=== PATIENT | male | born 1970 | race Caucasian/White ===

== ENCOUNTER 2017-04-17 20:38 | Emergency (ER) | payer MEDICAID, SELFPAY ==
[2017-04-17 20:39] VITALS: BP 144/72; PULSE 110; RESP 24; TEMP 36.9; O2SAT 93; BMI 33.0
--- NOTE | 2017-04-17 21:32 | EKG12_ITS ---
Test Reason : SOB Blood Pressure : / mmHG Vent. Rate : 084 BPM Atrial Rate : 084 BPM P-R Int : 130 ms QRS Dur : 094 ms QT Int : 344 ms P-R-T Axes : 059 040 037 degrees QTc Int : 406 ms Normal sinus rhythm Normal ECG Confirmed by ZEINA PAK, BOO ([id number]), fashion editor SHARI CARRANZA ([id number] on 04/20/2017 10:40:06 AM Referred By: KB Confirmed By:BOO PASTRANA MD
--- NOTE | 2017-04-17 21:32 | RAD_ITS ---
STUDY: X-RAY CHEST REASON FOR EXAM: Male, 46 years old. Cough TECHNIQUE: Frontal and lateral views of the chest COMPARISON: None. FINDINGS: There is patchy airspace opacity in the right lower lobe which is likely infectious in etiology. The lungs are otherwise clear. There are no pleural effusions. There is no pneumothorax. The heart is normal in size. The visualized osseous structures are within normal limits. RAD/Chest PA and Lateral IMPRESSION: Patchy airspace opacity in the right lower lobe which is likely infectious in etiology. Electronically Signed: Santino Rhodes, at 23:33 EST Tel , Service support ,
--- NOTE | 2017-04-17 21:35 | ED.RN ---
NO OLD EKG'S IN MUSE
--- NOTE | 2017-04-17 21:37 | ED.DCSUM_ITS ---
- ER Visit Summary Date of Service: 04/17/17 Chief Complaint: Shortness of breath History of Present Illness: The patient is a 46 M who denies medical history other than narcolepsy and presents with shortness of breath for 1 week. Patient states he is gradually felt more short of breath, especially if he is laying flat or has his legs up. He has associated cough, tickle in his throat, and congestion. He denies chest pain, fever, myalgias, or other symptoms. Denies any history of COPD or heart disease. Patient does use tobacco. He takes no medications. Physical Examination: Vital signs: afebrile, hemodynamically stable, no hypoxia on room air General: well nourished, well developed, in no distress Skin: warm, dry, no rash, no pallor HEENT: normocephalic and atraumatic; PERRL, EOMI, moist mucous membranes Cardiovascular: Tachycardic rate rate and regular rhythm without murmurs, no peripheral edema, 2+ pulses all distal extremities Respiratory: No increased work of breathing, lungs show diffuse wheezing and rhonchi Abdominal: Abdomen is soft, nontender with normoactive bowel sounds, no guarding or rebound, no masses MSK: Moves all extremities, no deformities, normal strength Neuro: Awake and alert, oriented ?4. No facial droop, sensation and motor function intact and symmetric Test Results: Abnormal Lab Results 04/17/17 04/17/17 21:45 21:45 WBC 7.3 RBC 4.90 Hgb 16.0 Hct 45.4 MCV 92.7 MCH 32.7 H MCHC 35.2 RDW 12.7 RDW Differential 42.5 Plt Count 235 MPV 10.2 Immature Gran % (Auto) 0.300 Neut % (Auto) 54.8 Lymph % (Auto) 27.9 [place] % (Auto) 12.1 H Eos % (Auto) 4.1 Baso % (Auto) 0.8 Absolute Neuts (auto) 4.0 Absolute Lymphs (auto) 2.02 Total Counted Not Reportable Sodium 142 Potassium 3.9 Chloride 105 Carbon Dioxide 29.0 Anion Gap 8 BUN 14 Creatinine 0.95 Estim Creat Clear Calc 98.19 Est GFR (MDRD) Af Amer 109 Est GFR (MDRD) Non-Af 90 BUN/Creatinine Ratio 14.8 Glucose 110 Calcium 8.6 Troponin I < 0.02 Emergency Department Course and Treatment: Patient was given DuoNeb and albuterol treatments for his diffuse wheezing. He has no known history of reactive airway disease. He is a smoker however and does not currently see a doctor. EKG showed a sinus rhythm without ischemia or ectopy. Patient had no leukocytosis. No electrolyte derangements. Troponin negative. Chest x-ray was concerning for a right lower lobe infiltrate. On reexamination after the breathing treatments, patient had resolution of the wheezing and mild rhonchi in the lower lobes. Because of the diagnosis of pneumonia, he was started on azithromycin. He remained hemodynamically stable and remained in the mid to high 90s on room air. Patient was given a prescription for albuterol due to the diffuse wheezing and possible undiagnosed reactive airway disease. Patient also placed on a prednisone burst for RAD. Patient was given follow-up with a primary care physician to establish care. He is to return if he has any worsening of his condition. Patient discharged home. Treatment Plan: [] Disposition: [] Impression: Community-acquired pneumonia, reactive airway disease This note was generated with [employer] dictation software. It may contain incorrect words, spelling, and punctuation that were not noted in review of the chart prior to signing ED Disposition - Plan for ED Patient: Disposition: Home or Assisted Living Chief Complaint: Shortness of Breath Instructions: ED Pneumonia Adult Prescriptions: Albuterol Inhaler [Ventolin Hfa] 2 - 4 puff INHALATION Q4H PRN PRN #1 inhaler PRN Reason: Wheezing Azithromycin [Zithromax] 250 mg PO DAILY #4 tab Prednisone 60 mg PO DAILY 4 Days #12 tab Referrals: Johana Adhikari MD [STAFF PHYSICIAN] - 3-5 Days if not improving Care Physician,No Primary [Primary Care Provider] - Additional Instructions: You have pneumonia. You were given breathing treatments, the first dose of antibiotic azithromycin, and prednisone in the ER. Please use the albuterol inhaler as needed for wheezing. Please take the antibiotic prescription for the next 4 days starting on Wednesday. These follow-up with the doctor on this paperwork to establish primary care and also for repeat evaluation if you are not having improvement in 3 days. If you have any worsening of your condition or any new concerning symptoms, please come back to the emergency department for another evaluation.
[2017-04-17] MEDS: Ipratropium/Albuterol Sulfate 3 ML AMPUL.NEB INHALATION (21:50)
[2017-04-17 21:51] VITALS: BP 145/70; PULSE 75; RESP 14; O2SAT 96
[2017-04-17] MEDS: Albuterol 2.5 MG/3 ML VIAL.NEB. INHALATION ×3 (21:51→21:57)
[2017-04-17 21:52] VITALS: PULSE 107; RESP 17
[2017-04-17 22:04] LABS: Absolute Lymphocyte Count 2.02 X10^3/ul (0.83-4.51); Basophil# 0.06 X10^3/uL; Basophil% 0.8 % (0-1); Eosinophils% 4.1 % (0-5); Hematocrit 45.4 % (40-54); Lymphocyte # 2.02 X10^3/ul (4.0); Lymphocyte % 27.9 % (19-41); Mean Corp Hgb Conc 35.2 g/gl (32-36); Mean Corpuscular Hgb 32.7 pg (27.0-32.0); Mean Corpuscular Volume 92.7 fL (80-94); Mean Platelet Vol. 10.2 fl (6.2-12.0); Monocyte# 0.88 X10^3/uL; Monocyte% 12.1 % (0-10); Neutrophil # 3.97 X10^3/uL (2.7-7.7); Neutrophil % 54.8 % (47-70); POSITIVE COUNT NO; POSITIVE DIFFERENTIAL NO; POSITIVE MORPHOLOGY NO; Platelet Count 235 K/mm3 (150-450); RBC Distribution Width CV 12.7 % (11.6-14.6); RBC Distribution Width SD 42.5 fl (35.1-43.9); White Blood Count 7.3 K/mm3 (4.4-11.0)
[2017-04-17 22:11] LABS: Anion Gap 8 (5-15); BUN 14 mg/dL (7-18); BUN/Creat Ratio 14.8 RATIO (10-20); Calcium,Total 8.6 mg/dL (8.5-10.1); Chloride 105 mmol/L (98-107); Creatinine, Serum 0.95 mg/dL (0.70-1.30); EST Glomerular Filtration Rate 90 mL/min (>60); Est Glom Filt Rate - Afr Amer 109 mL/min (>60); Estimated Creatinine Clearance 98.19 ml/min; Glucose 110 mg/dL (70-110); Potassium 3.9 mmol/L (3.5-5.1); Sodium Level 142 mmol/L (136-145)
[2017-04-17 23:25] VITALS: BP 122/78; PULSE 111; RESP 14; O2SAT 94
--- NOTE | 2017-04-18 | ED.DEP ---
ED Disposition - Plan for ED Patient: Disposition: Home or Assisted Living Chief Complaint: Shortness of Breath Instructions: ED Pneumonia Adult Prescriptions: Albuterol Inhaler [Ventolin Hfa] 2 - 4 puff INHALATION Q4H PRN PRN #1 inhaler PRN Reason: Wheezing Azithromycin [Zithromax] 250 mg PO DAILY #4 tab Prednisone 60 mg PO DAILY 4 Days #12 tab Referrals: Care Physician,No Primary [Primary Care Provider] - Johana Adhikari MD [STAFF PHYSICIAN] - 3-5 Days if not improving Additional Instructions: You have pneumonia. You were given breathing treatments, the first dose of antibiotic azithromycin, and prednisone in the ER. Please use the albuterol inhaler as needed for wheezing. Please take the antibiotic prescription for the next 4 days starting on Wednesday. These follow-up with the doctor on this paperwork to establish primary care and also for repeat evaluation if you are not having improvement in 3 days. If you have any worsening of your condition or any new concerning symptoms, please come back to the emergency department for another evaluation.
[2017-04-18] MEDS: Azithromycin 250 MG Tablet 500 MG PO (00:22)
[2017-04-18 00:23] VITALS: BP 122/70; PULSE 105; RESP 14; O2SAT 95
== END 2017-04-18 00:23 | disposition home or self-care (01) ==
PROVIDERS: Emergency Provider Emergency Medicine
DX: J18.9 Pneumonia, unspecified organism (principal); J45.909 Unspecified asthma, uncomplicated; G47.419 Narcolepsy without cataplexy; Z72.0 Tobacco use
CPT/HCPCS: 71046; 80048; 84484; 85025; 93005; 94640; 99285; A4216

== ENCOUNTER → 2017-11-17 10:46 | Outpatient (CLI) | payer MEDICAID, SELFPAY | PROVIDERS: Visit Provider Chiropractor | DX: S33.5XXA Sprain of ligaments of lumbar spine, initial encounter (principal) | CPT/HCPCS: 72110 ==

== ENCOUNTER 2018-07-04 07:24 | Emergency (ER) | payer MEDICAID, SELFPAY ==
[2018-07-04 07:24] VITALS: BP 130/79; PULSE 118; RESP 20; TEMP 37.1; O2SAT 96; BMI 33.0
--- NOTE | 2018-07-04 07:41 | ED.DCSUM_ITS ---
- ER Visit Summary Date of Service: 07/04/18 Chief Complaint: Vomiting History of Present Illness: The patient is a 47 M who arrives via EMS for vomiting. Patient states that started around 0200 hours. He also notes some diarrhea. He denies any recent antibiotics, bad food exposure, travel. He denies any fevers. He notes a crampy abdominal pain with vomiting. Despite calling an ambulance for vomiting he is asking for something to drink. Physical Examination: Afebrile 130/79 heart rate of 118 respirations are 20 pulse ox 96% on room air Gen: Well-nourished well-developed Head: Normocephalic atraumatic Eyes: Perrl EOMI ENT: TMs clear no rhinorrhea moist mucous membranes Neck: Supple no lymphadenopathy no JVD nontender CVS: Regular rate rhythm no murmurs normal S1-S2 Respiratory: No distress clear to auscultation bilaterally chest nontender Abdomen: Soft nontender nondistended normal bowel sounds no masses Back: Nontender Extremity: Nontender no edema Skin: Normal color no rash Neuro: alert orientated ?3 CN II-XII intact normal strength sensation reflexes gait cerebellar Psych: Normal affect normal mood Emergency Department Course and Treatment: IV was established the patient received IV fluids and Zofran. On repeat examination he is sleeping. He is tolerating p.o. He will be discharged home with Zofran. Imodium as needed. Impression: 1. Gastroenteritis This note was generated with [employer] dictation software. It may contain incorrect words, spelling, and punctuation that were not noted in review of the chart prior to signing ED Disposition - Plan for ED Patient: Disposition: Home or Assisted Living Instructions: ED Gastroenteritis Viral Prescriptions: Ondansetron [Zofran Odt] 4 mg PO Q6H PRN PRN #14 tab PRN Reason: Nausea Referrals: Valentín Rodriguez III, MD [STAFF PHYSICIAN] - 3-5 Days if not improving Additional Instructions: Imodium as needed for diarrhea
[2018-07-04] MEDS: 0.9% Normal Saline 1,000 ML 1000 ML IV (07:44)
[2018-07-04] MEDS: Ondansetron 4 MG/2 ML Vial IV (07:44)
[2018-07-04 08:52] VITALS: BP 134/72; PULSE 87; RESP 18; O2SAT 99
== END 2018-07-04 08:56 | disposition home or self-care (01) ==
LOC: ED 08:42
PROVIDERS: Emergency Provider Emergency Medicine
DX: K52.9 Noninfective gastroenteritis and colitis, unspecified (principal); Z87.891 Personal history of nicotine dependence
CPT/HCPCS: 96361; 96374; 99285; J7030; J2405

== ENCOUNTER 2018-07-26 13:13 | Emergency (ER) | payer MEDICAID, SELFPAY ==
[2018-07-26 13:14] VITALS: BP 144/67; PULSE 87; RESP 15; TEMP 36.9; O2SAT 97; BMI 33.0
--- NOTE | 2018-07-26 13:33 | ED.DCSUM_ITS ---
History of Present Illness Chief Complaint: Lower Extremity Injury Detail of Chief Complaint: Left knee pain Informant: Patient Onset: Yesterday Context: Sudden Onset Timing: Continuous Quality: Pain Location: Superior portion of the left patella Current Severity: Mild Maximum Severity: Moderate Worsened by: Walking and palpation Relieved by: Nothing Associated Symptoms: Leg gave out with severe pain . Narrative: Patient is a 47-year-old male with history of gout who presents with left knee pain that occurred while walking down steps. He states he developed severe pain that he localizes to the superior portion of the left patella. He denies falling or direct trauma. He denies paresthesia, anesthesia motor weakness. He is on no anticoagulant. He has no doctor. He is homeless. Prior similar symptoms: No Recent Illness/Hospitalization: No - Past Medical History (1) History of gout Status: Acute Past Medical History - Allergies and Home Meds Allergies/Adverse Reactions: Allergies No Known Allergies Allergy (Verified 07/26/18 13:17) Primary Care Physician: Care Physician,No Primary [Primary Care Provider] - Surgical History: noncontributory Lives: Alone Smoking Status: Former smoker Drugs: None Review of Systems General: Denies: Chills, Fever, Malaise, Subjective, Sweats, Weight loss Musculoskeletal: Reports: Extremity Pain. Denies: Myalgias, Arthralgias, Neck pain, Back pain, Swelling Skin: Denies: Rash, Abscess, Abrasions, Wounds Neurological: Denies: Weakness, Parasthesia, Numbness Hematologic: Denies: Easy bruising, Easy bleeding Physical Exam Vital Signs/Narrative: Vital Signs Temp Pulse Resp BP Pulse Ox 07/26/18 13:14 98.4 F 87 15 144/67 H 97 Inital Vital Signs reviewed: Yes General: Well nourished, Well developed, Obese, Unkempt, No Acute Distress Head: Normocephalic, Atraumatic Eyes: Perrl, EOMI. Negative for: Pale conjunctiva, Scleral icterus ENT: Moist mucous membranes, No rhinorrhea Neck: Supple, Nontender, No lymphadenopathy, No JVD Cardiovascular: Regular rate, Regular rhythm Respiratory: No distress Extremities: No edema, Tenderness - Tenderness over insertion site of the quadricep tendon. Patient is able to extend 180 degrees and flex to 90 degrees. Flexion causes him discomfort. The patella is not ballotable. There is no effusion. There is no laxity with varus or valgus stress testing. Jennifer's test is negative. Modified Jn's test is negative. There is no joint line tenderness. DP and PT pulse are palpable. Skin: Normal color, No rash, No Trauma. Negative for: Cyanosis, Jaundice Neurological: Alert, Oriented x3, Cranial nerves II-XII grossly intact, Normal Strength, Normal Sensation, Normal DTR, - - Slight limp with walking Psychological: Normal affect, Normal Mood Diagnostic/Tx/Re-eval - Medical Decision Making With no history of trauma and tenderness the insertion sites of the quadricep tendon will treat for tendinitis. There is no contraindication to nonst eroidals. Since there is no history of trauma and there is no tenderness over the patella, joint line radiologic images were not obtained ED Disposition - Plan for ED Patient: Disposition: Home or Assisted Living Diagnosis: Tendinitis of left quadriceps tendon Instructions: Common Kneecap (Patella) Problems Prescriptions: Naproxen [Naprosyn] 500 mg PO BID #14 tab Referrals: Care Physician,No Primary [Primary Care Provider] - Claribel Larios [NON-STAFF] -
[2018-07-26] MEDS: Naproxen 250 MG Tablet 500 MG PO (13:40)
[2018-07-26 13:54] VITALS: BP 105/55; PULSE 70; RESP 17
== END 2018-07-26 13:55 | disposition home or self-care (01) ==
LOC: ED 13:46
PROVIDERS: Emergency Provider Emergency Medicine
DX: M76.892 Other specified enthesopathies of left lower limb, excluding foot (principal); M10.9 Gout, unspecified; E66.9 Obesity, unspecified; Z59.0 Homelessness; Z87.891 Personal history of nicotine dependence
CPT/HCPCS: 99283

== ENCOUNTER 2018-09-28 10:13 | Emergency (ER) | payer MEDICAID, SELFPAY ==
[2018-09-28 10:14] VITALS: BP 121/76; PULSE 94; RESP 17; TEMP 36.8; O2SAT 97; BMI 34.7
--- NOTE | 2018-09-28 10:20 | EKG12_ITS ---
Test Reason : CP Blood Pressure : / mmHG Vent. Rate : 093 BPM Atrial Rate : 093 BPM P-R Int : 132 ms QRS Dur : 094 ms QT Int : 348 ms P-R-T Axes : 062 034 034 degrees QTc Int : 432 ms Normal sinus rhythm Normal ECG Confirmed by MARYJO PAK, ELTON ([id number]), pictures editor BONNIE NG ([id number]) on 09/30/2018 12:32:19 PM Referred By: LANDY Confirmed By:GEORGETTE SIBLEY MD
--- NOTE | 2018-09-28 10:21 | ED.VIS.GEN ---
History of Present Illness Chief Complaint: Chest Pain Detail of Chief Complaint: Right sided Informant: Patient Onset: Today Context: Sudden Onset Timing: Continuous Quality: Initially sharp transient and dull continuous Location: Right pectoral region Current Severity: Moderate Maximum Severity: Moderate Worsened by: Breathing Relieved by: Nothing Associated Symptoms: No associated symptoms Narrative: Patient is a middle-age male who has not seen a doctor in some time and on no medication who presents with right-sided chest pain. He states the pain started approximately 0600 was short in duration and sharp followed by dull pain which has been constant. There is no radiation of discomfort. There is no associated nausea, vomiting, diaphoresis or dyspnea. He denies food intolerance to greasy or fried foods. He denies history of PE or DVT. He denies leg pain, swelling discoloration. He denies hematemesis, melena hematochezia. He denies prior episode. He is a smoker. Prior similar symptoms: No Recent Illness/Hospitalization: No - Past Medical History (1) No significant past medical history Status: Acute Past Medical History - Allergies and Home Meds Allergies/Adverse Reactions: Allergies No Known Allergies Allergy (Verified 09/28/18 10:21) Primary Care Physician: Care Physician,No Primary [Primary Care Provider] - Prior records reviewed: Yes Surgical History: noncontributory Lives: Alone Smoking Status: Current every day smoker Drugs: None Review of Systems General: Denies: Chills, Fever, Malaise, Sweats Eyes: Denies: Visual changes - bilaterally, Diplopia ENT: Denies: Rhinorrhea, Sore throat Cardiovascular: Reports: Chest pain Respiratory: Reports: - - Pleuritic chest pain. Denies: Dyspnea, Cough, Sputum, Dyspnea on exertion, Orthopnea, Paroxysmal nocturnal dyspnea, - Gastrointestinal: Denies: Abdominal pain, Nausea, Vomiting, Diarrhea, Melena, Hematochezia Genitourinary: Denies: Dysuria, Hematuria, Frequency Musculoskeletal: Denies: Back pain, Extremity Pain Skin: Denies: Rash, Abscess, Abrasions, Wounds Neurological: Denies: Headache, Weakness, Numbness Hematologic: Denies: Easy bruising, Easy bleeding Allergy: Denies: Uticaria, Swelling of the mouth, Swelling of the tongue Physical Exam Vital Signs/Narrative: Vital Signs Temp Pulse Resp BP Pulse Ox 09/28/18 10:14 98.2 F 94 17 121/76 H 97 Inital Vital Signs reviewed: Yes General: Well nourished, Well developed, No Acute Distress Head: Normocephalic, Atraumatic Eyes: Perrl, EOMI. Negative for: Pale conjunctiva, Scleral icterus ENT: Moist mucous membranes, No rhinorrhea, TM's clear Neck: Supple, Nontender, No lymphadenopathy, No JVD Cardiovascular: Regular rate, Regular rhythm, No murmurs Respiratory: No distress, CTA bilaterally, Chest nontender Abdomen: Soft, Nontender, Nondistended, Normal bowel sounds Back: Nontender, Normal Inspection Extremities: Nontender, No edema Skin: Normal color, No rash Neurological: Alert, Oriented x3, Cranial nerves II-XII grossly intact, Normal Strength, Normal Sensation, Normal Gait Psychological: Normal affect, Normal Mood Diagnostic/Tx/Re-eval Impressions Chest X-Ray 09/28/18 10:35 IMPRESSION: Normal x-ray examination of the chest. Electronically Signed: Boy Latoya, at 10:51 EDT , Service support , 09/28/18 10:35 Chest PA and Lateral [RAD] Stat Laboratory Results 09/28/18 09/28/18 09/28/18 10:25 10:25 10:25 WBC 7.8 RBC 5.32 Hgb 17.5 H Hct 49.6 MCV 93.2 MCH 32.9 H MCHC 35.3 RDW 13.6 RDW Differential 45.8 H Plt Count 243 MPV 10.1 Immature Gran % (Auto) 0.300 Neut % (Auto) 60.1 Lymph % (Auto) 25.7 [place] % (Auto) 10.1 H Eos % (Auto) 3.2 Baso % (Auto) 0.6 Absolute Neuts (auto) 4.7 Absolute Lymphs (auto) 1.99 Total Counted Not Reportable D-Dimer Quant (PE/DVT) 0.28 Sodium 140 Potassium 4.0 Chloride 106 Carbon Dioxide 30.0 Anion Gap 4 L BUN 10 Creatinine 0.86 Estim Creat Clear Calc 107.28 Est GFR (MDRD) Af Amer 122 Est GFR (MDRD) Non-Af 101 BUN/Creatinine Ratio 11.7 Glucose 104 Calcium 8.6 Troponin I < 0.015 - Rhythm Strip Rhythm Strip: Sinus Rhythm Rate: 92 - EKG Initial EKG Interpretation: Sinus Rhythm - Ventricular rate is 93. NV interval is 132 ms. QRS durations 94 ms. QT duration is 348 ms. [place] is normal. The EKG is normal. - Medical Decision Making Presents with right-sided chest pain with pleuritic component. Since he is not PERC negative will obtain d-dimer. Chest x-rays obtained to determine if there is an explanation for his pain. EKG was obtained to assess for acute ischemia and right heart strain. BMP was obtained to assess renal function prior to CTA. Since work-up is negative and heart score is 1. EKG is normal troponin is normal with hours of pain will discharge to home follow-up at the [facility] since he does not have a doctor. ED Disposition - Plan for ED Patient: Disposition: Home or Assisted Living Diagnosis: Right-sided chest pain, Pleurisy, Tobacco use Instructions: Pleurisy Prescriptions: Naproxen [Naprosyn] 500 mg PO BID #14 tab Transmission Status: Pending to [id number] Referrals: Care Physician,No Primary [Primary Care Provider] - Claribel Larios [NON-STAFF] - Additional Instructions: Your prescription was electronically transmitted to [facility].
--- NOTE | 2018-09-28 10:35 | RAD_ITS ---
STUDY: X-RAY CHEST REASON FOR EXAM: Male, 47 years old. Pleuritic right-sided chest pain. TECHNIQUE: PA and lateral views of the chest. COMPARISON: Comparison is made with prior study dated April 17, 2017. FINDINGS: EKG electrodes are seen. The lungs are clear and expanded. There is no demonstrated pleural abnormality. Normal size heart. Normal mediastinum and yasmine. Normal visualized pulmonary arteries. Normal visualized aortic arch and descending thoracic aorta. Normal visualized thoracic spine. Normal visualized ribs, clavicles, and shoulders. There is no demonstrated abnormality of the visualized soft tissue structures of the upper abdomen. RAD/Chest PA and Lateral IMPRESSION: Normal x-ray examination of the chest. Electronically Signed: Boy Klein, at 10:51 EDT , Service support ,
[2018-09-28 10:45] LABS: Absolute Lymphocyte Count 1.99 X10^3/ul (0.83-4.51); Absolute Neutrophil Count 4.7 X10^3/uL (2.0-7.7); Basophil# 0.05 X10^3/uL; Basophil% 0.6 % (0-1); Eosinophil# 0.25 X10^3/uL; Eosinophils% 3.2 % (0-5); Hematocrit 49.6 % (40-54); Hemoglobin 17.5 g/dl (13.0-16.5); Lymphocyte # 1.99 X10^3/ul (4.0); Lymphocyte % 25.7 % (19-41); Mean Corp Hgb Conc 35.3 g/gl (32-36); Mean Corpuscular Hgb 32.9 pg (27.0-32.0); Mean Corpuscular Volume 93.2 fL (80-94); Mean Platelet Vol. 10.1 fl (6.2-12.0); Monocyte# 0.78 X10^3/uL; Monocyte% 10.1 % (0-10); Neutrophil # 4.66 X10^3/uL (2.7-7.7); Neutrophil % 60.1 % (47-70); Platelet Count 243 K/mm3 (150-450); RBC Distribution Width CV 13.6 % (11.6-14.6); RBC Distribution Width SD 45.8 fl (35.1-43.9); Red Blood Count 5.32 M/mm3 (4.6-6.2); White Blood Count 7.8 K/mm3 (4.4-11.0)
[2018-09-28 10:46] LABS: POSITIVE COUNT NO; POSITIVE DIFFERENTIAL NO; POSITIVE MORPHOLOGY NO
[2018-09-28 10:55] LABS: Anion Gap 4 (5-15); BUN 10 mg/dL (7-18); BUN/Creat Ratio 11.7 RATIO (10-20); Calcium,Total 8.6 mg/dL (8.5-10.1); Chloride 106 mmol/L (98-107); Creatinine, Serum 0.86 mg/dL (0.70-1.30); EST Glomerular Filtration Rate 101 mL/min (>60); Est Glom Filt Rate - Afr Amer 122 mL/min (>60); Estimated Creatinine Clearance 107.28 ml/min; Glucose 104 mg/dL (74-106); Sodium Level 140 mmol/L (136-145)
[2018-09-28 11:02] LABS: D-Dimer Quantitative (DVT/PE) 0.28 FEU/ug/m (0.27-0.49)
--- NOTE | 2018-09-28 11:38 | CASEMGMT ---
Case Management Progress Note: This story writer met with patient at bedside, confirmed does not have a PCP. States plans on going on the 12th to establish one. PCP list Provided to patient to establish if plans on the don't work out. Denies questions/concerns. Ammy Barahona RNCM
[2018-09-28 12:12] VITALS: BP 116/88; PULSE 72; RESP 18; O2SAT 98
== END 2018-09-28 12:17 | disposition home or self-care (01) ==
PROVIDERS: Emergency Provider Emergency Medicine
DX: R07.89 Other chest pain (principal); R09.1 Pleurisy; F17.200 Nicotine dependence, unspecified, uncomplicated
CPT/HCPCS: 71046; 80048; 84484; 85025; 85379; 93005; 99284; A4216

== ENCOUNTER 2018-10-21 01:06 | Emergency (ER) | payer MEDICAID, SELFPAY ==
[2018-10-21 01:06] VITALS: BP 138/94; PULSE 97; RESP 16; TEMP 36.7; O2SAT 97; BMI 33.7
--- NOTE | 2018-10-21 01:15 | RAD_ITS ---
HISTORY: FELL OUT OF THE TOP BUNK C/O LBP WITH PAIN RADIATING INTO LT LEG TECHNIQUE: Lumbar spine 5 views Number of images including paperwork: 5 COMPARISON: None FINDINGS: VERTEBRAE: No acute fracture. VERTEBRAL ALIGNMENT: No traumatic subluxation. DISKS AND JOINTS: Mild disc space narrowing and tiny osteophytes at L3-4. SOFT TISSUES: Unremarkable paraspinous soft tissues. RAD/L/S Spine Min 4 Views IMPRESSION: No acute osseous abnormality. at 0222 Reported and signed by: Valentina Jimenez MD Electronically Signed: Valentina Jimenez MD at 2:22 EDT Tel , Service support ,
--- NOTE | 2018-10-21 01:15 | ED.VIS.GEN ---
History of Present Illness Chief Complaint: Fall Informant: Patient Narrative: Stated he rolled out of the top bunk bed just prior to arrival. He stated he thinks he was 8 feet. He is having some pain in his low back. He has had low back pain in the past. It is an aching sharp pain in across his low back. Worse with movement. Relieved with rest. No home treatment. Denies any head or neck injury or other symptoms. He is not intoxicated. Current severity is moderate radicular symptoms. No loss of bowel or bladder function. - Past Medical History (1) History of gout Status: Acute (2) No significant past medical history Status: Acute Past Medical History - Allergies and Home Meds Allergies/Adverse Reactions: Allergies No Known Allergies Allergy (Verified 10/21/18 01:10) Primary Care Physician: Care Physician,No Primary [Primary Care Provider] - Prior records reviewed: Yes Past Medical History: - - Reviewed Surgical History: noncontributory Smoking Status: Current every day smoker Alcohol: None Drugs: None Review of Systems General: Denies: Chills, Fever, Sweats Eyes: Denies: Visual changes - bilaterally, Diplopia ENT: Denies: Rhinorrhea, Sore throat Cardiovascular: Denies: Chest pain, Palpitations Respiratory: Denies: Dyspnea, Cough, Dyspnea on exertion Gastrointestinal: Denies: Abdominal pain, Nausea, Vomiting, Diarrhea, Melena, Hematochezia Genitourinary: Denies: Dysuria, Hematuria, Frequency Musculoskeletal: Reports: Back pain. Denies: Extremity Pain Skin: Denies: Rash, Wounds Neurological: Denies: Headache, Weakness, Numbness Physical Exam Vital Signs/Narrative: Vital Signs Temp Pulse Resp BP Pulse Ox 10/21/18 01:06 98.0 F 97 16 138/94 H 97 General: Well nourished, Well developed, No Acute Distress Head: Normocephalic, Atraumatic Eyes: Perrl, EOMI ENT: Moist mucous membranes, No rhinorrhea Neck: Supple, Nontender Cardiovascular: Regular rate, Regular rhythm, No murmurs Respiratory: No distress, CTA bilaterally, Chest nontender Abdomen: Soft, Nontender, Nondistended, Normal bowel sounds Back: Normal Inspection, - - Diffuse lower lumbar tenderness across the low back without swelling or deformity. Decreased range of motion secondary to pain. Negative straight leg raise.. Negative for: Nontender Extremities: Nontender, No edema Skin: Normal color, No rash Neurological: Alert, Oriented x3, Cranial nerves II-XII grossly intact, Normal Strength, Normal Sensation Psychological: Normal affect, Normal Mood Diagnostic/Tx/Re-eval - Medical Decision Making Patient denies any pain medicine. Lumbar x-ray series obtained. It is negative for fracture. Patient later requested ibuprofen and given this. Will be given meloxicam for home. At this time I think he just bruits his back. I do not feel he needs a CAT scan. He will follow-up as an outpatient return if he worsens ED Disposition - Plan for ED Patient: Disposition: [facility] Unit Diagnosis: Lower back injury Instructions: Relieving Back Pain Prescriptions: Meloxicam 15 mg PO DAILY #14 tab Prescription Printed Referrals: Ronny Soto MD [STAFF PHYSICIAN] -
[2018-10-21] MEDS: Ibuprofen 600 MG Tablet PO (02:39)
[2018-10-21 02:42] VITALS: BP 132/60; PULSE 87; RESP 16; O2SAT 98
== END 2018-10-21 02:43 | disposition home or self-care (01) ==
PROVIDERS: Emergency Provider Emergency Medicine
DX: S39.92XA Unspecified injury of lower back, initial encounter (principal); W06.XXXA Fall from bed, initial encounter; Y93.9 Activity, unspecified; Y92.9 Unspecified place or not applicable; M10.9 Gout, unspecified; F17.200 Nicotine dependence, unspecified, uncomplicated
CPT/HCPCS: 72110; 99284

== ENCOUNTER 2018-10-26 13:22 | Emergency (ER) | payer MEDICAID, SELFPAY ==
[2018-10-26 13:24] VITALS: BP 130/71; PULSE 93; RESP 16; TEMP 36.3; O2SAT 94; BMI 33.0
--- NOTE | 2018-10-26 13:26 | RAD_ITS ---
STUDY: X-RAY - RIGHT ANKLE REASON FOR EXAM: Male, 47 years old. Lateral ankle pain following a fall. TECHNIQUE: 3 view(s) of the ankle. COMPARISON: Comparison is made with prior study dated October 01, 2012. FINDINGS: Normal visualized distal tibia and fibula. Normal medial and lateral malleoli. Normal tibiotalar articulation and ankle mortise. Normal visualized talus and calcaneus. The visualized subtalar, talonavicular, calcaneocuboid and tarsal articulations are normal. Lateral soft tissue swelling. RAD/Ankle min 3 Views IMPRESSION: Lateral soft tissue swelling. Electronically Signed: Boy Klein, at 13:44 EDT , Service support ,
--- NOTE | 2018-10-26 15:00 | ED.VISSUMM ---
- ER Visit Summary Date of Service: 10/26/18 Chief Complaint: Ankle pain History of Present Illness: The patient is a 47 M with right ankle pain for 6 days. The patient fell out of the bed. He was evaluated for back pain, but then the next day his ankle started to hurt. Pain is on the lateral aspect. No other new injuries or complaints. No associated symptoms. Physical Examination: Mild swelling and tenderness to his lateral right ankle. Otherwise exam unremarkable. Test Results: X-rays negative for any fracture. He has soft tissue swelling laterally. Emergency Department Course and Treatment: Patient treated with naproxen. Rest, ice, elevate. Crutches and Aircast. Follow-up as an outpatient. Treatment Plan: As above Disposition: Discharge Impression: 1. Right ankle pain This note was generated with [employer] dictation software. It may contain incorrect words, spelling, and punctuation that were not noted in review of the chart prior to signing ED Disposition - Plan for ED Patient: Referrals: Destiney Gilmore MD [Primary Care Provider] -
--- NOTE | 2018-10-26 15:01 | ED.DEP ---
ED Disposition - Plan for ED Patient: Instructions: Sprain, Ankle, with X-Ray Prescriptions: Naproxen [Naprosyn] 500 mg PO BID #14 tab Prescription Printed Referrals: Destiney Gilmore MD [Primary Care Provider] -
[2018-10-26 15:29] VITALS: BP 111/72; PULSE 92; RESP 18; O2SAT 98
[2018-10-26] MEDS: Naproxen 500 MG Tablet PO (15:31)
--- NOTE | 2018-10-26 15:32 | ED.RN ---
THIS RN CALLED [facility] TO OBTAIN CORRECT SIZE AIR CAST.
== END 2018-10-26 15:44 | disposition home or self-care (01) ==
LOC: ED 15:05
PROVIDERS: Emergency Provider Emergency Medicine; Family Provider Family Medicine; PCP Family Medicine
DX: M25.571 Pain in right ankle and joints of right foot (principal); W06.XXXA Fall from bed, initial encounter; Y93.9 Activity, unspecified; Y92.9 Unspecified place or not applicable; Z72.0 Tobacco use
CPT/HCPCS: 73610; 99284

== ENCOUNTER → 2018-11-03 | Outpatient (CLI) | payer MEDICAID, SELFPAY ==
[2018-11-03 13:51] VITALS: BMI 33.0
--- NOTE | 2018-11-03 13:58 | RAD_ITS ---
STUDY: X-RAY - LEFT SHOULDER REASON FOR EXAM: Male, 47 years old. Pain TECHNIQUE: 3 view(s) of the shoulder. COMPARISON: None. FINDINGS: There is no evidence of fracture or dislocation. There are no significant degenerative changes. There are no radiodense foreign bodies. RAD/Shoulder min 2 Views IMPRESSION: No fracture or dislocation. Electronically Signed: Donato Rodarte, at 16:53 EDT Tel , Service support ,
--- NOTE | 2018-11-03 13:58 | RAD_ITS ---
STUDY: X-RAY - RIGHT SHOULDER REASON FOR EXAM: Male, 47 years old. Pain TECHNIQUE: 3 view(s) of the shoulder. COMPARISON: None. FINDINGS: There is no evidence of fracture or dislocation. Mild hypertrophic changes are present at the acromioclavicular joint. There are no radiodense foreign bodies. RAD/Shoulder min 2 Views IMPRESSION: No fracture or dislocation. Mild hypertrophic changes at the acromioclavicular joint. Electronically Signed: Donato Rodarte, at 16:54 EDT Tel , Service support ,
== END | disposition home or self-care (01) ==
LOC: HPRAD 13:57
PROVIDERS: Family Provider Family Medicine; PCP Family Medicine; Referring Provider Physician Assistant; Visit Provider Physician Assistant
DX: M25.512 Pain in left shoulder (principal); M25.511 Pain in right shoulder
CPT/HCPCS: 73030

== ENCOUNTER 2018-11-11 12:36 | Outpatient (RCR) | payer MEDICAID, SELFPAY ==
[2018-11-03 13:51] VITALS: BMI 33.0
--- NOTE | 2018-11-11 13:26 | HP.PTEVAL_ITS ---
Patient's Visit Information ARTURO STEVENSON is a 47 year old M referred to Physical Therapy by DEE Ruiz with a diagnosis of BILATERAL ROTATOR CUFF IMPINGEMNET AND ACROMIOCLAVICULAR ARTHRITIS. Date of Evaluation: 11/11/18 Physical Therapist: Yoandy Robbins, PT, Cert MDT, OCS - Visit Plan Frequency: 2x /Week Duration: 4 Weeks Plan: PT INTERVETIONS WITH POSTURAL EX'S,RTC/SCPULAR STRENGTHENING,MODLATIES PRN - Subjective Findings: This 47 y/o male presents to physical therapy with shoulder pain. Patient has had shoulder pain about 1 year. Patient pain is global described ache occassioanlly sharp pain. Patient denies parathesia/tingling. Pateint pain affects ability to perform ADL's and activities above 90 degrees. Pateint pain affects sleeping on side . Patient c/o occassional parathesia/tingling. hands. Patient pain affects QOL and function with ADLS'.When patient seen Dr to x-rays showed OA. SOCIAL: single. VOCATION: unemployed - Pain Bilateral Shoulder Pain Intensity (Out of 10): 4 Pain Intensity Range: 10 - Objective POSTURE: mild foward posture,rounded shoulders head foward. NEURO: intact. PALAPTION: mild tender AC. AROM: shoulder flexion 150 degrees ,abduction 155 in scapular plane,ER 90 OP increase pain,IR L1. MMT: RTC 4/5 ,supraspinatous 4- /5,deltoid 4-/5 mild pain. - Special Tests R Shoulder External Rotation Lag Test - RC Tear: Negative R Shoulder Supine Impingement Test - RC Tear: Negative R Shoulder Drop Sign - IS Test: Negative R Shoulder Empty Can - SS: Positive R Shoulder Belly Press - SupScap: Negative R Shoulder Neer - Impingement: Positive R Shoulder Grant Arian - Impingement: Positive R Shoulder Speeds Test - Labrum/Biceps: Negative R Shoulder Shrug Sign - OA/Adhesive Capsulitis: Negative L Shoulder Lift Off Test - Subscapular Tear: Negative L Shoulder Drop Sign - IS Test: Negative L Shoulder Empty Can - SS: Positive L Shoulder Neer - Impingement: Positive L Shoulder Grant Airan - Impingement: Positive - Goals Goal 1:: Independant with HEP. Goal Time Frame: 4-6 Weeks Goal 2:: Patient to improve posture for ADL'S Goal Time Frame: 4-6 Weeks Goal 3:: Patient increase strength of RTC/deltoid to 4+/5 to improve function Goal Time Frame: 4-6 Weeks Goal 4:: Patient to decrease shoulder pain by 50% or > to improve function. Goal Time Frame: 4-6 Weeks Goal 5:: Patient to improve quick dash disablity score by 5 ponts to improve QOL. Goal Time Frame: 4-6 Weeks - Rehabilitation Potential Physical Therapy Diagnosis: This patient has bilateral shoulder pain associated with impingement with pain OH and weakness. Rehabilitation Potential: Good - Anticipated Interventions Patient/Client Instruction: Educate patient on: Condition, Plan of Care For the Purpose of:: To decrease pain, To increase ROM, To improve muscle performance and motor function, To improve ability to perform ADL's, To increase tolerance to activity/condition/position, To improve ability of physical actions for home/community/work/leisure, To improve health of tissue, To decrease soft tissue restriction Therapeutic Exercise to Include: Strength training, Postural training, Flexibil ty training, Scapular Strength/Stabilization Comment: RTC For the Purpose of:: To decrease pain, To improve muscle performance and motor function, To increase tolerance to activity/condition/position, To improve ability of physical actions for home/community/work/leisure, To improve health of tissue, To decrease soft tissue restriction, To increase flexibility/ROM, To improve ability to perform tasks related to life management TENS: Yes IF ES: Yes Cryotherapy (ice pack, ice massage): Yes Thermo therapy (hot pack): Yes Ultrasound (thermal/non thermal): Yes For the Purpose of:: To decrease pain, To increase ROM, To improve health of tissue, To decrease soft tissue restriction Thank you for the opportunity to evaluate your patient. For Medicare and Medicare HMO plans, please review the plan of care and approve it. It will need to be FAXED BACK to us at [phone] for Medicare purposes. For Medicare only, by signing this I certify the plan of care. Please let me know if there are questions or concerns regarding this plan of care. Physician Signature: Date:
--- NOTE | 2019-01-10 10:26 | HP.PTDCNRP_ITS ---
HP - Discharge Summary (1) - Patient Information ARTURO STEVENSON was seen in my office for initial evaluation on 11/11/18. The following Plan of Care was established for this patient: Initial Frequency: 2x /Week Initial Duration: 4 Weeks - Anticipated Interventions Patient/Client Instruction: Educate patient on: Condition, Plan of Care For the Purpose of:: To decrease pain, To increase ROM, To improve muscle perf ormance and motor function, To improve ability to perform ADL's, To increase tolerance to activity/condition/position, To improve ability of physical actions for home/community/work/leisure, To improve health of tissue, To decrease soft tissue restriction Therapeutic Exercise to Include: Strength training, Postural training, Flexibilty training, Scapular Strength/Stabilization For the Purpose of:: To decrease pain, To improve muscle performance and motor function, To increase tolerance to activity/condition/position, To improve ability of physical actions for home/community/work/leisure, To improve health of tissue, To decrease soft tissue restriction, To increase flexibility/ROM, To improve ability to perform tasks related to life management TENS: Yes IF ES: Yes Cryotherapy (ice pack, ice massage): Yes Thermo therapy (hot pack): Yes Ultrasound (thermal/non thermal): Yes For the Purpose of:: To decrease pain, To increase ROM, To improve health of tissue, To decrease soft tissue restriction This patient was last seen in our office . Pertinent comments regarding their Physical therapy will appear below: Patient seen for PT for Intal EvaluatioN for bilateral shoulder tendonitis for HEP. At this point I will be discontinuing this patient from physical therapy. I would be happy to see this patient again in the future if found appropriate by the physician. Thank you! Yoandy Robbins, PT, Cert MDT, OCS
== END 2018-11-11 19:00 | disposition home or self-care (01) ==
LOC: PT 12:36
PROVIDERS: Family Provider Family Medicine; PCP Family Medicine; Referring Provider Physician Assistant; Visit Provider Physician Assistant
DX: M25.812 Other specified joint disorders, left shoulder (principal); M25.811 Other specified joint disorders, right shoulder; M19.012 Primary osteoarthritis, left shoulder; M19.011 Primary osteoarthritis, right shoulder
CPT/HCPCS: 97110; 97161

== ENCOUNTER → 2019-10-27 11:39 | Outpatient (CLI) | payer MEDICAID, SELFPAY ==
[2019-10-27 11:02] VITALS: BMI 33.0
[2019-10-27 11:55] LABS: Absolute Lymphocyte Count 2.15 X10^3/uL (0.83-4.51); Absolute Neutrophil Count 6.9 X10^3/uL (2.0-7.7); Eosinophil# 0.27 X10^3/uL; Eosinophils% 2.6 % (0-5); Hemoglobin 17.6 g/dL (13.0-16.5); Lymphocyte # 2.15 X10^3/ul (4.0); Lymphocyte % 20.7 % (19-41); Mean Corp Hgb Conc 34.5 g/dL (32-36); Mean Corpuscular Hgb 32.5 pg (27.0-32.0); Mean Corpuscular Volume 94.1 fL (80-94); Mean Platelet Vol. 9.7 fl (6.2-12.0); Monocyte# 0.97 X10^3/uL; Monocyte% 9.3 % (0-10); NRBC Flagged by Analyzer 0 % (0-5); Neutrophil # 6.85 X10^3/uL (2.7-7.7); Neutrophil % 65.9 % (47-70); Platelet Count 271 K/mm3 (150-450); RBC Distribution Width CV 13.2 % (11.6-14.6); RBC Distribution Width SD 45.1 fl (35.1-43.9); Red Blood Count 5.42 M/mm3 (4.6-6.2); White Blood Count 10.4 K/mm3 (4.4-11.0)
[2019-10-27 12:31] LABS: ALB/GLOB Ratio 1.1 RATIO (0.9-2.4); AST(SGOT) 19 U/L (15-37); Alanine Aminotransfer ALT/SGPT 31 U/L (16-61); Albumin, Serum 3.7 g/dL (3.2-5.0); Alkaline Phosphatase 90 U/L (45-117); Anion Gap 3 (5-15); BUN 6 mg/dL (7-18); BUN/Creat Ratio 5.8 RATIO (10-20); Calcium,Total 9.1 mg/dL (8.5-10.1); Chloride 109 mmol/L (98-107); Creatinine, Serum 1.03 mg/dL (0.70-1.30); EST Glomerular Filtration Rate 81 mL/min (>60); Est Glom Filt Rate - Afr Amer 98 mL/min (>60); Globulin 3.5 g/dL (2.2-4.2); Glucose 89 mg/dL (74-106); Potassium 3.5 mmol/L (3.5-5.1); Protein, Total 7.2 g/dL (6.4-8.2); Sodium Level 140 mmol/L (136-145)
== END ==
PROVIDERS: PCP Family Medicine; Referring Provider Family Medicine; Visit Provider Family Medicine
DX: Z00.01 Encounter for general adult medical examination with abnormal findings (principal)
CPT/HCPCS: 36415; 80053; 85025

== ENCOUNTER 2019-11-17 22:09 | Inpatient (IN) | payer MEDICAID, SELFPAY ==
[2019-10-27 11:02] VITALS: BMI 33.0
[2019-11-17 22:09] VITALS: BP 100/82; PULSE 116; RESP 20; TEMP 36.7; O2SAT 95; BMI 36.1
--- NOTE | 2019-11-17 22:17 | EKG12_ITS ---
Test Reason : AM EKG Blood Pressure : / mmHG Vent. Rate : 066 BPM Atrial Rate : 066 BPM P-R Int : 140 ms QRS Dur : 094 ms QT Int : 410 ms P-R-T Axes : 058 043 029 degrees QTc Int : 429 ms Normal sinus rhythm Normal ECG When compared with ECG of 19-NOV-2019 05:23, MANUAL COMPARISON REQUIRED, DATA IS UNCONFIRMED Confirmed by PRISCA PAK, RUPERT ([id number]), writer editor MORA SINGER ([id number]) on 11/23/2019 11:05:27 AM Referred By: TOMASA Confirmed By:RUPERT COPE MD
--- NOTE | 2019-11-17 22:18 | ED.VIS.GEN ---
History of Present Illness Chief Complaint: Chest Pain Informant: Patient Narrative: States 1 hour ago he developed substernal chest tightness with radiation to the left arm. He was engaging in foreplay sexual activity at the time. Current severity is mild. Is been continuous. It was moderate. He received 4 baby aspirin and 1 nitroglycerin by EMS with relief. Denies any associated symptoms including nausea shortness of breath or sweating. Denies any cardiac risk factors other than smoking. Denies any pulmonary embolism or dissection risk factors. Denies any chronic medical problems except for remote narcolepsy. Denies any illicit drug use. - Past Medical History (1) History of gout Status: Acute (2) No significant past medical history Status: Acute Past Medical History - Allergies and Home Meds Allergies/Adverse Reactions: Allergies No Known Allergies Allergy (Verified 11/17/19 22:13) Prior records reviewed: Yes Past Medical History: - - Narcolepsy Surgical History: noncontributory Smoking Status: Current every day smoker Alcohol: None Drugs: None Review of Systems General: Denies: Chills, Fever, Sweats Eyes: Denies: Visual changes - bilaterally, Diplopia ENT: Denies: Rhinorrhea, Sore throat Cardiovascular: Reports: Chest pain. Denies: Palpitations Respiratory: Denies: Dyspnea, Cough, Dyspnea on exertion Gastrointestinal: Denies: Abdominal pain, Nausea, Vomiting, Diarrhea, Melena, Hematochezia Genitourinary: Denies: Dysuria, Hematuria, Frequency Musculoskeletal: Denies: Back pain, Extremity Pain Skin: Denies: Rash, Wounds Neurological: Denies: Headache, Weakness, Numbness Physical Exam Vital Signs/Narrative: Vital Signs Temp Pulse Resp BP Pulse Ox 11/17/19 22:09 98.1 F 116 H 20 H 100/82 H 95 General: Well nourished, Well developed, No Acute Distress Head: Normocephalic, Atraumatic Eyes: Perrl, EOMI ENT: Moist mucous membranes, No rhinorrhea Neck: Supple, Nontender Cardiovascular: Regular rate, Regular rhythm, No murmurs Respiratory: No distress, CTA bilaterally, Chest nontender Abdomen: Soft, Nontender, Nondistended, Normal bowel sounds Back: Nontender, Normal Inspection Extremities: Nontender, No edema Skin: Normal color, No rash Neurological: Alert, Oriented x3, Cranial nerves II-XII grossly intact, Normal Strength, Normal Sensation Psychological: Normal affect, Normal Mood Diagnostic/Tx/Re-eval - Medical Decision Making EKG shows sinus tachycardia rate of 116. No acute ischemic findings. The patient admits to feeling anxious is he is here with chest discomfort. Lab work and chest x-ray obtained. Patient stated his discomfort went away before receiving sublingual nitroglycerin therefore he did not get it. Lab work shows nothing acute. CBC is normal. BMP shows no acute abnormalities. Troponin is 0.02. This is a 1 hour level. Chest x-ray normal chronic changes noted. I have a low suspicion for PE or dissection. Heart rate at rest is now in the 90s. He is resting comfortably sleeping on reevaluation with no symptoms. He is never had a stress test. I discussed inpatient evaluation with the patient. His heart score is a 4. He is willing to stay and have further evaluation and treatment. ED Disposition - Plan for ED Patient: Disposition: [facility] Diagnosis: Chest pain
[2019-11-17 22:20] VITALS: O2SAT 92
--- NOTE | 2019-11-17 22:20 | RAD_ITS ---
STUDY: X-RAY CHEST REASON FOR EXAM: Male, 48 years old. left arm pain and chest pressure TECHNIQUE: PA and lateral COMPARISON: 09/28/2018 FINDINGS: There is mild chronic interstitial thickening in the lower lobes. There is no focal infiltration.. There is no demonstrated pleural abnormality. Normal size heart. Normal mediastinum and yasmine. Normal visualized pulmonary arteries. Normal visualized aortic arch and descending thoracic aorta. Normal visualized thoracic spine. Normal visualized ribs, clavicles, and shoulders. There is no demonstrated abnormality of the visualized soft tissue structures of the upper abdomen. No significant change since prior study RAD/Chest PA and Lateral IMPRESSION: Mild chronic interstitial changes. No acute disease Electronically Signed: Donato Whipple MD at 22:36 EDT , Service support ,
[2019-11-17 22:28] LABS: Absolute Neutrophil Count 6.7 X10^3/uL (2.0-7.7); Basophil# 0.08 X10^3/uL; Basophil% 0.9 % (0-1); Eosinophil# 0.17 X10^3/uL; Eosinophils% 1.8 % (0-5); Hematocrit 45.1 % (40-54); Hemoglobin 15.7 g/dL (13.0-16.5); Lymphocyte % 15.2 % (19-41); Mean Corp Hgb Conc 34.8 g/dL (32-36); Mean Corpuscular Hgb 32.8 pg (27.0-32.0); Mean Corpuscular Volume 94.2 fL (80-94); Mean Platelet Vol. 9.7 fl (6.2-12.0); Monocyte# 0.74 X10^3/uL; Monocyte% 8.1 % (0-10); NRBC Flagged by Analyzer 0 % (0-5); Neutrophil # 6.74 X10^3/uL (2.7-7.7); Neutrophil % 73.3 % (47-70); Platelet Count 242 K/mm3 (150-450); RBC Distribution Width CV 12.8 % (11.6-14.6); RBC Distribution Width SD 44.4 fl (35.1-43.9); Red Blood Count 4.79 M/mm3 (4.6-6.2); White Blood Count 9.2 K/mm3 (4.4-11.0)
[2019-11-17 22:47] LABS: Anion Gap 8 (5-15); BUN 11 mg/dL (7-18); BUN/Creat Ratio 10.4 RATIO (10-20); Calcium,Total 8.6 mg/dL (8.5-10.1); Chloride 110 mmol/L (98-107); Creatinine, Serum 1.06 mg/dL (0.70-1.30); EST Glomerular Filtration Rate 78 mL/min (>60); Est Glom Filt Rate - Afr Amer 95 mL/min (>60); Estimated Creatinine Clearance 80.66 ml/min; Glucose 136 mg/dL (74-106); Potassium 3.2 mmol/L (3.5-5.1); Sodium Level 144 mmol/L (136-145)
--- NOTE | 2019-11-17 23:04 | PCM.HP.STD ---
Problem List (1) Chest pain Status: Acute (2) History of gout Status: Chronic History of Present Illness Date of Admission: 11/17/19 Chief Complaint: Chest pain The patient is a 48 year old M with no significant past medical history except gout, not on medication came to ER after developed chest pain, pressure-like, left-sided with radiation to left arm, intensity 5/10 intensity while he was having sex with his girlfriend. Chest pain is much improved after aspirin 3 and 24 mg and 1 nitro pill given by EMS. Chest pain was associated with diaphoresis, mild dizziness but he does not remember about shortness of breath. In ED, EKG shows sinus tachycardia at [address]-T changes. QTc 458 ms. No previous EKG to compare with. Basic blood work shows K3.2, glucose 136. First troponin negative. Chest x-ray no acute disease. Past Medical History Past Medical History (Chronic Problems): Chronic Problems (Last Reviewed 10/27/19 @ 10:57 by Akanksha Bryant) History of gout (Chronic) Allergies No Known Allergies Allergy (Verified 11/17/19 22:13) Home Medications: Ambulatory Orders Medication Instructions Recorded NK 11/17/19 Surgical History: noncontributory Smoking Status: Current every day smoker Alcohol: None Drugs: None - *Family History Paternal History Items: No pertinent history - Patient denies history of coronary artery disease or other cardiac disease in first-degree family relative Review of Systems Constitutional: Denies: Chills, Fever, Weight Change HEENT: Denies: Head Aches, Sinus Congestion, Sinus Drainage Cardiovascular: Reports: Chest Pain, Chest Pressure. Denies: Edema, Palpitations Respiratory: Denies: Cough, Shortness of breath at rest, Shortness of breath upon exertion, Sputum production, Wheezing Gastrointestinal: Denies: Abdominal Pain, Constipation, Diarrhea, Nausea, Vomiting Genitourinary: Denies: Dysuria, Frequency, Hesitancy Musculoskeletal: Denies: Joint Pain, Joint Tenderness Skin: Denies: Rash, Wounds Neurological: Denies: Numbness, Tingling, Focal weakness Psychiatric: Denies: Anxiety, Depression, Homicidal Ideations, Suicidal Ideations Hematologic/ Lymphatic: Denies: Easy Bruising, Easy Bleeding VTE Information - Inpt Only VTE Present on Admission: No VTE Mechan Device Prophylaxis: None VTE Pharm Prophylaxis ordered?: Yes Patient Problems: Active and Suspected Problems (Last Reviewed 10/27/19 @ 10:57 by Akanksha Bryant) Chest pain (Acute) - Physical Exam Vitals/I&O's: Vital Signs Temp Pulse Resp BP Pulse Ox 98.1 F 116 H 20 H 100/82 H 92 11/17/19 22:09 11/17/19 22:09 11/17/19 22:09 11/17/19 22:09 11/17/19 22:20 Oxygen Delivery Method Room Air Weight: 237 lb 10.533 oz Body Mass Index (BMI) 36.1 General: Alert, Oriented x3, Cooperative HEENT: Atraumatic, PERRLA, EOMI, Normocephalic Neck: Supple, No JVD, Negative Carotid Bruits Lungs: Clear to auscultation, Normal air movement, No rhonchi, No wheeze, No rales Cardiovascular: Regular Rhythm, Normal S1, Normal S2, No murmurs, Tachycardic Abdomen: Bowel Sounds Present, Soft, Non Tender, Non-Distended Extremities: No edema, Capillary Refill Less than 3 Seconds Skin: No rashes, No breakdown Musculoskeletal: No Tenderness to Palpation of Joints or Extremities Neurological: Cranial nerves II-XII grossly intact, Deep Tendon Reflexes 2+/4 and Symmetrical, Neuro grossly intact, Motor Exam 5/5 strength throughout Psych/Mental Status: Normal Affect, Appropriate Laboratory Results 11/17/19 22:15: WBC 9.2, RBC 4.79, Hgb 15.7, Hct 45.1, MCV 94.2 H, MCH 32.8 H, MCHC 34.8, RDW Std Deviation 44.4 H, RDW Coeff of Jaya 12.8, Plt Count 242, MPV 9.7, Immature Gran % (Auto) 0.700, Neut % (Auto) 73.3 H, Lymph % (Auto) 15.2 L, Overton % (Auto) 8.1, Eos % (Auto) 1.8, Baso % (Auto) 0.9, Absolute Neuts (auto) 6.7, Absolute Lymphs (auto) 1.40, Nucleated RBC % 0 11/17/19 22:15: Sodium 144, Potassium 3.2 L, Chloride 110 H, Carbon Dioxide 26.0, Anion Gap 8, BUN 11, Creatinine 1.06, Estim Creat Clear Calc 80.66, Est GFR (MDRD) Af Amer 95, Est GFR (MDRD) Non-Af 78, BUN/Creatinine Ratio 10.4, Glucose 136 H, Calcium 8.6, Troponin I 0.020 Current Medications Nitroglycerin (Nitrostat) 0.4 mg SUBLINGUAL Q5M PRN PRN Reason: Chest pain Assessment/Plan All Active Problems (Last Reviewed 10/27/19 @ 10:57 by Akanksha Bryant) Chest pain (Acute) The patient is a 48 year old M with no significant past medical history except gout, not on medication came to ER after developed chest pain, pressure-like, left-sided with radiation to left arm, highly suggestive of unstable angina 1. Atypical chest pain with high probability of unstable angina: Patient is being admitted in PCU for observation. Cycle cardiac enzymes. Repeat EKG after 4 hours. If troponins and EKG negative, treadmill nuclear stress test tomorrow morning. If troponins positive or dynamic ST-T EKG changes, will consult cardiology. Patient did not had previous cardiac testing or history of coronary artery disease/DC 2. Sinus tachycardia: Patient blood pressure is 100/82 and heart rate 116/min. No previous baselines to compare. IV fluid Ringer lactate 100 mL/h. 3. Mild hypokalemia, K3.2: Potassium replacement. Check magnesium. Sodium is 144, chloride 110. 4. History of gout: Stable no exacerbation. 5. DVT prophylaxis: Moderate risk: Started on Lovenox 40 mg subcu daily. Clinical Impression(s) from Imaging Studies Chest X-Ray 11/17/19 22:20 IMPRESSION: Mild chronic interstitial changes. No acute disease OBSV E&M: [id number] Initial observation care L3
[2019-11-17 23:31] VITALS: BP 94/79; PULSE 90; RESP 18; TEMP 37.4; O2SAT 96
--- NOTE | 2019-11-17 23:47 | EKG12_ITS ---
Test Reason : CP Blood Pressure : / mmHG Vent. Rate : 116 BPM Atrial Rate : 116 BPM P-R Int : 132 ms QRS Dur : 094 ms QT Int : 330 ms P-R-T Axes : 059 047 043 degrees QTc Int : 458 ms Sinus tachycardia Otherwise normal ECG Confirmed by ZEINA PAK, BOO ([id number]), shoemaker custom MORA SINGER ([id number]) on 11/21/2019 7:53:23 AM Referred By: JESUS Confirmed By:BOO PASTRANA MD
[2019-11-17 23:48] VITALS: BMI 35.4
[2019-11-17 23:50] VITALS: BP 113/65; PULSE 92; RESP 18; TEMP 36.8; O2SAT 100
[2019-11-18] VITALS (26 sets, daily range): BP systolic 98–139; BP diastolic 58–88; PULSE 65–91; RESP 16–20; TEMP 36.5–36.8; O2SAT 92–98
[2019-11-18] LABS: Magnesium 2.1 mg/dL (1.6-2.6)
[2019-11-18] MEDS: 0.9% Saline Lock 10 ML Syringe IV (00:18)
[2019-11-18] MEDS: Lactated Ringers 1,000 ML 100 ML IV ×2 (00:19→10:19)
[2019-11-18] MEDS: Atorvastatin Calcium 40 MG Tablet PO ×2 (00:19→22:10)
[2019-11-18 02:52] LABS: Partial Thromboplast Time 27.2 Seconds (24.1-36.2); Prothrombin Time (Protime)PT. 12.5 SECONDS (11.7-14.9)
[2019-11-18] MEDS: TICAGRELOR 90 MG TABLET 180 MG PO (03:16)
[2019-11-18] MEDS: Metoprolol Tartrate 25 MG Tablet PO ×3 (03:16→22:10)
[2019-11-18] MEDS: Heparin Injection (Vial) 5,000 UNIT/ML VIAL 8000 UNIT IV (03:17)
[2019-11-18 05:16] LABS: Anion Gap 6 (5-15); BUN 10 mg/dL (7-18); BUN/Creat Ratio 12.7 RATIO (10-20); Calcium,Total 8.3 mg/dL (8.5-10.1); Chloride 109 mmol/L (98-107); Cholesterol 188 mg/dL (200); Creatinine, Serum 0.79 mg/dL (0.70-1.30); EST Glomerular Filtration Rate 111 mL/min (>60); Est Glom Filt Rate - Afr Amer 134 mL/min (>60); Estimated Creatinine Clearance 108.23 ml/min; Glucose 103 mg/dL (74-106); High Density Lipoprotein 35 mg/dL; Sodium Level 142 mmol/L (136-145); Thyroid Stim Hormone (TSH) 2.23 uIU/mL (0.358-3.74); Triglycerides 46 mg/dL; Very Low Density Lipoprotein 9 mg/dL (5-40)
[2019-11-18] MEDS: ALPRAZolam 0.25 MG Tablet PO (05:38)
[2019-11-18] MEDS: Nitroglycerin Oint 1 INCH PACKET TRANSDERM. (05:46)
--- NOTE | 2019-11-18 06:00 | EKG12_ITS ---
Test Reason : AM EKG Blood Pressure : / mmHG Vent. Rate : 076 BPM Atrial Rate : 076 BPM P-R Int : 144 ms QRS Dur : 092 ms QT Int : 368 ms P-R-T Axes : 070 055 030 degrees QTc Int : 414 ms Normal sinus rhythm Normal ECG When compared with ECG of 18-NOV-2019 00:21, MANUAL COMPARISON REQUIRED, DATA IS UNCONFIRMED Confirmed by MARYJO PAK, ELTON ([id number]), dictionary editor MORA SINGER ([id number]) on 12/01/2019 1:32:39 PM Referred By: DR RANDOLPH Confirmed By:GEORGETTE SIBLEY MD
[2019-11-18] MEDS: Aspirin E.C. 81 MG Tablet PO (06:25)
[2019-11-18] MEDS: TICAGRELOR 90 MG TABLET PO ×2 (06:26→22:10)
[2019-11-18] MEDS: Losartan Potassium 25 MG Tablet PO (06:26)
--- NOTE | 2019-11-18 06:47 | ECHOCS_ITS ---
Reason For Study: NSTEMI Procedure This was a 2D Doppler, Color Flow transthoracic echocardiogram. The study was technically difficult. Contrast injection was performed. Exam performed portable in patient room. Left Ventricle Normal LV size. Segmental dysfunction with preserved ejection fraction (see wall motion). The estimated ejection fraction is 55 %. No evidence for diastolic dysfunction. Mid-Anterior : Hypokinetic. Mid-anteroseptal : Hypokinetic. Anterior [place] : Hypokinetic. Inferior [place] : Hypokinetic. Right Ventricle Normal RV size. Normal systolic function. Atria Normal left atrium. Normal right atrium. No doppler evidence for ASD. Mitral Valve There is no mitral annular calcification. Normal mitral valve. Trivial mitral valve insufficiency. Tricuspid Valve Normal tricuspid valve. Trivial tricuspid valve insufficiency. Right ventricular systolic pressure estimated to be 18 mmHg. Aortic Valve Trisinus/trileaflet aortic valve. Normal aortic valve. Pulmonic Valve The pulmonic valve is not well visualized. Great Vessels Normal sized aortic root. Pericardium/Pleural No pericardial effusion. Medication Diluted definity 4.0ml given slow IV push to enhance endocardial definition. MMode/2D Measurements & Calculations LVIDd: 5.0 cm IVSd: 0.92 cm Ao root diam: 3.3 cm LVIDs: 3.6 cm LVPWd: 0.96 cm RVDd: 3.8 cm FS: 26.3 % LAV(MOD-bp): 44.4 ml LA A4 area: 15.4 cm2 LA dimension(2D): 3.7 cm LAV(MOD-bp) Indexed: 20.4 ml/m2 LAV(MOD-sp2): 42.7 ml LAV(MOD-sp4): 41.2 ml RA A4 area: 14.4 cm2 Time Measurements MV dec time: 0.22 sec Doppler Measurements & Calculations MV E max santo: 93.3 cm/sec Lat Peak E' Santo: 11.4 cm/sec Med Peak E' Santo: 11.0 cm/sec MV A max santo: 79.2 cm/sec E/E' lat: 8.2 E/E' med: 8.5 MV E/A: 1.2 Ao V2 max: 98.2 cm/sec LV V1 max: 101.2 cm/sec TR max santo: 193.3 cm/sec Ao max P.9 mmHg LV V1 max P.1 mmHg TR max P.1 mmHg Interpretation Summary The study was technically difficult. Contrast injection was performed. Segmental dysfunction with preserved ejection fraction (see wall motion). The estimated ejection fraction is 55 %. Trivial mitral valve insufficiency. Trivial tricuspid valve insufficiency. Right ventricular systolic pressure estimated to be 18 mmHg. No evidence for diastolic dysfunction. Ordering Physician: Jer Schulte Referring Physician: ANAY TOLBERT Performed By: Kristen Solorio RDCS, RVT
--- NOTE | 2019-11-18 09:08 | CASEMGMT ---
If transfer to tertiary facility recommended, the following hospitals are In-network w/pt's insurance, [facility]: [facility], [place], [facility], [facility], [facility], [facility], [facility] ([facility]), and . Renetta BSN RN CM
[2019-11-18 10:14] LABS: Partial Thromboplast Time 115.2 Seconds (24.1-36.2)
--- NOTE | 2019-11-18 10:15 | CON.PCM_ITS ---
Problem List (1) NSTEMI (non-ST elevated myocardial infarction) Status: Acute Reason for Consult Date of Consultation: 11/18/19 History of Present Illness: The patient is a 48 year old white male who is referred for evaluation of an acute non-ST segment elevation LA. He states the best of his knowledge she has no cardiovascular history. He does not recall undergoing cardiovascular testing in the past. He states he has been on no medications at home. He does admit to a longstanding 2 pack/day cigarette smoking history since approximately the age of 11. He states he was having sexual intercourse with his female partner. He noted chest discomfort which he described as someone sitting on his chest with radiation to the left upper extremity. He felt somewhat short of breath and may have been somewhat diaphoretic. He denied nausea and emesis. He was evaluated by the EMS and treated with aspirin therapy and nitroglycerin sublingual therapy. He was brought to the hospital for further evaluation. His initial troponin I level was negative. His initial ECG demonstrated sinus rhythm with no acute ECG changes. He was placed in the PCU for further evaluation and care. Since his hospitalization he has had recurrent similar type symptoms as well as a sensation of a panic attack . His troponin I levels have turned positive. His ECG is demonstrated continued sinus rhythm with no acute changes. He has had no orthopnea or PND or peripheral pitting edema. There is no near syncope or syncope. He has no history of thromboembolic disease, CVA, renal insufficiency, or ongoing acute infectious disease related issues. [] Past Medical History Allergies/Adverse Reactions: Allergies No Known Allergies Allergy (Verified 11/17/19 22:13) Home Medications: Ambulatory Orders Medication Instructions Recorded NK 11/17/19 Past Medical History (Chronic Problems): Chronic Problems (Last Reviewed 10/27/19 @ 10:57 by Akanksha Bryant) History of gout (Chronic) Surgical History: noncontributory - *Family History Paternal History Items: No pertinent history - Patient denies history of coronary artery disease or other cardiac disease in first-degree family relative Smoking Status: Current every day smoker Alcohol: None Drugs: None Review of Systems - Review of Systems General: Denies: Fever, Night Sweats, Fatigue Cardiovascular: Reports: Chest Discomfort, Chest Discomfort with Exertion, Shortness of Breath. Denies: Orthopnea, PND, Peripheral Edema, Palpitations, Lightheadedness, Dizziness, Near Syncope, Syncope Respiratory: Reports: Shortness of Breath. Denies: Cough, Sputum Production, Hemoptysis Gastrointestinal: Denies: Hematemesis, Hematochezia, Melena Genitourinary: Denies: Dysuria, Hematuria Skin: Denies: Rash Subjectve: This is a 48-year-old white male appears to be resting comfortably at the moment in no acute distress. Objective: Vital Signs Temp Pulse Resp BP Pulse Ox 98.0 F 68 18 130/86 H 97 11/18/19 06:25 11/18/19 06:55 11/18/19 06:25 11/18/19 06:25 11/18/19 06:50 Oxygen Flow Rate (L/min) 2 Oxygen Delivery Method Nasal Cannula Weight: 233 lb Body Mass Index (BMI) 35.4 Intake and Output for Last 24 Hours 11/16/19 11/17/19 11/18/19 23:59 23:59 23:59 Intake Total 0 / 0 Balance 0 / 0 General: Awake, Alert, Oriented x 3, Cooperative, No Acute Distress HEENT: Atraumatic, Normocephalic, PERRL, EOMI, Sclera Non Icteric Oral: Moist Mucosa Neck: Supple, Good ROM, No JVD Lungs: Clear to auscultation Cardiovascular: Regular Rhythm, Normal S1, Normal S2 Vascular: No Carotid Bruits Abdomen: Bowel Sounds Present, Soft, Non Tender Extremities: No Cyanosis, No Clubbing, No edema Neurological: No Focal Motor or Sensory Deficit Psych/Mental Status: Appropriate 11/17/19 22:15: WBC 9.2, RBC 4.79, Hgb 15.7, Hct 45.1, MCV 94.2 H, MCH 32.8 H, MCHC 34.8, Plt Count 242, MPV 9.7, Immature Gran % (Auto) 0.700, Neut % (Auto) 73.3 H, Lymph % (Auto) 15.2 L, [place] % (Auto) 8.1, Eos % (Auto) 1.8, Baso % (Auto) 0.9, Absolute Neuts (auto) 6.7, Nucleated RBC % 0 11/17/19 22:15: Sodium 144, Potassium 3.2 L, Chloride 110 H, Carbon Dioxide 26.0, Anion Gap 8, BUN 11, Creatinine 1.06, Est GFR (MDRD) Af Amer 95, Est GFR (MDRD) Non-Af 78, BUN/Creatinine Ratio 10.4, Glucose 136 H, Calcium 8.6, Troponin I 0.020 11/17/19 22:15: Magnesium 2.1 11/18/19 01:22: Troponin I 1.480 H* 11/18/19 02:37: PT 12.5, INR 1.0, APTT 27.2 11/18/19 04:25: Sodium 142, Potassium 4.0, Chloride 109 H, Carbon Dioxide 27.0, Anion Gap 6, BUN 10, Creatinine 0.79, Est GFR (MDRD) Af Amer 134, Est GFR (MDRD) Non-Af 111, BUN/Creatinine Ratio 12.7, Glucose 103, Calcium 8.3 L, Troponin I 3.030 H*, Triglycerides 46, Cholesterol 188, LDL Cholesterol 144 H, VLDL Cholesterol 9, HDL Cholesterol 35 L 11/18/19 09:21: APTT 115.2 H* Rhythm: Sinus rhythm EKG: Sinus rhythm ECHO: Pending CXR: Preliminary evaluation: No acute cardiopulmonary disease process Assessment/Plan . Acute non-ST segment elevation LA The patient presents with findings compatible with an acute non-ST segment elevation LA. Since hospitalization he has been monitored. His cardiac enzymes have trended upward into the positive range. His ECG is demonstrated no new acute changes. Since hospitalization he is also been noted to have recurrent symptoms requiring continued adjustment of medical therapy. He is pending additional evaluation with a transthoracic echocardiogram to evaluate his left ventricular wall motion and systolic function. He is being considered for further evaluation with diagnostic cardiac catheterization. The procedure and risks were discussed with him. He was agreeable to this approach. Comment: The patient's case has been discussed and reviewed previously with Dr. Schulte. This note was generated using a voice recognition system and there may be incorrect words, spelling or punctuation that were not noted when reviewing the office note prior to saving. Procedure Criteria Procedure Type: Elective COVID Risk Discussion: The surgeon/proceduralist and patient have discussed in detail the risk of exposure to and/or potential harm posed by the COVID-19 virus with having a surgery/procedure at this time versus the risk of delaying the surgery/procedure. It is not possible to know either the risk of delaying the surgery or procedure or chance of getting an infection with perfect accuracy, but a joint decision was made between the patient and the surgeon/proceduralist to proceed at this time with the scheduled surgery/procedure as indicated on the consent form.
[2019-11-18] MEDS: 0.9% Normal Saline 1,000 ML 15 ML IV (11:00)
[2019-11-18] MEDS: Famotidine 20 MG Tablet PO ×2 (11:14→22:10)
--- NOTE | 2019-11-18 12:06 | PCM.PN.HOSP ---
Patient Problems: Active and Suspected Problems (Last Reviewed 10/27/19 @ 10:57 by Akanksha Bryant) Chest pain (Acute) NSTEMI (non-ST elevated myocardial infarction) (Acute) Subjective: Patient seen and examined. He was admitted with a complaint of chest pain. On admission, troponins trended up to a peak of 3.13; it was 0.02 on admission. He is being managed for Nonstemi.he is on heparin drip, and cardiology on board. Vitals/I&O's: Vital Signs Temp Pulse Resp BP Pulse Ox 97.7 F L 78 18 105/58 L 98 11/18/19 12:04 11/18/19 12:04 11/18/19 12:04 11/18/19 12:04 11/18/19 12:04 Oxygen Flow Rate (L/min) 2 Oxygen Delivery Method Room Air Weight: 233 lb Body Mass Index (BMI) 35.4 Intake and Output for Last 24 Hours 11/16/19 11/17/19 11/18/19 23:59 23:59 23:59 Intake Total 0 / 0 1103.25 / 1103.25 Balance 0 / 0 1103.25 / 1103.25 General: Alert, Oriented x3, Cooperative, No apparent distress HEENT: Atraumatic, PERRLA, EOMI, Normocephalic Oral: Moist Mucosa Neck: Supple, No JVD, Negative Carotid Bruits Lungs: Clear to auscultation, Normal air movement, No rhonchi, No wheeze Cardiovascular: Regular rate, Regular Rhythm, Normal S1, Normal S2, No murmurs Abdomen: Bowel Sounds Present, Soft, Non Tender, Non-Distended, No Hepato-splenomegaly Extremities: No clubbing, No cyanosis, No edema, Capillary Refill Less than 3 Seconds Skin: No rashes, No breakdown Musculoskeletal: No Tenderness to Palpation of Joints or Extremities Lymphatic: No Cervical, Supraclavicular, or Inguinal Adenopathy Neurological: Cranial nerves II-XII grossly intact, Neuro grossly intact, Motor Exam 5/5 strength throughout Psych/Mental Status: Normal Affect, Appropriate, Alert and oriented to time, place, person, mood and affect Laboratory Results 11/17/19 22:15: WBC 9.2, RBC 4.79, Hgb 15.7, Hct 45.1, MCV 94.2 H, MCH 32.8 H, MCHC 34.8, RDW Std Deviation 44.4 H, RDW Coeff of Jaya 12.8, Plt Count 242, MPV 9.7, Immature Gran % (Auto) 0.700, Neut % (Auto) 73.3 H, Lymph % (Auto) 15.2 L, [place] % (Auto) 8.1, Eos % (Auto) 1.8, Baso % (Auto) 0.9, Absolute Neuts (auto) 6.7, Absolute Lymphs (auto) 1.40, Nucleated RBC % 0 11/17/19 22:15: Sodium 144, Potassium 3.2 L, Chloride 110 H, Carbon Dioxide 26.0, Anion Gap 8, BUN 11, Creatinine 1.06, Estim Creat Clear Calc 80.66, Est GFR (MDRD) Af Amer 95, Est GFR (MDRD) Non-Af 78, BUN/Creatinine Ratio 10.4, Glucose 136 H, Calcium 8.6, Troponin I 0.020 11/17/19 22:15: Magnesium 2.1 11/18/19 01:22: Troponin I 1.480 H* 11/18/19 02:37: PT 12.5, INR 1.0, APTT 27.2 11/18/19 04:25: Sodium 142, Potassium 4.0, Chloride 109 H, Carbon Dioxide 27.0, Anion Gap 6, BUN 10, Creatinine 0.79, Estim Creat Clear Calc 108.23, Est GFR (MDRD) Af Amer 134, Est GFR (MDRD) Non-Af 111, BUN/Creatinine Ratio 12.7, Glucose 103, Calcium 8.3 L, Troponin I 3.030 H*, Triglycerides 46, Cholesterol 188, LDL Cholesterol 144 H, VLDL Cholesterol 9, HDL Cholesterol 35 L, TSH 2.23 11/18/19 09:21: APTT 115.2 H* 11/18/19 09:21: Troponin I 3.130 H* Diagnostic Data Chest X-Ray 11/17/19 22:20 IMPRESSION: Mild chronic interstitial changes. No acute disease Electronically Signed: Donato Whipple MD at 22:36 EDT , Service support , Current Medications Acetaminophen (Tylenol) 650 mg PO Q6H PRN PRN PRN Reason: Pain Score 1-10/Temp > 100.7 F Al Hydroxide/Mg Hydroxide (Mylanta Ii) 30 ml PO Q6H PRN PRN PRN Reason: Gastric Burning Albuterol Sulfate (Ventolin Aerosols) 2.5 mg INHALATION Q2H PRN PRN PRN Reason: SOB/Wheezing Alprazolam (Xanax) 0.25 mg PO TID PRN PRN PRN Reason: ANXIETY Last Admin: 11/18/19 05:38 Dose: 0.25 mg Documented by: Aspirin (Ecotrin) 81 mg PO DAILY@0800 REPLACED BY [facility] Last Admin: 11/18/19 06:25 Dose: 81 mg Documented by: Atorvastatin Calcium (Lipitor) 40 mg PO QHS REPLACED BY [facility] Last Admin: 11/18/19 00:19 Dose: 40 mg Documented by: Famotidine (Pepcid) 20 mg PO BID REPLACED BY [facility] Last Admin: 11/18/19 11:14 Dose: 20 mg Documented by: Heparin Sodium (Porcine) (Heparin Na) 0 unit IV UD PRN; Protocol PRN Reason: NOMOGRAM Lactated Ringer's () 1,000 mls @ 100 mls/hr IV .Q10H REPLACED BY [facility] Last Admin: 11/18/19 10:19 Dose: 100 mls/hr Documented by: Sodium Chloride () 250 mls @ 15 mls/hr IV .[id number] PRN PRN Reason: Saline Flush Sodium Chloride () 250 mls @ 15 mls/hr IV .[id number] PRN PRN Reason: Additional IVPB Infusion Heparin Sodium/Sodium Chloride () 25,000 unit in 250 mls @ 15 mls/hr IV .[id number] REPLACED BY [facility]; Protocol Last Titration: 11/18/19 10:18 Dose: 0 units/hr, 0 mls/hr Documented by: Sodium Chloride () 1,000 mls @ 15 mls/hr IV .Q48H REPLACED BY [facility] Losartan Potassium (Cozaar) 25 mg PO DAILY REPLACED BY [facility] Last Admin: 11/18/19 06:26 Dose: 25 mg Documented by: Metoprolol Tartrate (Lopressor (Beta Carmelo)) 25 mg PO BID REPLACED BY [facility] Last Admin: 11/18/19 11:13 Dose: 25 mg Documented by: Morphine Sulfate () 2 mg IV Q3H PRN PRN PRN Reason: Pain Score 6-10/10/chest pain Nitroglycerin (Nitrobid) 1 inch TRANSDERM. Q6 REPLACED BY [facility] Last Admin: 11/18/19 05:46 Dose: 1 inch Documented by: Oxycodone HCl (Oxyir) 5 mg PO Q4H PRN PRN PRN Reason: Pain Score 4-5/10 Prochlorperazine Edisylate (Compazine Iv) 5 mg IV Q4H PRN PRN PRN Reason: Breakthrough Nausea/Vomiting Senna/Docusate Sodium (Senokot-S, Tameka-Colace) 2 tablet PO BID PRN PRN PRN Reason: Constipation Sodium Chloride () 10 - 40 ml IV UD PRN PRN Reason: SALINE FLUSH Last Admin: 11/18/19 00:18 Dose: 10 ml Documented by: Ticagrelor (Brilinta) 90 mg PO BID REPLACED BY [facility] Last Admin: 11/18/19 06:26 Dose: 90 mg Documented by: STROKE Vital Signs/Narrative: Vital Signs Temp Pulse Resp BP Pulse Ox 11/18/19 12:04 97.7 F L 78 18 105/58 L 98 11/18/19 11:13 85 Medical Necessity - Tobacco Use Smoking Status: Current every day smoker Assessment/Plan All Active Problems (Last Reviewed 10/27/19 @ 10:57 by Akanksha Bryant) Chest pain (Acute) NSTEMI (non-ST elevated myocardial infarction) (Acute) #. Nonstemi admitted with chest pain, and initial troponin was 0.020; tropoinins trended up to 3.130 on heparin drip cardiology on board on aspirin, brilinta, statin and heparin drip and metoprolol and losartan #. Hypokalemia: resolved. #history of gout: stable. DVT prophylaxis: on heparin drip Inpatient E&M: [id number] [facility] H[facility] L3
--- NOTE | 2019-11-18 14:01 | CASEMGMT ---
RN CM NOTE: To room to complete RN CM initial assessment. Pt out of room @ laboratory sampler at this time. CM to complete at a later time. Renetta BSN BLAINE CM
--- NOTE | 2019-11-18 14:31 | CL.I_ITS ---
Patient Name: ARTURO STEVENSON Study Date: 11/18/2019 Performing: Hay Hill MD Ht: 68.11 inches 173 cm : 1970 Wt: 233.69 lbs 106 kg Age: 48 Gender: male BSA: 2.19 PROCEDURE(S) PERFORMED [id number] W OR WO PTCA, SINGLE CORONARY ARTERY CLINICAL PROFILE AND CO-MORBIDITIES Indications: ACS <= 24 hrs, Suspected CAD Heart Failure: None Stress/Imaging Stress/Image Study Performed: No Angina Classification Anginal Classification w/in 2 Weeks: CCS III CAD Presentations: Non-STEMI. CONCLUSIONS Successful ANUP to pLAD RECOMMENDATIONS DESCRIPTION OF PROCEDURE The patient arrived to the procedure lab. The risks and benefits of the procedure as well as a full d escription of our services here and current unavailability of surgical backup were fully explained to the patient and/or their significant other prior to the catheterization. The Timeout was completed, verifying the correct patient and procedure. The patient's procedural site was prepped and draped in the usual fashion. Local anesthetic was given subcutaneously to right radial region with Lidocaine 2% Using a modified Seldinger technique,arterial access was obtained via the right radial artery, a 6Fr sheath was inserted. Left Coronary Artery selective angiography was performed in multiple views usin g a 5 Fr. 4.0 [place] catheter. Right Coronary Artery selective angiography was then performed in multi ple views using a 5 Fr. 4.0 [place] catheter. Left Ventriculography was performed in KWAN projection usi ng a 5 Fr. Pigtail catheter. LV to AO pullback pressures were then recorded.The images were reviewed and options discussed. A decision was then made to proceed with an Intervention, IVUS o r other adjunct procedure. cordis xb3 Guide catheter was inserted and engaged into the LCA. bmw Guide wire was advanced to t he LAD. synergy 4.00 x 20 Drug Eluting stent was advanced across the lesion in the LAD, proximal. Ang iogram performed post stent deployment. The arterial sheath was pulled and a TR Band was applied fo r hemostasis INTERVENTION INFORMATION LESION SITE: LAD (Proximal) Lesion Complexity: High/C, chronic total occlusion: No, lesion at bifurcation: Yes, thrombus present: No, lesion length: 18 mm, culprit lesion: Yes, Previously treated lesion: No Pre Stenosis: 80 % Pre intervention MANDO flow: 3 PROCEDURE: Drug Eluting Stent Post Stenosis: 0 % Post intervention MANDO flow: 3 Lesion Devices: [place] .014 [employer] Bertha Straight 190cm Cardinal 6 Fr XB3.0 100cm Guide Catheter W[employer] Synergy MR ANUP 4.00x20 COMPLICATIONS No Complications PROCEDURE MEDICATIONS Versed 1 mg IV Fentanyl 50 mcg IV Oxygen: 2 L/min via nasal cannula Heparin given IA 11/18/2019 13:49:45 Heparin 6000 unit(s) IV 11/18/2019 14:07:52 Verapamil 2.5mg, Ntg 100mcgs, 2000 units of Heparin given IA 11/18/2019 13:49:45 SUMMARY OF HEMODYNAMIC DATA Time AIR REST ECG 13:50:30 AO 90/73 (81) SA 13:51:13 LV 115/5, 27 14:00:19 LV 114/6, 33 14:00:25 LV 126/10, 36 14:01:34 LV 121/5, 27 14:01:40 LVp 114/5, 22 14:01:47 AOp 98/60 (75) 14:01:52 Signed By Hay Hill MD On 11/18/2019 14:30:25 Hay Hill MD
--- NOTE | 2019-11-18 14:33 | CL.D_ITS ---
Patient Name: ARTURO STEVENSON Study Date: 11/18/2019 Performing: Ronny Hodgson MD Ht: 68.11 inches 173 cm : 1970 Wt: 233.69 lbs 106 kg Age: 48 Gender: male BSA: 2.19 PROCEDURE(S) PERFORMED [id number]/LV [id number] W OR WO PTCA, SINGLE CORONARY ARTERY CLINICAL PROFILE AND INDICATIONS Indications: ACS <= 24 hrs, Suspected CAD Heart Failure: None Stress/Imaging Stress/Image Study Performed: No Angina Classification Anginal Classification w/in 2 Weeks: CCS III CAD Presentations: Non-STEMI. CONCLUSIONS Elevated Left Ventricular End Diastolic Pressure Segmented LV systolic dysfunction- Mild LVEF: by LV gram 55 % Single vessel CAD of the LAD RECOMMENDATIONS Risk factor modification Medical therapy Referred for immediate PCI DESCRIPTION OF PROCEDURE The patient arrived to the procedure lab. The risks and benefits of the procedure as well as a full d escription of our services here and current unavailability of surgical backup were fully explained to the patient and/or their significant other prior to the catheterization. The Timeout was completed, verifying the correct patient and procedure. The patient's procedural site was prepped and draped in the usual fashion. Local anesthetic was given subcutaneously to right radial region with Lidocaine 2% . Using a modified Seldinger technique, arterial access was obtained via the right radial artery, a 6 Fr sheath was inserted. Left Coronary Artery selective angiography was performed in multiple views u sing a 5 Fr. 4.0 [place] catheter. Right Coronary Artery selective angiography was then performed in mu ltiple views using a 5 Fr. 4.0 [place] catheter. Left Ventriculography was performed in KWAN projection using a 5 Fr. Pigtail catheter. LV to AO pullback pressures were then recorded.The arterial sheath was pulled and a TR Band was applied for hemostasis CORONARY ANGIOGRAPHY DOMINANCE: Right Dominant LEFT HEART ASSESSMENT Left Ventricular Ejection Fraction: by LV Gram 55 % Anterior Hypokinesis Elevated Left Ventricular End Diastolic Pressure LVEDP: 33 mmHg LEFT ANTERIOR DESCENDING ARTERY: MID LAD: s/p DX: eccentric: hazy: 75 % Stenosis CIRCUMFLEX ARTERY: Angiographically normal RIGHT CORONARY ARTERY: PROX RCA: Mild luminal irregularities AORTIC ROOT: Angiographically normal COMPLICATIONS No Complications PROCEDURE MEDICATIONS Versed 1 mg IV Fentanyl 50 mcg IV Oxygen: 2 L/min via nasal cannula Heparin given IA 11/18/2019 13:49:45 Heparin 6000 unit(s) IV 11/18/2019 14:07:52 Verapamil 2.5mg, Ntg 100mcgs, 2000 units of Heparin given IA 11/18/2019 13:49:45 SUMMARY OF HEMODYNAMIC DATA Time AIR REST ECG 13:50:30 AO 90/73 (81) SA 13:51:13 LV 115/5, 27 14:00:19 LV 114/6, 33 14:00:25 LV 126/10, 36 14:01:34 LV 121/5, 27 14:01:40 LVp 114/5, 22 14:01:47 AOp 98/60 (75) 14:01:52 RM AIR REST 14:30:38 Signed By Ronny Hodgson MD On 11/18/2019 2:32:26 PM Ronny Hodgson MD
[2019-11-18] MEDS: Acetaminophen 325 MG Tablet 650 MG PO (15:02)
--- NOTE | 2019-11-18 15:45 | EKG12_ITS ---
Test Reason : POST PCI Blood Pressure : / mmHG Vent. Rate : 071 BPM Atrial Rate : 071 BPM P-R Int : 142 ms QRS Dur : 098 ms QT Int : 410 ms P-R-T Axes : 068 052 035 degrees QTc Int : 445 ms Sinus rhythm with marked sinus arrhythmia Otherwise normal ECG When compared with ECG of 18-NOV-2019 05:21, MANUAL COMPARISON REQUIRED, DATA IS UNCONFIRMED Confirmed by PRISCA PAK, RUPERT ([id number]), sound editor MORA SINGER ([id number]) on 11/23/2019 11:08:04 AM Referred By: TOMASA Confirmed By:RUPERT COPE MD
--- NOTE | 2019-11-18 16:14 | NURSING ---
okay to share information with patient's daughter - Gloria - [phone]. Daughter aware of patient's password choice.
[2019-11-19] VITALS (12 sets, daily range): BP systolic 113–138; BP diastolic 65–75; PULSE 64–95; RESP 18–20; TEMP 36.4–36.8; O2SAT 94–96
[2019-11-19 05:43] LABS: Hematocrit 48.6 % (40-54); Hemoglobin 16.7 g/dL (13.0-16.5); Mean Corp Hgb Conc 34.4 g/dL (32-36); Mean Corpuscular Hgb 32.7 pg (27.0-32.0); Mean Corpuscular Volume 95.3 fL (80-94); Mean Platelet Vol. 9.8 fl (6.2-12.0); Platelet Count 231 K/mm3 (150-450); RBC Distribution Width CV 12.8 % (11.6-14.6); RBC Distribution Width SD 44.6 fl (35.1-43.9); White Blood Count 9.5 K/mm3 (4.4-11.0)
[2019-11-19 06:28] LABS: ALB/GLOB Ratio 0.9 RATIO (0.9-2.4); AST(SGOT) 24 U/L (15-37); Alanine Aminotransfer ALT/SGPT 28 U/L (16-61); Albumin, Serum 3.3 g/dL (3.2-5.0); Alkaline Phosphatase 79 U/L (45-117); Anion Gap 5 (5-15); BUN 8 mg/dL (7-18); BUN/Creat Ratio 10.6 RATIO (10-20); Calcium,Total 8.4 mg/dL (8.5-10.1); Chloride 109 mmol/L (98-107); Creatinine, Serum 0.76 mg/dL (0.70-1.30); EST Glomerular Filtration Rate 116 mL/min (>60); Est Glom Filt Rate - Afr Amer 140 mL/min (>60); Globulin 3.5 g/dL (2.2-4.2); Glucose 94 mg/dL (74-106); Potassium 3.7 mmol/L (3.5-5.1); Protein, Total 6.8 g/dL (6.4-8.2); Sodium Level 140 mmol/L (136-145)
--- NOTE | 2019-11-19 07:15 | PCM.PN.HOSP ---
Patient Problems: Active and Suspected Problems (Last Reviewed 10/27/19 @ 10:57 by Akanksha Bryant) Chest pain (Acute) NSTEMI (non-ST elevated myocardial infarction) (Acute) Subjective: Patient seen and examined. He had cardiac cath yesterday for non-STEMI which showed 75% stenosis of the left anterior descending artery for which she PCI with placement of drug-eluting stent. Patient has no complaints this morning. Labs and vitals reviewed. He has remained hemodynamically stable. Vitals/I&O's: Vital Signs Temp Pulse Resp BP Pulse Ox 97.6 F L 87 18 138/70 H 96 11/19/19 04:00 11/19/19 04:00 11/19/19 04:00 11/19/19 04:00 11/19/19 04:00 Oxygen Flow Rate (L/min) 2 Oxygen Delivery Method Room Air Weight: 233 lb Body Mass Index (BMI) 35.4 Intake and Output for Last 24 Hours 11/17/19 11/18/19 11/19/19 23:59 23:59 23:59 Intake Total 0 / 0 2866.58 / 2866.58 240 / 240 Balance 0 / 0 2866.58 / 2866.58 240 / 240 General: Alert, Oriented x3, Cooperative, No apparent distress HEENT: Atraumatic, PERRLA, EOMI, Normocephalic Oral: Moist Mucosa Neck: Supple, No JVD, Negative Carotid Bruits Lungs: Clear to auscultation, Normal air movement, No rhonchi, No wheeze Cardiovascular: Regular rate, Regular Rhythm, Normal S1, Normal S2, No murmurs Abdomen: Bowel Sounds Present, Soft, Non Tender, Non-Distended, No Hepato-splenomegaly Extremities: No clubbing, No cyanosis, No edema, Capillary Refill Less than 3 Seconds Skin: No rashes, No breakdown Musculoskeletal: No Tenderness to Palpation of Joints or Extremities Lymphatic: No Cervical, Supraclavicular, or Inguinal Adenopathy Neurological: Cranial nerves II-XII grossly intact, Neuro grossly intact, Motor Exam 5/5 strength throughout Psych/Mental Status: Normal Affect, Appropriate, Alert and oriented to time, place, person, mood and affect Laboratory Results 11/18/19 09:21: APTT 115.2 H* 11/18/19 09:21: Troponin I 3.130 H* 11/19/19 05:25: WBC 9.5, RBC 5.10, Hgb 16.7 H, Hct 48.6, MCV 95.3 H, MCH 32.7 H, MCHC 34.4, RDW Std Deviation 44.6 H, RDW Coeff of Jaya 12.8, Plt Count 231, MPV 9.8 11/19/19 05:25: Sodium 140, Potassium 3.7, Chloride 109 H, Carbon Dioxide 26.0, Anion Gap 5, BUN 8, Creatinine 0.76, Estim Creat Clear Calc 112.50, Est GFR (MDRD) Af Amer 140, Est GFR (MDRD) Non-Af 116, BUN/Creatinine Ratio 10.6, Glucose 94, Calcium 8.4 L, Total Bilirubin 0.50, AST 24, ALT 28, Alkaline Phosphatase 79, Total Protein 6.8, Albumin 3.3, Globulin 3.5, Albumin/Globulin Ratio 0.9 Current Medications Acetaminophen (Tylenol) 650 mg PO Q6H PRN PRN PRN Reason: Pain Score 1-10/Temp > 100.7 F Last Admin: 11/18/19 15:02 Dose: 650 mg Documented by: Al Hydroxide/Mg Hydroxide (Mylanta Ii) 30 ml PO Q6H PRN PRN PRN Reason: Gastric Burning Albuterol Sulfate (Ventolin Aerosols) 2.5 mg INHALATION Q2H PRN PRN PRN Reason: SOB/Wheezing Alprazolam (Xanax) 0.25 mg PO TID PRN PRN PRN Reason: ANXIETY Last Admin: 11/18/19 05:38 Dose: 0.25 mg Documented by: Aspirin (Ecotrin) 81 mg PO DAILY@0800 [facility] Last Admin: 11/18/19 06:25 Dose: 81 mg Documented by: Atorvastatin Calcium (Lipitor) 40 mg PO QHS [facility] Last Admin: 11/18/19 22:10 Dose: 40 mg Documented by: Atropine Sulfate () 0.5 mg IV UD PRN PRN Reason: HR <50 bpm Famotidine (Pepcid) 20 mg PO BID [facility] Last Admin: 11/18/19 22:10 Dose: 20 mg Documented by: Heparin Sodium (Beef Lung) (Heparin 500 Unit/5 Ml (100/Ml)) 500 unit IV UD PRN PRN Reason: HEPARIN FLUSH Heparin Sodium (Porcine) (Heparin Na) 0 unit IV UD PRN; Protocol PRN Reason: NOMOGRAM Sodium Chloride () 250 mls @ 15 mls/hr IV .[id number] PRN PRN Reason: Saline Flush Sodium Chloride () 250 mls @ 15 mls/hr IV .[id number] PRN PRN Reason: Additional IVPB Infusion Sodium Chloride () 1,000 mls @ 15 mls/hr IV .Q48H [facility] Last Infusion: 11/18/19 17:46 Dose: Infused Documented by: Labetalol HCl (Trandate) 5 mg IV X1 PRN PRN Reason: SBP > 160 when pulling sheath Stop: 11/20/19 15:40 Losartan Potassium (Cozaar) 25 mg PO DAILY [facility] Last Admin: 11/18/19 06:26 Dose: 25 mg Documented by: Metoprolol Tartrate (Lopressor (Beta Carmelo)) 25 mg PO BID [facility] Last Admin: 11/18/19 22:10 Dose: 25 mg Documented by: Morphine Sulfate () 2 mg IV Q3H PRN PRN PRN Reason: Pain Score 6-10/10/chest pain Oxycodone HCl (Oxyir) 5 mg PO Q4H PRN PRN PRN Reason: Pain Score 4-5/10 Prochlorperazine Edisylate (Compazine Iv) 5 mg IV Q4H PRN PRN PRN Reason: Breakthrough Nausea/Vomiting Senna/Docusate Sodium (Senokot-S, Tameka-Colace) 2 tablet PO BID PRN PRN PRN Reason: Constipation Sodium Chloride () 10 - 40 ml IV UD PRN PRN Reason: SALINE FLUSH Last Admin: 11/18/19 00:18 Dose: 10 ml Documented by: Sodium Chloride () 500 ml IV BOLUS PRN PRN Reason: VASO-VAGAL PROTOCOL Ticagrelor (Brilinta) 90 mg PO BID [facility] Last Admin: 11/18/19 22:10 Dose: 90 mg Documented by: STROKE Vital Signs/Narrative: Vital Signs Temp Pulse Resp BP Pulse Ox 11/19/19 04:00 97.6 F L 87 18 138/70 H 96 Medical Necessity - Tobacco Use Smoking Status: Current every day smoker Assessment/Plan All Active Problems (Last Reviewed 10/27/19 @ 10:57 by Akanksha Bryant) Chest pain (Acute) NSTEMI (non-ST elevated myocardial infarction) (Acute) #. Nonstemi Status post cardiac cath and PCI with drug-eluting stent placed in the mid LAD. On aspirin, Brilinta, statin and metoprolol Cardiology on board. Also on losartan. #. Hypokalemia: resolved. #history of gout: stable. DVT prophylaxis: SCDs Disposition: For likely discharge tomorrow. Cardiology wishes for him to stay 1 more day. Inpatient E&M: [id number] Subs Hosp L2
[2019-11-19] MEDS: Famotidine 20 MG Tablet PO ×2 (08:38→21:57)
[2019-11-19] MEDS: Aspirin E.C. 81 MG Tablet PO (08:38)
[2019-11-19] MEDS: Metoprolol Tartrate 25 MG Tablet PO ×2 (08:38→21:57)
[2019-11-19] MEDS: TICAGRELOR 90 MG TABLET PO ×2 (08:38→21:57)
[2019-11-19] MEDS: Losartan Potassium 25 MG Tablet PO (08:39)
--- NOTE | 2019-11-19 10:00 | EKG12_ITS ---
Test Reason : AM EKG Blood Pressure : / mmHG Vent. Rate : 077 BPM Atrial Rate : 077 BPM P-R Int : 134 ms QRS Dur : 092 ms QT Int : 392 ms P-R-T Axes : 069 059 046 degrees QTc Int : 443 ms Normal sinus rhythm Normal ECG When compared with ECG of 18-NOV-2019 16:04, MANUAL COMPARISON REQUIRED, DATA IS UNCONFIRMED Confirmed by MARYJO PAK, ELTON ([id number]), editor index MORA SINGER ([id number]) on 12/01/2019 1:32:31 PM Referred By: DR RANDOLPH Confirmed By:GEORGETTE SIBLEY MD
--- NOTE | 2019-11-19 12:17 | PCM.PN.CARD ---
Subjectve: The patient denies any new acute cardiovascular symptoms. He has been resting comfortably. Objective: Vital Signs Temp Pulse Resp BP Pulse Ox 98.3 F 77 20 H 123/72 H 95 11/19/19 10:00 11/19/19 10:00 11/19/19 10:00 11/19/19 10:00 11/19/19 10:00 Oxygen Flow Rate (L/min) 2 Oxygen Delivery Method Room Air Weight: 233 lb Body Mass Index (BMI) 35.4 Intake and Output for Last 24 Hours 11/17/19 11/18/19 11/19/19 23:59 23:59 23:59 Intake Total 0 / 0 2866.58 / 2866.58 580 / 580 Balance 0 / 0 2866.58 / 2866.58 580 / 580 General: Awake, Alert, Oriented x 3, Cooperative, No Acute Distress HEENT: Atraumatic, Normocephalic, PERRL, EOMI, Sclera Non Icteric Neck: Supple, Good ROM, No JVD Lungs: Clear to auscultation Cardiovascular: Regular Rhythm, Normal S1, Normal S2 Vascular: Normal Radial Pulses Abdomen: Bowel Sounds Present, Soft, Non Tender Extremities: No edema Neurological: No Focal Motor or Sensory Deficit Psych/Mental Status: Appropriate 11/19/19 05:25: WBC 9.5, RBC 5.10, Hgb 16.7 H, Hct 48.6, MCV 95.3 H, MCH 32.7 H, MCHC 34.4, Plt Count 231, MPV 9.8 11/19/19 05:25: Sodium 140, Potassium 3.7, Chloride 109 H, Carbon Dioxide 26.0, Anion Gap 5, BUN 8, Creatinine 0.76, Est GFR (MDRD) Af Amer 140, Est GFR (MDRD) Non-Af 116, BUN/Creatinine Ratio 10.6, Glucose 94, Calcium 8.4 L, Total Bilirubin 0.50 Rhythm: Sinus rhythm EKG: Sinus rhythm; low voltage QRS ECHO: Interpretation Summary The study was technically difficult. Contrast injection was performed. Segmental dysfunction with preserved ejection fraction (see wall motion). The estimated ejection fraction is 55 %. Trivial mitral valve insufficiency. Trivial tricuspid valve insufficiency. Right ventricular systolic pressure estimated to be 18 mmHg. No evidence for diastolic dysfunction. Cardiac Cath: CONCLUSIONS Elevated Left Ventricular End Diastolic Pressure Segmented LV systolic dysfunction- Mild LVEF: by LV gram 55 % Single vessel CAD of the LAD RECOMMENDATIONS Risk factor modification Medical therapy Referred for immediate PCI CORONARY ANGIOGRAPHY DOMINANCE: Right Dominant LEFT HEART ASSESSMENT Left Ventricular Ejection Fraction: by LV Gram 55 % Anterior Hypokinesis Elevated Left Ventricular End Diastolic Pressure LVEDP: 33 mmHg LEFT ANTERIOR DESCENDING ARTERY: MID LAD: s/p DX: eccentric: hazy: 75 % Stenosis CIRCUMFLEX ARTERY: Angiographically normal RIGHT CORONARY ARTERY: PROX RCA: Mild luminal irregularities AORTIC ROOT: Angiographically normal PCI: CONCLUSIONS Successful ANUP to pLAD Medical Necessity - Tobacco Use Smoking Status: Current every day smoker Assessment/Plan 1. Acute non-ST segment elevation NV The patient presents with findings compatible with an acute non-ST segment elevation NV. The patient has undergone subsequent noninvasive and invasive evaluation. His left ventricle demonstrated left ventricular regional wall motion abnormalities with overall preserved LVEF. His cardiac catheterization demonstrated the appearance of LAD disease. He subsequently received LAD PCI. He will continue medical management and follow-up. This will include plans for future outpatient cardiovascular follow-up and cardiac rehabilitation. 2. Hyperlipidemia The patient does have elevated LDLs. He will continue lipid-lowering therapy with outpatient follow-up as deemed appropriate. Comment: The patient's case was discussed and reviewed with Dr. Pineda. This note was generated using a voice recognition system and there may be incorrect words, spelling or punctuation that were not noted when reviewing the office note prior to saving.
[2019-11-19] MEDS: Lisinopril 5 MG Tablet PO (21:57)
[2019-11-19] MEDS: Atorvastatin Calcium 40 MG Tablet PO (21:57)
[2019-11-20 01:27] VITALS: PULSE 66
[2019-11-20 03:55] VITALS: BP 104/69; PULSE 70; RESP 18; TEMP 36.5; O2SAT 98
[2019-11-20 06:37] LABS: Absolute Lymphocyte Count 1.69 X10^3/uL (0.83-4.51); Absolute Neutrophil Count 5.4 X10^3/uL (2.0-7.7); Basophil# 0.09 X10^3/uL; Basophil% 1.1 % (0-1); Eosinophil# 0.28 X10^3/uL; Eosinophils% 3.3 % (0-5); Hematocrit 48.4 % (40-54); Hemoglobin 17.1 g/dL (13.0-16.5); Lymphocyte # 1.69 X10^3/ul (4.0); Mean Corp Hgb Conc 35.3 g/dL (32-36); Mean Corpuscular Hgb 33.5 pg (27.0-32.0); Mean Corpuscular Volume 94.7 fL (80-94); Mean Platelet Vol. 9.8 fl (6.2-12.0); Monocyte% 10.6 % (0-10); NRBC Flagged by Analyzer 0 % (0-5); Neutrophil # 5.43 X10^3/uL (2.7-7.7); Neutrophil % 64.2 % (47-70); Platelet Count 234 K/mm3 (150-450); RBC Distribution Width SD 44.3 fl (35.1-43.9); Red Blood Count 5.11 M/mm3 (4.6-6.2); White Blood Count 8.5 K/mm3 (4.4-11.0)
[2019-11-20 07:03] VITALS: PULSE 73
[2019-11-20 07:04] LABS: Anion Gap 4 (5-15); BUN 11 mg/dL (7-18); BUN/Creat Ratio 13.2 RATIO (10-20); Calcium,Total 8.8 mg/dL (8.5-10.1); Chloride 109 mmol/L (98-107); Creatinine, Serum 0.83 mg/dL (0.70-1.30); EST Glomerular Filtration Rate 103 mL/min (>60); Est Glom Filt Rate - Afr Amer 125 mL/min (>60); Estimated Creatinine Clearance 103.01 ml/min; Glucose 92 mg/dL (74-106); Potassium 3.9 mmol/L (3.5-5.1); Sodium Level 139 mmol/L (136-145)
[2019-11-20 07:18] VITALS: O2SAT 97
[2019-11-20 09:55] VITALS: BP 106/64; PULSE 73; RESP 18; TEMP 36.6; O2SAT 96
--- NOTE | 2019-11-20 10:00 | EKG12_ITS ---
Test Reason : CP ADMIT Blood Pressure : / mmHG Vent. Rate : 084 BPM Atrial Rate : 084 BPM P-R Int : 134 ms QRS Dur : 096 ms QT Int : 358 ms P-R-T Axes : 060 047 034 degrees QTc Int : 423 ms Normal sinus rhythm Normal ECG When compared with ECG of 28-SEP-2018 10:17, No significant change was found Confirmed by PRISCA PAK, RUPERT ([id number]), news copy editor MORA SINGER ([id number]) on 11/23/2019 11:08:46 AM Referred By: DR RANDOLPH Confirmed By:RUPERT COPE MD
[2019-11-20 10:20] VITALS: PULSE 73
[2019-11-20] MEDS: Aspirin E.C. 81 MG Tablet PO (10:20)
[2019-11-20] MEDS: Losartan Potassium 25 MG Tablet PO (10:20)
[2019-11-20] MEDS: TICAGRELOR 90 MG TABLET PO (10:20)
[2019-11-20] MEDS: Metoprolol Tartrate 25 MG Tablet PO (10:20)
[2019-11-20] MEDS: Famotidine 20 MG Tablet PO (10:20)
--- NOTE | 2019-11-20 11:00 | CRPHASE1_ITS ---
Patient Communication PHII Cardiac Rehab Discussed with Patient:: Yes Guide to Cardiac Rehab Given to Patient:: Yes Cardiac Rehab Facility Choice List Given to Patient:: Yes Choice Program [facility] CR PHII:: Communication Given to CR, Refer to [facility] Trolley Collector:: Ronny Hdogson Phase II Cardiac Rehab:: Yes Sessions:: 36 sessions - 3 days/wk, 12 weeks Risk Factors/Lifestyle Laboratory Values: Cardiac Rehab Phase I Labs Triglycerides 46 mg/dL (-199) 11/18/19 04:25 Cholesterol 188 mg/dL (200) 11/18/19 04:25 LDL Cholesterol 144 mg/dL (0-130) H 11/18/19 04:25 HDL Cholesterol 35 mg/dL (40-) L 11/18/19 04:25 Cardiac Rehabilitation Info Cardiac Rehabilitation Program Information: Cardiac Rehabilitation is important for patients like you who are recovering from a heart problem. Cardiac rehabilitation programs are recognized as integral to the continued care of the patient with coronary heart disease. The cardiac rehabilitation program is designed to optimize a patient's physical, psychological, and social functioning. Health client care representative work in cardiac rehabilitation programs and assist you with getting the treatments you need to get stronger and healthier - like exercise, healthy eating habits, and medications. Cardiac rehabilitation has been show to help people with heart problems live longer and have better life enjoyment than people who do not go to cardiac rehabilitation. Please contact the Cardiac Rehabilitation Program at [facility] at in two weeks if you have not heard from them.
--- NOTE | 2019-11-20 11:01 | CRPH1.INSTRU ---
General Education CAD and cardiac anatomy and function:: Patient communicates acknowledgment Explanation of diagnoses and procedures:: Patient communicates acknowledgment Sign/Symptoms of OK:: Patient communicates acknowledgment Antiplatelet therapy: Patient communicates acknowledgment Proper use of NTG-SL: Patient communicates acknowledgment Emergency procedures and activation of EMS: Patient communicates acknowledgment Compliance of all prescribed medications: Patient communicates acknowledgment Smoking Patient Nicotine/Smoking Risk Factors Are:: Cigarettes Recommendations Include:: Smoking cessation strategies/Smoking packet, Participation in a smoking cessation program Nicotine/Smoking Response Code:: Needs reinforcement Dyslipidemia Patient Dyslipidemia Risk Factors Are:: Total Cholesterol, Triglycerides, HDL, LDL Recommendations Include:: Lipid profile provided Dyslipidemia Response Code:: Patient communicates acknowledgment Overweight/Obesity Patient Overweight/Obesity Risk Factors Are:: Obesity - > or = 30 Recommendations Include:: Weight loss of 5-10%, Reduced calorie diet, Exercise 5-7 times/week Overweight/Obesity:: Patient communicates acknowledgment, Needs reinforcement Hypertension Recommendations Include:: Maintain BP <130/85, BP <130/80 if diabetic, DASH dietary guidelines, Decrease/maintain normal body weight Hypertension:: Patient communicates acknowledgment Sedentary Patient Sedentary Risk Factors Are:: Lack of regular exercise Recommendations Include:: Aerobic exercise 5-7 times/week for 20-30 minutes continuously, Benefits of regular exercise, Discussed home walking program Sedentary Response Code:: Patient communicates acknowledgment, Needs reinforcement
--- NOTE | 2019-11-20 11:07 | CASEMGMT ---
BLAINE OLIVER assessment: Face to Face with patient for initial transition planning/care coordination assessment. BLAINE OLIVER introduced self and role at [facility], pt voices understanding and consents to assessment at this time. Pt is sitting up in bed in no distress at this time. Pt is A/Ox4 at this time and answers all questions appropriately at this time. Care providers, pharmacy, and demographics verified at this time. Presentation: Pt developed left arm pain and chest pressure Admitting dx: Chest pain, elev troponins PCP: Deirdre Specialists: cristiano Ortiz Preferred [facility]acy: [facility] Insurance: [facility] Prescription Benefit: Yes Living Will/HPOA: Pt states does not have LW/HPOA but would like to complete at this time. Rich SW aware, voices understanding. LNOK: Jyoti Navarrete, sister Living Arrangements: Pt states lives with a friend in a 1 story apartment and states no concerns at home at this time. Pt states is independent with ADL's. Transportation: Pt states takes the bus and states no transportation concerns at this time. DME/HHC: Pt states has a cpap but he does not use it and states no need for any further DME at this time. Pt states no hx of HHC or SNF in the past. Pt states no concerns with going home at time of discharge. Pt states is currently unemployed and trying to get on disability. Pt states was smoking a couple packs/day but plans to not smoke upon discharge and declines smoking cessation info at this time. Pt states does not drink ETOH. Pt states no further concerns/needs at this time. CM to follow for any further discharge planning/needs. Advised pt to ask for CM if any further questions/concerns/needs arise, voices understanding. Pt Goal: Home Plan: [place] BLAINE OLIVER
--- NOTE | 2019-11-20 11:15 | DCINST_ITS ---
- Discharge Diagnoses Current Active Problems: Current Active and Chronic Problems (Last Reviewed 10/27/19 @ 10:57 by Akanksha Bryant) Chest pain (Acute) NSTEMI (non-ST elevated myocardial infarction) (Acute) You will use the following diet at home:: Cardiac Your food should be the consistency of: Regular Your liquids should be the consistency of: Regular/Thin Discharge Activity: Return to Normal Activity Call your doctor if you observe: Fever of 101 or Higher, Shortness of breath, Dizziness, Fainting spells, Swelling in the ankles, Chest pain, Increased palpitations (irregular heartbeat) Allergies/Adverse Reactions: Allergies No Known Allergies Allergy (Verified 11/17/19 22:13) Medications to take at Discharge Aspirin E.C. [Ecotrin] 81 mg PO DAILY@0800 #30 tab 11/20/19 Atorvastatin Calcium [Lipitor] 40 mg PO QHS #30 tab 11/20/19 Losartan Potassium [Cozaar] 25 mg PO DAILY #30 tab 11/20/19 Metoprolol Tartrate [Lopressor (beta kasandra)] 25 mg PO BID #60 tab 11/20/19 Ticagrelor [Brilinta] 90 mg PO BID #60 tab 11/20/19 The following prescriptions were given: Ticagrelor [Brilinta] 90 mg PO BID #60 tab Transmission Status: Pending to [facility] Losartan Potassium [Cozaar] 25 mg PO DAILY #30 tab Transmission Status: Pending to [facility] Aspirin E.C. [Ecotrin] 81 mg PO DAILY@0800 #30 tab Transmission Status: Pending to [facility] Atorvastatin Calcium [Lipitor] 40 mg PO QHS #30 tab Transmission Status: Pending to [facility] Metoprolol Tartrate [Lopressor (beta kasandra)] 25 mg PO BID #60 tab Transmission Status: Pending to [facility] Primary Care Physician: Destiney Gilmore MD [Primary Care Provider] - Please follow up with your Primary Care Physician in: 3-5 days Test Results: Test results from this visit will be discussed in further detail at your follow- up appointment, if applicable. Please Follow Up With: Cardiology
--- NOTE | 2019-11-20 12:26 | PHA.DC.MC ---
Pharmacy Service has performed discharge medication reconciliation and counseling for this patient. The patient was counseled on the following discharge medications and changes in medications for homegoing were reviewed. 1. ASPIRIN 2. LOSARTAN 3. LOPRESSOR 4. LIPITOR 5. BRILINTA The Reason for Use, instructions for use, and potential side effects were reviewed for all new medications. The patient's questions regarding all of their medications were answered. The patient demonstrated some understanding but would benefit from further education and reinforcement. Home Medications Aspirin E.C. [Ecotrin] 81 mg PO DAILY@0800 #30 tab 11/20/19 Atorvastatin Calcium [Lipitor] 40 mg PO QHS #30 tab 11/20/19 Losartan Potassium [Cozaar] 25 mg PO DAILY #30 tab 11/20/19 Metoprolol Tartrate [Lopressor (beta kasandra)] 25 mg PO BID #60 tab 11/20/19 Ticagrelor [Brilinta] 90 mg PO BID #60 tab 11/20/19 The patient's discharge medication list was reviewed for discrepancies and discrepancies were resolved.
--- NOTE | 2019-11-20 12:46 | PCM.PN.CARD ---
Subjectve: The patient has been up in the chair and up and ambulating. He denies any recurrent chest discomfort. Objective: Vital Signs Temp Pulse Resp BP Pulse Ox 98 F 73 18 106/64 96 11/20/19 09:55 11/20/19 10:20 11/20/19 09:55 11/20/19 09:55 11/20/19 09:55 Oxygen Flow Rate (L/min) 2 Oxygen Delivery Method Room Air Weight: 233 lb Body Mass Index (BMI) 35.4 Intake and Output for Last 24 Hours 11/18/19 11/19/19 11/20/19 23:59 23:59 23:59 Intake Total 2866.58 / 2866.58 1300 / 1300 440 / 440 Balance 2866.58 / 2866.58 1300 / 1300 440 / 440 General: Awake, Alert, Oriented x 3, Cooperative, No Acute Distress HEENT: Atraumatic, Normocephalic, PERRL, EOMI, Sclera Non Icteric Neck: Supple, Good ROM, No JVD Lungs: Clear to auscultation Cardiovascular: Regular Rhythm, Normal S1, Normal S2 Vascular: Normal Radial Pulses Abdomen: Bowel Sounds Present, Soft, Non Tender Extremities: No edema Neurological: No Focal Motor or Sensory Deficit Psych/Mental Status: Appropriate 11/20/19 06:16: WBC 8.5, RBC 5.11, Hgb 17.1 H, Hct 48.4, MCV 94.7 H, MCH 33.5 H, MCHC 35.3, Plt Count 234, MPV 9.8, Immature Gran % (Auto) 0.800, Neut % (Auto) 64.2, Lymph % (Auto) 20.0, [place] % (Auto) 10.6 H, Eos % (Auto) 3.3, Baso % (Auto) 1.1 H, Absolute Neuts (auto) 5.4, Nucleated RBC % 0 11/20/19 06:16: Sodium 139, Potassium 3.9, Chloride 109 H, Carbon Dioxide 26.0, Anion Gap 4 L, BUN 11, Creatinine 0.83, Est GFR (MDRD) Af Amer 125, Est GFR (MDRD) Non-Af 103, BUN/Creatinine Ratio 13.2, Glucose 92, Calcium 8.8 Rhythm: Sinus rhythm; one episode occurring at 5:30 AM potentially compatible with a sinus node exit block this pause event x1 Medical Necessity - Tobacco Use Smoking Status: Current every day smoker Assessment/Plan 1. Acute non-ST segment elevation [place] The patient presents with findings compatible with an acute non-ST segment elevation [place]. The patient has undergone subsequent noninvasive and invasive evaluation. His left ventricle demonstrated left ventricular regional wall motion abnormalities with overall preserved LVEF. His cardiac catheterization demonstrated the appearance of LAD disease. He subsequently received LAD PCI. He will continue medical management and follow-up. This will include plans for future outpatient cardiovascular follow-up and cardiac rehabilitation. 2. Hyperlipidemia The patient does have elevated LDLs. He will continue lipid-lowering therapy with outpatient follow-up as deemed appropriate. 3. Conduction system disorder The patient did have an episode at 5:30 AM while sleeping, where he had the appearance of a sinus node exit block/sinus pause event x1 with no additional conduction system findings/dysrhythmias and no obvious associated symptoms. The present time he will continue his current therapy and outpatient follow-up. As an outpatient he may need follow-up with an ambulatory event monitor to evaluate for any obvious other conduction system related issues. It is noted based upon the timing is clear that this could be related to concerns of his history of obstructive sleep apnea. Thus he should also continue to follow with his chief development officer, Dr. Ortiz, for further evaluation care as to whether or not he there is any other attempts at treating his obstructive sleep apnea and/or any concerns of nocturnal hypoxemia requiring O2 supplement that may benefit his overall condition including any adverse effects on his cardiac rhythm/conduction system. This note was generated using a voice recognition system and there may be incorrect words, spelling or punctuation that were not noted when reviewing the office note prior to saving.
--- NOTE | 2019-11-20 14:20 | PCM.DC.SUM ---
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 No acute disease Electronically Signed: Donato Whipple MD at 22:36 EDT , Service support , Cardiac Cath: PROCEDURE(S) PERFORMED [id number] W OR WO PTCA, SINGLE CORONARY ARTERY CLINICAL PROFILE AND CO-MORBIDITIES Indications: ACS <= 24 hrs, Suspected CAD Heart Failure: None Stress/Imaging Stress/Image Study Performed: No Angina Classification Anginal Classification w/in 2 Weeks: CCS III CAD Presentations: Non-STEMI. CONCLUSIONS Successful ANUP to pLAD RECOMMENDATIONS DESCRIPTION OF PROCEDURE The patient arrived to the procedure lab. The risks and benefits of the procedure as well as a full description of our services here and current unavailability of surgical backup were fully explained to the patient and/or their significant other prior to the catheterization. The Timeout was completed, verifying the correct patient and procedure. The patient's procedural site was prepped and draped in the usual fashion. Local anesthetic was given subcutaneously to right radial region with Lidocaine 2% Using a modified Seldinger technique,arterial access was obtained via the right radial artery, a 6Fr sheath was inserted. Left Coronary Artery selective angiography was performed in multiple views using a 5 Fr. 4.0 Concord catheter. Right Coronary Artery selective angiography was then performed in multiple views using a 5 Fr. 4.0 Concord catheter. Left Ventriculography was performed in KWAN projection using a 5 Fr. Pigtail catheter. LV to AO pullback pressures were then recorded.The images were reviewed and options discussed. A decision was then made to proceed with an Intervention, IVUS or other adjunct procedure. cordis xb3 Guide catheter was inserted and engaged into the LCA. bmw Guide wire was advanced to the LAD. synergy 4.00 x 20 Drug Eluting stent was advanced across the lesion in the LAD, proximal. Angiogram performed post stent deployment. The arterial sheath was pulled and a TR Band was applied for hemostasis INTERVENTION INFORMATION LESION SITE: LAD (Proximal) Lesion Complexity: High/C, chronic total occlusion: No, lesion at bifurcation: Yes, thrombus present: No, lesion length: 18 mm, culprit lesion: Yes, Previously treated lesion: No Pre Stenosis: 80 % Pre intervention MANDO flow: 3 PROCEDURE: Drug Eluting Stent Post Stenosis: 0 % Post intervention MANDO flow: 3 Lesion Devices: [place] .014 BMW [place] Straight 190cm Cardinal 6 Fr XB3.0 100cm Guide Catheter Wai Sci Synergy MR ANUP 4.00x20 COMPLICATIONS No Complications Echo:Interpretation Summary The study was technically difficult. Contrast injection was performed. Segmental dysfunction with preserved ejection fraction (see wall motion). The estimated ejection fraction is 55 %. Trivial mitral valve insufficiency. Trivial tricuspid valve insufficiency. Right ventricular systolic pressure estimated to be 18 mmHg. No evidence for diastolic dysfunction. Consults: Cardiology Operations: None Procedures: 2-D Echocardiogram, Cardiac catheterization Summary of Care Provided: Per HPI: The patient is a 48 year old M with no significant past medical history except gout, not on medication came to ER after developed chest pain, pressure-like, left-sided with radiation to left arm, intensity 5/10 intensity while he was having sex with his girlfriend. Chest pain is much improved after aspirin 3 and 24 mg and 1 nitro pill given by EMS. Chest pain was associated with diaphoresis, mild dizziness but he does not remember about shortness of breath. In ED, EKG shows sinus tachycardia at [address]-T changes. QTc 458 ms. No previous EKG to compare with. Basic blood work shows K3.2, glucose 136. First troponin negative. Chest x-ray no acute disease. Hospital Course: 1. Non-STEMI/HTN/HLD/morbid obesity/tobacco [id number] male presenting to the hospital with chest pain. He had no significant EKG changes however his troponin elena to 3.13. He underwent a cardiac cath which necessitated a stent placed. He was started on aspirin and Brilinta. He also had a lipid panel obtained which showed an LDL of 144 and he was started on a statin. Also he had blood pressure medications, including losartan, and metoprolol added, which he will continue on discharge. He will need to follow-up with cardiology as well cardiac rehab on discharge. Also he should follow-up with his PCP in 3 to 5 days to obtain a BMP to monitor his kidney function secondary to the initiation of losartan. Also long discussion with him about weight loss including diet and exercising. He does have a BMI of 35.4 and expressed to him that he will continue to have difficulty with his heart if he continues to smoke and does not lose any weight. He did express understanding. I discussed with him the plan for discharge today and he expressed understanding the risk and benefits of going home today. - Physical Exam Vitals/I&O's: Vital Signs Temp Pulse Resp BP Pulse Ox 98 F 73 18 106/64 96 11/20/19 09:55 11/20/19 10:20 11/20/19 09:55 11/20/19 09:55 11/20/19 09:55 Oxygen Flow Rate (L/min) 2 Oxygen Delivery Method Room Air Weight: 233 lb Body Mass Index (BMI) 35.4 Intake and Output for Last 24 Hours 11/18/19 11/19/19 11/20/19 23:59 23:59 23:59 Intake Total 2866.58 / 2866.58 1300 / 1300 440 / 440 Balance 2866.58 / 2866.58 1300 / 1300 440 / 440 General: Alert, Oriented x3, Cooperative, No apparent distress HEENT: Atraumatic, PERRLA, EOMI, Normocephalic Oral: Moist Mucosa Neck: Supple, No JVD Lungs: Clear to auscultation, Normal air movement, No rhonchi, No wheeze, No rales, Diminished Cardiovascular: Regular rate, Regular Rhythm, Normal S1, Normal S2, No murmurs Abdomen: Soft, Non Tender, Non-Distended, No Hepato-splenomegaly, Obese Extremities: No edema, Capillary Refill Less than 3 Seconds Skin: No rashes, No breakdown Neurological: Neuro grossly intact, Sensory exam intact to light touch and pain Psych/Mental Status: Normal Affect, Appropriate Laboratory Results 11/20/19 06:16: WBC 8.5, RBC 5.11, Hgb 17.1 H, Hct 48.4, MCV 94.7 H, MCH 33.5 H, MCHC 35.3, RDW Std Deviation 44.3 H, RDW Coeff of Jaya 13.0, Plt Count 234, MPV 9.8, Immature Gran % (Auto) 0.800, Neut % (Auto) 64.2, Lymph % (Auto) 20.0, [place] % (Auto) 10.6 H, Eos % (Auto) 3.3, Baso % (Auto) 1.1 H, Absolute Neuts (auto) 5.4, Absolute Lymphs (auto) 1.69, Nucleated RBC % 0 11/20/19 06:16: Sodium 139, Potassium 3.9, Chloride 109 H, Carbon Dioxide 26.0, Anion Gap 4 L, BUN 11, Creatinine 0.83, Estim Creat Clear Calc 103.01, Est GFR (MDRD) Af Amer 125, Est GFR (MDRD) Non-Af 103, BUN/Creatinine Ratio 13.2, Glucose 92, Calcium 8.8 Discharge Activity: Return to Normal Activity Call your doctor if you observe: Fever of 101 or Higher, Shortness of breath, Dizziness, Fainting spells, Swelling in the ankles, Chest pain, Increased palpitations (irregular heartbeat) Home Medications: Medications to take at Discharge Aspirin E.C. [Ecotrin] 81 mg PO DAILY@0800 #30 tab 11/20/19 Atorvastatin Calcium [Lipitor] 40 mg PO QHS #30 tab 11/20/19 Losartan Potassium [Cozaar] 25 mg PO DAILY #30 tab 11/20/19 Metoprolol Tartrate [Lopressor (beta carmelo)] 25 mg PO BID #60 tab 11/20/19 Ticagrelor [Brilinta] 90 mg PO BID #60 tab 11/20/19 Following Prescriptions Were Given to Patient: Ticagrelor [Brilinta] 90 mg PO BID #60 tab Transmission Status: Received by [facility] Losartan Potassium [Cozaar] 25 mg PO DAILY #30 tab Transmission Status: Received by [facility] Aspirin E.C. [Ecotrin] 81 mg PO DAILY@0800 #30 tab Transmission Status: Received by [facility] Atorvastatin Calcium [Lipitor] 40 mg PO QHS #30 tab Transmission Status: Received by [facility] Metoprolol Tartrate [Lopressor (beta carmelo)] 25 mg PO BID #60 tab Transmission Status: Received by [facility] Other Amb Orders: Phase II, Outpatient Cardiac Rehab Location: None Selected Primary Care Physician: Destiney Gilmore MD [Primary Care Provider] - Please follow up with your Primary Care Physician in: 3-5 days Please Follow Up With: Cardiology Disposition: Home Minutes spent on discharge:: 35 Patient Condition:: Stable Medical Necessity - Tobacco Use Smoking Status: Current every day smoker Meaningful Use Info Meaningful Use Diagnoses (Choose all that apply): AMI - AMI/Post PCI/Angioplasty Aspirin given w/in 24hrs of arrival?: Yes ASA at discharge?: Yes Antiplatelet Therapy at Discharge:: Yes Statins at discharge?: Yes Paulino/ARB at discharge?: Yes Beta Carmelo at discharge?: Yes Done w/ Acute CA measure.: Yes Documented LVEF (%): 55 Inpatient E&M: [id number] Disch Hosp
== END 2019-11-20 13:40 | disposition home or self-care (01) | DRG 174 ==
LOC: ED 23:01 → PCU 11-18 00:03
PROVIDERS: Internal Medicine Cardiovascular Disease; Student in an Organized Health Care Education/Training Program; Admitting Provider Internal Medicine; Emergency Provider Emergency Medicine; PCP Family Medicine; Visit Provider Family Medicine
DX: I21.4 Non-ST elevation (NSTEMI) myocardial infarction (principal); I25.10 Atherosclerotic heart disease of native coronary artery without angina pectoris; I45.9 Conduction disorder, unspecified; E87.6 Hypokalemia; E78.5 Hyperlipidemia, unspecified; I10 Essential (primary) hypertension; G47.419 Narcolepsy without cataplexy; M1A.9XX0 Chronic gout, unspecified, without tophus (tophi); F17.210 Nicotine dependence, cigarettes, uncomplicated; E66.01 Morbid (severe) obesity due to excess calories; Z68.36 Body mass index [BMI] 36.0-36.9, adult
CPT/HCPCS: 36415; 71046; 80048; 80053; 80061; 83735; 84443; 84484; 85025; 85027; 85610; 85730; 92928; 93005; 93306; 93458; 99152; 99153; 99251; 99285; 99406; J7030; J7120; Q9957; Q9967; A4216; C1769; C1874; C1887; C1894; C8929; C9600; G0463

== ENCOUNTER → 2019-12-06 12:41 | Outpatient (CLI) | payer MEDICAID, SELFPAY ==
[2019-11-17 23:48] VITALS: BMI 35.4
[2019-12-01 08:26] VITALS: BMI 33.8
--- NOTE | 2019-12-06 12:53 | CR.ITP_ITS ---
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 Personal Learning Style:: Audio/Visual Barriers to Learning: Vision Impairment Stage of change r/t lifestyle modifications:: Action Gave educational material for:: Treating Heart Disease, Emotions & Heart Disease, Stress Management & Relaxation, Sleep Disorders & Heart Disease, How The Heart Works, What it means to have Heart Disease, How Coronary Artery Disease is Diagnosed, Heart Procedures, What Heart Medications Do, Risk Factors & Modifications, Living an Active Life, Nutrition - Education/Goals Individual Counseling: Initial Assessment: Nicotine/Smoking, Abnormal Cholesterol Levels, High Blood Pressure, Overweight/Obesity Cardiac Rehabilitation Goals: 1. Maintain the individual as the primary focus of care. 2. To improve the patient's quality of life. 3. Identification of card iac risk factors and provide cardiac risk factor management. 4. Enhance the psychosocial status of the patient. 5. Reconditioning enough to allow the patient to resume customary activities. 6. Control symptoms of cardiac disease Personal Goals: Initial Assessment: Quit smoking (participate in smoking cessation, Improve energy level, Get back to work, or to resume activities faster, Improve knowledge of cardiac disease, Improve muscle strength and endurance, Improve diet and eating habits (eat healthier), Control risk factors (learn risk factor modification) Scale for measuring improvement of personal goals: Enter appropriate number in Comments. 2 = Unchanged. 3 = Slightly Better. 4 = Moderate Improvement. 5 = Met my Goal - Diagnosis & Disease Process Outcomes/Goals: Pt IDs own risk factors & lifestyle modifications by Session 10, Verbalizes symptoms of angina & response by session 3., Pt independently manages Plan/Interventions: Assist Pt to ID & engage in lifestyle modification to reduce CVD risk, Instruct on individual risk factors, Review symptoms of angina & emergency actions, Review secondary diagnosis & identify educational needs. - Safety Referral to Physical Therapy: No Referral to [facility] Case Management: No Fall Risk Assessed:: Yes Assistive Devices:: None Exercise - Initial Assessment - Visit Date of Eval: 12/06/19 Session #:: 0 - PRE CARDIAC REHAB EVALUATION Mets: Pre-: >7 METS for 30 minutes by discharge - Physician Prescribed Exercise Modalities: Treadmill, Rower, Airdyne, NuStep Frequency: 3x/week for 12 weeks [36 sessions] Intensity: 60-80% of age predicted maximum heart rate reserve Current METSs:: 3.5 Target Heart Rate:: 110-144 Resting Blood Pressure: 106/74 EKG Type: NSR - Outcomes & Goals Goals:: Verbalizes understanding of THR, RPE & goal METS by session 6, Documents in home exercise log/reports 30 min aerobic 5 day/wk by DC, Demonstrates accurate pulse taking by DC - Intervention & Plan Exercise Program Goals: Instruct on personal THR & RPE, Instruct on MET level & personal MET goal, Show patient to take own pulse /validate performance until accurate, Instruct on home exercise - Physical Activity Home Exercise Physical Activity - Home Exercise: Safe Exercise, Warm-up, Self-monitoring, Cool-Down, Home Exercise > 30 min Daily, Sitting Time <3 hours/daily - Outcomes & Goals Outcomes/Goals: Demonstrates correct Warm-up/exercise Cool-Down (S3) if = 2.5 METs, Verbalizes symptoms of exercise intolerance by Session 3 (S3), Demonstrate safe equipment use (S3) & follows exercise prescrition (6) - Intervention & Plan Plan/Intervention: Instruct warm-up & cool-down if exercising at > 2 METs, Instruct on symptoms of exercise intolerance & actions to take, Instruct & monitor on saf, Assess intial functional capacity & safety risk Nutrition - Initial Assessment - Program Goals Nutrition Program Goals: LDL <100 optimal. 100 - 129 Near optimal. 130 - 159 Borderline High. 160 - 189 High. Total Cholesterol <200 desirable. 200 - 239 Borderline High. >/= 240 High. HDL < 40 Low >/=60 High. Triglycerides <150 desirable. <199 optimal. VlDL 5 - 40. HgbA1C <7%. BMI <25 Patient has diagnosis of Hyperlipidemia (ICD E78)?: Yes - Visit Date of Assessment:: 12/06/19 Session #:: 0 - PRE CARDIAC REHAB EVALUATION - Cholesterol/Lipids Triglycerides (mg/dL): 46 - 11/18/2019 Total Cholesterol (mg/dL): 150 LDL Cholesterol (mg/dL): 144 HDL Cholesterol (mg/dL): 35 Determine presence & major risk factors that modify LDL goal: Cigarette smoking, Hypertension or hypertensive medication, Low HDL cholesterol <40 mg/dL*, Age men > 45 years; women >/= 55 years Outcomes/Goals: Pt IDs own risk factors & lifestyle modifications by Session 10, Verbalizes symptoms of angina & response by session 3., Pt independently manages Intervention/Plan: Instruct on personal lipid levels & lipid goals/NCEP guidelines, Instruct on cholesterol Referral to dietitian:: Yes - MEDICAL NUTRITION THERAPY and STRUCTURED WEIGHT LOSS PROGRAMS - Diabetes (Other Core Measures) Diabetes Type: Not Applicable - Weight Mgt (Other Care) Not Applicable: No Height: 5 ft 8.1 in Weight:: 233 lb BMI: 35.3 Diagnosis Overweight/Obesity BMI> 30% ICD-10 E66: Yes Diagnosis High BMI/Morbid Obesity BMI> 35% ICD-10 Z68: Yes Outcomes/Goals: Pt sets, maintains & shows weight loss goal & trend during rehab Intervention/Plan: Instruct on ideal BMI & set weight loss goal w/patient, Assist pt to ID & incorporate diet changes for weight loss by S9, Refer to Structured Weight Loss program as appropriate, Encourage goal of using 250- 300dcal per session for weight loss - Healthy Eating Habits Outcomes/Goals:: Consume diet rich in vegs,fruits,whole grain/high fiber,fish,lean meat, Limit sat/trans fats,cholesterol & added salts & sugars Intervention/Plan:: Assess current eating habits - Education Gave educational materials for:: Healthy eating Medical - Initial Assessment - Visit Date of Eval: 12/06/19 Session #:: 0 - PRE CARDIAC REHAB EVALUATION - Medication Compliance Preventative Medication(s):: Aspirin, Ticagrelor/P2Y12 inhibitor, Statin/lipid, Beta kasandra Outcomes/Goals: Verbalizes medications,desired effect & common side effects @ DC, Pt self-reports following medication regimen, Keeps card in wallet w/medications listed by DC Interventions/plans: Instruct on medication effects & side effects, Review medication list w/patient every two weeks, Instruct importance of taking meds as ordered & assist problem solving - Tobacco Use Tobacco Use: Cigarettes Do you use smokeless tobacco?: No Outcomes/Goals: Smoking cessation achieved or maintained by discharge, Identify aids/strategies for achieving smoking cessation by session 6 Interventions/plan: Instruct on effects of smoking & provide smoking cessation resource, Assist pt to set quit date & provide encouragement, Assist pt to develop strategies to achieve/maintain quit date, Assist pt w/nicotine replacement & medication for cessation success - Hypertension Resting Blood Pressure:: 106/74 - CONTROLLED ON MEDICATIONS [place] [employer] Hypertension Guidelines: [place] [employer] Hypertension Guidelines. Normal BP Less than 120/80. Elevated BP 120/80. Hypertension Stage 1: BP 130-139/80-89. Hypertesnion Stage 2: BP 140 or higher/90 or higher. Hypertension Crisis: BP higher than 180/120 Outcomes/Goals: Able to verbalize/achieve optimal blood pressure <130/80, Incorporates diet changes & exercise for blood pressure control by DC Interventions/plan: Instruct on optimal blood pressure, hypertension & medications, Instruct on effects of sodium, alcohol, stress, exercise &hypertension - Tobacco Cessation Referral Smoking Cessation Referral:: Yes Individual Education/Counseling:: Yes Education Schedule Given:: Yes Psychosocial - Initial Assess - VIsit Date of Eval: 12/06/19 Session #:: 0 - PRE CARDIAC REHAB EVALUATION Not Applicable: Yes History of previous Mental disease:: No - Target Goals Target Goals: Assess presence or absence of depression. Using a valid screening tool, maximizes coping skills. Positive support system - Psychosocial Test Tool Used:: Marley Jacobs QOL Cardiac, PHQ-9 Questionnaire phq-9 Severity: Severity. 1-4 Minimal Depression. 5-9 Mild Depression. 10-14 Moderate Depression. 15-19 Moderately Sever Depression. 20-27 Severe Depression. Rule: - Referral to Behavioral Health PS - Interventions: Yes Attend Stress Management Classes, No Referral to Behavioral Health if PHQ-9 score >9:, No Referral to [facility], No Referral to Physician if PHQ-9 if score is 5-9: - Outcomes/Goals: See list Psychosocial Outcomes/Goals:: ID's personal stressors & 2 strategies to manage stress by discharge - Intervention/Plan: See List Interventions/Plan:: Assess stressors,coping strategies & signs of derpression on admission, Instruct/assist pt to develop coping & personal stress Mgt strategies, Instruct patient to recognize signs & symptoms of depression, Instruct patient to recog Patient Health Questionnaire Initial Assessment 1. Little interest or pleasure in doing things: Several days 2. Feeling down, depressed, or hopeless: Several days 3. Trouble falling or staying asleep, or sleeping too much: Several days 4. Feeling tired or having little energy: Several days 5. Poor appetite or overeating: Several days 6. Feeling bad about yourself -- or that you are a failure or have let yourself or your family down: Not at all 7. Trouble concentrating on things, such as reading the newspaper or watching television: Not at all 8. Moving or speaking so slowly that other people could have noticed. Or the opposite - being so fidgety or restless that you have been moving around a lot more than usual: Not at all 9. Thoughts that you would be better off , or of hurting yourself in some way: Not at all How difficult have these problems made it for you to do your work, take care of things at home, or get along with other people?: Somewhat difficult Total Score: 5 FAHAD-Q SV Test - Statements CAD is a disease of the arteries in the heart: I Don't Know Examples of risk factors for heart disease: True Angina is chest pain or discomfort: I Don't Know The benefits of resistance training include: True Eating more meat and dairy products: I Don't Know Anti-platelet medications such as aspirin are important: True The only effective way to manage stress: False An exercise warm-up slowly increases heart rate: I Don't Know Prepared, processed foods usually have high sodium: I Don't Know Depression is common after a heart attack: I Don't Know The statin medications lower cholesterol: I Don't Know To control blood pressure, lower the amount of sodium: I Don't Know If someone gets chest discomfort during walking: False Transfats are partially hydrogenated vegetable oils: I Don't Know Sleep apnea that is not treated increases the risk: False To control cholesterol, one should become a vegetarian: False Someone knows if he/she is exercising at the right level: I Don't Know Diabetes cannot be prevented with exercise & health eating: False Stress is a large risk for heart attack: True A diet that can help lower blood pressure is rich in: True - Total Score Total Correct Responses: 10 Self-Efficacy Initial Assessment We would like to know how confident you are in doing certain activities. Please select your confidence level for:: Select your confidence level for the following using the scale 1-10 where 1 is not at all confident and 10 is totally confident. Your score is the average of all 6 responses. Fatigue: How confident are you that you can keep the fatigue caused by your disease from interfering with the things you want to do? Select Number: 5 Physical Discomfort or Pain: How confident are you that you can keep the physical discomfort or pain of your disease from interfering with the things you want to do? Select Number: 5 Emotional Distress: How confident are you that you can keep the emotional distress caused by your disease from interfering with the things you want to do? Select Number: 5 Other Symptoms or Health Problems: How confident are you that you can keep other symptoms or health problems from interfering with the things you want to do? Select Number: 5 Different Tasks and Activities: How confident are you that you can do the different tasks and activities needed to manage your health condition so as to reduce your need to see a doctor? Select Number: 5 Medication: How confident are you that you can do things other than just taking medication to reduce how much your illness affects your everyday life? Select Number: 5 Total Score:: 5 Nutrition Survey - Nutrition Survey Instructions Scoring Instructions: Scoring is as follows: Yes = 1 points. No = 0 point. Patient score that is >/=12 is considered to be at potential nutritional risk and could benefit from a referral to a registered dietitian. - Nutrition Survey Initial Have you lost >10 lbs over the past 2 months without trying?: No Are you following a special diet at home for diabetes, low fat, or low salt?: No Are you interested in meeting with a dietitian for help understanding your diet?: Yes Do you eat less than 3 meals a day?: Yes Do you eat fatty meats (cope, sausage, ribs, etc), fried foods, desserts, large amounts of salad dressings, margarine, butter, or cheese most days?: Yes Do you have food allergies? [Enter types in comment field]: No Do you eat in restaurants more than 3 times a week?: No Do you season food with salt, seasoning salt, or garlic salt?: Yes Do you used canned, boxed, frozen meals, or soups, seasoning packets?: Yes Total Score:: 5
--- NOTE | 2019-12-06 12:53 | PCM.CR.HP2 ---
CR - History & Physical - General Arrival date:: 12/06/19 Arrival time:: 12:53 Date of Referral:: 11/20/19 Date of CR Evaluation:: 12/06/19 Referring Physician: DR. BOO PASTRANA Primary Diagnosis: PCI W/CORONARY STENT - History of Present Cardiac Event Onset Date: Enter Onset Date of cardiac illnesses in Comment field below Current stable Angina Pectoris:: No Acute Myocardial Infarction within 12 months:: Yes - ACUTE NON-ST SEGEMNT ELEVATION [place] PTCA or coronary stenting:: Yes Type of Symptoms:: DEVELOPED SUBSTERNAL CHEST TIGHTNESS RADIATING IN TO HIS LEFT ARM, ENGAGED IN SEXUAL FOREPLAY ACTIVITY AT THE TIME. SEVERITY WAS MILD PRIOR TO ARRIVAL AT THE EMERGENCY ROOM, ALTHOUGH IT WAS A CONTINUOUS TIGHTNESS. Interventions with present event:: ADMITTED AND HAD A HEART CATH DONE Were there any complications?: EPISODE IN ICU WHILE SLEEPING, WHERE HAD A BLOCK/SINUS PAUSE; ASYMPTOMATIC - Medications Home Medications: Ambulatory Orders Medication Instructions Recorded aspirin 81 mg tablet,delayed 81 mg PO DAILY #30 tab 12/01/19 release atorvastatin 40 mg tablet 40 mg PO QHS #30 tab 12/01/19 losartan 25 mg tablet 25 mg PO DAILY #30 tab 12/01/19 metoprolol tartrate 25 mg tablet 25 mg PO BID #60 tab 12/01/19 ticagrelor 90 mg tablet 90 mg PO BID #60 tab 12/01/19 - Allergies Allergies/Adverse Reactions: Allergies No Known Allergies Allergy (Verified 12/01/19 09:31) - Sleep Disorder Evaluation Hx of Sleep Apnea: Yes Do you snore loudly (louder than talking or can be heard through closed doors)?: Yes - has a CPAP device at home which he is ot using due to being closterphobic. Norcolepsy Do you often feel tired/ fatigued/ sleepy during daytime?: No Has anyone observed you stop breathing during sleep?: No History of Hypertension (for STOP score): Yes STOP Results: Positive Advanced Directives - Advanced Directives Power of Rubber Thread Spooler: No Living Will: No Advance Directives Information Provided: Yes Advance Directives on File: No DNR Order?:: No - MOLST See MOLST form: No Past Medical History - Covid-19 Screening Fever: No Unexplained muscle aches: No Current respiratory symptoms: No Upper respiratory infections symptoms: No Gastro-intestinal symptoms: No Wwb-Xjhw-Vhmchu symptoms: No Has tested positive for COVID-19 in last 30 days: No Had contact w/person w/symptoms or Covid-19 (+) last 14 days: No Has High Risk Exposures ID'd by Health dept/Inf Control team: No 65 years or older:: No Lives in Assisted Living facility:: No Has a chronic lung disease or moderate to severe asthma:: No Has a serious heart condition:: No Immunocompromised:: No Severely obese (Body Mass Index of 40 or higher):: No Diabetic:: No Has chronic kidney disease undergoing dialysis:: No Has liver disease:: No - Past Medical Illness Medical History: Past Medical History (Last Updated 11/20/19 @ 12:17 by Candis Mccullough) Hyperlipidemia, unspecified (Chronic) E78.5 Presence of stent in coronary artery (Chronic) Onset Date: ~11/18/19 Z95.5 Successful ANUP to [facility] 11/18/19 Atherosclerotic heart disease of [place] coronary artery without angina pectoris (Chronic) I25.10 - Past Surgical History Surgical History: noncontributory Social History - Smoking History Smoking Status: Current every day smoker Packs Smoked per Day: 2 - down to 1/2 pack per day. Hx Tobacco Use: Yes Hx Smoking Exposure: Yes - Alcohol Use Alcohol Usage: No - Substance Abuse Hx Substance Use: Yes - Marijuana - Occupation Occupation (List type of work in comments):: Retired - disability - Hobbies, Recreation, Social Activities Recreational Activities: I am able to engage in most, but not all activities Social Environment - Status Marital Status: - Current Living Arrangements Living Environment:: Alone - lives with a friend - Children How many children do you have?: 1 Do any of your children live nearby?: No - [place] - Safety Do you feel safe in your surroundings?: Yes Review of Systems - Review of Systems Hints: Right click = Denies ([place]). Left click = Reports ([place]) Review of Present Symptoms: Reports: Shortness of Breath with Exertion, Dizziness/Lightheadedness - only the first couple of days of being home, still getting adjusted but is doing better now., Fatigue, Heart Arrhythmia/Irregularities - CONDUCTION SYSTEM DISORDER; appearance of a sinus node exit block/sinus pause event x 1, no obvious associated symptoms., Appetite - Normal, Sleep - Normal. Denies: Shortness of Breath at Rest, Angina, Appetite - Special Diet, Sexual Changes - Pain Is Patient Pain Free?: Yes Pain Location: back - lower back problems Pain Level: 5/10 - most of the time it is at a 5 or so; chronic back pain. Risk Factor Assessment - Chief Complaint Chief Complaint: THE PATIENT IS A 48YR MALE OF DR. PASTRANA WHO RECENTLY HAD A PCI INTERVENTION AND STENT PLACEMENT DONE ON 11/20/2019. - Vital Signs Temperature: 97.4 F Respiratory Rate: 16 Pulse Ox: 96 Blood Pressure: 106/74 - Pulse Pulse Rate: 72 Pulse Rhythm: Regular - Stress Stress: Recent - Blood Cholesterol/Lipids Total Cholesterol (mg/dL) Goal = less than 200 mg/dL: 150 HDL Cholesterol (mg/dL) Goal = less than 40 mg/dL: 35 LDL Cholesterol (mg/dL) Goal = less than 70 mg/dL: 144 Triglycerides (mg/dL) Goal = less than 150 mg/dL: 46 - Diabetes Nutrition Referral for Diabetes: No - Obesity Height: 5 ft 8.1 in Weight:: 233 lb Weight in Pounds: 233.0 lbs Weight Source: Standing Scale Body Mass Index (BMI): 35.3 Nutritional Referral for Obesity: Yes - WHY WEIGHT STRUCTURED WEIGHT LOSS PROGRAM - Risk Stratification Risk Guidelines: Lowest Risk: Risk Factor for Diabetes, Risk Factor for Hypertension - CONTROLLED ON MEDICATIONS, Risk Factor for Sedentary Lifestyle, Risk Factor for Depression, Moderate Risk: Risk Factor for Dyslipidemia, Highest Risk: Risk Factor for Smoking, Risk Factor for Obesity - For Smoking Smoking Risk Guidelines: Smoking Low Risk: None or quit greater than 6 months ago. Smoking Moderate Risk: Smoker or quit 6 months or less ago. Smoking High Risk: Smoker - For Dyslipidemia Dyslipidemia Risk Guidelines: Low Risk: Moderate Risk: High Risk: 15-25% fat 25.1-29% fat >/= 30% fat. <7% sat fat 7-9% sat fat >9% sat fat. <150 mg chol 150-299 mg chol >/= 300 mg chol. LDL <100 LDL 100-129 LDL >/= 130. Chol/HDL ratio <5.0 Chol/HDL ratio 5.0-6.0 Chol/HDL ratio >6.0. Triglycerides <100 Triglycerides 100-149 Triglycerides >/= 150 - For Diabetes Mellitus Diabetes Risk Guidelines: Diabetes Low Risk: HgA1c <6.5% and/or FBG <120. Diabetes Moderate Risk: HgA1c 6.6-7.9% and/or FBG 120-180. Diabetes High Risk: HgA1c >/= 8% and/or FBG >180 - For Obesity/Overweight Obesity/Overweight Risk Guidelines: Obesity Low Risk: BMI <25.0. Obesity Moderate Risk: BMI 25-29.9. Obesity High Risk: BMI >/= 30.0 - For Hypertension Hypertension Risk Guidelines: Hypertension Low Risk: Systolic <120 and Diastolic <80. Hypertension Moderate Risk: Systolic 120-139 and Diastolic 80-89. Hypertension High Risk: Systolic >/= 140 and Diastolic >/= 90 - For Sedentary Lifestyle Sedentary Lifestyle Risk Guidelines: Sedentary Lifestyle Low Risk: >/= 1,500 kcal/week. Sedentary Lifestyle Moderate Risk: 700-1,499 kcal/week. Sedentary Lifestyle High Risk: < 700 kcal/week - For Depression Depression Risk Guidelines: Depression Low Risk: Not clinically depressed. Depression Moderate Risk: Mildly depressed. Depression High Risk: Clinically depressed Motivation - Motivation to Participate On a scale of 1 to 10, how prepared are you to commit to attending program?: 9 What do you see as barriers to successfully being able to complete the program?: getting here. What do you see as the benefits of succesfully completing the program? In other words, what do you hope to get out of participating in the program?: getting my health back, and doing better lifestyle. Are there issues you are dealing with that will interfere with completing the program?: chronic back pain Do you have a spouse or signficant other, family or friends who will help support you to complete the program?: slightly supportive sister
[2019-12-06 13:30] VITALS: BP 106/74; PULSE 72; RESP 16; TEMP 36.3; O2SAT 96; BMI 35.3
[2019-12-06 14:00] VITALS: BP 106/74; BMI 35.3
== END ==
PROVIDERS: PCP Family Medicine; Referring Provider Internal Medicine Cardiovascular Disease; Visit Provider Internal Medicine Cardiovascular Disease
DX: I25.2 Old myocardial infarction (principal); E78.5 Hyperlipidemia, unspecified; E66.9 Obesity, unspecified; Z95.5 Presence of coronary angioplasty implant and graft

== ENCOUNTER → 2019-12-13 09:57 | Outpatient (CLI) | payer MEDICAID, SELFPAY ==
[2019-12-01 08:26] VITALS: BMI 33.8
[2019-12-06 13:30] VITALS: BMI 35.3
[2019-12-06 14:00] VITALS: BMI 35.3
--- NOTE | 2019-12-13 09:57 | ART_ITS ---
Reason For Study: CLAUDICATION Procedure A bilateral lower extremity continuous wave Doppler with analog waveform analysis,segmental pressures,and ankle brachial indexes without exercise. Left Segmental Pressures Left brachial= 94mmHg. Left posterior tibial artery = 123mmHg. Left dorsalis pedis artery = 119mmHg. Left digit = 93 mmHg. The left dorsalis pedis waveforms are triphasic. The left posterior tibial artery waveforms are triphasic. Right Segmental Pressures Right brachial= 101mmHg. Right posterior tibial artery = 141mmHg. Right dorsalis pedis artery = 116mmHg. Right digit = 106 mmHg. The right dorsalis pedis waveforms are triphasic. The right posterior tibial artery waveforms are triphasic. Indices The right ankle brachial index by the dorsalis pedis is 1.15. The right ankle brachial index by the posterior tibial artery is 1.40. The right digital-brachial index is 1.05. The left ankle brachial index by the dorsalis pedis is 1.18. The left ankle brachial index by the posterior tibial artery is 1.22. The left digital-brachial index is .92. Interpretation Summary Resting ankle-brachial indices appear bilaterally normal. Normal bilateral digital brachia indices Normal triphasic doppler waveforms bilateral lower extremities Ordering Physician: Parker Jackson Referring Physician: ANAY TOLBERT Performed By: EBENEZER DUFFY RDCS
--- NOTE | 2019-12-13 18:39 | STRESSREP_ITS ---
Stress Test Report Date: 12-13-2019 Procedure: Exercise tolerance test Indications: CAD; PCI; precardiac rehabilitation Consent: Per the patient Procedure: The patient exercised on a Edgar protocol for 4 minutes and 43 seconds completing Stage I and 1 minute and 43 seconds of Stage II achieving a peak heart rate of 133 bpm (78% predicted maximal heart rate) with a peak blood pressure 132/74 mmHg and a peak MET capacity of approximately 6 MET's. The baseline ECG demonstrated normal sinus rhythm. The peak exercise ECG demonstrated no obvious ECG changes. There were no cardiac dysrhythmias pretest, during exercise, or recovery. The functional capacity was considered decreased. The patient had no complaint of chest discomfort during exercise or recovery. The examination was discontinued secondary to dyspnea and fatigue. Impression: 1. Technically inadequate (percent predicted maximal heart rate less than 85%) exercise tolerance test 2. Peak exercise ECG with no obvious ECG changes of the heart rate achieved 3. There were no cardiac dysrhythmias during exercise or recovery This note was generated with Luxoft[employer] software. It may contain incorrect words, spelling, and punctuation that were not noted in checking the note before signing.
== END ==
PROVIDERS: PCP Family Medicine; Referring Provider Nurse Practitioner Family; Visit Provider Nurse Practitioner Family
DX: I25.10 Atherosclerotic heart disease of native coronary artery without angina pectoris (principal); I73.9 Peripheral vascular disease, unspecified; Z95.5 Presence of coronary angioplasty implant and graft
CPT/HCPCS: 93017; 93923

== ENCOUNTER 2019-12-20 13:00 | Outpatient (RCR) | payer MEDICAID, SELFPAY ==
[2019-12-06 13:30] VITALS: BMI 35.3
[2019-12-06 14:00] VITALS: BMI 35.3
== END 2019-12-20 23:59 ==
LOC: CR 13:00
PROVIDERS: PCP Family Medicine; Referring Provider Internal Medicine Cardiovascular Disease; Visit Provider Internal Medicine Cardiovascular Disease
DX: I25.10 Atherosclerotic heart disease of native coronary artery without angina pectoris (principal); Z95.5 Presence of coronary angioplasty implant and graft
CPT/HCPCS: 93798

== ENCOUNTER 2019-12-29 13:00 | Outpatient (RCR) | payer MEDICAID, SELFPAY ==
[2019-12-06 13:30] VITALS: BMI 35.3
[2019-12-06 14:00] VITALS: BMI 35.3
--- NOTE | 2020-01-03 11:25 | PCM.CR.ITP ---
Exercise - 30-day Assessment - Visit Date of Eval: 01/03/20 Session #:: 7 - Patient has missed 5 scheduled visits to date. - Physician Prescribed Exercise Modalities: Treadmill, Airdyne, NuStep Frequency: 3x/week for 12 weeks [36 sessions] Intensity: 60-80% of age predicted maximum heart rate reserve Current METSs:: 3.5 unchanged due to irregular attendance Target Heart Rate:: 110-144 Current RPE:: 13 Maximum Excercise HR:: 116 Resting Blood Pressure: 102/64 Maximum Exercise Blood Pressure: 112/74 EKG Type: NSR WITHOUT ECTOPY. - Outcomes & Goals Goals:: Verbalizes understanding of THR, RPE & goal METS by session 6, Documents in home exercise log/reports 30 min aerobic 5 day/wk by DC, Demonstrates accurate pulse taking by DC - Intervention & Plan Exercise Program Goals: Instruct on personal THR & RPE, Instruct on MET level & personal MET goal, Show patient to take own pulse /validate performance until accurate, Instruct on home exercise - 30-day Reassessments 30 day Reassessments:: Not Met - Physical Activity Home Exercise Physical Activity - Home Exercise: Safe Exercise, Warm-up, Self-monitoring, Cool-Down, Home Exercise > 30 min Daily, Sitting Time <3 hours/daily - Outcomes & Goals Outcomes/Goals: Demonstrates correct Warm-up/exercise Cool-Down (S3) if = 2.5 METs, Verbalizes symptoms of exercise intolerance by Session 3 (S3), Demonstrate safe equipment use (S3) & follows exercise prescrition (6) - Intervention & Plan Plan/Intervention: Instruct warm-up & cool-down if exercising at > 2 METs, Instruct on symptoms of exercise intolerance & actions to take, Instruct & monitor on saf, Assess intial functional capacity & safety risk - 30-day Reassessments 30 day Reassessments:: Not Met Nutrition - 30-Day Assessment - Program Goals Nutrition Program Goals: LDL <100 optimal. 100 - 129 Near optimal. 130 - 159 Borderline High. 160 - 189 High. Total Cholesterol <200 desirable. 200 - 239 Borderline High. >/= 240 High. HDL < 40 Low >/=60 High. Triglycerides <150 desirable. <199 optimal. VlDL 5 - 40. HgbA1C <7%. BMI <25 Patient has diagnosis of Hyperlipidemia (ICD E78)?: Yes - Visit Date of Assessment:: 01/03/20 Session #:: 7 - Cholesterol/Lipids Determine presence & major risk factors that modify LDL goal: Cigarette smoking, Hypertension or hypertensive medication, Family history of premature CHD in Male < 55 years: female <65 yearsFa, Age men > 45 years; women >/= 55 years Outcomes/Goals: Pt IDs own risk factors & lifestyle modifications by Session 10, Verbalizes symptoms of angina & response by session 3., Pt independently manages Intervention/Plan: Instruct on personal lipid levels & lipid goals/NCEP guidelines, Instruct on cholesterol Referral to dietitian:: No - wAS SCHEDULED TO SEE NUTRITION SERVICES ON 01/01/20 @ 11:30 - Diabetes (Other Core Measures) Diabetes Type: Not Applicable - Weight Mgt (Other Care) Not Applicable: No Height: 5 ft 8.1 in Weight:: 234 lb BMI: 35.4 Diagnosis Overweight/Obesity BMI> 30% ICD-10 E66: Yes Diagnosis High BMI/Morbid Obesity BMI> 35% ICD-10 Z68: Yes Outcomes/Goals: Pt sets, maintains & shows weight loss goal & trend during rehab Intervention/Plan: Instruct on ideal BMI & set weight loss goal w/patient, Assist pt to ID & incorporate diet changes for weight loss by S9, Encourage goal of using 250-300dcal per session for weight loss 30 day Reassessments:: Not Met - NO WEIGHT LOSS RECORDED - Healthy Eating Habits Will attend diet classes:: Yes Outcomes/Goals:: Consume diet rich in vegs,fruits,whole grain/high fiber,fish,lean meat, Limit sat/trans fats,cholesterol & added salts & sugars Intervention/Plan:: Assess current eating habits 30-day Reassessments:: Progressing - Education Gave educational materials for:: Healthy eating Medical- 30-Day Assessment - Visit Date of Eval: 01/03/20 Session #:: 7 - Medication Compliance Preventative Medication(s):: Aspirin, Ticagrelor/P2Y12 inhibitor, Statin/lipid, Beta kasandra H/O mental health issues: depression, anxiety, or addiction?: Yes Doesn?t believe in the benefits of treatment?: No Believes medications are unnecessary or harmful?: No Has a concern about medication side effects?: No Expresses concern over the cost of medications?: No Outcomes/Goals: Verbalizes medications,desired effect & common side effects @ DC, Pt self-reports following medication regimen, Keeps card in wallet w/medications listed by DC Interventions/plans: Instruct on medication effects & side effects, Review medication list w/patient every two weeks, Instruct importance of taking meds as ordered & assist problem solving 30-day Reassessments:: Progressing - Tobacco Use Tobacco Use: Cigarettes How many cigarettes do you smoke per day?: 10 Do you use smokeless tobacco?: No Outcomes/Goals: Smoking cessation achieved or maintained by discharge, Identify aids/strategies for achieving smoking cessation by session 6 Interventions/plan: Instruct on effects of smoking & provide smoking cessation resource, Assist pt to set quit date & provide encouragement, Assist pt to develop strategies to achieve/maintain quit date, Assist pt w/nicotine replacement & medication for cessation success 30-day Reassessments:: Not Met - Hypertension Hypertension Diagnosis:: Hypertension ICD-10 I10 Resting Blood Pressure:: 102/64 [place] [employer] Hypertension Guidelines: [place] [employer] Hypertension Guidelines. Normal BP Less than 120/80. Elevated BP 120/80. Hypertension Stage 1: BP 130-139/80-89. Hypertesnion Stage 2: BP 140 or higher/90 or higher. Hypertension Crisis: BP higher than 180/120 Peak Exercise Blood Pressure:: 112/74 Outcomes/Goals: Able to verbalize/achieve optimal blood pressure <130/80, Incorporates diet changes & exercise for blood pressure control by DC 30 day Reassessments:: Progressing - Tobacco Cessation Referral Smoking Cessation Referral:: Yes - PATIENT NEEDS ENCOURAGEMENT TO QUIT SMOKING Individual Education/Counseling:: Yes Education Schedule Given:: Yes Psychosocial - 30-Day Assess - VIsit Date of Eval: 01/03/20 Session #:: 7 Not Applicable: No History of previous Mental disease:: No History of Emotional Disorders: Depression - Target Goals Target Goals: Assess presence or absence of depression. Using a valid screening tool, maximizes coping skills. Positive support system - Psychosocial Test Tool Used:: Kolton[place]rio QOL Cardiac, PHQ-9 Questionnaire phq-9 Severity: Severity. 1-4 Minimal Depression. 5-9 Mild Depression. 10-14 Moderate Depression. 15-19 Moderately Sever Depression. 20-27 Severe Depression. Rule: - Referral to Behavioral Health PS - Interventions: Yes Attend Stress Management Classes, No Referral to Behavioral Health if PHQ-9 score >9:, No Referral to [facility], No Referral to Physician if PHQ-9 if score is 5-9: - Outcomes/Goals: See list Psychosocial Outcomes/Goals:: ID's personal stressors & 2 strategies to manage stress by discharge - Intervention/Plan: See List Interventions/Plan:: Assess stressors,coping strategies & signs of derpression on admission, Instruct/assist pt to develop coping & personal stress Mgt strategies, Instruct patient to recognize signs & symptoms of depression, Instruct patient to recog - 30-day Reassessments: 30 day Reassessments:: Progressing Patient Health Questionnaire 30-Day Re-eval Assessment 1. Little interest or pleasure in doing things: Several days 2. Feeling down, depressed, or hopeless: Several days 3. Trouble falling or staying asleep, or sleeping too much: Several days 4. Feeling tired or having little energy: Several days 5. Poor appetite or overeating: Several days 6. Feeling bad about yourself -- or that you are a failure or have let yourself or your family down: Not at all 7. Trouble concentrating on things, such as reading the newspaper or watching television: Not at all 8. Moving or speaking so slowly that other people could have noticed. Or the opposite - being so fidgety or restless that you have been moving around a lot more than usual: Not at all 9. Thoughts that you would be better off , or of hurting yourself in some way: Not at all How difficult have these problems made it for you to do your work, take care of things at home, or get along with other people?: Somewhat difficult Total Score: 5 Self-Efficacy 30-Day Re-eval Assessment We would like to know how confident you are in doing certain activities. Please select your confidence level for:: Select your confidence level for the following using the scale 1-10 where 1 is not at all confident and 10 is totally confident. Your score is the average of all 6 responses. Fatigue: How confident are you that you can keep the fatigue caused by your disease from interfering with the things you want to do? Select Number: 5 Physical Discomfort or Pain: How confident are you that you can keep the physical discomfort or pain of your disease from interfering with the things you want to do? Select Number: 5 Emotional Distress: How confident are you that you can keep the emotional distress caused by your disease from interfering with the things you want to do? Select Number: 5 Other Symptoms or Health Problems: How confident are you that you can keep other symptoms or health problems from interfering with the things you want to do? Select Number: 5 Different Tasks and Activities: How confident are you that you can do the different tasks and activities needed to manage your health condition so as to reduce your need to see a doctor? Select Number: 5 Medication: How confident are you that you can do things other than just taking medication to reduce how much your illness affects your everyday life? Select Number: 5 Total Score:: 5
[2020-01-03 11:35] VITALS: BP 102/64; BP 112/74; BMI 35.4
== END 2020-01-20 23:59 ==
LOC: CR 13:00
PROVIDERS: PCP Family Medicine; Referring Provider Internal Medicine Cardiovascular Disease; Visit Provider Internal Medicine Cardiovascular Disease
DX: Z95.5 Presence of coronary angioplasty implant and graft (principal); I25.10 Atherosclerotic heart disease of native coronary artery without angina pectoris
CPT/HCPCS: 93798

== ENCOUNTER → 2020-01-05 13:08 | Observation (INO) | payer MEDICAID, SELFPAY ==
[2019-12-06 13:30] VITALS: BMI 35.3
[2020-01-03 11:35] VITALS: BMI 35.4
--- NOTE | 2020-01-05 12:53 | EKG12_ITS ---
Test Reason : CHEST PAIN Blood Pressure : / mmHG Vent. Rate : 097 BPM Atrial Rate : 097 BPM P-R Int : 128 ms QRS Dur : 098 ms QT Int : 354 ms P-R-T Axes : 068 047 031 degrees QTc Int : 449 ms Normal sinus rhythm Normal ECG When compared with ECG of 05-JAN-2020 12:50, MANUAL COMPARISON REQUIRED, DATA IS UNCONFIRMED Confirmed by MARYJO PAK, ELTON ([id number]), editorial writer SHARI CARRANZA ([id number]) on 01/19/2020 12:46:49 PM Referred By: Ronny Hodgson Confirmed By:GEORGETTE SIBLEY MD
[2020-01-05 13:09] VITALS: BP 126/75; PULSE 98; RESP 23; TEMP 36.4; O2SAT 96; BMI 36.2
--- NOTE | 2020-01-05 13:18 | EKG12_ITS ---
Test Reason : CP Blood Pressure : / mmHG Vent. Rate : 092 BPM Atrial Rate : 092 BPM P-R Int : 134 ms QRS Dur : 102 ms QT Int : 368 ms P-R-T Axes : 060 035 035 degrees QTc Int : 455 ms Normal sinus rhythm Incomplete right bundle branch block Borderline ECG Confirmed by MARYJO PAK, ELTON ([id number]), field map editor MORA SINGER ([id number]) on 01/18/2020 9:43:28 A M Referred By: Confirmed By:GEORGETTE SIBLEY MD
--- NOTE | 2020-01-05 13:23 | ED.DCSUM_ITS ---
- ER Visit Summary Date of Service: 01/05/20 Chief Complaint: Chest pain History of Present Illness: The patient is a 49 M presenting with chest pain. He states this has been intermittent and started 2 days ago. He states it feels like something is sitting on his chest. States it lasts approximately 20 m inutes at a time. He has associated shortness of breath. Denies nausea, vomiting, diaphoresis. Patient had an NSTEMI at the end of October and [facility] He presented to cardiac rehab today complaining of chest pain and was sent to the ED for evaluation. Physical Examination: Vitals are stable. Patient is afebrile. Alert no acute distress. HEENT exam is unremarkable. Neck is supple. Lungs are clear and equal bilaterally. Heart is regular rate and rhythm. Abdomen is soft nontender nondistended. Extremities are unremarkable. Skin is warm and dry. No focal neurologic deficit. Remainder of exam is unremarkable. Emergency Department Course and Treatment: Patient was given aspirin, morphine, Zofran. EKG shows sinus rhythm rate of 92 with no acute ischemic changes. Chest x-ray shows no acute process. CBC, chemistries unremarkable. Troponin is negative. He is chest pain-free on reevaluation. Discussed with Dr. Hodgson and hospitalist. Patient will be observed overnight. Disposition: Observation Impression: Chest pain This note was generated with CloudMine dictation software. It may contain incorrect words, spelling, and punctuation that were not noted in review of the chart prior to signing ED Disposition - Plan for ED Patient: Disposition: Acute Care [facility]
--- NOTE | 2020-01-05 13:29 | RAD_ITS ---
STUDY: X-RAY CHEST REASON FOR EXAM: Male, 49 years old. CHEST PAIN -- SOB -- A COUPLE OF DAYS TECHNIQUE: Single AP portable view of the chest. COMPARISON: Comparison is made with prior study dated 11/17/2019. FINDINGS: EKG electrodes are seen. The lungs are clear and expanded. Scattered calcified granulomas. There is no demonstrated pleural abnormality. Normal size heart. Normal mediastinum and yasmine. Normal visualized pulmonary arteries. Normal visualized aortic arch and descending thoracic aorta. Normal visualized thoracic spine. Normal visualized ribs, clavicles, and shoulders. There is no demonstrated abnormality of the visualized soft tissue structures of the upper abdomen. RAD/Chest 1 View (Portable) IMPRESSION: No acute abnormality is seen. Electronically Signed: Boy Klein, at 13:47 EDT , Service support ,
[2020-01-05 13:35] LABS: Absolute Lymphocyte Count 1.79 X10^3/uL (0.83-4.51); Absolute Neutrophil Count 4.5 X10^3/uL (2.0-7.7); Basophil# 0.07 X10^3/uL; Eosinophils% 2.8 % (0-5); Hemoglobin 15.4 g/dL (13.0-16.5); Lymphocyte # 1.79 X10^3/ul (4.0); Lymphocyte % 25.4 % (19-41); Mean Corp Hgb Conc 34.2 g/dL (32-36); Mean Corpuscular Hgb 32.4 pg (27.0-32.0); Mean Corpuscular Volume 94.5 fL (80-94); Mean Platelet Vol. 10.1 fl (6.2-12.0); Monocyte# 0.49 X10^3/uL; NRBC Flagged by Analyzer 0 % (0-5); Neutrophil # 4.46 X10^3/uL (2.7-7.7); Neutrophil % 63.4 % (47-70); Platelet Count 239 K/mm3 (150-450); RBC Distribution Width CV 12.9 % (11.6-14.6); RBC Distribution Width SD 44.8 fl (35.1-43.9); Red Blood Count 4.76 M/mm3 (4.6-6.2)
[2020-01-05] MEDS: Aspirin 81 MG TAB.CHEW 324 MG PO (13:54)
[2020-01-05 13:58] LABS: Anion Gap 4 (5-15); BUN 8 mg/dL (7-18); BUN/Creat Ratio 9.1 RATIO (10-20); Calcium,Total 8.5 mg/dL (8.5-10.1); Chloride 109 mmol/L (98-107); Creatinine, Serum 0.88 mg/dL (0.70-1.30); EST Glomerular Filtration Rate 97 mL/min (>60); Est Glom Filt Rate - Afr Amer 117 mL/min (>60); Estimated Creatinine Clearance 96.08 ml/min; Glucose 120 mg/dL (74-106); Potassium 3.6 mmol/L (3.5-5.1); Sodium Level 141 mmol/L (136-145)
[2020-01-05 15:16] VITALS: BP 118/72; PULSE 86; RESP 17; O2SAT 98
--- NOTE | 2020-01-05 15:20 | PCM.HP.STD ---
Problem List (1) Hyperlipidemia, unspecified Status: Chronic Qualifiers: (2) Presence of stent in coronary artery Status: Chronic Comment: Successful ANUP to pLAD 11/18/19 (3) Atherosclerotic heart disease of [place] coronary artery without angina pectoris Status: Chronic Qualifiers: (4) History of gout Status: Chronic (5) Chest pain Status: Acute (6) NSTEMI (non-ST elevated myocardial infarction) Status: Chronic History of Present Illness Date of Admission: 01/05/20 Chief Complaint: Chest pain. The patient is a 49 year old M with past medical history as mentioned above presented to the emergency room because of chest pain. Her symptoms started in the last couple of days with retrosternal chest pain, constant, described as pressure-like pain, 5 out of 10 in severity, sometimes goes up to 7 out of 10 in severity, extends to be left shoulder, associated with shortness of breath and occasional dizziness and without aggravating or relieving factors. He mentioned that the chest pressure is constant but sometimes gets worse. No association to activity, chest pressure is continuous all the time. Currently, he mentioned that the chest pressure is getting better. Patient had a recent non-STEMI with stent placement. He had exercise tolerance test after the PCI and there was no obvious EKG changes or cardiac arrhythmias during the tolerance test. In the emergency department, his vital signs were stable. His routine blood work was unremarkable. EKG revealed normal sinus rhythm, incomplete RBBB, no acute segment changes. Troponin is negative. Chest x-ray showed no acute findings. He is being admitted for chest pain for evaluation. Past Medical History Past Medical History (Chronic Problems): Chronic Problems (Last Updated 11/20/19 @ 12:17 by Candis Mccullough) Hyperlipidemia, unspecified (Chronic) Presence of stent in coronary artery (Chronic ~11/18/19) Successful ANUP to pLAD 11/18/19 Atherosclerotic heart disease of [place] coronary artery without angina pectoris (Chronic) History of gout (Chronic) NSTEMI (non-ST elevated myocardial infarction) (Chronic) Medical History: Medical History (Last Updated 11/20/19 @ 12:17 by Candis Mccullough) Hyperlipidemia, unspecified (Chronic) E78.5 Presence of stent in coronary artery (Chronic) Onset Date: ~11/18/19 Z95.5 Successful ANUP to pLAD 11/18/19 Atherosclerotic heart disease of [place] coronary artery without angina pectoris (Chronic) I25.10 Allergies No Known Allergies Allergy (Verified 01/05/20 13:13) Home Medications: Ambulatory Orders Medication Instructions Recorded aspirin 81 mg tablet,delayed 81 mg PO DAILY #30 tab 12/01/19 release atorvastatin 40 mg tablet 40 mg PO QHS #30 tab 12/01/19 losartan 25 mg tablet 25 mg PO DAILY #30 tab 12/01/19 metoprolol tartrate 25 mg tablet 25 mg PO BID #60 tab 12/01/19 ticagrelor 90 mg tablet 90 mg PO BID #60 tab 12/01/19 Surgical History: noncontributory Psychiatric History: No pertinent psych hx Lives: Spouse/ Significant Other Smoking Status: Current every day smoker Tobacco Use: Cigarettes Alcohol: None Drugs: None - *Family History Paternal History Items: No pertinent history - Patient denies history of coronary artery disease or other cardiac disease in first-degree family relative Maternal History Items: No pertinent history Review of Systems Constitutional: Denies: Anorexia, Chills, Fever, Weakness Eyes: Denies: Blurred vision, Double vision, Drainage, Redness HEENT: Denies: Difficulty Hearing, Ear Pain, Eye Pain, Nasal Congestion, Sore Throat Cardiovascular: Reports: Chest Pain, Chest Pressure, Light Headedness. Denies: Chest Tightness, Edema, Heaviness, Paroxysmal Noc. Dyspnea, Syncope Respiratory: Reports: Shortness of Breath. Denies: Cough, Hemoptysis, Pleuritic Pain, Sputum production, Wheezing Gastrointestinal: Denies: Abdominal Pain, Constipation, Diarrhea, Nausea, Vomiting Genitourinary: Denies: Dysuria, Frequency, Hematuria Musculoskeletal: Denies: Arm Pain, Back Pain, Foot Pain Skin: Denies: Dryness, Rash Neurological: Denies: Balance problems, Double vision, Change in Speech, Slurred speech, Confusion, Headaches, Incoordination Psychiatric: Denies: Anxiety, Depression Endocrine: Denies: Change in Body Habitus, Polydipsia, Polyuria VTE Information - Inpt Only VTE Present on Admission: No VTE Mechan Device Prophylaxis: None VTE Pharm Prophylaxis ordered?: No Patient Problems: Active and Suspected Problems (Last Updated 11/20/19 @ 12:17 by Candis Mccullough) Chest pain (Acute) - Physical Exam Vitals/I&O's: Vital Signs Temp Pulse Resp BP Pulse Ox 97.6 F L 86 17 118/72 98 01/05/20 13:09 01/05/20 15:16 01/05/20 15:16 01/05/20 15:16 01/05/20 15:16 Oxygen Delivery Method Room Air Weight: 238 lb 5.115 oz Body Mass Index (BMI) 36.2 General: Alert, Oriented x3, Cooperative, No apparent distress HEENT: Atraumatic, PERRLA, EOMI, Normocephalic Oral: Moist Mucosa, No Gingival or Mucosal Lesions/ Ulcerations Neck: Supple, No JVD, Negative Carotid Bruits, Trachea Midline, Thyroid Normal Size and Texture Lungs: Clear to auscultation, Normal air movement, No rhonchi, No wheeze, No rales Cardiovascular: Regular rate, Regular Rhythm, Normal S1, Normal S2, PMI Normal Abdomen: Bowel Sounds Present, Soft, Non Tender, Non-Distended, No Hepato-splenomegaly Extremities: No clubbing, No cyanosis, No edema Skin: No rashes, No breakdown Lymphatic: No Cervical, Supraclavicular, or Inguinal Adenopathy Neurological: Cranial nerves II-XII grossly intact, Motor Exam 5/5 strength throughout Psych/Mental Status: Normal Affect, Appropriate, Alert and oriented to time, place, person, mood and affect Laboratory Results 01/05/20 13:25: WBC 7.0, RBC 4.76, Hgb 15.4, Hct 45.0, MCV 94.5 H, MCH 32.4 H, MCHC 34.2, RDW Std Deviation 44.8 H, RDW Coeff of Jaya 12.9, Plt Count 239, MPV 10.1, Immature Gran % (Auto) 0.400, Neut % (Auto) 63.4, Lymph % (Auto) 25.4, [place] % (Auto) 7.0, Eos % (Auto) 2.8, Baso % (Auto) 1.0, Absolute Neuts (auto) 4.5, Absolute Lymphs (auto) 1.79, Nucleated RBC % 0 01/05/20 13:25: Sodium 141, Potassium 3.6, Chloride 109 H, Carbon Dioxide 28.0, Anion Gap 4 L, BUN 8, Creatinine 0.88, Estim Creat Clear Calc 96.08, Est GFR (MDRD) Af Amer 117, Est GFR (MDRD) Non-Af 97, BUN/Creatinine Ratio 9.1 L, Glucose 120 H, Calcium 8.5, Troponin I < 0.015 Clinical Impression(s) from Imaging Studies Chest X-Ray 01/05/20 13:29 IMPRESSION: No acute abnormality is seen. Electronically Signed: Boy Klein, at 13:47 EDT , Service support , Assessment/Plan All Active Problems (Last Updated 11/20/19 @ 12:17 by Candis Mccullough) Chest pain (Acute) This is a 49 years old male patient presented to the emergency room because of chest pain and he is being admitted for evaluation. #1 chest pain/pressure: In the setting of recent history of non-STEMI status post PCI/stents. EKG revealed normal sinus rhythm, incomplete RBBB, no acute acute changes. Troponin is negative. Chest x-ray without acute findings. Patient had exercise tolerance test on December 13, 2019 which showed no EKG changes and no cardiac arrhythmias. No imaging was done at the time. Plan: Admit to PCU observation, cardiac monitoring, serial cardiac enzymes, repeat EKG tomorrow morning, gentle IV fluids for hydration, Tylenol as needed, Zofran as needed, nuclear stress test tomorrow morning if cardiac enzymes are negative. #2 CAD status post PCI/stents: Plan as above, continue aspirin, Brilinta, metoprolol, losartan and Lipitor. #3 hyperlipidemia: Continue statins. #4 tobacco abuse: Nicotine patch if desired. #5 history of gout: Stable, no complaints. He is not on any medication for it. #6 DVT prophylaxis: Low risk patient, no prophylaxis indicated. This note was generated with [employer] software. It may contain incorrect words, spelling, and punctuation that were not noted in checking the note before signing. OBSV E&M: [id number] Initial observation care L3
[2020-01-05 15:31] VITALS: BP 120/77; PULSE 77; RESP 16; TEMP 36.4; O2SAT 96
[2020-01-05 17:06] VITALS: BP 120/72; PULSE 74; RESP 16; TEMP 36.4; O2SAT 95
[2020-01-05 17:08] VITALS: BMI 33.5
[2020-01-05 17:13] VITALS: BMI 33.6
[2020-01-05] MEDS: 0.9% Normal Saline 1,000 ML 75 ML IV (17:16)
[2020-01-05 17:56] VITALS: PULSE 80
[2020-01-05 19:03] VITALS: PULSE 71
--- NOTE | 2020-01-05 20:20 | ECHOCS_ITS ---
Reason For Study: CAD/ASHD Procedure This was a 2D Doppler, Color Flow transthoracic echocardiogram. The study was technically difficult. Contrast injection was performed. Exam performed portable in patient room. Left Ventricle Normal left ventricle. Concentric left ventricular hypertrophy. Left ventricular systolic function is normal. The estimated ejection fraction is 55 %. Normal diastology for age. No regional wall motion abnormalities noted. Right Ventricle Normal right ventricle. Normal systolic function. Atria Normal left atrium. Normal right atrium. Mitral Valve Trivial mitral valve insufficiency. Tricuspid Valve Unable to estimate RV systolic pressure due to insufficient tricuspid regurgitant envelope. Trivial tricuspid valve insufficiency. Aortic Valve Mild (1+) aortic valve insufficiency. Pulmonic Valve No eccentric pulmonic valve insufficiency. Great Vessels Normal inferior vena cava. Inferior vena cava collapse with respiration. Pericardium/Pleural No pericardial effusion. Medication Diluted definity 4ml given slow IV push to enhance endocardial definition. MMode/2D Measurements & Calculations LVIDd: 4.5 cm IVSd: 1.3 cm Ao root diam: 3.1 cm LVIDs: 3.1 cm LVPWd: 1.4 cm RVDd: 3.4 cm FS: 30.6 % LAV(MOD-bp): 33.6 ml LVAd ap4: 34.1 cm2 SV(MOD-sp4): 69.7 ml LAV(MOD-bp) Indexed: 15.1 ml/m2 EDV(MOD-sp4): 125.9 ml LAV(MOD-sp2): 28.9 ml EDV(sp4-el): 130.1 ml LAV(MOD-sp4): 35.6 ml LVAs ap4: 19.6 cm2 ESV(MOD-sp4): 56.2 ml ESV(sp4-el): 55.1 ml EF(MOD-sp4): 55.3 % EF(sp4-el): 57.7 % SV(sp4-el): 75.0 ml LA A4 area: 14.4 cm2 RA A4 area: 14.5 cm2 Time Measurements MV dec time: 0.25 sec Doppler Measurements & Calculations MV E max santo: 88.3 cm/sec Lat Peak E' [place]: 13.2 cm/sec Med Peak E' [place]: 11.6 cm/sec MV A max santo: 88.7 cm/sec E/E' lat: 6.7 E/E' med: 7.6 MV E/A: 1.00 MV V2 max: 102.5 cm/sec MV P1/2t max [place]: 102.5 cm/sec Ao V2 max: 114.5 cm/sec MV max P.2 mmHg MV P1/2t: 103.7 msec Ao max P.2 mmHg MV V2 mean: 56.8 cm/sec Ao V2 mean: 80.8 cm/sec MV mean P.6 mmHg MV dec slope: 289.3 cm/sec2 Ao mean P.9 mmHg MV V2 VTI: 36.1 cm MVA(P1/2t): 2.1 cm2 Ao V2 VTI: 23.6 cm AI max santo: 268.5 cm/sec LV V1 max: 98.1 cm/sec PA V2 max: 81.3 cm/sec AI max P.8 mmHg LV V1 max P.9 mmHg LV V1 mean P.9 mmHg AI dec slope: 144.4 cm/sec2 LV V1 mean: 63.5 cm/sec AI P1/2t: 544.7 msec LV V1 VTI: 20.5 cm Interpretation Summary Normal left ventricle. Concentric left ventricular hypertrophy. Left ventricular systolic function is normal. The estimated ejection fraction is 55 %. Normal diastology for age. No regional wall motion abnormalities noted. Mild (1+) aortic valve insufficiency. Ordering Physician: Ronny Hodgson Referring Physician: ANAY TOLBERT Performed By: Rigoberto Cotton RCS
--- NOTE | 2020-01-05 20:22 | PCM.CONS.C ---
Problem List (1) Chest pain Status: Acute (2) Atherosclerotic heart disease of [place] coronary artery without angina pectoris Status: Chronic Qualifiers: (3) Presence of stent in coronary artery Status: Chronic Comment: Successful ANUP to pLAD 11/18/19 (4) Hyperlipidemia, unspecified Status: Chronic Qualifiers: (5) RUMA (obstructive sleep apnea) Status: Chronic Reason for Consult Date of Consultation: 01/05/20 History of Present Illness: The patient is a 49 year old white male who is referred for evaluation of an chest pain superimposed upon a diagnosis of recent non-ST segment elevation [place], CAD, LAD PCI, hyperlipidemia, with a past medical history including obstructive sleep apnea. He has been participating in outpatient cardiac rehabilitation. Today at outpatient cardiac rehabilitation he informed the cardiac rehabilitation team that he had been having chest discomfort which he described as chest tightness for approximately 2 days. He states it was fairly constant with some waxing and waning. He has an element of chronic shortness of breath and dyspnea. He does not recall any nausea or emesis. He states he may have had intermittent episodes of diaphoresis. Thus he did not participate in outpatient cardiac rehabilitation this day. He was taken to the [facility] emergency department for evaluation. There his cardiac enzymes were negative and his ECG demonstrated sinus rhythm with no acute changes. According to the [facility] emergency department physician he was treated with morphine sulfate 4 mg IV push x1. Following that he reportedly had no further discomfort. He was then taken to the PCU for additional evaluation and care. There he has been resting comfortably, sleeping, and not having any recurrent issues that he is aware of. He states he feels better and back to his baseline. He states he is hoping to be able to be released home so that he can continue on with outpatient follow-up as opposed to remaining in the hospital. He has had no orthopnea or PND or peripheral pitting edema. There is no near syncope or syncope. He has no history of thromboembolic disease, CVA, renal insufficiency, or ongoing acute infectious disease related issues. [] Past Medical History Allergies/Adverse Reactions: Allergies No Known Allergies Allergy (Verified 01/05/20 13:13) Home Medications: Ambulatory Orders Medication Instructions Recorded aspirin 81 mg tablet,delayed 81 mg PO DAILY #30 tab 12/01/19 release atorvastatin 40 mg tablet 40 mg PO QHS #30 tab 12/01/19 losartan 25 mg tablet 25 mg PO DAILY #30 tab 12/01/19 metoprolol tartrate 25 mg tablet 25 mg PO BID #60 tab 12/01/19 ticagrelor 90 mg tablet 90 mg PO BID #60 tab 12/01/19 Past Medical History (Chronic Problems): Chronic Problems (Last Updated 11/20/19 @ 12:17 by Candis Mccullough) RUMA (obstructive sleep apnea) (Chronic) Hyperlipidemia, unspecified (Chronic) Presence of stent in coronary artery (Chronic ~11/18/19) Successful ANUP to pLAD 11/18/19 Atherosclerotic heart disease of [place] coronary artery without angina pectoris (Chronic) History of gout (Chronic) NSTEMI (non-ST elevated myocardial infarction) (Chronic) Surgical History: noncontributory Psychiatric History: No pertinent psych hx - *Family History Paternal History Items: No pertinent history - Patient denies history of coronary artery disease or other cardiac disease in first-degree family relative Maternal History Items: No pertinent history Lives: Spouse/ Significant Other Smoking Status: Current every day smoker Tobacco Use: Cigarettes Alcohol: None Drugs: None Review of Systems - Review of Systems General: Denies: Fever, Night Sweats, Fatigue Cardiovascular: Reports: Chest Discomfort, Chest Discomfort at Rest, Chest Discomfort with Exertion, Shortness of Breath. Denies: Orthopnea, PND, Peripheral Edema, Palpitations, Lightheadedness, Dizziness, Near Syncope, Syncope Respiratory: Denies: Cough, Sputum Production, Hemoptysis Gastrointestinal: Denies: Hematemesis, Hematochezia, Melena Genitourinary: Denies: Dysuria, Hematuria Skin: Denies: Rash Subjectve: This is a 49-year-old white male who appears to be resting comfortably with no acute distress. Objective: Vital Signs Temp Pulse Resp BP Pulse Ox 97.5 F L 71 16 120/72 95 01/05/20 17:06 01/05/20 19:03 01/05/20 17:06 01/05/20 17:06 01/05/20 17:06 Oxygen Flow Rate (L/min) 2 Oxygen Delivery Method Room Air Weight: 233 lb 14.567 oz Body Mass Index (BMI) 33.5 General: Awake, Alert, Oriented x 3, Cooperative, No Acute Distress HEENT: Atraumatic, Normocephalic, PERRL, EOMI, Sclera Non Icteric Neck: Supple, Good ROM, No JVD Lungs: Clear to auscultation Cardiovascular: Regular Rhythm, Normal S1, Normal S2 Abdomen: Bowel Sounds Present, Soft, Non Tender Extremities: No edema Neurological: No Focal Motor or Sensory Deficit Psych/Mental Status: Appropriate 01/05/20 13:25: WBC 7.0, RBC 4.76, Hgb 15.4, Hct 45.0, MCV 94.5 H, MCH 32.4 H, MCHC 34.2, Plt Count 239, MPV 10.1, Immature Gran % (Auto) 0.400, Neut % (Auto) 63.4, Lymph % (Auto) 25.4, [place] % (Auto) 7.0, Eos % (Auto) 2.8, Baso % (Auto) 1.0, Absolute Neuts (auto) 4.5, Nucleated RBC % 0 01/05/20 13:25: Sodium 141, Potassium 3.6, Chloride 109 H, Carbon Dioxide 28.0, Anion Gap 4 L, BUN 8, Creatinine 0.88, Est GFR (MDRD) Af Amer 117, Est GFR (MDRD) Non-Af 97, BUN/Creatinine Ratio 9.1 L, Glucose 120 H, Calcium 8.5, Troponin I < 0.015 01/05/20 17:51: Troponin I < 0.015 Rhythm: Sinus rhythm EKG: Sinus rhythm; no acute ECG changes ECHO: 11-18-2019 Interpretation Summary The study was technically difficult. Contrast injection was performed. Segmental dysfunction with preserved ejection fraction (see wall motion). The estimated ejection fraction is 55 %. Trivial mitral valve insufficiency. Trivial tricuspid valve insufficiency. Right ventricular systolic pressure estimated to be 18 mmHg. No evidence for diastolic dysfunction. Stress Test: 12-13-2019 Stress Test Report Date: 12-13-2019 Procedure: Exercise tolerance test Indications: CAD; PCI; precardiac rehabilitation Consent: Per the patient Procedure: The patient exercised on a Edgar protocol for 4 minutes and 43 seconds completing Stage I and 1 minute and 43 seconds of Stage II achieving a peak heart rate of 133 bpm (78% predicted maximal heart rate) with a peak blood pressure 132/74 mmHg and a peak MET capacity of approximately 6 MET's. The baseline ECG demonstrated normal sinus rhythm. The peak exercise ECG demonstrated no obvious ECG changes. There were no cardiac dysrhythmias pretest, during exercise, or recovery. The functional capacity was considered decreased. The patient had no complaint of chest discomfort during exercise or recovery. The examination was discontinued secondary to dyspnea and fatigue. Impression: 1. Technically inadequate (percent predicted maximal heart rate less than 85%) exercise tolerance test 2. Peak exercise ECG with no obvious ECG changes of the heart rate achieved 3. There were no cardiac dysrhythmias during exercise or recovery Cardiac Cath: 11-18-2019 CONCLUSIONS Elevated Left Ventricular End Diastolic Pressure Segmented LV systolic dysfunction- Mild LVEF: by LV gram 55 % Single vessel CAD of the LAD RECOMMENDATIONS Risk factor modification Medical therapy Referred for immediate PCI DESCRIPTION OF PROCEDURE The patient arrived to the procedure lab. The risks and benefits of the procedure as well as a full description of our services here and current unavailability of surgical backup were fully explained to the patient and/or their significant other prior to the catheterization. The Timeout was completed, verifying the correct patient and procedure. The patient's procedural site was prepped and draped in the usual fashion. Local anesthetic was given subcutaneously to right radial region with Lidocaine 2%. Using a modified Seldinger technique, arterial access was obtained via the right radial artery, a 6Fr sheath was inserted. Left Coronary Artery selective angiography was performed in multiple views using a 5 Fr. 4.0 [place] catheter. Right Coronary Artery selective angiography was then performed in multiple views using a 5 Fr. 4.0 [place] catheter. Left Ventriculography was performed in KWAN projection using a 5 Fr. [place] catheter. LV to AO pullback pressures were then recorded.The arterial sheath was pulled and a TR Band was applied for hemostasis CORONARY ANGIOGRAPHY DOMINANCE: Right Dominant LEFT HEART ASSESSMENT Left Ventricular Ejection Fraction: by LV Gram 55 % Anterior Hypokinesis Elevated Left Ventricular End Diastolic Pressure LVEDP: 33 mmHg LEFT ANTERIOR DESCENDING ARTERY: MID LAD: s/p DX: eccentric: hazy: 75 % Stenosis CIRCUMFLEX ARTERY: Angiographically normal RIGHT CORONARY ARTERY: PROX RCA: Mild luminal irregularities AORTIC ROOT: Angiographically normal PCI: 11-18-2019 CONCLUSIONS Successful ANUP to pLAD CXR: 01-05-2020 IMPRESSION: No acute abnormality is seen. Assessment/Plan 1. Chest pain The patient had chest pain for approximately 2 days that he states was rather constant. It did have a heavy characteristic to it which is concerning. He also had concerns of shortness of breath as well as potentially intermittent episodes of diaphoresis. He states this was different from the discomfort he had prior to his non-ST segment elevation [place] and subsequent PCI. At the present time his initial cardiac enzyme is negative. Additional enzymes are pending. His initial ECG demonstrated sinus rhythm with no acute ECG changes. He is going to remain in the hospital at this time and have cardiac rhythm monitoring, enzyme follow-up, and ECG follow-up. He will have an echocardiogram requested to reassess his left ventricular wall motion and systolic function. Depending upon his clinical course he may need further noninvasive evaluation such as an exercise tolerance test/imaging study such as a stress nuclear imaging study versus a repeat diagnostic cardiac catheterization. 2. CAD status post LAD PCI He did undergo, in October of this year, evaluation for a non-ST segment elevation [place] leading to the diagnosis of CAD and subsequent LAD PCI. He has been on medical management and he states he has not missed any of his medications. He has been participating in outpatient cardiac rehabilitation. At the present time based upon his concerns he will be evaluated as noted above. 3. Hyperlipidemia He will continue medical therapy. 4. Obstructive sleep apnea He does follow with Dr. Ortiz of pulmonology. He states he has been unable to find a device that he can wear comfortably for his RUMA. Comment: The patient's case was discussed and reviewed with the patient, the [facility] emergency department staff, the [facility] hospital staff. This note was generated using a voice recognition system and there may be incorrect words, spelling or punctuation that were not noted when reviewing the office note prior to saving.
[2020-01-05] MEDS: TICAGRELOR 90 MG TABLET PO (22:17)
[2020-01-05] MEDS: Atorvastatin Calcium 40 MG Tablet PO (22:17)
[2020-01-05] MEDS: Metoprolol Tartrate 25 MG Tablet PO (22:17)
[2020-01-06 03:01] VITALS: PULSE 87
[2020-01-06 04:02] VITALS: BP 91/62; PULSE 82; RESP 19; TEMP 36.7; O2SAT 95
--- NOTE | 2020-01-06 05:55 | EKG12_ITS ---
Test Reason : AM EKG Blood Pressure : / mmHG Vent. Rate : 075 BPM Atrial Rate : 075 BPM P-R Int : 130 ms QRS Dur : 096 ms QT Int : 384 ms P-R-T Axes : 060 038 032 degrees QTc Int : 428 ms Normal sinus rhythm with sinus arrhythmia Normal ECG When compared with ECG of 05-JAN-2020 13:16, MANUAL COMPARISON REQUIRED, DATA IS UNCONFIRMED Confirmed by MARYJO PAK, ELTON ([id number]), online editor MORA SINGER ([id number]) on 01/18/2020 9:44:23 A M Referred By: JULIANO Confirmed By:GEORGETTE SIBLEY MD
[2020-01-06 06:37] VITALS: PULSE 66
[2020-01-06 07:30] VITALS: O2SAT 96
[2020-01-06] MEDS: TICAGRELOR 90 MG TABLET PO (09:06)
[2020-01-06] MEDS: Aspirin E.C. 81 MG Tablet PO (09:06)
[2020-01-06] MEDS: Metoprolol Tartrate 25 MG Tablet PO (09:06)
[2020-01-06] MEDS: Losartan Potassium 25 MG Tablet PO (09:06)
--- NOTE | 2020-01-06 11:29 | DCINST_ITS ---
- Discharge Diagnoses Current Active Problems: Current Active and Chronic Problems (Last Updated 11/20/19 @ 12:17 by Candis Mccullough) RUMA (obstructive sleep apnea) (Chronic) Hyperlipidemia, unspecified (Chronic) Presence of stent in coronary artery (Chronic ~11/18/19) Successful ANUP to pLAD 11/18/19 Atherosclerotic heart disease of [place] coronary artery without angina pectoris (Chronic) History of gout (Chronic) Chest pain (Acute) NSTEMI (non-ST elevated myocardial infarction) (Chronic) You will use the following diet at home:: No restrictions Your food should be the consistency of: Regular Your liquids should be the consistency of: Regular/Thin Discharge Activity: Return to Normal Activity Weight Bearing Status: Full weight bearing Allergies/Adverse Reactions: Allergies No Known Allergies Allergy (Verified 01/05/20 13:13) Medications to take at Discharge aspirin 81 mg tablet,delayed release 81 mg PO DAILY #30 tab 12/01/19 atorvastatin 40 mg tablet 40 mg PO QHS #30 tab 12/01/19 losartan 25 mg tablet 25 mg PO DAILY #30 tab 12/01/19 metoprolol tartrate 25 mg tablet 25 mg PO BID #60 tab 12/01/19 ticagrelor 90 mg tablet 90 mg PO BID #60 tab 12/01/19 Primary Care Physician: Destiney Gilmore MD [Primary Care Provider] - Test Results: Test results from this visit will be discussed in further detail at your follow- up appointment, if applicable. Please Follow Up With: Ronny Hodgson MD When: call next week to make appointmenmmt
--- NOTE | 2020-01-06 11:43 | PN.CARD_ITS ---
Subjectve: Atypical chest pain for several days mostly at rest not with exertion. After admission, enzymes were negative. EKG was nonimpressive. Echocardiogram was normal showing no evidence of wall motion abnormality. Ejection fraction was normal. Objective: Vital Signs Temp Pulse Resp BP Pulse Ox 97.7 F L 75 18 105/63 95 01/06/20 09:03 01/06/20 09:06 01/06/20 09:03 01/06/20 09:03 01/06/20 09:03 Oxygen Flow Rate (L/min) 2 Oxygen Delivery Method Room Air Weight: 233 lb 14.567 oz Body Mass Index (BMI) 33.5 Intake and Output for Last 24 Hours 01/04/20 01/05/20 01/06/20 23:59 23:59 23:59 Intake Total 355 / 355 985 / 985 Balance 355 / 355 985 / 985 General: Healthy Appearing, Awake, Alert, Oriented x 3 HEENT: Atraumatic Neck: Supple Lungs: Clear to auscultation Cardiovascular: Regular Rhythm, Normal S1, Normal S2, No Murmurs, No Rubs, No Gallops Vascular: No Carotid Bruits, Normal Femoral Pulses, Normal Radial Pulses, Normal Dorsalis Pedal Pulse, Normal Posterior Tibial Pulses Abdomen: Bowel Sounds Present, Soft, Non Tender, No HSM, No Organomegaly Neurological: No Focal Motor or Sensory Deficit 01/05/20 13:25: WBC 7.0, RBC 4.76, Hgb 15.4, Hct 45.0, MCV 94.5 H, MCH 32.4 H, MCHC 34.2, Plt Count 239, MPV 10.1, Immature Gran % (Auto) 0.400, Neut % (Auto) 63.4, Lymph % (Auto) 25.4, [place] % (Auto) 7.0, Eos % (Auto) 2.8, Baso % (Auto) 1.0, Absolute Neuts (auto) 4.5, Nucleated RBC % 0 01/05/20 13:25: Sodium 141, Potassium 3.6, Chloride 109 H, Carbon Dioxide 28.0, Anion Gap 4 L, BUN 8, Creatinine 0.88, Est GFR (MDRD) Af Amer 117, Est GFR (MDRD) Non-Af 97, BUN/Creatinine Ratio 9.1 L, Glucose 120 H, Calcium 8.5, Troponin I < 0.015 10/16/20 17:51: Troponin I < 0.015 01/05/20 20:56: Troponin I < 0.015 Rhythm: EKG: ECHO: Stress Test: Cardiac Cath: PCI: CT Surgery: Holter monitor: EPS: PPM: CXR: Chest CT Scan: Medical Necessity - Tobacco Use Smoking Status: Current every day smoker Tobacco Use: Cigarettes Assessment/Plan #1 atypical chest pain, normal EKG, normal enzymes, normal echocardiogram. He ambulates in the hallway with no difficulty. From cardiac standpoint patient can be discharged. He will be followed by Dr. Maldonado next week for outpatient nuclear stress test #2 history of stenting of the left anterior descending 2 months ago #3 COPD from cigarette smoking. Patient still smoking. I have encouraged him to quit.
--- NOTE | 2020-01-06 15:50 | PCM.DC.SUM ---
Discharge Date and Diagnosis - Problem List Patient Problems: Active and Suspected Problems (Last Updated 11/20/19 @ 12:17 by Candis Mccullough) Chest pain (Acute) Date of Admission: 01/05/20 Date of Discharge: 01/06/20 - Primary Discharge Diagnosis Acute Problems: Active Problems (Last Updated 11/20/19 @ 12:17 by Candis Mccullough) #1 noncardiac chest pain #2 coronary artery disease #3 hyperlipidemia #4 obstructive sleep apnea - Secondary Discharge Diagnosis Chronic Problems: Chronic Problems (Last Updated 11/20/19 @ 12:17 by Candis Mccullough) RUMA (obstructive sleep apnea) (Chronic) Hyperlipidemia, unspecified (Chronic) Presence of stent in coronary artery (Chronic ~11/18/19) Successful ANUP to pLAD 11/18/19 Atherosclerotic heart disease of [place] coronary artery without angina pectoris (Chronic) History of gout (Chronic) NSTEMI (non-ST elevated myocardial infarction) (Chronic) Hospital Course and Treatment Operations: None Procedures: 2-D Echocardiogram Summary of Care Provided: The patient is a 49 year old M seen in the emergency room at [facility] with chief complaint of chest pain that he described as pressure-like in nature over his precordial area x2 days. Work-up in the emergency room included an EKG which showed no evidence of ischemic changes, patient's cardiac enzymes were unremarkable, patient's chest x-ray was normal. Patient was placed in observation status on PCU, he was seen in consultation by cardiology, echocardiogram was ordered and the patient's cardiac enzymes were cycled and these remained normal. On 01/06/2020, patient was seen and examined: On examination he appeared in good health and spirits. Vital signs as documented. Skin warm and dry and without overt rashes. Neck without JVD, neck was supple, trachea midline, thyroid was normal. Lungs clear bilaterally, normal air movement was noted. Heart exam notable for regular rhythm, normal sounds and absence of murmurs, rubs or gallops. Abdomen unremarkable and without evidence of organomegaly, masses, or abdominal aortic enlargement. Bowel sounds are present, abdomen is not distended. Extremities nonedematous, no cyanosis was noted, no clubbing was noted. Neuro: Cranial nerves II through XII are grossly intact, no focal motor deficits were noted, sensation to light touch and pinprick intact, motor exam 5/5 throughout. Psych: Patient is alert and oriented x3, he does not appear anxious or depressed, he does not appear agitated. Patient was not a good historian Patient appears stable for discharge on 01/06/2020, he was to follow-up with cardiology next week regarding the need for outpatient cardiac stress test. Patient Problems: Active and Suspected Problems (Last Updated 11/20/19 @ 12:17 by Candis Mccullough) Chest pain (Acute) - Physical Exam Vitals/I&O's: Vital Signs Temp Pulse Resp BP Pulse Ox 97.7 F L 75 18 105/63 95 01/06/20 09:03 01/06/20 09:06 01/06/20 09:03 01/06/20 09:03 01/06/20 09:03 Oxygen Flow Rate (L/min) 2 Oxygen Delivery Method Room Air Weight: 106.1 kg Body Mass Index (BMI) 33.5 Intake and Output for Last 24 Hours 01/04/20 01/05/20 01/06/20 23:59 23:59 23:59 Intake Total 355 / 355 985 / 985 Balance 355 / 355 985 / 985 Laboratory Results 01/05/20 17:51: Troponin I < 0.015 01/05/20 20:56: Troponin I < 0.015 Discharge Activity: Return to Normal Activity Weight Bearing Status: Full weight bearing Home Medications: Medications to take at Discharge aspirin 81 mg tablet,delayed release 81 mg PO DAILY #30 tab 12/01/19 atorvastatin 40 mg tablet 40 mg PO QHS #30 tab 12/01/19 losartan 25 mg tablet 25 mg PO DAILY #30 tab 12/01/19 metoprolol tartrate 25 mg tablet 25 mg PO BID #60 tab 12/01/19 ticagrelor 90 mg tablet 90 mg PO BID #60 tab 12/01/19 Primary Care Physician: Destiney Gilmore MD [Primary Care Provider] - Please Follow Up With: Ronny Hodgson MD When: call next week to make appointmenmmt Disposition: Home Minutes spent on discharge:: 30 Patient Condition:: Stable Medical Necessity - Tobacco Use Smoking Status: Current every day smoker Tobacco Use: Cigarettes Meaningful Use Info Meaningful Use Diagnoses (Choose all that apply): None applicable OBSV E&M: 90168 Observation care discharge
== END | disposition home or self-care (01) ==
LOC: ED 14:10 → PCU 16:28
PROVIDERS: Admitting Provider Hospitalist; Emergency Provider Emergency Medicine; PCP Family Medicine; Visit Provider Hospitalist
DX: R07.89 Other chest pain (principal); I45.10 Unspecified right bundle-branch block; I25.10 Atherosclerotic heart disease of native coronary artery without angina pectoris; J44.9 Chronic obstructive pulmonary disease, unspecified; I10 Essential (primary) hypertension; E78.5 Hyperlipidemia, unspecified; G47.33 Obstructive sleep apnea (adult) (pediatric); F17.210 Nicotine dependence, cigarettes, uncomplicated; Z79.82 Long term (current) use of aspirin; Z79.899 Other long term (current) drug therapy; I25.2 Old myocardial infarction; Z95.5 Presence of coronary angioplasty implant and graft
CPT/HCPCS: 36415; 71045; 80048; 84484; 85025; 93005; 93306; 94760; 96360; 96361; 99218; 99282; 99285; J7030; Q9957; A4216; C8929; G0378; J2405

== ENCOUNTER → 2020-01-23 06:00 | Outpatient (CLI) | payer MEDICAID, SELFPAY ==
[2020-01-03 11:35] VITALS: BMI 35.4
[2020-01-05 17:08] VITALS: BMI 33.5
--- NOTE | 2020-01-23 07:57 | STRESSREP ---
Stress Test Report Date: 01-23-2020 Procedure: Exercise tolerance test/imaging study Indications: Chest pain; CAD; PCI Consent: Per the patient Procedure: The patient exercised on a Edgar protocol for 8 minutes completing Stage II and 2 minutes of Stage III achieving a peak heart rate of 142 bpm (84% predicted maximal heart rate) with a peak blood pressure 158/62 mmHg and a peak MET capacity of 9 METs. The baseline ECG demonstrated normal sinus rhythm. The peak exercise ECG demonstrated no obvious ECG changes. There was an isolated PVC during exercise. The functional capacity was considered good. There was [no complaint of chest discomfort during exercise or recovery]. The examination was discontinued secondary to dyspnea. Impression: 1. Technically adequate (percent predicted maximal heart rate greater than 85%) exercise tolerance test 2. Peak exercise ECG with no obvious ECG changes 3. There was an isolated PVC during exercise 4. Nuclear images pending Myocardial perfusion imaging study: Technique: The patient was injected with 14.2 mCi of technetium 99m Cardiolite and subsequently rest SPECT Cardiolite nuclear imaging was obtained in the horizontal long, vertical long, and short axis views. The patient exercised on a Edgar protocol for 8 minutes completing Stage II and 2 minutes of Stage III achieving a peak heart rate of 142 bpm (84% predicted maximal heart rate) with a peak blood pressure 158/62 mmHg and a peak MET capacity of 9 METs. The patient was injected with 44.3 mCi of technetium 99m Cardiolite and subsequently stress SPECT Cardiolite nuclear imaging was obtained in the horizontal long, vertical long, and short axis views. A gated Cardiolite study at peak stress was obtained. Interpretation: Rest and stress SPECT Cardiolite nuclear imaging status post realignment, normalization, and attenuation correction, demonstrates the appearance-preattenuation correction-of relatively uniform tracer uptake/myocardial perfusion at rest and an area of diminished myocardial perfusion/tracer uptake in the mid inferior segments post stress, however, post attenuation correction there appears to be relative uniform tracer uptake/myocardial perfusion at both rest and stress. [There is end systolic thickening and brightening]. The gated Cardiolite study demonstrates [myocardial thickening and inward wall motion]. The reported LVEF is 65%. Impression: 1. Rest and stress SPECT Cardiolite nuclear imaging demonstrate preattenuation correction myocardial perfusion changes concerning for an area of stress-induced myocardial ischemia in the mid inferior segments and post attenuation correction the appearance of relative uniform myocardial perfusion/tracer uptake at both rest and stress. Thus, there appears to be a discrepancy between the preattenuation and post attenuation images. 2. The gated Cardiolite study reports an LVEF of 65%. Comment: Clinical correlation suggested. This note was generated with [employer] software. It may contain incorrect words, spelling, and punctuation that were not noted in checking the note before signing.
== END ==
PROVIDERS: PCP Family Medicine; Referring Provider Internal Medicine Cardiovascular Disease; Visit Provider Internal Medicine Cardiovascular Disease
DX: R07.9 Chest pain, unspecified (principal); I25.10 Atherosclerotic heart disease of native coronary artery without angina pectoris; Z95.5 Presence of coronary angioplasty implant and graft; E78.5 Hyperlipidemia, unspecified
CPT/HCPCS: 78452; 93017; A9500

== ENCOUNTER 2020-01-30 08:00 | Day surgery (SDC) | payer MEDICAID, SELFPAY ==
[2020-01-05 17:08] VITALS: BMI 33.5
[2020-01-29 11:15] VITALS: BMI 33.4
[2020-01-29 15:36] LABS: Hematocrit 46.7 % (40-54); Hemoglobin 16.2 g/dL (13.0-16.5); Mean Corp Hgb Conc 34.7 g/dL (32-36); Mean Corpuscular Hgb 32.8 pg (27.0-32.0); Mean Corpuscular Volume 94.5 fL (80-94); Mean Platelet Vol. 10.1 fl (6.2-12.0); Platelet Count 268 K/mm3 (150-450); RBC Distribution Width SD 44.6 fl (35.1-43.9); Red Blood Count 4.94 M/mm3 (4.6-6.2); White Blood Count 11.3 K/mm3 (4.4-11.0)
[2020-01-29 15:49] LABS: International Normalized Ratio 1.1; Prothrombin Time (Protime)PT. 13.4 SECONDS (11.7-14.9)
[2020-01-29 15:50] LABS: Partial Thromboplast Time 33.7 Seconds (24.1-36.2)
[2020-01-29 16:00] LABS: Anion Gap 7 (5-15); BUN 9 mg/dL (7-18); BUN/Creat Ratio 10.1 RATIO (10-20); Calcium,Total 8.9 mg/dL (8.5-10.1); Chloride 105 mmol/L (98-107); Creatinine, Serum 0.89 mg/dL (0.70-1.30); EST Glomerular Filtration Rate 96 mL/min (>60); Est Glom Filt Rate - Afr Amer 116 mL/min (>60); Estimated Creatinine Clearance 101.39 ml/min; Glucose 73 mg/dL (74-106); Potassium 3.4 mmol/L (3.5-5.1); Sodium Level 140 mmol/L (136-145)
--- NOTE | 2020-01-30 07:47 | HP.PCM_ITS ---
Problem List (1) Chest pain Status: Acute (2) Atherosclerotic heart disease of [place] coronary artery without angina pectoris Status: Chronic Qualifiers: (3) Presence of stent in coronary artery Status: Chronic Comment: Successful ANUP to pLAD 11/18/19 (4) Hyperlipidemia, unspecified Status: Chronic Qualifiers: History and Physical Date of Admission: 01/30/20 [facility] Medical Records Department [address] [place] [address] Consultation 01/05/202021 MR#: [id number] Acct: [id number] Name: ARTURO STEVENSON Rep #:[id number] : 1970 49 From: Ronny Hodgson MD PCP: Dr. Destiney Gilmore MD Status:ADM ANASTACIA Y Location: [place] [address] Problem List (1) Chest pain Status: Acute (2) Atherosclerotic heart disease of [place] coronary artery without angina pectoris Status: Chronic Qualifiers: (3) Presence of stent in coronary artery Status: Chronic Comment: Successful ANUP to pLAD 11/18/19 (4) Hyperlipidemia, unspecified Status: Chronic Qualifiers: (5) RUMA (obstructive sleep apnea) Status: Chronic Reason for Consult Date of Consultation: 01/05/20 History of Present Illness: The patient is a 49 year old white male who is referred for evaluation of an chest pain superimposed upon a diagnosis of recent non-ST segment elevation OH, CAD, LAD PCI, hyperlipidemia, with a past medical history including obstructive sleep apnea. He has been participating in outpatient cardiac rehabilitation. Today at outpatient cardiac rehabilitation he informed the cardiac rehabilitation team that he had been having chest discomfort which he described as chest tightness for approximately 2 days. He states it was fairly constant with some waxing and waning. He has an element of chronic shortness of breath and dyspnea. He does not recall any nausea or emesis. He states he may have had intermittent episodes of diaphoresis. Thus he did not participate in outpatient cardiac rehabilitation this day. He was taken to the [facility] emergency department for evaluation. There his cardiac enzymes were negative and his ECG demonstrated sinus rhythm with no acute changes. According to the [facility] emergency department physician he was treated with morphine sulfate 4 mg IV push x1. Following that he reportedly had no further discomfort. He was then taken to the PCU for additional evaluation and care. There he has been resting comfortably, sleeping, and not having any recurrent issues that he is aware of. He states he feels better and back to his baseline. He states he is hoping to be able to be released home so that he can continue on with outpatient follow-up as opposed to remaining in the hospital. He has had no orthopnea or PND or peripheral pitting edema. There is no near syncope or syncope. He has no history of thromboembolic disease, CVA, renal insufficiency, or ongoing acute infectious disease related issues. [] Past Medical History Allergies/Adverse Reactions: Allergies No Known Allergies Allergy (Verified 01/05/20 13:13) Home Medications: Ambulatory Orders Medication Instructions Recorded aspirin 81 mg tablet,delayed 81 mg PO DAILY #30 tab 12/01/19 release atorvastatin 40 mg tablet 40 mg PO QHS #30 tab 12/01/19 losartan 25 mg tablet 25 mg PO DAILY #30 tab 12/01/19 metoprolol tartrate 25 mg tablet 25 mg PO BID #60 tab 12/01/19 ticagrelor 90 mg tablet 90 mg PO BID #60 tab 12/01/19 Past Medical History (Chronic Problems): Chronic Problems (Last Updated 11/20/19 @ 12:17 by Candis Mccullough) RUMA (obstructive sleep apnea) (Chronic) Hyperlipidemia, unspecified (Chronic) Presence of stent in coronary artery (Chronic ~11/18/19) Successful ANUP to pLAD 11/18/19 Atherosclerotic heart disease of [place] coronary artery without angina pectoris (Chronic) History of gout (Chronic) NSTEMI (non-ST elevated myocardial infarction) (Chronic) Surgical History: noncontributory Psychiatric History: No pertinent psych hx - *Family History Paternal History Items: No pertinent history - Patient denies history of coronary artery disease or other cardiac disease in first-degree family relative Maternal History Items: No pertinent history Lives: Spouse/ Significant Other Smoking Status: Current every day smoker Tobacco Use: Cigarettes Alcohol: None Drugs: None Review of Systems - Review of Systems General: Denies: Fever, Night Sweats, Fatigue Cardiovascular: Reports: Chest Discomfort, Chest Discomfort at Rest, Chest Discomfort with Exertion, Shortness of Breath. Denies: Orthopnea, PND, Peripheral Edema, Palpitations, Lightheadedness, Dizziness, Near Syncope, Syncope Respiratory: Denies: Cough, Sputum Production, Hemoptysis Gastrointestinal: Denies: Hematemesis, Hematochezia, Melena Genitourinary: Denies: Dysuria, Hematuria Skin: Denies: Rash Subjectve: This is a 49-year-old white male who appears to be resting comfortably with no acute distress. Objective: Vital Signs Temp Pulse Resp BP Pulse Ox 97.5 F L 71 16 120/72 95 01/05/20 17:06 01/05/20 19:03 01/05/20 17:06 01/05/20 17:06 01/05/20 17:06 Oxygen Flow Rate (L/min) 2 Oxygen Delivery Method Room Air Weight: 233 lb 14.567 oz Body Mass Index (BMI) 33.5 General: Awake, Alert, Oriented x 3, Cooperative, No Acute Distress HEENT: Atraumatic, Normocephalic, PERRL, EOMI, Sclera Non Icteric Neck: Supple, Good ROM, No JVD Lungs: Clear to auscultation Cardiovascular: Regular Rhythm, Normal S1, Normal S2 Abdomen: Bowel Sounds Present, Soft, Non Tender Extremities: No edema Neurological: No Focal Motor or Sensory Deficit Psych/Mental Status: Appropriate 01/05/20 13:25: WBC 7.0, RBC 4.76, Hgb 15.4, Hct 45.0, MCV 94.5 H, MCH 32.4 H, MCHC 34.2, Plt Count 239, MPV 10.1, Immature Gran % (Auto) 0.400, Neut % (Auto) 63.4, Lymph % (Auto) 25.4, [place] % (Auto) 7.0, Eos % (Auto) 2.8, Baso % (Auto) 1.0, Absolute Neuts (auto) 4.5, Nucleated RBC % 0 01/05/20 13:25: Sodium 141, Potassium 3.6, Chloride 109 H, Carbon Dioxide 28.0, Anion Gap 4 L, BUN 8, Creatinine 0.88, Est GFR (MDRD) Af Amer 117, Est GFR (MDRD) Non-Af 97, BUN/Creatinine Ratio 9.1 L, Glucose 120 H, Calcium 8.5, Troponin I < 0.015 01/05/20 17:51: Troponin I < 0.015 Rhythm: Sinus rhythm EKG: Sinus rhythm; no acute ECG changes ECHO: 11-18-2019 Interpretation Summary The study was technically difficult. Contrast injection was performed. Segmental dysfunction with preserved ejection fraction (see wall motion). The estimated ejection fraction is 55 %. Trivial mitral valve insufficiency. Trivial tricuspid valve insufficiency. Right ventricular systolic pressure estimated to be 18 mmHg. No evidence for diastolic dysfunction. Stress Test: 12-13-2019 Stress Test Report Date: 12-13-2019 Procedure: Exercise tolerance test Indications: CAD; PCI; precardiac rehabilitation Consent: Per the patient Procedure: The patient exercised on a Edgar protocol for 4 minutes and 43 seconds completing Stage I and 1 minute and 43 seconds of Stage II achieving a peak heart rate of 133 bpm (78% predicted maximal heart rate) with a peak blood pressure 132/74 mmHg and a peak MET capacity of approximately 6 MET's. The baseline ECG demonstrated normal sinus rhythm. The peak exercise ECG demonstrated no obvious ECG changes. There were no cardiac dysrhythmias pretest, during exercise, or recovery. The functional capacity was considered decreased. The patient had no complaint of chest discomfort during exercise or recovery. The examination was discontinued secondary to dyspnea and fatigue. Impression: 1. Technically inadequate (percent predicted maximal heart rate less than 85%) exercise tolerance test 2. Peak exercise ECG with no obvious ECG changes of the heart rate achieved 3. There were no cardiac dysrhythmias during exercise or recovery Cardiac Cath: 11-18-2019 CONCLUSIONS Elevated Left Ventricular End Diastolic Pressure Segmented LV systolic dysfunction- Mild LVEF: by LV gram 55 % Single vessel CAD of the LAD RECOMMENDATIONS Risk factor modification Medical therapy Referred for immediate PCI DESCRIPTION OF PROCEDURE The patient arrived to the procedure lab. The risks and benefits of the procedure as well as a full description of our services here and current unavailability of surgical backup were fully explained to the patient and/or their significant other prior to the catheterization. The Timeout was completed, verifying the correct patient and procedure. The patient's procedural site was prepped and draped in the usual fashion. Local anesthetic was given subcutaneously to right radial region with Lidocaine 2%. Using a modified Seldinger technique, arterial access was obtained via the right radial artery, a 6Fr sheath was inserted. Left Coronary Artery selective angiography was performed in multiple views using a 5 Fr. 4.0 [place] catheter. Right Coronary Artery selective angiography was then performed in multiple views using a 5 Fr. 4.0 [place] catheter. Left Ventriculography was performed in KWAN projection using a 5 Fr. Pigtail catheter. LV to AO pullback pressures were then recorded.The arterial sheath was pulled and a TR Band was applied for hemostasis CORONARY ANGIOGRAPHY DOMINANCE: Right Dominant LEFT HEART ASSESSMENT Left Ventricular Ejection Fraction: by LV Gram 55 % Anterior Hypokinesis Elevated Left Ventricular End Diastolic Pressure LVEDP: 33 mmHg LEFT ANTERIOR DESCENDING ARTERY: MID LAD: s/p DX: eccentric: hazy: 75 % Stenosis CIRCUMFLEX ARTERY: Angiographically normal RIGHT CORONARY ARTERY: PROX RCA: Mild luminal irregularities AORTIC ROOT: Angiographically normal PCI: 11-18-2019 CONCLUSIONS Successful ANUP to pLAD CXR: 01-05-2020 IMPRESSION: No acute abnormality is seen. Assessment/Plan 1. Chest pain The patient had chest pain for approximately 2 days that he states was rather constant. It did have a heavy characteristic to it which is concerning. He also had concerns of shortness of breath as well as potentially intermittent episodes of diaphoresis. He states this was different from the discomfort he had prior to his non-ST segment elevation [place] and subsequent PCI. At the present time his initial cardiac enzyme is negative. Additional enzymes are pending. His initial ECG demonstrated sinus rhythm with no acute ECG changes. He is going to remain in the hospital at this time and have cardiac rhythm monitoring, enzyme follow-up, and ECG follow-up. He will have an echocardiogram requested to reassess his left ventricular wall motion and systolic function. Depending upon his clinical course he may need further noninvasive evaluation such as an exercise tolerance test/imaging study such as a stress nuclear imaging study versus a repeat diagnostic cardiac catheterization. 2. CAD status post LAD PCI He did undergo, in October of this year, evaluation for a non-ST segment elevation [place] leading to the diagnosis of CAD and subsequent LAD PCI. He has been on medical management and he states he has not missed any of his medications. He has been participating in outpatient cardiac rehabilitation. At the present time based upon his concerns he will be evaluated as noted above. 3. Hyperlipidemia He will continue medical therapy. 4. Obstructive sleep apnea He does follow with Dr. Ortiz of pulmonology. He states he has been unable to find a device that he can wear comfortably for his RUMA. Comment: The patient's case was discussed and reviewed with the patient, the [facility] emergency department staff, the [facility] hospital staff. This note was generated using a voice recognition system and there may be incorrect words, spelling or punctuation that were not noted when reviewing the office note prior to saving. 01/05/202031 <Electronically signed by Ronny trent MD> Date _ Ronny Hodgson MD I have examined the patient the following changes are noted: The patient subsequently underwent evaluation with transthoracic echocardiogram on 01-06-2020 and the results are as noted below. Interpretation Summary Normal left ventricle. Concentric left ventricular hypertrophy. Left ventricular systolic function is normal. The estimated ejection fraction is 55 %. Normal diastology for age. No regional wall motion abnormalities noted. Mild (1+) aortic valve insufficiency. The patient subsequently underwent evaluation with a stress nuclear imaging study on 01-23-2020 and the results are as noted below. Stress Test Report Date: 01-23-2020 Procedure: Exercise tolerance test/imaging study Indications: Chest pain; CAD; PCI Consent: Per the patient Procedure: The patient exercised on a Edgar protocol for 8 minutes completing Stage II and 2 minutes of Stage III achieving a peak heart rate of 142 bpm (84% predicted maximal heart rate) with a peak blood pressure 158/62 mmHg and a peak MET capacity of 9 METs. The baseline ECG demonstrated normal sinus rhythm. The peak exercise ECG demonstrated no obvious ECG changes. There was an isolated PVC during exercise. The functional capacity was considered good. There was [no complaint of chest discomfort during exercise or recovery]. The examination was discontinued secondary to dyspnea. Impression: 1. Technically adequate (percent predicted maximal heart rate greater than 85%) exercise tolerance test 2. Peak exercise ECG with no obvious ECG changes 3. There was an isolated PVC during exercise 4. Nuclear images pending Myocardial perfusion imaging study: Technique: The patient was injected with 14.2 mCi of technetium 99m Cardiolite and subsequently rest SPECT Cardiolite nuclear imaging was obtained in the hori zontal long, vertical long, and short axis views. The patient exercised on a Edgar protocol for 8 minutes completing Stage II and 2 minutes of Stage III achieving a peak heart rate of 142 bpm (84% predicted maximal heart rate) with a peak blood pressure 158/62 mmHg and a peak MET capacity of 9 METs. The patient was injected with 44.3 mCi of technetium 99m Cardiolite and subsequently stress SPECT Cardiolite nuclear imaging was obtained in the horizontal long, vertical long, and short axis views. A gated Cardiolite study at peak stress was obtained. Interpretation: Rest and stress SPECT Cardiolite nuclear imaging status post realignment, normalization, and attenuation correction, demonstrates the appearance- preattenuation correction-of relatively uniform tracer uptake/myocardial perfusion at rest and an area of diminished myocardial perfusion/tracer uptake in the mid inferior segments post stress, however, post attenuation correction there appears to be relative uniform tracer uptake/myocardial perfusion at both rest and stress. [There is end systolic thickening and brightening]. The gated Cardiolite study demonstrates [myocardial thickening and inward wall motion]. The reported LVEF is 65%. Impression: 1. Rest and stress SPECT Cardiolite nuclear imaging demonstrate preattenuation correction myocardial perfusion changes concerning for an area of stress-induced myocardial ischemia in the mid inferior segments and post attenuation correction the appearance of relative uniform myocardial perfusion/tracer uptake at both rest and stress. Thus, there appears to be a discrepancy between the preattenuation and post attenuation images. 2. The gated Cardiolite study reports an LVEF of 65%. Comment: Clinical correlation suggested. Comment: The patient's case has been reviewed. The recommendation has been made based upon his history, objective findings, etc., that he be considered for repeat evaluation with diagnostic cardiac catheterization. The procedure and risks have been discussed with him. He is agreeable to this approach. Procedure Criteria Procedure Type: Elective COVID Risk Discussion: The surgeon/proceduralist and patient have discussed in detail the risk of exposure to and/or potential harm posed by the COVID-19 virus with having a surgery/procedure at this time versus the risk of delaying the surgery/procedure. It is not possible to know either the risk of delaying the surgery or procedure or chance of getting an infection with perfect accuracy, but a joint decision was made between the patient and the surgeon/proceduralist to proceed at this time with the scheduled surgery/procedure as indicated on the consent form.
[2020-01-30 08:39] LABS: Potassium 3.8 mmol/L (3.5-5.1)
--- NOTE | 2020-01-30 10:07 | CL.D_ITS ---
Patient Name: ARTURO STEVENSON Study Date: 01/30/2020 Performing: Ronny Hodgson MD Ht: 70.07 inches 178 cm : 1970 Wt: 233.69 lbs 106 kg Age: 49 Gender: male BSA: 2.23 PROCEDURE(S) PERFORMED QL92-BHE/COR/LV CLINICAL PROFILE AND INDICATIONS Indications: Suspected CAD Heart Failure: None Stress/Imaging Date: 01/23/2020Stress Test with SPECT MPI: Positive Angina Classification Anginal Classification w/in 2 Weeks: CCS III CAD Presentations: Stable angina. CONCLUSIONS Elevated Left Ventricular End Diastolic Pressure Normal LV size, wall motion,and systolic function LVEF: by LV gram 55 % Double vessel CAD of the LAD and RCA LAD: PCI: Stent: Patent RECOMMENDATIONS Risk factor modification Medical therapy DESCRIPTION OF PROCEDURE The patient arrived to the procedure lab. The risks and benefits of the procedure as well as a full d escription of our services here and current unavailability of surgical backup were fully explained to the patient and/or their significant other prior to the catheterization. The Timeout was completed, verifying the correct patient and procedure. The patient's procedural site was prepped and draped in the usual fashion. Local anesthetic was given subcutaneously to right radial region with Lidocaine 2% . Using a modified Seldinger technique, arterial access was obtained via the right radial artery, a 6 Fr sheath was inserted. Left Coronary Artery selective angiography was performed in multiple views u sing a 5 Fr. 4.0 [place] catheter. Right Coronary Artery selective angiography was then performed in mu ltiple views using a 5 Fr. 4.0 [place] catheter. Left Ventriculography was performed in KWAN projection using a 5 Fr. Pig[place] catheter. LV to AO pullback pressures were then recorded.The arterial sheath was pulled and a TR Band was applied for hemostasis 13cc air CORONARY ANGIOGRAPHY DOMINANCE: Right Dominant LEFT HEART ASSESSMENT Left Ventricular Ejection Fraction: by LV Gram 55 % Normal LV wall motion Elevated Left Ventricular End Diastolic Pressure LVEDP: 36 mmHg LEFT MAIN: Angiographically normal LEFT ANTERIOR DESCENDING ARTERY: MID LAD: Previously placed stent is patent CIRCUMFLEX ARTERY: Angiographically normal RIGHT CORONARY ARTERY: PROX RCA: Mild luminal irregularities AORTIC ROOT: Angiographically normal COMPLICATIONS No Complications PROCEDURE MEDICATIONS Versed 1 mg IV Fentanyl 50 mcg IV Oxygen: 2 L/min via nasal cannula Baby Aspirin (81mg) 1 Tabs PO @ 01/30/2020 08:26:05 Heparin diluted in 23cc Heparinized saline. Patient given 10cc IA of this solution. 01/30/2020 09:25 :28 Verapamil 2.5mg, Ntg 100mcgs, 2000 units of Heparin diluted in 23cc Heparinized saline. Patient give n 10cc IA of this solution. 01/30/2020 09:25:28 SUMMARY OF HEMODYNAMIC DATA Time AIR REST ECG 08:20:20 LV 132/15, 36 09:35:40 LV 134/15, 36 09:35:46 LV 127/16, 36 09:37:05 LVp 128/15, 34 09:37:41 AOp 115/79 (95) 09:37:46 AO 115/80 (96) SA 09:37:57 ECG 09:50:55 Signed By Ronny Hodgson MD On 01/30/2020 10:06:46 AM Ronny Hodgson MD
== END 2020-01-30 11:35 | disposition home or self-care (01) ==
LOC: CLSP 08:01
PROVIDERS: PCP Family Medicine; Referring Provider Internal Medicine Cardiovascular Disease; Visit Provider Internal Medicine Cardiovascular Disease
DX: R07.9 Chest pain, unspecified (principal); I25.118 Atherosclerotic heart disease of native coronary artery with other forms of angina pectoris; E78.5 Hyperlipidemia, unspecified; G47.33 Obstructive sleep apnea (adult) (pediatric); F17.210 Nicotine dependence, cigarettes, uncomplicated; Z79.82 Long term (current) use of aspirin; Z79.899 Other long term (current) drug therapy; Z95.5 Presence of coronary angioplasty implant and graft; I25.2 Old myocardial infarction
CPT/HCPCS: 36415; 80048; 84132; 85027; 85610; 85730; 93458; 99152; 99153; J7040; C1769; C1894; Q9967

== ENCOUNTER 2020-02-10 10:48 | Emergency (ER) | payer MEDICAID, SELFPAY ==
[2020-01-29 11:15] VITALS: BMI 33.4
[2020-02-10 10:49] VITALS: BP 130/81; PULSE 97; RESP 17; TEMP 36.8; O2SAT 96; BMI 34.5
--- NOTE | 2020-02-10 11:11 | RAD_ITS ---
STUDY: X-RAY CHEST REASON FOR EXAM: Male, 49 years old. C/O CP ONSET 1 HR TECHNIQUE: Single frontal view of the chest. COMPARISON: 01/05/20. FINDINGS: Cardiac silhouette unremarkable. Pulmonary vascularity unremarkable. Aorta unremarkable. No focal airspace opacities. No pleural effusions. Upper abdomen unremarkable. Osseous structures intact. No pneumothorax. RAD/Chest 1 View (Portable) IMPRESSION: No acute cardiopulmonary process identified. Electronically Signed: Chivo Guerrero, at 13:22 EST Tel , Service support ,
--- NOTE | 2020-02-10 11:11 | EKG12_ITS ---
Test Reason : CP Blood Pressure : / mmHG Vent. Rate : 076 BPM Atrial Rate : 076 BPM P-R Int : 126 ms QRS Dur : 102 ms QT Int : 374 ms P-R-T Axes : 055 044 023 degrees QTc Int : 420 ms Normal sinus rhythm Normal ECG Confirmed by PRISCA PAK, RUPERT ([id number]), rewrite editor MORA SINGER ([id number]) on 02/12/2020 9:41:33 AM Referred By: SHILPA Confirmed By:RUPERT COPE MD
--- NOTE | 2020-02-10 11:17 | ED.DCSUM_ITS ---
- ER Visit Summary Date of Service: 02/10/20 Chief Complaint: Chest pain and left arm redness History of Present Illness: The patient is a 49 M who presents with chest pain that began approximately 1 to 2 hours prior to arrival. Patient states this is gradually gotten worse. Patient describes it as a tightness. Patient states it is all the way across his chest. Patient states nothing makes it better or worse. Patient denies any nausea or vomiting. Patient denies any diaphoresis. Patient denies any shortness of breath or cough. Patient denies any recent fevers or chills. Patient denies any lightheadedness or palpitations. Patient did have a recent cardiac cath on 01/30/2020. There is a stent in his left anterior descending artery which is patent. There was no acute lesion noted. Physical Examination: Vital signs are stable. Patient is afebrile. Patient is in no acute distress. Oral mucosa is pink and moist. Neck is supple. Trachea is midline. There is no JVD noted. Heart was regular rate and rhythm. Lungs are clear and equal bilaterally. Abdomen is soft. Bowel sounds are normal. There is no tenderness. There is no rebound or guarding noted. Skin is warm dry. There is erythema and mild warmth over the anterior aspect of the left arm and antecubital area. There is no fluctuance or abscess formation. Cranial nerves II through XII are intact. There are no focal motor or sensory deficits noted. Extremities are intact. There is no calf tenderness or edema. Test Results: EKG shows a normal sinus rhythm with a rate of 76. There are no acute ST or T wave changes. This was unchanged compared to previous EKG. Rosales ble 1 view chest x-ray was obtained. On my interpretation, lung leos are clear. There is normal cardiac silhouette. Bony thorax is normal. There is no acute process noted. Radiologist also interpreted the x-ray and agrees. CBC and basic metabolic profile were obtained and were within normal limits. Troponin was normal. Since the patient's chest pain only began 1 to 2 hours prior to arrival, a delta troponin was obtained. This was normal. Emergency Department Course and Treatment: Patient was given aspirin by EMS. Patient was given a dose of Unasyn here. Patient was given a prescription for Keflex. Patient has a HEART score of 3. Patient was advised that this is low risk for acute cardiac event. Patient was instructed to follow-up with his primary care physician in 5 to 7 days. Patient understood and was agreeable with the plan. All questions were answered. Disposition: Discharge home Impression: 1. Chest pain of uncertain etiology 2. Cellulitis left arm This note was generated with [employer] dictation software. It may contain incorrect words, spelling, and punctuation that were not noted in review of the chart prior to signing ED Disposition - Plan for ED Patient: Disposition: Home or Assisted Living Diagnosis: Chest pain of uncertain etiology, Cellulitis of left upper arm Instructions: ED Chest Pain Atypical Unkn Cause Prescriptions: Cephalexin [Keflex] 500 mg PO Q6 #40 cap Prescription Printed Referrals: Destiney Gilmore MD [Primary Care Provider] - 3-5 Days
[2020-02-10 11:37] LABS: Absolute Lymphocyte Count 1.78 X10^3/uL (0.83-4.51); Absolute Neutrophil Count 4.7 X10^3/uL (2.0-7.7); Basophil# 0.05 X10^3/uL; Basophil% 0.7 % (0-1); Eosinophil# 0.27 X10^3/uL; Eosinophils% 3.6 % (0-5); Hematocrit 43.9 % (40-54); Hemoglobin 15.2 g/dL (13.0-16.5); Lymphocyte # 1.78 X10^3/ul (4.0); Lymphocyte % 23.4 % (19-41); Mean Corp Hgb Conc 34.6 g/dL (32-36); Mean Corpuscular Hgb 33.2 pg (27.0-32.0); Mean Corpuscular Volume 95.9 fL (80-94); Mean Platelet Vol. 9.8 fl (6.2-12.0); Monocyte# 0.75 X10^3/uL; Monocyte% 9.9 % (0-10); NRBC Flagged by Analyzer 0 % (0-5); Neutrophil # 4.72 X10^3/uL (2.7-7.7); Platelet Count 238 K/mm3 (150-450); RBC Distribution Width CV 13.2 % (11.6-14.6); RBC Distribution Width SD 46.2 fl (35.1-43.9); Red Blood Count 4.58 M/mm3 (4.6-6.2); White Blood Count 7.6 K/mm3 (4.4-11.0)
[2020-02-10 11:39] VITALS: BP 108/69; PULSE 75; RESP 16; O2SAT 96
[2020-02-10 11:48] LABS: Anion Gap 3 (5-15); BUN 10 mg/dL (7-18); BUN/Creat Ratio 12.3 RATIO (10-20); Calcium,Total 8.8 mg/dL (8.5-10.1); Chloride 106 mmol/L (98-107); Creatinine, Serum 0.81 mg/dL (0.70-1.30); EST Glomerular Filtration Rate 106 mL/min (>60); Est Glom Filt Rate - Afr Amer 128 mL/min (>60); Glucose 96 mg/dL (74-106); Potassium 3.5 mmol/L (3.5-5.1); Sodium Level 138 mmol/L (136-145)
[2020-02-10 12:21] VITALS: BP 93/62; PULSE 87; RESP 19; O2SAT 94
[2020-02-10 14:11] VITALS: BP 100/71; PULSE 73; RESP 16; O2SAT 96
[2020-02-10 15:14] VITALS: BP 114/73; PULSE 67; O2SAT 95
[2020-02-10 15:17] VITALS: BP 114/73; PULSE 67
== END 2020-02-10 15:19 | disposition home or self-care (01) ==
PROVIDERS: Emergency Provider Emergency Medicine; PCP Family Medicine
DX: R07.9 Chest pain, unspecified (principal); L03.114 Cellulitis of left upper limb; I25.10 Atherosclerotic heart disease of native coronary artery without angina pectoris; Z72.0 Tobacco use; Z79.82 Long term (current) use of aspirin; Z79.899 Other long term (current) drug therapy; Z95.5 Presence of coronary angioplasty implant and graft
CPT/HCPCS: 71045; 80048; 84484; 85025; 93005; 96365; 96366; 99285; J7050; A4216; J0295

== ENCOUNTER 2021-01-01 18:04 | Observation (INO) | payer MEDICAID, SELFPAY ==
[2021-01-01] VITALS (8 sets, daily range): BP systolic 119–128; BP diastolic 78–92; PULSE 77–922; RESP 12–24; TEMP 36.7–37.1; O2SAT 94–97; BMI 33.5; BMI 32.4
--- NOTE | 2021-01-01 18:20 | EKG12_ITS ---
Test Reason : CP Blood Pressure : / mmHG Vent. Rate : 092 BPM Atrial Rate : 092 BPM P-R Int : 136 ms QRS Dur : 096 ms QT Int : 356 ms P-R-T Axes : 065 052 058 degrees QTc Int : 440 ms Normal sinus rhythm Normal ECG Confirmed by PRISCA PAK, RUPERT ([id number]), news videotape editor MORA SINGER ([id number]) on 01/07/2021 6:35:57 AM Referred By: Sherwin Mondragon Confirmed By:RUPERT COPE MD
--- NOTE | 2021-01-01 18:24 | RAD_ITS ---
STUDY: X-RAY CHEST REASON FOR EXAM: Male, 50 years old. chest pain TECHNIQUE: Single AP portable view of the chest. COMPARISON: February 10, 2020 FINDINGS: The lungs are clear and expanded. There is no demonstrated pleural abnormality. Normal size heart. Normal mediastinum and yasmine. Normal visualized pulmonary arteries. Normal visualized aortic arch and descending thoracic aorta. Normal visualized thoracic spine. Normal visualized ribs, clavicles, and shoulders. There is no demonstrated abnormality of the visualized soft tissue structures of the upper abdomen. RAD/Chest 1 View (Portable) IMPRESSION: Normal x-ray examination of the chest. Electronically Signed: Marin Tinoco MD at 18:54 EDT , Service support ,
--- NOTE | 2021-01-01 18:25 | EDS_ITS ---
HPI History of Present Illness Chief Complaint: Chest Pain Informant: patient Onset/Context/Timing Onset: Hours Activity at onset: gradual Timing: Waxes and wanes Quality: Positive for Aching and Heaviness Location: Left Chest and - (Left arm) Current Severity: Mild Maximum Severity: Moderate Narrative Narrative: Patient presents for evaluation secondary left arm and chest pain. He states he was push mowing his yard about an hour and a half ago when he developed pain in his left arm and up to his left shoulder. He had similar symptoms last year when he had an NSTEMI. No significant shortness of breath. While sitting at rest patient states his pain is improved. Patient admits that he has been out of his heart medication for the past 2 weeks. He has an appointment with his meat puller later this month and was planning to get refills at that time. 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 History of left heart catheterization (LHC) (~01/30/20) Hyperlipidemia, unspecified Narcolepsy Presence of stent in coronary artery (~11/18/19) Home Medications aspirin 81 mg tablet,delayed release 81 mg PO DAILY #30 tab 12/01/19 [Rx Last Taken 02/10/20] atorvastatin 40 mg tablet 40 mg PO QHS #30 tab 12/01/19 [Rx Last Taken 02/09/20] losartan 25 mg tablet 25 mg PO DAILY #30 tab 12/01/19 [Rx Last Taken 02/09/20] metoprolol tartrate 25 mg tablet 25 mg PO BID #60 tab 12/01/19 [Rx Last Taken 02/10/20] ticagrelor 90 mg tablet 90 mg PO BID #60 tab 12/01/19 [Rx Last Taken 02/10/20] potassium chloride 20 mEq tablet,extended release 40 meq PO .COMPLEX #30 tab [Rx Last Taken 02/09/20] Allergy/AdvReac Type Severity Reaction Status Date / Time No Known Allergies Allergy Verified 01/01/21 18:05 Surgical History History of hand surgery History of nasal surgery Social History Smoking Status: Current every day smoker tobacco type: cigarettes ROS ROS ED Constitutional Constitutional ED: Denies chills or fever(s) Eyes Eyes: Denies change in vision ENT ENT ED: Denies sore throat Cardiovascular Cardiovascular: Reports chest pain Respiratory/Chest Respiratory/Chest: Denies cough or dyspnea Gastrointestinal Gastrointestinal: Denies abdominal pain, diarrhea, nausea or vomiting Genitourinary Genitourinary ED: Denies dysuria Musculoskeletal Musculoskeletal: Reports arthralgias and myalgias; Denies back pain Integumentary Denies rash Neurologic Neurologic: Denies headache(s) or weakness Allergic/Immunologic Allergic/Immunologic ED: Denies urticaria EXAM Physical Exam Const Vital Signs: 01/01/21 18:05 01/01/21 18:09 01/01/21 18:15 Temperature 98.1 F 98.1 F Temperature Source Temporal Temporal Pulse Rate 90 922 H Respiratory Rate 24 H 18 Respiratory Effort Normal Non-Labored Respiratory Pattern Normal Blood Pressure 128/81 H 128/81 H Blood Pressure Mean 96 96 Pulse Ox 97 97 Oxygen Delivery Method Room Air Room Air 01/01/21 18:31 01/01/21 19:08 Temperature Temperature Source Pulse Rate 89 Respiratory Rate 19 H Respiratory Effort Respiratory Pattern Blood Pressure 122/86 H Blood Pressure Mean 98 Pulse Ox 96 Oxygen Delivery Method Room Air Room Air Positive well nourished and well developed General Appearance ED: well developed HEENT normocephalic and atraumatic Eyes PERRL and EOMs intact bilaterally Chest Wall inspection of chest normal and palpation of chest normal Resp normal respiratory effort Effort and Inspection: respiratory distress Cardio regular rate and regular rhythm Extremity normal to inspection Extremity Narrative: Strong distal pulses throughout. Neuro oriented x3 and no sensory deficits noted Sensorium / Orientation: awake and alert Motor Exam: strength 5/5 throughout Psych mental status grossly normal Skin no rashes or lesions noted Heart Score History: Moderately Suspicious ECG: Normal Age: >45 - <65 years Risk Factors: >/= 3 Risk Factors or History of CAD Troponin: </= Normal Limit Score: 4 MDM MDM MDM Narrative Medical decision making narrative: Patient given aspirin on arrival. He initially stated he had very minimal if any pain. EKG, chest x-ray, lab work obtained. Lab Data Attestation: I reviewed the patient's lab results. Labs: Laboratory Results - last 24 hr 10/13/21 10/13/21 18:10 18:10 WBC 8.3 RBC 5.14 Hgb 17.0 H Hct 47.5 MCV 92.4 MCH 33.1 H MCHC 35.8 RDW Std Deviation 42.9 RDW Coeff of Jaya 12.6 Plt Count 252 MPV 9.9 Immature Gran % (Auto) 0.500 Neut % (Auto) 57.7 Lymph % (Auto) 27.1 Greene % (Auto) 10.2 H Eos % (Auto) 3.5 Baso % (Auto) 1.0 Absolute Neuts (auto) 4.8 Absolute Lymphs (auto) 2.24 Nucleated RBC % 0 Sodium 138 Potassium 3.8 Chloride 105 Carbon Dioxide 27.0 Anion Gap 6 BUN 9 Creatinine 1.03 Estim Creat Clear Calc 86.62 Est GFR (MDRD) Af Amer 98 Est GFR (MDRD) Non-Af 81 BUN/Creatinine Ratio 8.7 L Glucose 124 H Calcium 8.9 Troponin I High Sens 6 Rapid Covid test negative. Radiography Chest X-Ray - ED: 1 View, Read by ED Physician, Normal, Heart, Lungs and Mediastinum Diagnostic Testing: Clinical Impression(s) from Imaging Studies Chest X-Ray 01/01/21 18:24 IMPRESSION: Normal x-ray examination of the chest. Electronically Signed: Marin Tinoco MD at 18:54 EDT , Service support , EKG Initial EKG: Attestation: I personally reviewed and interpreted this EKG as follows: Interpretation: Sinus Rhythm (Sinus at 92 with no acute ischemia.) Follow-up EKG: Attestation: I personally reviewed and interpreted this EKG as follows: Interpretation: Sinus Rhythm (Sinus at 73 with no acute ischemia.) Treatment and Re-Evaluation Comments:: Patient's initial blood work unremarkable. Chest x-ray normal. When I went back to reevaluate the patient he states that he was having significant pain again in his left arm. Repeat EKG obtained at that time and unchanged. Patient treated with morphine and Zofran for pain. 2-hour troponin will be drawn at this time, however I do feel patient would require observation overnight for cycling of enzymes. I will speak with the hospitalist. Discharge Plan Dx/Rx/DC Orders Clinical Impression: Chest pain Disposition Disposition: Acute Care Hospital [facility] [place] Discharge Date/Time: 01/01/21 20:06
[2021-01-01 18:28] LABS: Absolute Lymphocyte Count 2.24 X10^3/uL (0.83-4.51); Absolute Neutrophil Count 4.8 X10^3/uL (2.0-7.7); Basophil# 0.08 X10^3/uL; Eosinophil# 0.29 X10^3/uL; Eosinophils% 3.5 % (0-5); Hematocrit 47.5 % (40-54); Lymphocyte # 2.24 X10^3/ul (0.83-4.51); Lymphocyte % 27.1 % (19-41); Mean Corp Hgb Conc 35.8 g/dL (32-36); Mean Corpuscular Hgb 33.1 pg (27.0-32.0); Mean Corpuscular Volume 92.4 fL (80-94); Mean Platelet Vol. 9.9 fl (6.2-12.0); Monocyte# 0.84 X10^3/uL; Monocyte% 10.2 % (0-10); NRBC Flagged by Analyzer 0 % (0-5); Neutrophil # 4.77 X10^3/uL (2.7-7.7); Neutrophil % 57.7 % (47-70); Platelet Count 252 K/mm3 (150-450); RBC Distribution Width CV 12.6 % (11.6-14.6); RBC Distribution Width SD 42.9 fl (35.1-43.9); Red Blood Count 5.14 M/mm3 (4.6-6.2); White Blood Count 8.3 K/mm3 (4.4-11.0)
[2021-01-01] MEDS: Aspirin 81 MG TAB.CHEW 324 MG PO (18:33)
[2021-01-01 18:42] LABS: Anion Gap 6 (5-15); BUN 9 mg/dL (7-18); BUN/Creat Ratio 8.7 RATIO (10-20); Calcium,Total 8.9 mg/dL (8.5-10.1); Chloride 105 mmol/L (98-107); Creatinine, Serum 1.03 mg/dL (0.70-1.30); EST Glomerular Filtration Rate 81 mL/min (>60); Est Glom Filt Rate - Afr Amer 98 mL/min (>60); Estimated Creatinine Clearance 86.62 ml/min; Glucose 124 mg/dL (74-106); Potassium 3.8 mmol/L (3.5-5.1); Sodium Level 138 mmol/L (136-145); Troponin-I HS 6 pg/mL (3.0-78.0)
--- NOTE | 2021-01-01 19:52 | EKG12_ITS ---
Test Reason : REPEAT EKG Blood Pressure : / mmHG Vent. Rate : 073 BPM Atrial Rate : 073 BPM P-R Int : 120 ms QRS Dur : 096 ms QT Int : 384 ms P-R-T Axes : 062 041 029 degrees QTc Int : 423 ms Normal sinus rhythm Normal ECG Confirmed by PRISCA PAK, RUPERT ([id number]), editor magazine MORA SINGER ([id number]) on 01/07/2021 6:36:17 AM Referred By: Sherwin Mondragon Confirmed By:RUPERT COPE MD
[2021-01-01] MEDS: Morphine 4 MG/ML Syringe IV (19:58)
[2021-01-01] MEDS: Ondansetron 4 MG/2 ML Vial IV (19:58)
[2021-01-01 20:45] LABS: Troponin-I HS 7 pg/mL (3.0-78.0)
--- NOTE | 2021-01-01 20:48 | PCM.HP.STD ---
HPI - General General Date of Admission: 01/01/21 HPI Narrative ARTURO STEVENSON, is a 50 M with a significant history of CAD status post stent who presents to emergency department with excruciating progressively worsening left-sided chest pain that radiated to his left arm. He described the pain as sharp and shooting down his left arm. The pain started after he had mowed. He denies any ameliorating or aggravating factors to the pain. However morphine given at the emergency department helped him. He denies any nausea or vomiting. He reports diaphoresis that is unclear whether it was really associated with the chest pain or environmental condition. [facility] Medical History Atherosclerotic heart disease of [place] coronary artery without angina pectoris Chronic pain Coronary artery disease Depression History of amputation of finger History of left heart catheterization (LHC) (~01/30/20) Hyperlipidemia, unspecified Myocardial infarct Narcolepsy Presence of stent in coronary artery (~11/18/19) Sleep apnea Smoker Substance abuse Home Medications aspirin 81 mg tablet,delayed release 81 mg PO DAILY #30 tab 12/01/19 [Rx Last Taken 02/10/20] atorvastatin 40 mg tablet 40 mg PO QHS #30 tab 12/01/19 [Rx Last Taken 02/09/20] losartan 25 mg tablet 25 mg PO DAILY #30 tab 12/01/19 [Rx Last Taken 02/09/20] metoprolol tartrate 25 mg tablet 25 mg PO BID #60 tab 12/01/19 [Rx Last Taken 02/10/20] ticagrelor 90 mg tablet 90 mg PO BID #60 tab 12/01/19 [Rx Last Taken 02/10/20] potassium chloride 20 mEq tablet,extended release 40 meq PO .COMPLEX #30 tab 01/29/20 [Rx Last Taken 02/09/20] Allergy/AdvReac Type Severity Reaction Status Date / Time No Known Allergies Allergy Verified 01/01/21 18:05 Family History Father Heart disease Surgical History History of coronary artery stent placement History of hand surgery History of nasal surgery Social History Smoking Status: Current every day smoker tobacco type: cigarettes ROS ROS Narrative Constitutional: Denies fever, chills, fatigue, anorexia and change in weight Eyes: Denies blurry vision, change in eye color, change in vision, discharge from eye(s), double vision, erythema, eye pain, loss of vision or other HEENT: Denies abnormal hearing, dysphagia, ear pain, epistaxis, headache(s), hearing loss, nasal congestion, nasal discharge, post nasal drip, sinus pressure, sore throat or other Cardiovascular: Reports chest pain . Denies palpitations. Denies dyspnea on exertion, orthopnea and paroxysmal nocturnal dyspnea Respiratory/Chest: Denies cough, excessive phlegm production, shortness of breath with exertion and wheezing Gastrointestinal: Denies abdominal pain, coffee ground emesis, constipation, diarrhea, dyspepsia, hematemesis, hematochezia, loose stools, melena, nausea, vomiting or other Genitourinary: Denies burning urination, difficulty urinating, dysuria, hematuria, nocturia, urinary frequency, urinary hesitancy, urinary incontinence, urinary urgency or other Musculoskeletal: Reports left arm pain. Denies arthralgias, back pain, joint pain, joint stiffness, joint swelling, myalgias, neck pain or other Neurologic: Denies abnormal gait, abnormal speech, confusion, disequilibrium, dizziness, focal weakness, headache(s), numbness, paresthesias, seizure-like activity, seizures, syncope, tingling, tremor(s) or other Psychiatric: Denies anxiety, depression, homicidal ideation, suicidal ideation or other Endocrinology: Denies change in body appearance, cold intolerance, excessive sweating, heat intolerance, polydipsia, polyuria or other Hematologic/Lymphatic: Denies anemia, easy bleeding, easy bruising, lymphadenopathy or other Integumentary: Denies rashes Allergic/Immunologic: Denies rhinitis, hives, eczema, asthma or other Vital Signs Vital Signs Vital Signs: 01/01/21 18:05 01/01/21 18:09 01/01/21 18:15 Temperature 98.1 F 98.1 F Temperature Source Temporal Temporal Pulse Rate 90 922 H Respiratory Rate 24 H 18 Respiratory Effort Normal Non-Labored Respiratory Pattern Normal Blood Pressure 128/81 H 128/81 H Blood Pressure Mean 96 96 Pulse Ox 97 97 Oxygen Delivery Method Room Air Room Air 01/01/21 18:31 01/01/21 19:08 01/01/21 20:17 Temperature Temperature Source Pulse Rate 89 81 Respiratory Rate 19 H 12 Respiratory Effort Respiratory Pattern Blood Pressure 122/86 H 128/92 H Blood Pressure Mean 98 104 Pulse Ox 96 94 Oxygen Delivery Method Room Air Room Air Room Air 01/01/21 20:44 Temperature 98.7 F Temperature Source Temporal Pulse Rate 79 Respiratory Rate 16 Respiratory Effort Respiratory Pattern Blood Pressure 119/78 Blood Pressure Mean 91 Pulse Ox 96 Oxygen Delivery Method Room Air Weight Weight: 106 kg Body Mass Index (BMI) 33.5 Physical Exam Narrative Physical exam: General: Well-nourished, well-developed. Head: Normocephalic, atraumatic, no tenderness Eyes: PERRLA, EOMI ENT, no trauma, moist mucous membranes, no rhinorrhea Neck: Nontender, full range of motion, no spinal tenderness, deformities, step-off CVS: Regular rate and rhythm. S1-S2 present. No murmur, gallop or rub. Respiratory : clear to auscultation bilaterally, chest wall nontender, no wheezing Abdomen: Soft, nontender, nondistended, normal bowel sounds, no masses : Deferred Back: Nontender, no CVA tenderness, no midline spinal tenderness, deformities, step-offs Extremities: Nontender full range of motion, no trauma Skin: Normal color, no trauma, abrasions Neuro: Alert, oriented, cranial nerves II through XII grossly intact except slurred speech at baseline. Psychiatry: Normal mood. Normal affect. Not depressed. Not anxious. Results Lab / Micro Data Result Diagrams: 01/01/21 18:10 01/01/21 18:10 Labs: Laboratory Results - last 24 hr 01/01/21 18:10: WBC 8.3, RBC 5.14, Hgb 17.0 H, Hct 47.5, MCV 92.4, MCH 33.1 H, MCHC 35.8, RDW Std Deviation 42.9, RDW Coeff of Jaya 12.6, Plt Count 252, MPV 9.9, Immature Gran % (Auto) 0.500, Neut % (Auto) 57.7, Lymph % (Auto) 27.1, [place] % (Auto) 10.2 H, Eos % (Auto) 3.5, Baso % (Auto) 1.0, Absolute Neuts (auto) 4.8, Absolute Lymphs (auto) 2.24, Nucleated RBC % 0 01/01/21 18:10: Sodium 138, Potassium 3.8, Chloride 105, Carbon Dioxide 27.0, Anion Gap 6, BUN 9, Creatinine 1.03, Estim Creat Clear Calc 86.62, Est GFR (MDRD) Af Amer 98, Est GFR (MDRD) Non-Af 81, BUN/Creatinine Ratio 8.7 L, Glucose 124 H, Calcium 8.9, Troponin I High Sens 6 01/01/21 20:10: Troponin I High Sens 7 Micro: Microbiology 01/01/21 18:25 Nasal Secretion SARS-CoV-2 Antigen (Rapid) - Final Radiology Impression Chest X-Ray 01/01/21 18:24 IMPRESSION: Normal x-ray examination of the chest. Electronically Signed: Marin Tinoco MD at 18:54 EDT , Service support , Assessment & Plan Assessment/Plan (1) Chest pain: QUALIFIERS: Chest pain type: unspecified Qualified Code(s): R07.9 - Chest pain, unspecified PLAN: Chest Pain Place on a monitored bed at the progressive care unit Actual CXR image was independently visualized. No acute cardiopulmonary process was noted. I agree with radiologist interpretation. Actual EKG tracing was independently visualized. EKG tracing showed sinus rhythm with no ST or T wave abnormalities. We will resume home medications. ASA 81 mg p.o. daily ordered. Metoprolol 25 mg twice daily ordered. Brilinta 90 mg twice daily ordered. Losartan 25 mg daily ordered. SL NTG 0.4 mg prn as needed for chest pain ordered Morphine as needed for pain ordered We will check lipid panel. Initial high sensitive troponin was negative. Serial cardiac enzymes ordered Stat EKG as needed for chest pain Treadmill stress test in the AM if the cardiac enzymes are negative Hypertension Losartan; metoprolol resumed. Trend blood pressure and adjust blood pressure medications. Tobacco abuse Counseled. DVT prophylaxis SCD ordered Charges/Coding Visit Charges OBSV E&M: 09953 Initial observation care L2
--- NOTE | 2021-01-01 20:53 | EKG12_ITS ---
Test Reason : AM EKG Blood Pressure : / mmHG Vent. Rate : 073 BPM Atrial Rate : 073 BPM P-R Int : 134 ms QRS Dur : 102 ms QT Int : 404 ms P-R-T Axes : 058 042 028 degrees QTc Int : 445 ms Normal sinus rhythm Normal ECG When compared with ECG of 01-JAN-2021 21:11, MANUAL COMPARISON REQUIRED, DATA IS UNCONFIRMED Confirmed by PRISCA PAK, RUPERT ([id number]), web editor MORA SINGER ([id number]) on 01/07/2021 8:59:39 AM Referred By: Sherwin Mondragon Confirmed By:RUPERT COPE MD
--- NOTE | 2021-01-01 21:04 | PCS.PANDOC ---
PANDEMIC DOCUMENTATION INITIATED: Date: 11/04/2020 Time: 190
[2021-01-01] MEDS: TICAGRELOR 90 MG TABLET PO (22:35)
[2021-01-01] MEDS: Atorvastatin Calcium 40 MG Tablet PO (22:35)
[2021-01-02 00:51] LABS: Troponin-I HS 8 pg/mL (3.0-78.0)
[2021-01-02 05:00] VITALS: PULSE 76
[2021-01-02 05:14] VITALS: BP 120/81; PULSE 81; RESP 18; TEMP 36.4; O2SAT 97
--- NOTE | 2021-01-02 05:33 | EKG12_ITS ---
Test Reason : CP ADMISSION Blood Pressure : / mmHG Vent. Rate : 072 BPM Atrial Rate : 072 BPM P-R Int : 122 ms QRS Dur : 100 ms QT Int : 392 ms P-R-T Axes : 056 035 031 degrees QTc Int : 429 ms Normal sinus rhythm Normal ECG When compared with ECG of 01-JAN-2021 20:00, MANUAL COMPARISON REQUIRED, DATA IS UNCONFIRMED Confirmed by PRISCA PAK, RUPERT ([id number]), editorial director MORA SINGER ([id number]) on 01/07/2021 9:00:16 AM Referred By: Sherwin Mondragon Confirmed By:RUPERT COPE MD
[2021-01-02] MEDS: Losartan Potassium 25 MG Tablet PO (06:06)
[2021-01-02] MEDS: TICAGRELOR 90 MG TABLET PO (06:06)
[2021-01-02] MEDS: Aspirin E.C. 81 MG Tablet PO (06:06)
[2021-01-02 06:23] LABS: Absolute Lymphocyte Count 1.47 X10^3/uL (0.83-4.51); Absolute Neutrophil Count 4.9 X10^3/uL (2.0-7.7); Basophil# 0.08 X10^3/uL; Eosinophil# 0.26 X10^3/uL; Eosinophils% 3.4 % (0-5); Hematocrit 49.5 % (40-54); Hemoglobin 17.2 g/dL (13.0-16.5); Lymphocyte # 1.47 X10^3/ul (0.83-4.51); Lymphocyte % 19.3 % (19-41); Mean Corp Hgb Conc 34.7 g/dL (32-36); Mean Corpuscular Hgb 32.8 pg (27.0-32.0); Mean Corpuscular Volume 94.3 fL (80-94); Mean Platelet Vol. 9.9 fl (6.2-12.0); Monocyte# 0.84 X10^3/uL; NRBC Flagged by Analyzer 0 % (0-5); Neutrophil # 4.92 X10^3/uL (2.7-7.7); Neutrophil % 64.6 % (47-70); Platelet Count 235 K/mm3 (150-450); RBC Distribution Width CV 12.9 % (11.6-14.6); RBC Distribution Width SD 44.5 fl (35.1-43.9); Red Blood Count 5.25 M/mm3 (4.6-6.2); White Blood Count 7.6 K/mm3 (4.4-11.0)
[2021-01-02 06:47] LABS: Anion Gap 5 (5-15); BUN 8 mg/dL (7-18); BUN/Creat Ratio 8.7 RATIO (10-20); Calcium,Total 8.7 mg/dL (8.5-10.1); Chloride 107 mmol/L (98-107); Cholesterol 193 mg/dL (200); Creatinine, Serum 0.92 mg/dL (0.70-1.30); EST Glomerular Filtration Rate 92 mL/min (>60); Est Glom Filt Rate - Afr Amer 111 mL/min (>60); Estimated Creatinine Clearance 96.98 ml/min; Glucose 101 mg/dL (74-106); High Density Lipoprotein 32 mg/dL; Sodium Level 141 mmol/L (136-145); Triglycerides 91 mg/dL; Very Low Density Lipoprotein 18 mg/dL (5-40)
[2021-01-02 07:00] VITALS: PULSE 89
--- NOTE | 2021-01-02 09:02 | NURSING ---
Pt stating he plans to leave AMA. Dr Preston to room and spoke to pt. Offered pt nicotine patch. Pt refused and left AMA.
--- NOTE | 2021-01-02 12:30 | STRESSREP ---
Stress Test Report Treadmill nuclear stress test Indication; 50-year-old patient, with history of CAD with prior anterior myocardial infarction With a stent to the left anterior descending artery, drug-eluting stent October 2019 Patient was medical therapy. Has symptoms of chronic chest pain history of depression obstructive sleep apnea and substance abuse. Last echocardiogram in December 2019 showed ejection fraction within normal 55%. Patient was in the following medication aspirin, Lipitor, Cozaar, metoprolol and Brilinta. This is a exercise stress test, Edgar protocol; Resting EKG demonstrates. Normal sinus rhythm. With age indeterminate anterior IL Patient exercised according to standard Edgar protocol for 9 minutes, achieving a work level of maximum METS 10.4. The resting heart rate of 82 bpm elena to a maximum heart rate of 137 bpm. This value represented 81% of the maximum age-predicted heart rate. The resting blood pressure of 112/80 mmHg. Elena to a maximum blood pressure of 150/70 mmHg. Exercise test was terminated due to symptoms of shortness of breath and patient achieved a target heart rate. Stress EKG showed[, no significant change from the resting EKG. Arrhythmia: Unifocal premature ventricular complexes Symptoms: Patient had mild symptoms of chest pain with shortness of breath. Myocardial perfusion protocol. 14.8 mCi ]of Technetium 99m Sestamibi was injected at rest. Following maximal stress on treadmill patient received 44.3 mCi ]of Technetium 99m sestamibi was injected. Stress images were obtained stress and rest images were reconstructed and compared in the short axis vertical and horizontal long axis. Gated images were also obtained Perfusion SPECT analysis: Review of the images demonstrate normal uptake of sestamibi at rest, post stress images demonstrate similar uptake of sestamibi to the resting images, homogeneous tracer uptake With no evidence of reversible myocardial ischemia. Reduced tracer uptake in the anteroseptal and apical consistent with previous IL. Gated SPECT analysis: The gated ejection fraction is 63%. Normal left ventricular wall motion Conclusion: Negative Lexiscan sestamibi myocardial perfusion study for reversible myocardial ischemia Previous anteroseptal and apical myocardial infarction Preserved LV systolic function with normal left ventricular wall motion. Geovanny Brito MD,FACC,[facility]
== END 2021-01-02 08:57 | disposition left against medical advice (07) ==
LOC: ED 18:31 → PCU 21:19
PROVIDERS: Admitting Provider Hospitalist; Emergency Provider Emergency Medicine; PCP Family Medicine; Referring Provider Hospitalist; Visit Provider Internal Medicine
DX: R07.89 Other chest pain (principal); I25.2 Old myocardial infarction; I25.10 Atherosclerotic heart disease of native coronary artery without angina pectoris; E78.5 Hyperlipidemia, unspecified; M79.602 Pain in left arm; M25.512 Pain in left shoulder; I10 Essential (primary) hypertension; F17.210 Nicotine dependence, cigarettes, uncomplicated; G47.30 Sleep apnea, unspecified; Z95.5 Presence of coronary angioplasty implant and graft; Z79.899 Other long term (current) drug therapy; Z79.82 Long term (current) use of aspirin
CPT/HCPCS: 36415; 71045; 78452; 80048; 80061; 84484; 85025; 87426; 93005; 93017; 96374; 96375; 99218; 99283; 99406; A9500; A4216; G0378; J2405

== ENCOUNTER 2021-03-27 11:42 | Emergency (ER) | payer MEDICAID, SELFPAY ==
[2021-03-27 11:43] VITALS: BP 112/87; PULSE 96; RESP 16; TEMP 36.3; O2SAT 98; BMI 32.8
[2021-03-27 13:13] LABS: Red Blood Cells-Urine 0 SEEN /hpf (0-5)
[2021-03-27 13:15] LABS: Color, Urine Yellow (Yellow); Glucose, Dipstick Normal (Normal); Ketone-Dipstick Negative (Negative); Leukocyte Esterase-Dipstick 25 /ul (Negative); Nitrite-Dipstick Negative (Negative); Occult Blood-Urine Negative /ul (Negative); Protein-Dipstick Negative (Negative); Urine Clarity Sl. Cloudy (Clear); Urine Urobilinogen 4 mg/dl (Normal)
[2021-03-27 13:17] LABS: Absolute Lymphocyte Count 1.66 X10^3/uL (0.83-4.51); Absolute Neutrophil Count 3.9 X10^3/uL (2.0-7.7); Basophil# 0.07 X10^3/uL; Basophil% 1.1 % (0-1); Eosinophil# 0.27 X10^3/uL; Eosinophils% 4.1 % (0-5); Hematocrit 46.7 % (40-54); Hemoglobin 16.3 g/dL (13.0-16.5); Lymphocyte # 1.66 X10^3/ul (0.83-4.51); Lymphocyte % 24.9 % (19-41); Mean Corp Hgb Conc 34.9 g/dL (32-36); Mean Corpuscular Hgb 31.8 pg (27.0-32.0); Mean Corpuscular Volume 91.2 fL (80-94); Monocyte# 0.72 X10^3/uL; Monocyte% 10.8 % (0-10); NRBC Flagged by Analyzer 0 % (0-5); Neutrophil # 3.92 X10^3/uL (2.7-7.7); Neutrophil % 58.8 % (47-70); Platelet Count 273 K/mm3 (150-450); RBC Distribution Width CV 12.7 % (11.6-14.6); RBC Distribution Width SD 42.1 fl (35.1-43.9); Red Blood Count 5.12 M/mm3 (4.6-6.2); White Blood Count 6.7 K/mm3 (4.4-11.0)
[2021-03-27 13:17] LABS: Urine Bilirubin Dipstick 1 mg/dL (Negative)
[2021-03-27 13:21] LABS: Bacteria RARE /hpf (None Seen); Mucous, Urine RARE /hpf (<or=2+); Squamous Epithelial Cells - UA 0-5 SEEN /hpf (0-5); White Blood Cells 0-5 SEEN /hpf (0-5)
[2021-03-27 13:31] LABS: AST(SGOT) 13 U/L (15-37); Alanine Aminotransfer ALT/SGPT 25 U/L (16-61); Albumin, Serum 3.1 g/dL (3.2-5.0); Alkaline Phosphatase 75 U/L (45-117); Anion Gap 7 (5-15); BUN 8 mg/dL (7-18); BUN/Creat Ratio 9.7 RATIO (10-20); Calcium,Total 8.7 mg/dL (8.5-10.1); Chloride 107 mmol/L (98-107); Creatinine, Serum 0.82 mg/dL (0.70-1.30); EST Glomerular Filtration Rate 104 mL/min (>60); Est Glom Filt Rate - Afr Amer 126 mL/min (>60); Estimated Creatinine Clearance 108.81 ml/min; Globulin 3.2 g/dL (2.2-4.2); Glucose 112 mg/dL (74-106); Lipase 116 U/L (73-393); Potassium 3.8 mmol/L (3.5-5.1); Protein, Total 6.3 g/dL (6.4-8.2); Sodium Level 140 mmol/L (136-145)
--- NOTE | 2021-03-27 13:53 | ED.VIS.GI ---
HPI HPI - GI History of Present Illness Chief Complaint: Abd Pain Narrative Narrative: Patient presenting for concern for abdominal pain. Patient states this all lower abdominal pain. Patient states he started about 4 days ago having diarrhea. This was after he took a laxative. Patient has been taking Pepto-Bismol as well for nausea. He states he only vomited once the beginning of the week. Patient has not had a fever. He was concerned when he saw a black stool. He has not had this before. He has not seen any bloody stool. [facility] Medical History Atherosclerotic heart disease of [place] coronary artery without angina pectoris Chronic pain Coronary artery disease Depression History of amputation of finger History of left heart catheterization (LHC) (~01/30/20) Hyperlipidemia, unspecified Myocardial infarct Narcolepsy Presence of stent in coronary artery (~11/18/19) Sleep apnea Smoker Substance abuse Home Medications aspirin 81 mg tablet,delayed release 81 mg PO DAILY #30 tab 12/01/19 [Rx Last Taken 02/10/20] atorvastatin 40 mg tablet 40 mg PO QHS #90 tab 01/16/21 [Rx Last Taken Unknown] losartan 25 mg tablet 25 mg PO DAILY #90 tab 01/16/21 [Rx Last Taken Unknown] metoprolol tartrate 25 mg tablet 25 mg PO BID #180 tab 01/16/21 [Rx Last Taken Unknown] ticagrelor 90 mg tablet 90 mg PO BID #180 tab 01/16/21 [Rx Last Taken Unknown] Allergy/AdvReac Type Severity Reaction Status Date / Time No Known Allergies Allergy Verified 03/27/21 12:19 Family History Father Heart disease Surgical History History of coronary artery stent placement History of hand surgery History of nasal surgery Social History Smoking Status: Current every day smoker tobacco type: cigarettes ROS ROS ED Constitutional Constitutional ED: Denies chills or fever(s) ENT ENT ED: Denies rhinorrhea or sore throat Cardiovascular Cardiovascular: Denies chest pain or palpitations Respiratory/Chest Respiratory/Chest: Denies cough or dyspnea Gastrointestinal Gastrointestinal: Reports abdominal pain, diarrhea, melena, nausea and vomiting Genitourinary Genitourinary ED: Denies dysuria Musculoskeletal Musculoskeletal: Denies arthralgias or myalgias Neurologic Neurologic: Denies headache(s) or weakness Psychiatric Psychiatric: Denies anxiety or depression EXAM Physical Exam Const Vital Signs: 03/27/21 11:43 03/27/21 14:04 Temperature 97.4 F L Temperature Source Temporal Pulse Rate 96 Respiratory Rate 16 18 Blood Pressure 112/87 H Blood Pressure Mean 95 Pulse Ox 98 Oxygen Delivery Method Room Air Positive well nourished General Appearance ED: NAD; Negative for pallor HEENT Reports moist mucous membranes normocephalic and atraumatic Eyes PERRL and EOMs intact bilaterally General Eye ED: Negative for pale conjunctiva or scleral icterus Neck no lymphadenopathy and supple GI non-distended GI Narrative: Generalized tenderness. Abdomen nonperitoneal Palpation: soft Neuro Sensorium / Orientation: alert, oriented to person, oriented to place and oriented to time Psych mental status grossly normal and thought process normal Skin General Skin Exam: Negative for jaundice or pallor Rashes: no rashes MDM MDM MDM Narrative Medical decision making narrative: 50-year-old male presenting with abdominal pain which he describes as cramping and diffuse. His abdominal exam is benign. I did obtain lab work and his CBC shows that his white count is 6.7, hemoglobin 16.3, hematocrit 46.7, platelets 273. Renal function and electrolytes are normal. Urinalysis is negative for infection. Patient states he had concern that he had black stool. He does admit to using Pepto-Bismol. His hemoglobin is stable at 16.3. I did offered to do a rectal exam and check an occult stool and the patient declines given that his hemoglobin is normal. I counseled him that if he starts to have more black stools after he discontinues the Pepto-Bismol becomes lightheaded, short of breath, pale he should return to the ER. He was understanding. Impression: 1. Abdominal pain 2. Dark stool Lab Data Attestation: I reviewed the patient's lab results. Labs: Laboratory Results - last 24 hr 03/27/21 03/27/21 03/27/21 13:03 13:03 13:10 WBC 6.7 RBC 5.12 Hgb 16.3 Hct 46.7 MCV 91.2 MCH 31.8 MCHC 34.9 RDW Std Deviation 42.1 RDW Coeff of Jaya 12.7 Plt Count 273 MPV 10.0 Immature Gran % (Auto) 0.300 Neut % (Auto) 58.8 Lymph % (Auto) 24.9 [place] % (Auto) 10.8 H Eos % (Auto) 4.1 Baso % (Auto) 1.1 H Absolute Neuts (auto) 3.9 Absolute Lymphs (auto) 1.66 Nucleated RBC % 0 Sodium 140 Potassium 3.8 Chloride 107 Carbon Dioxide 26.0 Anion Gap 7 BUN 8 Creatinine 0.82 Estim Creat Clear Calc 108.81 Est GFR (MDRD) Af Amer 126 Est GFR (MDRD) Non-Af 104 BUN/Creatinine Ratio 9.7 L Glucose 112 H Calcium 8.7 Total Bilirubin 0.40 AST 13 L ALT 25 Alkaline Phosphatase 75 Total Protein 6.3 L Albumin 3.1 L Globulin 3.2 Albumin/Globulin Ratio 1.0 Lipase 116 Urine Color Yellow Urine Clarity Sl. Cloudy Urine pH 7.0 Ur Specific [place] 1.010 Urine Protein Negative Urine Glucose (UA) Normal Urine Ketones Negative Urine Occult Blood Negative Urine Nitrite Negative Urine Bilirubin 1 H Urine Urobilinogen 4 H Ur Leukocyte Esterase 25 H Urine RBC 0 SEEN Urine WBC 0-5 SEEN Ur Squamous Epith Cells 0-5 SEEN Urine Bacteria RARE Urine Mucus RARE Discharge Plan Triage Chief Complaint: Abd Pain ED Provider: Armando Don Dx/Rx/DC Orders Instructions: ED Abdominal Pain Unkn Cause Male... Prescriptions: No Action aspirin 81 mg tablet,delayed release (DR/EC) 81 mg PO DAILY Qty: 30 RF: 11 atorvastatin 40 mg tablet 40 mg PO QHS Qty: 90 RF: 3 losartan 25 mg tablet 25 mg PO DAILY Qty: 90 RF: 3 metoprolol tartrate 25 mg tablet 25 mg PO BID Qty: 180 RF: 3 ticagrelor 90 mg tablet 90 mg PO BID Qty: 180 RF: 3 Primary Care Provider: Destiney Gilmore Referrals: Destiney Gilmore MD [Primary Care Provider] - Disposition Disposition: Home, Self Care
[2021-03-27 14:04] VITALS: RESP 18
== END 2021-03-27 15:01 | disposition home or self-care (01) ==
PROVIDERS: Emergency Provider Student in an Organized Health Care Education/Training Program; PCP Family Medicine; Visit Provider Student in an Organized Health Care Education/Training Program
DX: R10.30 Lower abdominal pain, unspecified (principal); F17.210 Nicotine dependence, cigarettes, uncomplicated; I25.10 Atherosclerotic heart disease of native coronary artery without angina pectoris; G47.30 Sleep apnea, unspecified; I25.2 Old myocardial infarction; E78.5 Hyperlipidemia, unspecified; Z95.5 Presence of coronary angioplasty implant and graft; Z79.82 Long term (current) use of aspirin; Z79.899 Other long term (current) drug therapy
CPT/HCPCS: 80053; 81001; 83690; 85025; 99283; J7030

== ENCOUNTER 2021-04-22 07:41 | Outpatient (CLI) | payer MEDICAID, SELFPAY ==
--- NOTE | 2021-04-22 07:43 | US_ITS ---
STUDY: ABDOMINAL ULTRASOUND REASON FOR EXAM: Male, 50 years old. ABD PAIN TECHNIQUE: Transabdominal ultrasound was performed with real-time and static rust scale imaging. TECHNICAL QUALITY: Adequate. COMPARISON: None. FINDINGS: Liver: The liver measures 18.0 cm. There is normal echogenicity of the liver. The bile ducts are within normal limits. There is hepatic color flow. The direction of portal flow is hepatopetal. There is no demonstrated mass lesion. Portal vein measurement: Gallbladder: Normal distended gallbladder. The gallbladder wall measures 2 mm. There is a negative sonographic Holder''s sign. There is no pericholecystic fluid. There are no gallstones. Common Bile Duct (C.B.D.): The common bile duct measures 3 mm. Pancreas: Normal size of the head, body and tail of the pancreas. There is normal echogenicity of the pancreas. There is no demonstrated pancreatic mass or cyst. Spleen: Normal size of the spleen. The spleen measures 10.7 cm. Right Kidney: Normal size of the right kidney. The right kidney measures 12.3 cm. Normal renal cortex. The right cortex measures 1.3 cm. There is no demonstrated renal mass or cyst. There is no right hydronephrosis. Left Kidney: Normal size of the left kidney. The left kidney measures 12.3 cm. Normal renal cortex. The left cortex measures 1.5 cm. There is no demonstrated renal mass or cyst. There is no left hydronephrosis. Aorta: No abdominal aortic aneurysm I.V.C.: The IVC is patent. There is no ascites. US/Abdomen Complete IMPRESSION: Normal abdominal ultrasound examination. Electronically Signed: Fausto Ley MD at 14:52 EST ,
== END 2021-04-22 23:59 | disposition short-term general hospital (02) ==
LOC: US 07:42
PROVIDERS: PCP Family Medicine; Referring Provider Family Medicine; Visit Provider Family Medicine
DX: R10.9 Unspecified abdominal pain (principal)
CPT/HCPCS: 76700

== ENCOUNTER 2021-05-26 08:28 | Day surgery (SDC) | payer MEDICAID, SELFPAY ==
[2021-05-26] VITALS (10 sets, daily range): BP systolic 69–111; BP diastolic 46–78; PULSE 90–109; RESP 16–18; TEMP 36.2–36.7; O2SAT 93–100; BMI 29.8
--- NOTE | 2021-05-26 | GASB_PTH ---
PATIENT: ARTURO STEVENSON LOC: EN U#:[id number] AGE/SX: 50/M ROOM: RE05/26/[address]: Dr. Flor Valera MD : 1970 BED: DIS: 05/26/2021 SPEC #: [id number] RECD: 05/26/21 12:51 STATUS: ONEIDA CIERA #: [id number] JASON: 05/26/21 00:[address]: Flor Valera DEPT: SURGICAL PATHOLOGY RECD BY: Con Davis ENTERED: 05/26/21 13:50 SP TYPE: Gastric Bx OTHR DR: Dr. Destiney Gilmore MD Tissues: A - Gastric mucous membrane B - Gastric mucous membrane C - Gastric mucous membrane D - Ileum, NOS E - Transverse colon F - COLON BIOPSY Procedures: Surgery Specimen Level IV HEADER OPERATION: Colonoscopy, EGD ([facility]) PRE-OP DIAGNOSIS: Epigastric abdominal pain, screening TISSUE SUBMITTED: A - Antrum biopsy for H. pylori and path, B - Gastric body biopsy, C - Appendiceal orifice biopsy, D - Ileocecal valve biopsy, E - Transverse colon biopsy x2, F - Sigmoid colon biopsy MICROSCOPIC DIAGNOSIS A. Antrum, biopsy: Moderate chronic active gastritis. See comment. B. Gastric body, biopsy: Mild chronic gastritis. C. Appendiceal orifice biopsy: Fragments of colonic mucosa with prominent lymphoid aggregates, no pathologic diagnosis. D. Ileocecal valve, biopsy: Fragments of colonic mucosa, no pathologic diagnosis. E. Transverse colon, biopsy: Fragments of hyperplastic polyp. F. Sigmoid colon, biopsy: Fragments of colonic mucosa, no pathologic diagnosis. SJ:marine 05/27/2021 COMMENT A & B. The results of immunohistochemistry for Helicobacter pylori will be reported separately ([id number]). MICROSCOPIC DESCRIPTION Slides are reviewed. GROSS DESCRIPTION A - Received in fixative is one container labeled with the patient's name and designated antrum biopsy. The specimen consists of one irregular fragment of light santillan soft tissue that measures 0.3 x 0.3 x 0.1 cm. The specimen is totally submitted in one cassette. B - Received in fixative is one container labeled with the patient's name and designated gastric body. The specimen consists of one irregular fragment of light s[place]ill[place] soft tissue that measures 0.3 x 0.3 x 0.1 cm. The specimen is totally submitted in one cassette. C - Received in fixative is one container labeled with the patient's name and designated appendiceal orifice biopsy. The specimen consists of two irregular fragments of light santillan soft tissue that in aggregate measure 0.4 x 0.4 x 0.1 cm. The specimen is totally submitted in one cassette. D - Received in fixative is one container labeled with the patient's name and designated ileocecal valve biopsy. The specimen consists of multiple irregular fragments of light santillan soft tissue that in aggregate measure 1.5 x 0.4 x 0.1 cm. The specimen is totally submitted in one cassette. E - Received in fixative is one container labeled with the patient's name and designated transverse colon biopsy. The specimen consists of multiple irregular fragments of light santillan soft tissue that in aggregate measure 1.5 x 0.3 x 0.1 cm. The specimen is totally submitted in one cassette. F - Received in fixative is one container labeled with the patient's name and designated sigmoid colon biopsy. The specimen consists of multiple irregular fragments of light santillan soft tissue that in aggregate measure 1 x 0.3 x 0.1 cm. The specimen is totally submitted in one cassette. / SJ:rg 05/26/2021 TC:2 CPT: 85733 x6
--- NOTE | 2021-05-26 08:49 | HP.PCM_ITS ---
History and Physical Date of Admission: 05/26/21 Date of Service: 05/06/21 MR#:[id number]:[id number]: ARTURO STEVENSON [facility] #:[id number]:1970 Provider:Cristobal Moore/Sex: 50/M [facility] Int[facility] Vital Signs 05/06/21 09:13 Height 5 ft 8 in Weight: 222 lb 2 oz BMI 33.7 BP 104/68 Blood Pressure Location Rt brachial Position Sitting Respiration 18 Pulse 86 Pulse Source NIBP Temp 97.4 F L Temp Source Temporal Pulse Oximetry (%) 97 Oxygen Delivery Method room air Intake Visit Reasons: CSCOPE Chief Complaint: generalized abd pain 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 Is patient in pain?: No Allergies No Known Allergies Allergy (Verified 05/06/21 09:32) Medications aspirin 81 mg tablet,delayed release 81 mg PO DAILY #30 tab 12/01/19 [Rx Confirmed 05/06/21] atorvastatin 40 mg tablet 40 mg PO QHS #90 tab 01/16/21 [Rx Confirmed 05/06/21] losartan 25 mg tablet 25 mg PO DAILY #90 tab 01/16/21 [Rx Confirmed 05/06/21] metoprolol tartrate 25 mg tablet 25 mg PO BID #180 tab 01/16/21 [Rx Confirmed 05/06/21] ticagrelor 90 mg tablet 90 mg PO BID #180 tab 01/16/21 [Rx Confirmed 05/06/21] omeprazole 20 mg capsule,delayed release cap PO 05/06/21 [History Confirmed 05/06/21] COUNTS INCLUDE 234 BEDS AT THE [facility] Medical History (Updated 05/07/21 @ 14:[address] Flor Valera MD) Atherosclerotic heart disease of [place] coronary artery without angina pectoris Chronic pain Coronary artery disease Depression History of amputation of finger History of left heart catheterization (LHC) (~01/30/20) Hyperlipidemia, unspecified Myocardial infarct Narcolepsy Presence of stent in coronary artery (~11/18/19) Sleep apnea Smoker Substance abuse Surgical History (Updated 05/06/21 @ 09:08 by Sonya Pitt) History of coronary artery stent placement (~09/2019) History of hand surgery History of nasal surgery Family History (Updated 05/06/21 @ 09:13 by Sonya Pitt) Father Heart disease Myocardial infarction Cancer esophageal Mother Cirrhosis Brother CVA (cerebral vascular accident) Social History Smoking Status: Current every day smoker tobacco type: cigarettes HPI HPI HPI: ARTURO STEVENSON, is a 50 M who presents to the office today for epigastric pain, screening colonoscopy. Patient states he has had this epigastric pain about 1.5 months. Patient did have nausea and vomiting times once on Wednesday. Patient denies any reflux symptoms in the last 3 to 4 months as he is changed his diet. Patient was started on omeprazole for about the last month 20 mg p.o. twice daily by his PCP. Patient does admit to having a small hemorrhoid which does occasionally bleed a small amount. Patient states that he has bowel movements almost every day. Patient has never had a previous colonoscopy. Patient denies any family history of colon cancer. Currently patient has been having diarrhea which has irritated his hemorrhoid. Patient also states that he occasionally gets bilateral subcostal abdominal pain but it does not seem to be related to eating per patient. Patient is on Brilinta as well as aspirin due to previous cardiac stent in 2019. Patient is never had an EGD. ROS General General: No weight change Cardio Cardiovascular: Yes heart stent; No chest pain Resp Respiratory: No shortness of breath Gastro Gastrointestinal: Yes abdominal pain, Yes nausea or vomiting, Yes diarrhea, No blood in stool, Yes acid reflux, Yes hemorrhoids and No black,tarry stools Exam Const General: cooperative, healthy appearing, comfortable and no acute distress Neck Neck: normal visual inspection Resp Effort & Inspection: normal respiratory effort Cardio Rate: regular rate GI Inspection: non-distended Palpation: soft, no guarding and nontender Skin General: no rashes or lesions noted Neuro General: patient oriented x3 Psych Affect: normal affect Assessment and Plan Assessment and Plan (1) Epigastric abdominal pain: Status: Acute (2) Screening for colon cancer: Status: Acute (3) Presence of stent in coronary artery: Status: Chronic Comment: Successful ANUP to pLAD 11/18/19 Plan - Dr. Flor Valera MD: Patient hold his Brilinta for 5 days if okay with medicine by his office. Will have patient continue on aspirin. I have discussed the above with the patient. I have offered the patient EGD and colonoscopy for evaluation. I have explained the risks/benefits of the procedure and described the procedure. I have discussed the risks with the patient, including but not limited to: infection, bleeding, perforation of the GI tract requiring emergency surgery, inability to complete the procedure, injury to any internal organs, complications of anesthesia, etc. - the patient understands and agrees to proceed. I have answered all the patient's questions to the patient's satisfaction and the patient has no further questions. The patient has been given instructions for the colon cleansing preparation. 1 day of clears, MiraLAX Dulcolax split prep. Flor Valera M.D. Pager: [phone] [facility] [address] [place] [address], [facility], [address] [place] [address] Office: [phone] Coding Level of Care Code Off vis,new,level 3 Diagnoses Epigastric abdominal pain R10.13 Screening for colon cancer Z12.11 Presence of stent in coronary artery Z95.5 05/07/21 1437<Electronically signed by Flor Valera MD>Date Flor Valera MD
--- NOTE | 2021-05-26 08:55 | EKG12_ITS ---
Test Reason : CP Blood Pressure : / mmHG Vent. Rate : 087 BPM Atrial Rate : 087 BPM P-R Int : 130 ms QRS Dur : 094 ms QT Int : 354 ms P-R-T Axes : 062 045 037 degrees QTc Int : 425 ms Normal sinus rhythm Normal ECG When compared with ECG of 02-JAN-2021 04:36, No significant change was found Confirmed by PRISCA PAK, RUPERT ([id number]), publishing editor MORA SINGER ([id number]) on 05/28/2021 1:34:33 PM Referred By: Destiney Gilmore Confirmed By:RUPERT COPE MD
[2021-05-26] MEDS: Lactated Ringers 1,000 ML 15 ML IV (09:01)
[2021-05-26 09:17] LABS: Troponin-I HS 5 pg/mL (3.0-78.0)
[2021-05-26] MEDS: Nitroglycerin (INPATIENT USE) 0.4 MG TAB.SUBL SL (09:18)
--- NOTE | 2021-05-26 10:00 | IMM_PTH ---
PATIENT: ARTURO STEVENSON LOC: EN U#:[id number] AGE/SX: 50/M ROOM: RE05/26/[address]: Dr. Flor Valera MD : 1970 BED: DIS: 05/26/2021 SPEC #: [id number] RECD: 05/26/21 14:02 STATUS: ONEIDA CIERA #: [id number] JASON: 05/26/21 10:[address]: Flor Valera DEPT: IMMUNOHISTOCHEMISTRY RECD BY: Haritha Montoya ENTERED: 05/26/21 14:05 SP TYPE: IMMUNO OTHR DR: Dr. Destiney Gilmore MD Tissues: A - Stomach, NOS B - Stomach, NOS Procedures: H Pylori (initial) PHYSICIAN & INSTITUTION [place] [address] SPECIMEN INFORMATION: Tissue Source: A ? Antrum biopsy, B - Gastric body biopsy Clinical Info: Epigastric abdominal pain, screening Specimen Number: [id number] A & B CPT code: 30038 x2 METHODOLOGY: Deparaffinized sections of prefer/formalin-fixed tissue or PAP/DQ stained slides are incubated with monoclonal/polyclonal antibodies/oligonucleotide probes. Localization is made via biotin free immunoperoxidase method. Appropriate controls are performed and reacted as expected. Results on target cell population are indicated in the following table: RESULTS: ANTIBODY / CLONE RESULT Block A H Pylori (polyclonal) positive Block B H Pylori (polyclonal) negative These tests were developed and their performance characteristics determined by [facility]. They may not have been cleared or approved by the U.S. Food and Drug Administration. The FDA has determined that such clearance or approval is not necessary. The above immunohistochemical/dualISH markers are ordered and reviewed by the Pathologist. INTERPRETATION: A. Antrum, biopsy: Positive for Helicobacter pylori organisms. B. Gastric body, biopsy: Negative for Helicobacter pylori organisms. SJ:marine 05/27/2021
--- NOTE | 2021-05-26 10:30 | OP.CCLET_ITS ---
05/26/2021 Destiney Gilmore [place] [id number] [facility] [address] [address] Re : Upper GI endoscopy procedure for Parker Pattersonplacido Dear Dr. Gilmore This procedure was performed on Wednesday, May 26, 2021. My impressions and recommendations are as follows: Impressions : - Z-line variable, 40 cm from the incisors. - Erythematous duodenopathy. - Normal second portion of the duodenum. - Erythematous mucosa in the gastric body. Biopsied. - Erythematous mucosa in the gastric body. Biopsied. Recommendations : - Await pathology results. - Discharge patient to home. - Resume previous diet. - Continue present medications. - Resume brilinta at prior dose tomorrow. - Use Prilosec (omeprazole) 40 mg PO daily. My findings are described in the full procedure note, which is enclosed. If I can be of further assistance, please feel free to contact me at Doctor phone number(s): , Work: . Sincerely, MD Flor Gonzalez MD 05/26/2021 10:29:19 AM This report has been signed electronically.
--- NOTE | 2021-05-26 10:30 | OP.EGD_ITS ---
Patient Name: Parker Lawrence Procedure Date: 05/26/2021 9:43 AM Date of : 1970 Age: 50 Procedure: Upper GI endoscopy Indications: Epigastric abdominal pain Providers: Flor Valera MD Referring MD: Flor Valera MD Medicines: Monitored Anesthesia Care Patient Profile: This is a 50 year old male. Complications: No immediate complications. Procedure: Pre-Anesthesia Assessment: - Prior to the procedure, a History and Physical was performed, and patient medications and allergies were reviewed. The patient's tolerance of previous anesthesia was also reviewed. The risks and benefits of the procedure and the sedation options and risks were discussed with the patient. All questions were answered, and informed consent was obtained. Prior Anticoagulants: The patient has taken aspirin, last dose was day of day of procedure-Brilinta held for 5 days. ASA Grade Assessment: Per anesthesia. After reviewing the risks and benefits, the patient was deemed in satisfactory condition to undergo the procedure. After obtaining informed consent, the endoscope was passed under direct vision. Throughout the procedure, the patient's blood pressure, pulse, and oxygen saturations were monitored continuously. The Endoscope was introduced through the mouth, and advanced to the second part of duodenum. The upper GI endoscopy was accomplished without difficulty. The patient tolerated the procedure well. Scope In: 9:44:47 AM Scope Out: 9:50:13 AM Total Procedure Duration Time 0 hours 5 minutes 26 seconds Findings: The Z-line was variable and was found 40 cm from the incisors. Localized mildly erythematous mucosa without active bleeding and with no stigmata of bleeding was found in the duodenal bulb. The second portion of the duodenum was normal. Mildly erythematous mucosa without bleeding was found in the gastric body and in the gastric antrum. Biopsies were taken with a cold forceps for histology. Biopsies were taken with a cold forceps for Helicobacter pylori cultures. The cardia and gastric fundus were normal on retroflexion. Impression: - Z-line variable, 40 cm from the incisors. - Erythematous duodenopathy. - Normal second portion of the duodenum. - Erythematous mucosa in the gastric body. Biopsied. - Erythematous mucosa in the gastric body. Biopsied. Recommendation: - Await pathology results. - Discharge patient to home. - Resume previous diet. - Continue present medications. - Resume brilinta at prior dose tomorrow. - Use Prilosec (omeprazole) 40 mg PO daily. Procedure Code(s): --- Professional --- 81787, Esophagogastroduodenoscopy, flexible, transoral; with biopsy, single or multiple Diagnosis Code(s): --- Professional --- K22.8, Other specified diseases of esophagus K31.89, Other diseases of stomach and duodenum R10.13, Epigastric pain CPT copyright 2017 [employer] [employer]. All rights reserved. The codes documented in this report are preliminary and upon medical record coder review may be revised to meet current compliance requirements. MD Flor Gonzalez MD 05/26/2021 10:29:19 AM This report has been signed electronically. Number of Addenda: 0 Note Initiated On: 05/26/2021 9:43 AM
--- NOTE | 2021-05-26 10:37 | OP.CCLET_ITS ---
05/26/2021 Destiney Gilmore [place] [id number] [address] Re : Colonoscopy procedure for Parker Lawrence Dear Dr. Gilmore This procedure was performed on Wednesday, May 26, 2021. My impressions and recommendations are as follows: Impressions : - Hemorrhoids found on perianal exam. - Non-bleeding internal hemorrhoids. - Four less than 5 mm polyps in the transverse colon, in the ascending colon and at the ileocecal valve, removed with a cold biopsy forceps. Resected and retrieved. - Erythematous mucosa in the sigmoid colon. Biopsied. - The examination was otherwise normal. Recommendations : - Discharge patient to home. - Resume previous diet. - Continue present medications. - Resume Brilinta at prior dose tomorrow. - Await pathology results. - Repeat colonoscopy in 3 - 5 years for surveillance based on pathology results. My findings are described in the full procedure note, which is enclosed. If I can be of further assistance, please feel free to contact me at Doctor phone number(s): , Work: . Sincerely, MD Flor Gonzalez MD 05/26/2021 10:37:09 AM This report has been signed electronically.
--- NOTE | 2021-05-26 10:37 | OP.COLON_ITS ---
Patient Name: Parker Lawrence Procedure Date: 05/26/2021 9:54 AM Date of : 1970 Age: 50 Procedure: Colonoscopy Indications: Screening for colorectal malignant neoplasm Providers: Flor Valera MD Referring MD: Flor Valera MD Medicines: Monitored Anesthesia Care Patient Profile: This is a 50 year old male. Last Colonoscopy: none. The patient's first colonoscopy is today. Complications: No immediate complications. Procedure: Pre-Anesthesia Assessment: - Prior to the procedure, a History and Physical was performed, and patient medications and allergies were reviewed. The patient's tolerance of previous anesthesia was also reviewed. The risks and benefits of the procedure and the sedation options and risks were discussed with the patient. All questions were answered, and informed consent was obtained. Prior Anticoagulants: The patient has taken aspirin, last dose was taken day of procedure--brilinta held 5 days. ASA Grade Assessment: Per anesthesia. After reviewing the risks and benefits, the patient was deemed in satisfactory condition to undergo the procedure. After I obtained informed consent, the scope was passed under direct vision. Throughout the procedure, the patient's blood pressure, pulse, and oxygen saturations were monitored continuously. The Colonoscope was introduced through the anus and advanced to the cecum, identified by the appendiceal orifice, ileocecal valve and palpation. The colonoscopy was performed without difficulty. The patient tolerated the procedure well. The quality of the bowel preparation was good. Scope In: 9:55:03 AM Scope Withdrawal Time 0 hours 19 minutes 50 seconds Scope Out: 10:18:49 AM Total Procedure Duration Time 0 hours 23 minutes 46 seconds Findings: Hemorrhoids were found on perianal exam. Non-bleeding internal hemorrhoids were found. The hemorrhoids were Grade II (internal hemorrhoids that prolapse but reduce spontaneously). Four sessile polyps were found in the transverse colon, ascending colon and ileocecal valve. The polyps were less than 5 mm in size. These polyps were removed with a cold biopsy forceps. Resection and retrieval were complete. An area of mildly erythematous mucosa was found in the sigmoid colon. This was biopsied with a cold forceps for histology. The exam was otherwise without abnormality. Impression: - Hemorrhoids found on perianal exam. - Non-bleeding internal hemorrhoids. - Four less than 5 mm polyps in the transverse colon, in the ascending colon and at the ileocecal valve, removed with a cold biopsy forceps. Resected and retrieved. - Erythematous mucosa in the sigmoid colon. Biopsied. - The examination was otherwise normal. Recommendation: - Discharge patient to home. - Resume previous diet. - Continue present medications. - Resume Brilinta at prior dose tomorrow. - Await pathology results. - Repeat colonoscopy in 3 - 5 years for surveillance based on pathology results. Procedure Code(s): --- Professional --- 00301, PT, Colonoscopy, flexible; with biopsy, single or multiple Diagnosis Code(s): --- Professional --- Z12.11, Encounter for screening for malignant neoplasm of colon K64.1, Second degree hemorrhoids D12.3, Benign neoplasm of transverse colon (hepatic flexure or splenic flexure) D12.2, Benign neoplasm of ascending colon D12.0, Benign neoplasm of cecum K63.89, Other specified diseases of intestine CPT copyright 2017 [employer]. All rights reserved. The codes documented in this report are preliminary and upon remote medical coder review may be revised to meet current compliance requirements. MD Flor Gonzalez MD 05/26/2021 10:37:09 AM This report has been signed electronically. Number of Addenda: 0 Note Initiated On: 05/26/2021 9:54 AM
--- NOTE | 2021-05-26 11:09 | SUR.PHASEII ---
PATIENT IS DRESSED AND WAITING ON HIS RIDE. DISCHARGE INSTRUCTIONS GIVEN BY [facility]. OK TO DISCHARGE.
== END 2021-05-26 23:59 | disposition home or self-care (01) ==
LOC: EN 08:29 → AC 08:30
PROVIDERS: Anesthesiology; PCP Family Medicine; Referring Provider Family Medicine; Visit Provider Surgery
PROC: 0DJD8ZZ Inspection of Lower Intestinal Tract, Via Natural or Artificial Opening Endoscopic (ICD-10-PCS; CPT 45378; principal; 2021-05-26 09:55)
DX: Z12.11 Encounter for screening for malignant neoplasm of colon (principal); D12.0 Benign neoplasm of cecum; D12.2 Benign neoplasm of ascending colon; D12.3 Benign neoplasm of transverse colon; K29.50 Unspecified chronic gastritis without bleeding; K31.89 Other diseases of stomach and duodenum; K22.89 Other specified disease of esophagus; K64.1 Second degree hemorrhoids; G89.29 Other chronic pain; R19.7 Diarrhea, unspecified; M25.512 Pain in left shoulder; R68.84 Jaw pain; Z20.822 Contact with and (suspected) exposure to COVID-19; I25.10 Atherosclerotic heart disease of native coronary artery without angina pectoris; B96.81 Helicobacter pylori [H. pylori] as the cause of diseases classified elsewhere; E78.5 Hyperlipidemia, unspecified; G47.30 Sleep apnea, unspecified; F17.210 Nicotine dependence, cigarettes, uncomplicated; Z79.82 Long term (current) use of aspirin; Z79.02 Long term (current) use of antithrombotics/antiplatelets; Z79.899 Other long term (current) drug therapy; Z95.5 Presence of coronary angioplasty implant and graft
CPT/HCPCS: 45380; 43239; 84484; 87426; 88305; 88342; 93005; C9803; J7120

== ENCOUNTER 2021-06-03 10:13 | Emergency (ER) | payer MEDICAID, SELFPAY ==
[2021-06-03 10:14] VITALS: BP 130/110; PULSE 113; RESP 20; TEMP 36.6; O2SAT 97; BMI 32.5
[2021-06-03 10:16] VITALS: BP 130/110; PULSE 113; RESP 20; TEMP 36.6; O2SAT 97
--- NOTE | 2021-06-03 10:43 | ED.VIS.GI ---
HPI HPI - GI History of Present Illness Chief Complaint: Nausea/Vomiting Narrative Narrative: Patient with past medical history of coronary artery disease with stent, recently diagnosed with peptic ulcer disease/H. pylori 8 days ago presents with nausea and vomiting and generalized weakness along with epigastric pain. He states he was started on antibiotics in the form of tetracycline and metronidazole last Wednesday. He has not taken it for the last couple of days because of multiple episodes of nausea and vomiting. He denies any blood in his vomitus. No problems with diarrhea. He has epigastric pain that is present. He has vomited too many times to count in the last 24 hours. Of note, I had discussed the patient with Dr. Valera who told him to stop the antibiotics, which may be upsetting his stomach more, and that he would most likely need IV fluids and that he should just take omeprazole. Patient denies any exacerbating or alleviating factors. [facility] Medical History Arthritis Atherosclerotic heart disease of [place] coronary artery without angina pectoris Back pain Cardiology follow-up encounter Chronic pain Coronary artery disease Depression Gastric reflux High cholesterol History of amputation of finger History of left heart catheterization (LHC) (~01/30/20) Hyperlipidemia, unspecified Hypertension Marijuana use Myocardial infarct Narcolepsy Presence of stent in coronary artery (~11/18/19) Sleep apnea Smoker Smoker Substance abuse Wears dentures Home Medications aspirin 81 mg tablet,delayed release 81 mg PO DAILY #30 tab 12/01/19 [Rx Last Taken 05/26/21] atorvastatin 40 mg tablet 40 mg PO QHS #90 tab 01/16/21 [Rx Last Taken Unknown] losartan 25 mg tablet 25 mg PO DAILY #90 tab 01/16/21 [Rx Last Taken 05/26/21] metoprolol tartrate 25 mg tablet 25 mg PO BID #180 tab 01/16/21 [Rx Last Taken 05/26/21] Brilinta 90 mg PO DAILY 05/26/21 [History Last Taken 05/20/21] omeprazole 20 mg PO DAILY #30 cap 05/26/21 [Rx Last Taken Unknown] bismuth subsalicylate 525 mg/15 mL oral suspension 525 mg PO .QID PRN 14 Days #354 ml 05/27/21 [Rx Last Taken Unknown] metronidazole 500 mg tablet 500 mg PO TID 14 Days #42 tab 05/27/21 [Rx Last Taken Unknown] tetracycline 500 mg capsule 500 mg PO Q4H 14 Days #84 cap 05/27/21 [Rx Last Taken Unknown] ondansetron 4 mg PO Q6H PRN #20 tab 06/03/21 [Rx Last Taken Unknown] Allergy/AdvReac Type Severity Reaction Status Date / Time No Known Allergies Allergy Verified 06/03/21 10:16 Family History Father Heart disease Myocardial infarction Cancer esophageal Mother Cirrhosis Brother CVA (cerebral vascular accident) Surgical History History of coronary artery stent placement (~09/2019) History of hand surgery History of nasal surgery Social History Smoking Status: Current every day smoker tobacco type: cigarettes ROS ROS ED ROS Narrative Constitutional: No fever, no chills. Generalized weakness. HEENT: No sore throat. No neck pain. No loss of vision. No rhinorrhea. Cardiovascular: No chest pain. No palpitations. No pedal edema. Respiratory: No cough, no shortness of breath. Abdominal: Positive epigastric abdominal pain. Positive nausea. Multiple episodes of nonbloody vomiting. Genitourinary: No dysuria. No hematuria. Musculoskeletal: No myalgias. No arthralgias. Neurologic: No headaches. No dizziness. No lightheadedness. Skin: No rash. No change in color. Psychiatric: No depression. No anxiety. EXAM Physical Exam Narrative Exam Narrative: Afebrile. Vital signs noted. HEENT: Normocephalic. Atraumatic. PERRL, EOMI. Neck soft and supple. No point tenderness or step off. Cardiovascular: Positive tachycardia at 113. No murmurs, rubs, or gallops appreciated. Respiratory: No tachypnea. Lungs clear to auscultation bilaterally. Gastrointestinal: Abdomen soft, mild tenderness in epigastrium, with normoactive bowel sounds. No rebound or guarding. Neurological: Awake. Alert. Nonfocal, nonlateralizing. Skin: No rash. Normal color. No pallor. Musculoskeletal: No pedal edema. Full range of motion extremities. Const Vital Signs: 06/03/21 10:14 06/03/21 10:16 06/03/21 12:07 Temperature 98 F 98 F Temperature Source Temporal Temporal Pulse Rate 113 H 113 H 87 Respiratory Rate 20 H 20 H 16 Blood Pressure 130/110 H 130/110 H 119/86 H Blood Pressure Mean 116 116 97 Pulse Ox 97 97 94 Oxygen Delivery Method Room Air Room Air Room Air 06/03/21 13:33 Temperature Temperature Source Pulse Rate 67 Respiratory Rate 16 Blood Pressure Blood Pressure Mean Pulse Ox 98 Oxygen Delivery Method MDM MDM MDM Narrative Medical decision making narrative: I will obtain an EKG given his coronary artery disease history. However, I think this is pain from his peptic ulcer disease/H. pylori. He was told to stop taking the antibiotics. He was bolused IV fluids and administered ondansetron along with 1 dose of morphine and Pepcid 20 mg intravenously. I will obtain a CBC, CMP, and lipase. Given his coronary artery disease, I did obtain an EKG which demonstrates normal sinus rhythm at 76 bpm without ectopy or acute ST changes. His basic laboratory work shows normal white count at 10.6. There is mild hemoconcentration with a hemoglobin of 18.4, platelet count normal at 330. Lipase is low at 33. Electrolyte panel shows potassium slightly low at 3.3, glucose appropriately elevated in the 130s with a normal anion gap. After morphine, Pepcid, and Zofran, he is resting comfortably. I had already spoken with Dr. Valera over the telephone who stated that she wanted him to stop the tetracycline and Flagyl and any other medication except for the omeprazole, and that she would find another means of eradicating his H. pylori which she diagnosed with him last week. I did write him a prescription for Zofran. He will continue his omeprazole and follow-up with Dr. Valera. Disposition is discharged home in stable condition. Return instructions were reviewed. Lab Data Attestation: I reviewed the patient's lab results. Labs: Laboratory Results - last 24 hr 06/03/21 06/03/21 06/03/21 10:50 10:50 11:16 WBC 10.6 RBC 5.62 Hgb 18.4 H* Hct 49.8 MCV 88.6 MCH 32.7 H MCHC 36.9 H RDW Std Deviation 40.8 RDW Coeff of Jaya 12.4 Plt Count 330 MPV 9.6 Immature Gran % (Auto) 0.400 Neut % (Auto) 82.5 H Lymph % (Auto) 8.6 L [place] % (Auto) 7.8 Eos % (Auto) 0.2 Baso % (Auto) 0.5 Absolute Neuts (auto) 8.7 H Absolute Lymphs (auto) 0.91 Nucleated RBC % 0 Sodium 136 Potassium 3.3 L Chloride 97 L Carbon Dioxide 31.0 Anion Gap 8 BUN 14 Creatinine 0.94 Estim Creat Clear Calc 91.93 Est GFR (MDRD) Af Amer 108 Est GFR (MDRD) Non-Af 89 BUN/Creatinine Ratio 14.8 Glucose 135 H Calcium 9.5 Total Bilirubin 0.70 AST 18 ALT 26 Alkaline Phosphatase 104 Total Protein 7.4 Albumin 3.7 Globulin 3.7 Albumin/Globulin Ratio 1.0 Lipase 33 L Urine Color Yellow Urine Clarity Sl. Cloudy Urine pH 6.0 Ur Specific [place] 1.020 Urine Protein 30 H Urine Glucose (UA) Normal Urine Ketones 5 H Urine Occult Blood 10 H Urine Nitrite Negative Urine Bilirubin 1 H Urine Urobilinogen 1 H Ur Leukocyte Esterase 25 H Urine RBC 0-5 SEEN Urine WBC 0-5 SEEN Ur Squamous Epith Cells 0-5 SEEN Urine Bacteria RARE Urine Mucus 0 SEEN Discharge Plan Triage Chief Complaint: Nausea/Vomiting ED Provider: Andreas Shea Dx/Rx/DC Orders Clinical Impression: Peptic ulcer disease Instructions: ED PUD Prescriptions: New ondansetron 4 mg tablet,disintegrating 4 mg PO Q6H PRN (Reason: nausea and vomiting) Qty: 20 RF: 0 No Action aspirin 81 mg tablet,delayed release (DR/EC) 81 mg PO DAILY Qty: 30 RF: 11 atorvastatin 40 mg tablet 40 mg PO QHS Qty: 90 RF: 3 losartan 25 mg tablet 25 mg PO DAILY Qty: 90 RF: 3 metoprolol tartrate 25 mg tablet 25 mg PO BID Qty: 180 RF: 3 Brilinta 90 mg tablet 90 mg PO DAILY RF: 0 omeprazole 20 mg capsule,delayed release(DR/EC) 20 mg PO DAILY Qty: 30 RF: 3 tetracycline 500 mg capsule 500 mg PO Q4H 14 Days Qty: 84 RF: 0 bismuth subsalicylate 525 mg/15 mL suspension 525 mg PO .QID PRN (Reason: H Pylori) 14 Days Qty: 354 RF: 1 metronidazole 500 mg tablet 500 mg PO TID 14 Days Qty: 42 RF: 0 Primary Care Provider: Destiney Gilmore Referrals: Destiney Gilmore MD [Primary Care Provider] - Flor Valera MD [STAFF PHYSICIAN] - 1-2 Days if not improving Disposition Disposition: Home, Self Care Discharge Date/Time: 06/03/21 13:34
--- NOTE | 2021-06-03 10:47 | EKG12_ITS ---
Test Reason : NAUSEA/VOMITING Blood Pressure : / mmHG Vent. Rate : 076 BPM Atrial Rate : 076 BPM P-R Int : 128 ms QRS Dur : 100 ms QT Int : 384 ms P-R-T Axes : 066 053 044 degrees QTc Int : 432 ms Normal sinus rhythm Normal ECG Confirmed by PRISCA PAK, RUPERT ([id number]), sound editor MORA SINGER ([id number]) on 06/05/2021 9:16:43 AM Referred By: SADIE Confirmed By:RUPERT COPE MD
[2021-06-03] MEDS: Morphine 4 MG/ML Syringe IV (10:52)
[2021-06-03] MEDS: 0.9% Normal Saline 1,000 ML 1000 ML IV (10:52)
[2021-06-03] MEDS: Ondansetron 4 MG/2 ML Vial IV (10:52)
[2021-06-03] MEDS: Famotidine 200 MG/20 ML MDV 20 MG in 0.9% Normal Saline (Pres. free 8 ML 300 MG IV (10:53)
[2021-06-03 10:55] LABS: Absolute Lymphocyte Count 0.91 X10^3/uL (0.83-4.51); Absolute Neutrophil Count 8.7 X10^3/uL (2.0-7.7); Basophil# 0.05 X10^3/uL; Basophil% 0.5 % (0-1); Eosinophil# 0.02 X10^3/uL; Eosinophils% 0.2 % (0-5); Hematocrit 49.8 % (40-54); Hemoglobin 18.4 g/dL (13.0-16.5); Lymphocyte # 0.91 X10^3/ul (0.83-4.51); Lymphocyte % 8.6 % (19-41); Mean Corp Hgb Conc 36.9 g/dL (32-36); Mean Corpuscular Hgb 32.7 pg (27.0-32.0); Mean Corpuscular Volume 88.6 fL (80-94); Mean Platelet Vol. 9.6 fl (6.2-12.0); Monocyte# 0.82 X10^3/uL; Monocyte% 7.8 % (0-10); NRBC Flagged by Analyzer 0 % (0-5); Neutrophil # 8.73 X10^3/uL (2.7-7.7); Neutrophil % 82.5 % (47-70); Platelet Count 330 K/mm3 (150-450); RBC Distribution Width CV 12.4 % (11.6-14.6); RBC Distribution Width SD 40.8 fl (35.1-43.9); Red Blood Count 5.62 M/mm3 (4.6-6.2); White Blood Count 10.6 K/mm3 (4.4-11.0)
[2021-06-03 11:11] LABS: AST(SGOT) 18 U/L (15-37); Alanine Aminotransfer ALT/SGPT 26 U/L (16-61); Albumin, Serum 3.7 g/dL (3.2-5.0); Alkaline Phosphatase 104 U/L (45-117); Anion Gap 8 (5-15); BUN 14 mg/dL (7-18); BUN/Creat Ratio 14.8 RATIO (10-20); Calcium,Total 9.5 mg/dL (8.5-10.1); Chloride 97 mmol/L (98-107); Creatinine, Serum 0.94 mg/dL (0.70-1.30); EST Glomerular Filtration Rate 89 mL/min (>60); Est Glom Filt Rate - Afr Amer 108 mL/min (>60); Estimated Creatinine Clearance 91.93 ml/min; Globulin 3.7 g/dL (2.2-4.2); Glucose 135 mg/dL (74-106); Lipase 33 U/L (73-393); Potassium 3.3 mmol/L (3.5-5.1); Protein, Total 7.4 g/dL (6.4-8.2); Sodium Level 136 mmol/L (136-145)
[2021-06-03 11:22] LABS: Mucous, Urine 0 SEEN /hpf (<or=2+)
[2021-06-03 11:26] LABS: Color, Urine Yellow (Yellow); Glucose, Dipstick Normal (Normal); Ketone-Dipstick 5 mg/dl (Negative); Leukocyte Esterase-Dipstick 25 /ul (Negative); Nitrite-Dipstick Negative (Negative); Occult Blood-Urine 10 /ul (Negative); Protein-Dipstick 30 mg/dl (Negative); Urine Clarity Sl. Cloudy (Clear); Urine Urobilinogen 1 mg/dl (Normal)
[2021-06-03 11:31] LABS: Urine Bilirubin Dipstick 1 mg/dL (Negative)
[2021-06-03 11:35] LABS: Bacteria RARE /hpf (None Seen); Red Blood Cells-Urine 0-5 SEEN /hpf (0-5); Squamous Epithelial Cells - UA 0-5 SEEN /hpf (0-5); White Blood Cells 0-5 SEEN /hpf (0-5)
[2021-06-03 12:07] VITALS: BP 119/86; PULSE 87; RESP 16; O2SAT 94
[2021-06-03 13:33] VITALS: PULSE 67; RESP 16; O2SAT 98
== END 2021-06-03 13:34 | disposition home or self-care (01) ==
PROVIDERS: Emergency Provider Emergency Medicine; PCP Family Medicine; Visit Provider Emergency Medicine
DX: K27.9 Peptic ulcer, site unspecified, unspecified as acute or chronic, without hemorrhage or perforation (principal); R74.8 Abnormal levels of other serum enzymes; I25.10 Atherosclerotic heart disease of native coronary artery without angina pectoris; I10 Essential (primary) hypertension; E78.5 Hyperlipidemia, unspecified; E87.6 Hypokalemia; M19.90 Unspecified osteoarthritis, unspecified site; G89.29 Other chronic pain; G47.419 Narcolepsy without cataplexy; F17.210 Nicotine dependence, cigarettes, uncomplicated; I25.2 Old myocardial infarction; Z79.82 Long term (current) use of aspirin; Z79.02 Long term (current) use of antithrombotics/antiplatelets; Z79.899 Other long term (current) drug therapy; Z95.5 Presence of coronary angioplasty implant and graft
CPT/HCPCS: 80053; 81001; 83690; 85025; 93005; 96361; 96365; 96375; 99283; J7030; J2405; J3490

== ENCOUNTER 2021-06-25 14:17 | Outpatient (CLI) | payer MEDICAID, SELFPAY ==
--- NOTE | 2021-06-25 16:35 | CT_ITS ---
We are attempting to reach an attending provider to discuss findings. An addendum with communication details will be sent when the communication is complete. HISTORY: epigastric abdominal pain. TECHNIQUE: Helically acquired images were obtained of the abdomen and pelvis with IV contrast. A radiation dose optimization technique was used for this scan. IV Contrast dosage and agent: Gastrografin Tamp; 100mL Isovue-300 Oral Tamp; IV. Oral contrast: None. # of images incl. paperwork: 448. COMPARISON: None. FINDINGS: LOWER CHEST: Lung bases clear. BOWEL: Multiple markedly dilated air-fluid levels in the small bowel with decompressed right lower quadrant distal small bowel. Small bowel dilated up to 6.5 cm in diameter. Appendix nondilated. Mild colonic diverticulosis without focal pericolonic inflammation. LIVER/SPLEEN/PANCREAS: Homogeneous. GALLBLADDER/BILIARY TREE: Gallbladder present. KIDNEYS: Horseshoe kidney. No hydronephrosis or enhancing mass. ADRENAL GLANDS: No nodules. PERITONEUM: No significant ascites. Scattered small mesenteric lymph nodes. VESSELS: No abdominal aortic aneurysm. Mild atherosclerosis. PELVIC ORGANS: Unremarkable. ABDOMINAL WALL: Left testicle in inguinal canal. BONES: Intact. CT/Abdomen/Pelvis WITH Contrast IMPRESSION: Small bowel obstruction with right lower quadrant transition point and severe small bowel dilatation. Colonic diverticulosis without acute diverticulitis. Horseshoe kidney. Individualized dose optimization techniques were used for this CT. at 1657 Reported and signed by: Roxanne Shepherd MD Electronically Signed: Roxanne Shepherd MD at 16:56 EDT ,
== END 2021-06-25 23:59 | disposition home or self-care (01) ==
PROVIDERS: PCP Family Medicine; Visit Provider Surgery
DX: R10.13 Epigastric pain (principal); R11.10 Vomiting, unspecified
CPT/HCPCS: 74177; Q9967

== ENCOUNTER 2021-06-25 17:07 | Inpatient (IN) | payer MEDICAID, SELFPAY ==
[2021-06-25 17:08] VITALS: BP 137/97; PULSE 110; RESP 17; TEMP 36.9; O2SAT 98; BMI 28.7
--- NOTE | 2021-06-25 17:28 | EKG12_ITS ---
Test Reason : ABD PAIN Blood Pressure : / mmHG Vent. Rate : 094 BPM Atrial Rate : 094 BPM P-R Int : 134 ms QRS Dur : 080 ms QT Int : 346 ms P-R-T Axes : 050 027 043 degrees QTc Int : 432 ms Normal sinus rhythm Normal ECG Confirmed by PRISCA PAK, RUPERT ([id number]), features editor BONNIE NG ([id number]) on 07/02/2021 10:27:13 AM Referred By: MARYAN/IVAN Confirmed By:RUPERT COPE MD
--- NOTE | 2021-06-25 17:32 | RAD_ITS ---
STUDY: X-RAY CHEST REASON FOR EXAM: Male, 50 years old. medical clearance TECHNIQUE: AP portable COMPARISON: None. FINDINGS: The lungs are clear and expanded. There is no demonstrated pleural abnormality. Normal size heart. Normal mediastinum and yasmine. Normal visualized pulmonary arteries. Normal visualized aortic arch and descending thoracic aorta. Normal visualized thoracic spine. Normal visualized ribs, clavicles, and shoulders. Nasogastric tube is seen with tip in the proximal gastric fundus There is no demonstrated abnormality of the visualized soft tissue structures of the upper abdomen. RAD/Chest 1 View (Portable) IMPRESSION: No acute disease status post nasogastric tube placement. Electronically Signed: Donato Whipple MD at 20:22 EDT ,
--- NOTE | 2021-06-25 17:36 | EDS_ITS ---
HPI HPI - GI History of Present Illness Chief Complaint: Abd Pain Narrative Narrative: 50-year-old male presenting with abdominal pain, nausea, vomiting. He states his last bowel movement was a couple of days ago. He called the surgical office prior to arrival and was supposed to get an outpatient CAT scan but due to insurance issues was referred to the emergency room. Apparently prior to coming to the emergency room he was able to get a CAT scan done which shows a high-grade small bowel obstruction. Patient does not have any surgical history in his abdomen he states. He has a history of GERD, H pylori, hyperlipidemia, CAD with stent. Patient denies urinary complaints. Denies fever, chills. PFSH PFSH Medical History Arthritis Atherosclerotic heart disease of [place] coronary artery without angina pectoris Back pain Cardiology follow-up encounter Chronic pain Coronary artery disease Depression Gastric reflux High cholesterol History of amputation of finger History of left heart catheterization (LHC) (~01/30/20) Hyperlipidemia, unspecified Hypertension Marijuana use Myocardial infarct Narcolepsy Presence of stent in coronary artery (~11/18/19) Sleep apnea Smoker Smoker Substance abuse Vomiting Wears dentures Home Medications atorvastatin 40 mg tablet 40 mg PO QHS #90 tab 01/16/21 [Rx Last Taken Unknown] losartan 25 mg tablet 25 mg PO DAILY #90 tab 01/16/21 [Rx Last Taken 05/26/21] metoprolol tartrate 25 mg tablet 25 mg PO BID #180 tab 01/16/21 [Rx Last Taken 05/26/21] Brilinta 90 mg PO DAILY 05/26/21 [History Last Taken 06/04/21] ondansetron 4 mg PO Q6H PRN #20 tab 06/03/21 [Rx Last Taken 06/25/21] aspirin 81 mg PO DAILY 06/25/21 [History Last Taken 06/04/21] omeprazole 20 mg PO DAILY 06/25/21 [History Last Taken 06/25/21] sucralfate 1 g PO QACHS 06/25/21 [History Last Taken 06/25/21] Allergy/AdvReac Type Severity Reaction Status Date / Time metronidazole [From Flagyl] AdvReac Vomiting Verified 06/25/21 17:10 tetracycline AdvReac Vomiting Verified 06/25/21 17:10 Family History Father Heart disease Myocardial infarction Cancer esophageal Mother Cirrhosis Brother CVA (cerebral vascular accident) Surgical History History of coronary artery stent placement (~09/2019) History of hand surgery History of nasal surgery Social History Smoking Status: Current every day smoker tobacco type: cigarettes ROS ROS ED Constitutional Constitutional ED: Denies chills or fever(s) ENT ENT ED: Denies rhinorrhea or sore throat Cardiovascular Cardiovascular: Denies chest pain or palpitations Respiratory/Chest Respiratory/Chest: Denies cough or dyspnea Gastrointestinal Gastrointestinal: Reports abdominal pain, nausea and vomiting; Denies diarrhea Genitourinary Genitourinary ED: Denies dysuria or hematuria Musculoskeletal Musculoskeletal: Denies arthralgias or myalgias Integumentary Denies rash Neurologic Neurologic: Denies headache(s) or paresthesias Psychiatric Psychiatric: Denies anxiety or depression EXAM Physical Exam Const Vital Signs: 06/25/21 17:08 Temperature 98.4 F Temperature Source Temporal Pulse Rate 110 H Respiratory Rate 17 Blood Pressure 137/97 H Blood Pressure Mean 110 Pulse Ox 98 Oxygen Delivery Method Room Air Positive well nourished General Appearance ED: NAD HEENT Reports moist mucous membranes normocephalic Eyes PERRL and EOMs intact bilaterally General Eye ED: Negative for pale conjunctiva or scleral icterus Neck No supple Resp normal respiratory effort and clear to auscultation bilaterally Cardio regular rate and regular rhythm GI Inspection: abdominal distention Auscultation: hyperactive bowel sounds Palpation: tender LUQ; Negative for pulsatile mass Back/Spine no CVA tenderness Neuro CN's II-XII intact bilaterally and moves all extremities Sensorium / Orientation: alert, oriented to person, oriented to place and oriented to time Psych mental status grossly normal and thought process normal Skin Lesions: no lesions Rashes: no rashes MDM MDM MDM Narrative Medical decision making narrative: Patient presented with a nominal pain, nausea, vomiting. He had a CT prior to arrival which showed a small bowel obstruction. NG tube was placed. Patient was given morphine and Zofran for pain and nausea respectively. This did help his pain and nausea. CBC shows a leukocytosis. Hemoglobin is elevated 18.0 however this is not abnormal for him. Platelets normal at 306. PT/INR normal. Renal function electrolytes normal. LFTs normal with exception of a total bilirubin of 1.10. Due to location of the patient's pain I did obtain an EKG which is my interpretation is normal sinus rhythm ventricular rate of 94 bpm without sign of ischemic change. Chest x-ray on my interpretation shows no acute cardiopulmonary process and the radiologist agree. Lactic acid is normal. After NG was placed a KUB was obtained which shows good placement of the NG tube on my interpretation. Radiologist does agree. Discussed with Dr. White who will admit the patient to the medical floor. Patient transported in stable condition. Impression: 1. Nausea/vomiting 2. Abdominal pain 3. Small bowel obstruction Lab Data Labs: Laboratory Results - last 24 hr 06/25/21 06/25/21 06/25/21 17:25 17:25 17:25 WBC 8.4 RBC 5.60 Hgb 18.0 H* Hct 50.0 MCV 89.3 MCH 32.1 H MCHC 36.0 RDW Std Deviation 42.0 RDW Coeff of Jaya 12.8 Plt Count 306 MPV 10.0 Immature Gran % (Auto) 0.400 Neut % (Auto) 63.5 Lymph % (Auto) 21.0 [place] % (Auto) 12.0 H Eos % (Auto) 2.3 Baso % (Auto) 0.8 Absolute Neuts (auto) 5.3 Absolute Lymphs (auto) 1.76 Nucleated RBC % 0 Diff Path Review May foll Platelet Estimate ADEQUATE Plt Morphology Comment LARGE Anisocytosis RARE PT INR Sodium 131 L Potassium 3.5 Chloride 99 Carbon Dioxide 25.0 Anion Gap 7 BUN 12 Creatinine 0.94 Estim Creat Clear Calc 94.92 Est GFR (MDRD) Af Amer 109 Est GFR (MDRD) Non-Af 90 BUN/Creatinine Ratio 12.8 Glucose 106 Lactic Acid 0.8 Calcium 8.9 Total Bilirubin 1.10 H AST 17 ALT 32 Alkaline Phosphatase 90 Troponin I High Sens < 3 L Total Protein 6.9 Albumin 3.5 Globulin 3.4 Albumin/Globulin Ratio 1.0 06/25/21 18:00 WBC RBC Hgb Hct MCV MCH MCHC RDW Std Deviation RDW Coeff of Jaya Plt Count MPV Immature Gran % (Auto) Neut % (Auto) Lymph % (Auto) [place] % (Auto) Eos % (Auto) Baso % (Auto) Absolute Neuts (auto) Absolute Lymphs (auto) Nucleated RBC % Diff Path Review Platelet Estimate Plt Morphology Comment Anisocytosis PT 13.4 INR 1.1 Sodium Potassium Chloride Carbon Dioxide Anion Gap BUN Creatinine Estim Creat Clear Calc Est GFR (MDRD) Af Amer Est GFR (MDRD) Non-Af BUN/Creatinine Ratio Glucose Lactic Acid Calcium Total Bilirubin AST ALT Alkaline Phosphatase Troponin I High Sens Total Protein Albumin Globulin Albumin/Globulin Ratio Radiography Diagnostic Testing: Clinical Impression(s) from Imaging Studies Chest X-Ray 06/25/21 17:32 IMPRESSION: No acute disease status post nasogastric tube placement. Electronically Signed: Donato Whipple MD at 20:22 EDT , KUB X-Ray 06/25/21 18:50 IMPRESSION: Findings consistent with small bowel obstruction status post NG tube placement with tip in the proximal gastric fundus Electronically Signed: Donato Whipple MD at 20:23 EDT , Discharge Plan Triage Chief Complaint: Abd Pain ED Provider: Armando Don Dx/Rx/DC Orders Primary Care Provider: Destiney Gilmore Disposition Discharge Date/Time: 06/25/21 20:21
[2021-06-25 18:03] LABS: Absolute Lymphocyte Count 1.76 X10^3/uL (0.83-4.51); Absolute Neutrophil Count 5.3 X10^3/uL (2.0-7.7); Basophil# 0.07 X10^3/uL; Basophil% 0.8 % (0-1); Eosinophil# 0.19 X10^3/uL; Eosinophils% 2.3 % (0-5); Lymphocyte # 1.76 X10^3/ul (0.83-4.51); Mean Corpuscular Hgb 32.1 pg (27.0-32.0); Mean Corpuscular Volume 89.3 fL (80-94); Monocyte# 1.01 X10^3/uL; NRBC Flagged by Analyzer 0 % (0-5); Neutrophil # 5.34 X10^3/uL (2.7-7.7); Neutrophil % 63.5 % (47-70); Platelet Count 306 K/mm3 (150-450); RBC Distribution Width CV 12.8 % (11.6-14.6); White Blood Count 8.4 K/mm3 (4.4-11.0)
[2021-06-25] MEDS: 0.9% Normal Saline 1,000 ML 999 ML IV (18:07)
[2021-06-25 18:08] LABS: Differential Indicated SCAN CRITERIA MET; POSITIVE COUNT NO; POSITIVE DIFFERENTIAL NO; POSITIVE MORPHOLOGY NO
[2021-06-25] MEDS: Ondansetron 4 MG/2 ML Vial IV ×2 (18:08→20:14)
[2021-06-25] MEDS: Morphine 4 MG/ML Syringe IV (18:08)
[2021-06-25] MEDS: Lidocaine 4% 5 ML Ampul 2 ML INHALATION (18:13)
[2021-06-25] MEDS: Oxymetazoline 0.05% 1 SPRAY SPRAY.BTL 2 SPRAY NASAL (18:16)
[2021-06-25 18:19] LABS: International Normalized Ratio 1.1; Prothrombin Time (Protime)PT. 13.4 SECONDS (11.7-14.9)
[2021-06-25 18:24] LABS: AST(SGOT) 17 U/L (15-37); Alanine Aminotransfer ALT/SGPT 32 U/L (16-61); Albumin, Serum 3.5 g/dL (3.2-5.0); Alkaline Phosphatase 90 U/L (45-117); Anion Gap 7 (5-15); BUN 12 mg/dL (7-18); BUN/Creat Ratio 12.8 RATIO (10-20); Calcium,Total 8.9 mg/dL (8.5-10.1); Chloride 99 mmol/L (98-107); Creatinine, Serum 0.94 mg/dL (0.70-1.30); EST Glomerular Filtration Rate 90 mL/min (>60); Est Glom Filt Rate - Afr Amer 109 mL/min (>60); Estimated Creatinine Clearance 94.92 ml/min; Globulin 3.4 g/dL (2.2-4.2); Glucose 106 mg/dL (74-106); Potassium 3.5 mmol/L (3.5-5.1); Protein, Total 6.9 g/dL (6.4-8.2); Sodium Level 131 mmol/L (136-145); Troponin-I HS < 3 pg/mL (3.0-78.0)
[2021-06-25 18:27] LABS: Anisocytosis RARE; Platelet Estimate ADEQUATE (ADEQ); Platelet Morphology LARGE
[2021-06-25 18:44] LABS: Lactic Acid 0.8 mmol/L (0.4-1.9)
--- NOTE | 2021-06-25 18:49 | HP.PCM.SX_ITS ---
HPI - General HPI Narrative ARTURO STEVENSON, is a 50 M who presents with nausea and vomiting. The patient reports that he has been feeling upper abdominal pain for the past 3 months. He had an EGD and was found to be H. pylori positive and was started on antibiotics. He reports over the last few weeks he has been having severe nausea and vomiting and not able to tolerate a diet. Patient describes upper abdominal pain. Patient has never had any abdominal surgery. He does state that he passed gas today and he did have a bowel movement about 2 days ago. He says this has been coming and going. [facility] Medical History Arthritis Atherosclerotic heart disease of [place] coronary artery without angina pectoris Back pain Cardiology follow-up encounter Chronic pain Coronary artery disease Depression Gastric reflux High cholesterol History of amputation of finger History of left heart catheterization (LHC) (~01/30/20) Hyperlipidemia, unspecified Hypertension Marijuana use Myocardial infarct Narcolepsy Presence of stent in coronary artery (~11/18/19) Sleep apnea Smoker Smoker Substance abuse Vomiting Wears dentures Home Medications aspirin 81 mg tablet,delayed release 81 mg PO DAILY #30 tab 12/01/19 [Rx Last Taken 05/26/21] atorvastatin 40 mg tablet 40 mg PO QHS #90 tab 01/16/21 [Rx Last Taken Unknown] losartan 25 mg tablet 25 mg PO DAILY #90 tab 01/16/21 [Rx Last Taken 05/26/21] metoprolol tartrate 25 mg tablet 25 mg PO BID #180 tab 01/16/21 [Rx Last Taken 05/26/21] Brilinta 90 mg PO DAILY 05/26/21 [History Last Taken 05/20/21] omeprazole 20 mg PO DAILY #30 cap 05/26/21 [Rx Last Taken Unknown] ondansetron 4 mg PO Q6H PRN #20 tab 06/03/21 [Rx Last Taken Unknown] sucralfate 1 gram tablet 1 g PO QACHS #28 tab 06/18/21 [Rx Last Taken Unknown] Allergy/AdvReac Type Severity Reaction Status Date / Time metronidazole [From Flagyl] AdvReac Vomiting Verified 06/25/21 17:10 tetracycline AdvReac Vomiting Verified 06/25/21 17:10 Family History Father Heart disease Myocardial infarction Cancer esophageal Mother Cirrhosis Brother CVA (cerebral vascular accident) Surgical History History of coronary artery stent placement (~09/2019) History of hand surgery History of nasal surgery Social History Smoking Status: Current every day smoker tobacco type: cigarettes ROS Constitutional Constitutional: Reports anorexia; Denies fatigue or fever(s) ENT HEENT: Denies abnormal hearing Cardiovascular Cardiovascular: Denies chest pain Respiratory/Chest Respiratory/Chest: Denies cough, dyspnea or wheezing Gastrointestinal Gastrointestinal: Reports abdominal pain, nausea and vomiting; Denies constipation or diarrhea Genitourinary Genitourinary: Denies change in urinary stream Musculoskeletal Musculoskeletal: Denies abnormal gait Integumentary Integumentary: Denies jaundice or new lesions Neurologic Neurologic: Denies abnormal gait or dizziness Psychiatric Psychiatric: Denies anxiety Endocrine Endocrinology: Denies flushing Hematologic/Lymphatic Hematologic/Lymphatic: Reports easy bleeding Vital Signs Vital Signs Vital Signs: 06/25/21 17:08 Temperature 98.4 F Temperature Source Temporal Pulse Rate 110 H Respiratory Rate 17 Blood Pressure 137/97 H Blood Pressure Mean 110 Pulse Ox 98 Oxygen Delivery Method Room Air Weight Weight: 200 lb Body Mass Index (BMI) 28.7 Physical Exam Const alert and oriented x3 Resp normal respiratory effort and normal air movement Cardio regular rate and regular rhythm GI soft to palpation and non-distended Inspection: abdominal distention Palpation: tender epigastric Extremity full ROM Results Lab / Micro Data Result Diagrams: 06/25/21 17:25 06/25/21 17:25 Labs: Laboratory Results - last 24 hr 06/25/21 17:25: WBC 8.4, RBC 5.60, Hgb 18.0 H*, Hct 50.0, MCV 89.3, MCH 32.1 H, MCHC 36.0, RDW Std Deviation 42.0, RDW Coeff of Jaya 12.8, Plt Count 306, MPV 10.0, Immature Gran % (Auto) 0.400, Neut % (Auto) 63.5, Lymph % (Auto) 21.0, [place] % (Auto) 12.0 H, Eos % (Auto) 2.3, Baso % (Auto) 0.8, Absolute Neuts (auto) 5.3, Absolute Lymphs (auto) 1.76, Nucleated RBC % 0, Diff Path Review May foll, Platelet Estimate ADEQUATE, Plt Morphology Comment LARGE, Anisocytosis RARE 06/25/21 17:25: Sodium 131 L, Potassium 3.5, Chloride 99, Carbon Dioxide 25.0, Anion Gap 7, BUN 12, Creatinine 0.94, Estim Creat Clear Calc 94.92, Est GFR (MDRD) Af Amer 109, Est GFR (MDRD) Non-Af 90, BUN/Creatinine Ratio 12.8, Glucose 106, Calcium 8.9, Total Bilirubin 1.10 H, AST 17, ALT 32, Alkaline Phosphatase 90, Troponin I High Sens < 3 L, Total Protein 6.9, Albumin 3.5, Globulin 3.4, Albumin/Globulin Ratio 1.0 06/25/21 17:25: Lactic Acid 0.8 06/25/21 18:00: PT 13.4, INR 1.1 Micro: Microbiology 06/25/21 18:03 Nasal Secretion SARS-CoV-2 Antigen (Rapid) - Final Assessment & Plan Assessment/Plan (1) SBO (small bowel obstruction): PLAN: Patient was having vomiting was sent to the emergency room. CT scan showed small bowel dilation with a possible transition zone in the right lower quadrant. Patient has never had any abdominal surgery. He says has been going on for weeks and intermittently comes and goes. When he does, he starts having fullness and pressure in the upper abdominal region and then nausea and vomiting. He has been vomiting for few days. He does say that he had a bowel movement few days ago and he did pass gas today. CT scan shows dilated small bowel with fluid and a transition zone in the right lower quadrant. NG was placed in the emergency room. I am unsure as to the etiology of the small bowel obstruction but I believe it warrants exploration. I will admit him to the floor tonight and start IV fluids and keep NG decompression. I plan for laparoscopy with possible conversion to laparotomy and possible small bowel resection tomorrow. I discussed this with him in detail. I discussed the risks including but not limited to bleeding, infection, injury to other organ such as the bowel, ureter, bladder. I also dis cussed the possibility of bowel resection and conversion to laparotomy if laparoscopy is not possible due to dilation of bowel. Car White MD Pager: [facility] [address] [place] [address], [facility] [address] [place] [address] Office:
--- NOTE | 2021-06-25 18:50 | RAD_ITS ---
STUDY: X-RAY - ABDOMEN/PELVIS REASON FOR EXAM: Male, 50 years old. obstruction -- KUB with both diaphragms for NG/OG Verification TECHNIQUE: KUB COMPARISON: None. FINDINGS: . There are multiple dilated loops of air-filled small bowel without appreciable gas in the colon which may be consistent with small bowel obstruction.. There is no demonstrated free abdominal air. The visualized liver, spleen and kidneys are grossly normal in size and morphology. NG tube is noted with tip in the proximal gastric fundus There is residual contrast seen within the bladder.. Normal visualized osseous structures. RAD/Abdomen Single View (Portable) IMPRESSION: Findings consistent with small bowel obstruction status post NG tube placement with tip in the proximal gastric fundus Electronically Signed: Donato Whipple MD at 20:23 EDT ,
[2021-06-25 19:11] VITALS: BP 135/106; PULSE 91; RESP 18; TEMP 36.9; O2SAT 95
[2021-06-25 19:18] VITALS: BP 129/96
--- NOTE | 2021-06-25 19:19 | NURSING ---
spoke with daughter per patients request to update on admission
--- NOTE | 2021-06-25 19:46 | ED.RN ---
patient resting and states more comfortable with nausea and pain. Not able to pee at this time but aware we need a sample and will be admitted.
--- NOTE | 2021-06-25 19:53 | CM.ED ---
RN CM Assessment Introduced role of RN CM to patient.? Patient is alert, oriented and able?to participate in RN CM Assessment. ?Care providers, pharmacy, and demographics verified. Admit Dx: IP for SBO Re-Admit: No Barriers/Issues: None PCP: Destiney Gilmore Specialists: None Preferred Pharmacy: [facility] and if closed then [facility] Insurance: [facility] Rx Benefit: Yes? LNOK: Sister Jyoti Navarrete and Sig. other Lawanda Avalos LW/HPOA: None, AD information with SW rack card provided and informed can complete as an inpatient or outpatient. Living Arrangements:? Lives with a roommate in a gnd level apartment, no steps to enter. ADL?s: Independent with ambulation and ADLs Transportation: Patient drives, drove self to hospital this admit and plans to drive at DC if able. DME: None, states supposed to wear CPAP but does not. HHC: None SNF: None Goal: Home and does not think will have any needs, issues or concerns with going home as of current. Aware RNCM will continue to follow should any needs arise. DC PLAN: Home with no anticipated needs identified at this time. ISABELLE Lazaro
[2021-06-25 20:30] VITALS: BMI 28.5
[2021-06-25 20:52] VITALS: BP 125/84; PULSE 87; RESP 18; TEMP 36.7; O2SAT 95
[2021-06-25] MEDS: Lactated Ringers 1,000 ML 125 ML IV (21:06)
[2021-06-25] MEDS: 0.9% Saline Lock 10 ML Syringe IV (21:06)
[2021-06-25] MEDS: Morphine 2 MG/ML Syringe IV (21:06)
[2021-06-26] VITALS (14 sets, daily range): BP systolic 122–160; BP diastolic 65–102; PULSE 89–117; RESP 16–20; TEMP 36.3–37.3; O2SAT 92–96; BMI 28.5
--- NOTE | 2021-06-26 | IMM_PTH ---
PATIENT: ARTURO STEVENSON LOC: MS3 U#:[id number] AGE/SX: 50/M ROOM: MN322 RE06/25/[address]: Dr. Car White MD : 1970 BED: 1 DIS: 06/30/2021 SPEC #: [id number] RECD: 07/01/21 14:18 STATUS: ONEIDA REQ #: [id number] JASON: 06/26/21 00:[address]: Car White DEPT: IMMUNOHISTOCHEMISTRY RECD BY: Haritha Montoya ENTERED: 07/01/21 14:22 SP TYPE: IMMUNO OTHR DR: Dr. Destiney Gilmore MD Tissues: B - Small intestine mucous membrane Procedures: BCL-2 (add) BCL-6 (add) CD10 (add) CD138 (add) CD15 (add) CD20 (add) CD23 (add) CD30 (add) CD43 (add) CD45 (add) CD5 (add) CD79A (add) CYCLIN (add) MUM1 (add) CD3 (initial) PHYSICIAN & [address] [address] SPECIMEN INFORMATION: Tissue Source: B ? Revised anastomosis small bowel resection Clinical Info: Small bowel obstruction Specimen Number: [id number] CPT code: 82672, 82260 x14 METHODOLOGY: Deparaffinized sections of prefer/formalin-fixed tissue or PAP/DQ stained slides are incubated with monoclonal/polyclonal antibodies/oligonucleotide probes. Localization is made via biotin free immunoperoxidase method. Appropriate controls are performed and reacted as expected. Results on target cell population are indicated in the following table: RESULTS: ANTIBODY / CLONE RESULT Block B1 CD3 (PS1) positive CD5 (SP10) positive CD10 (56C6) negative CD15 (MMA) negative CD20 (L26) positive CD23 (1B12) negative CD30 (Robert-H2) negative CD43 (L60) positive CD45 (RP2/18) positive CD79a (11E3) positive CD138 (B-A38) negative BCL-2 (bcl-2/100/D5) positive BCL-6 (PQ387M/A8) negative Cyclin D1/BCL-1 (SP4) negative MUM1 (MRQ-43) negative These tests were developed and their performance characteristics determined by [facility]. They may not have been cleared or approved by the U.S. Food and Drug Administration. The FDA has determined that such clearance or approval is not necessary. The above immunohistochemical/dualISH markers are ordered and reviewed by the Pathologist. INTERPRETATION: Revised anastomosis of small bowel, segmental resection: Consistent with polytypic (benign) lymphoid hyperplasia. AM:marine 07/02/2021
--- NOTE | 2021-06-26 | MISC_PTH ---
PATIENT: ARTURO STEVENSON LOC: MS3 U#:[id number] AGE/SX: 50/M ROOM: AR322 RE06/25/[address]: Dr. Car White MD : 1970 BED: 1 DIS: 06/30/2021 SPEC #: [id number] RECD: 06/26/21 15:26 STATUS: ONEIDA VANG #: [id number] JASON: 06/26/21 00:[address]: Car White DEPT: SURGICAL PATHOLOGY RECD BY: Con Davis ENTERED: 06/27/21 10:37 SP TYPE: MISC OTHR DR: Dr. Destiney Gilmore MD Tissues: A - Small intestine mucous membrane B - Small intestine mucous membrane Procedures: Surgery Specimen Level V HEADER OPERATION: Exploratory laparoscopy, open small bowel resection PRE-OP DIAGNOSIS: Small bowel obstruction TISSUE SUBMITTED: A ? Small bowel segment, suture gandara distal margin, B ? Revised anastomosis small bowel resection MICROSCOPIC DIAGNOSIS A. Small bowel segment, segmental resection: Focal ulceration with associated acute and chronic inflammation, fissuring ulcers and granulation. Margins of excision with no pathologic change. B. Revised anastomosis of small bowel, segmental resection: Focal benign lymphoid hyperplasia. See comment. AM:marine 07/02/2021 COMMENT B. Immunohistochemistry ([id number]) supports the above diagnosis. There is no evidence of malignancy in either specimen A or B. This case was discussed with Dr. White on 07/01/2021. Case has been reviewed in consultation with Dr. Chamorro who concurs with the above diagnosis. IDC:SJ MICROSCOPIC DESCRIPTION Slides are reviewed. GROSS DESCRIPTION A - Received in fixative is one container labeled with the patient's name and designated small bowel segment, suture gandara distal margin. The specimen consists of a segment of small bowel with attached mesenteric tissue measuring 15 cm in length. The small bowel measures 2.5 to 5 cm in diameter. Both resection margins are stapled. The serosal surface is congested. The lumen contains fecal material. A focal area of stricture is noted within dilated and nondilated portion of the bowel. No mucosal lesion is identified. Sections will be submitted after fixation. / SJ:marine 06/27/2021 Sections of mesenteric tissue do not reveal any obviously enlarged lymph node. Electric Organ Inspector And Repairer sections are submitted in seven cassettes as follows: 1 ? proximal resection margin, 2 ? distal resection margin, 3-5 ? area of narrowing/stricture, 6 - digital sales representative section from the other area, 7 ? mesenteric tissue. / SJ:marine 06/30/2021 B - Received in fixative is one container labeled with the patient's name and designated revised anastomosis small bowel resection. The specimen consists of a segment of colon with attached mesenteric tissue measuring 10.5 cm in length and 2 to 4.5 cm in diameter. Resection margins are stapled. An area of anastomosis is noted 2.5 cm away from one resection margin and 7 cm away from the opposite resection margin. No mucosal lesion is identified. Also present in the container is a donut-shaped piece of tissue measuring 4 x 2 x 1.5 cm. Also present are three smaller pieces of tissue with kaylee measuring in aggregate 2 x 2 x 0.5 cm. Sections will be submitted after fixation. / SJ:marine 06/27/2021 Sections of mesenteric tissue do not reveal any obviously enlarged lymph node. Electric Organ Inspector And Repairer sections are submitted in five cassettes as follows: 1 ? donut-shaped piece of tissue and smaller pieces of tissue, 2 - resection margin, 3 & 4 - Electric Organ Inspector And Repairer sections of small bowel, 5 ? mesenteric tissue. / SJ:marine 06/30/2021 TC:2 CPT: 42868 x2
[2021-06-26] MEDS: Morphine 2 MG/ML Syringe IV ×3 (03:56→20:52)
[2021-06-26] MEDS: Lactated Ringers 1,000 ML 125 ML IV ×4 (03:57→20:52)
[2021-06-26 06:12] LABS: Absolute Lymphocyte Count 1.25 X10^3/uL (0.83-4.51); Absolute Neutrophil Count 4.7 X10^3/uL (2.0-7.7); Basophil# 0.07 X10^3/uL; Eosinophil# 0.17 X10^3/uL; Eosinophils% 2.5 % (0-5); Hematocrit 42.6 % (40-54); Hemoglobin 15.1 g/dL (13.0-16.5); Lymphocyte # 1.25 X10^3/ul (0.83-4.51); Lymphocyte % 18.2 % (19-41); Mean Corp Hgb Conc 35.4 g/dL (32-36); Mean Corpuscular Hgb 32.5 pg (27.0-32.0); Mean Corpuscular Volume 91.6 fL (80-94); Mean Platelet Vol. 9.8 fl (6.2-12.0); Monocyte# 0.67 X10^3/uL; Monocyte% 9.8 % (0-10); NRBC Flagged by Analyzer 0 % (0-5); Neutrophil # 4.68 X10^3/uL (2.7-7.7); Neutrophil % 68.4 % (47-70); Platelet Count 211 K/mm3 (150-450); RBC Distribution Width CV 13.1 % (11.6-14.6); RBC Distribution Width SD 43.7 fl (35.1-43.9); Red Blood Count 4.65 M/mm3 (4.6-6.2); White Blood Count 6.9 K/mm3 (4.4-11.0)
[2021-06-26 06:46] LABS: Anion Gap 4 (5-15); BUN 12 mg/dL (7-18); Calcium,Total 7.5 mg/dL (8.5-10.1); Chloride 107 mmol/L (98-107); Creatinine, Serum 0.75 mg/dL (0.70-1.30); EST Glomerular Filtration Rate 116 mL/min (>60); Est Glom Filt Rate - Afr Amer 141 mL/min (>60); Estimated Creatinine Clearance 118.96 ml/min; Glucose 88 mg/dL (74-106); Magnesium 2.1 mg/dL (1.6-2.6); Phosphorus 2.9 mg/dL (2.5-4.9); Potassium 3.4 mmol/L (3.5-5.1); Sodium Level 137 mmol/L (136-145)
[2021-06-26] MEDS: Potassium Chloride 10mEq/100mL 10 MEQ/100 ML IV.SOLN. 100 MEQ IV BOLUS ×2 (08:49→10:35)
[2021-06-26 11:28] LABS: Pathologist Review Reviewed
[2021-06-26 12:07] LABS: White Blood Cells 0 SEEN /hpf (0-5)
[2021-06-26 12:12] LABS: Color, Urine Yellow (Yellow); Glucose, Dipstick Normal (Normal); Ketone-Dipstick 50 mg/dl (Negative); Leukocyte Esterase-Dipstick Negative /ul (Negative); Nitrite-Dipstick Negative (Negative); Occult Blood-Urine Negative /ul (Negative); Protein-Dipstick 15 mg/dl (Negative); Specific Gravity, Urine 1.015 (1.002-1.030); Urine Clarity Sl. Cloudy (Clear); Urine Urobilinogen 4 mg/dl (Normal)
[2021-06-26 12:13] LABS: Urine Bilirubin Dipstick 1 mg/dL (Negative)
[2021-06-26 12:20] LABS: Red Blood Cells-Urine 0-5 SEEN /hpf (0-5); Squamous Epithelial Cells - UA 0-5 SEEN /hpf (0-5)
[2021-06-26 12:21] LABS: Amorphous Sediment 1+; Bacteria RARE /hpf (None Seen); Mucous, Urine 1+ /hpf (<or=2+)
[2021-06-26] MEDS: Bupivacaine Mpf 0.5% 30 ML VIAL (14:00)
--- NOTE | 2021-06-26 14:20 | OP.PCM_ITS ---
Problems Associated Problem List Diagnoses (1) SBO (small bowel obstruction): Report of Operation Date of Procedure: 06/26/21 Pre-Operative Diagnosis: Small bowel obstruction Post-Operative Diagnosis: Small bowel obstruction Surgery/Procedure Performed:: Laparoscopy converted to laparotomy with small bowel resection Specimen's removed: 1. Small bowel segment with a suture marking the distal mar gin 2. Revised anastomosis Description of Procedure: Patient was brought back the operating room and general anesthesia was induced. A Martinez catheter was placed. The abdomen was prepped and draped in usual sterile fashion. A midline incision was made superior to the umbilicus and deepened to the fascia was elevated and incised. A port was placed into the abdomen was insufflated 15 mmHg. Under direct visualization a 5 mm ports placed in the left lower quadrant as well as the suprapubic area. The bowel was grasped using atraumatic grasper starting at the decompressed terminal ileum. This was run backwards until an area was found of caliber change which seemed to have a stricture in it. As the patient has never had surgery and this was not adherent to anything I elected to resect this area. Next the midline incision was lengthened using electrocautery and laparoscopy was converted to laparotomy. The wound protector was placed. The small bowel was delivered into the incision and the caliber change was identified and distal to this the small bowel was divided using a JOSEFINA stapler. Next proximal to this stricture the small bowel appeared edematous from chronic dilation for several feet. An area of this bowel was selected and divided using a JOSEFINA stapler. LigaSure impact was used to resect the small bowel segment. There was good hem ostasis. Next the staple anastomosis was performed using a JOSEFINA 75 stapler. After closing the TX 60 to close the enterostomy it appeared that the bowel was too edematous for the TX 60 stapler. There was a crack in the edematous area. The anastomosis was then resected using JOSEFINA staplers. The small bowel small bowel anastomosis was then reperformed using a stapler for the end end segment and running 3-0 chromic with interrupted 3-0 silks to close the common enterostomy. There was no leak and this appeared hemostatic with good closure. The crotch stitch was sutured with 3-0 silk. There was a good patent anastomosis. The mesenteric defect was closed with a running 3-0 Vicryl suture. The anastomosis was returned to the abdomen and the abdomen was irrigated and suctioned dry. The omentum was placed over the bowel and the wound retractor was removed. The fascia was closed with running #1 PDS from the top and bottom meeting in the middle. The subcutaneous tissue was irrigated and then the skin was injected with local anesthetic. The skin incisions were closed with interrupted 4-0 Monocryl suture. The Martinez and NG were removed and the patient was taken to PACU in stable condition. Admit VTE Documentation VTE Mechan Device Prophylaxis: SCD's
[2021-06-26] MEDS: 0.9% Saline Lock 10 ML Syringe IV (20:53)
[2021-06-27] VITALS (7 sets, daily range): BP systolic 120–143; BP diastolic 74–90; PULSE 86–104; RESP 16–18; TEMP 36.6–36.9; O2SAT 92–95
[2021-06-27] MEDS: 0.9% Saline Lock 10 ML Syringe IV ×3 (01:41→20:22)
[2021-06-27] MEDS: Morphine 2 MG/ML Syringe IV ×7 (01:41→20:22)
[2021-06-27] MEDS: Lactated Ringers 1,000 ML 125 ML IV ×3 (04:59→20:22)
--- NOTE | 2021-06-27 16:38 | PCM.PN.SRG ---
Subjective Subjective patient has not passed flatus, has abdominal pain but tolerable Objective Data Objective Data Vital Signs: Vital Signs Temp Pulse Resp BP Pulse Ox 97.9 F 97 16 121/75 H 92 06/27/21 12:50 06/27/21 12:50 06/27/21 12:50 06/27/21 12:50 06/27/21 12:50 Oxygen Flow Rate (L/min) 2 Oxygen Delivery Method Room Air Weight: 90.6 kg Body Mass Index (BMI) 28.5 Intake & Output: Intake and Output for Last 24 Hours 06/25/21 06/26/21 06/27/21 23:59 23:59 23:59 Intake Total 1000 / 1000 3808.33 / 3808.33 2049.58 / 2049.58 Output Total 1440 / 1440 725 / 725 Balance 1000 / 1000 2368.33 / 2368.33 1324.58 / 1324.58 Medical Nutrition Assessment Dietitian: Malnutrition Criteria Met Start: 06/26/21 14:17 Freq: Status: Active Protocol: Document 06/26/21 14:17 RMA (Rec: 06/26/21 14:17 RMA [id number]) Nutrition Malnutrition Evidence of Malnutrition Exists Yes Malnutrition (severe): Acute Illness/Injury Evidenced By Suboptimal Energy Intake ( Severe),Weight Loss (Severe) Clinical Problem Acute Disease or Injury Related Malnutrition Etiology Severe protein-calorie malnutrition in the context of acute illness related to inadequate oral intake and altered GI function Signs/Symptoms as evidenced by ~13% wt loss x 3 months and PO meeting less than 50% estimated nutrition needs at meals; currently NPO Status Active Problem Recommendation Dietitian Recommendations/Changes Recommend advance PO as medically able to Transitional diet with goal diet of Cardiac as tolerated. Will offer ensure clear as diet advanced from NPO. Will d/c ensure enlive w/ medpass for now. Consider parenteral nutrition support if unable to advance PO nutrition in next 24-48 hours to prevent further calorie/protein depletion. Lab / Micro Data Result Diagrams: 06/26/21 05:59 06/26/21 05:59 Micro: Microbiology 06/25/21 18:03 Nasal Secretion SARS-CoV-2 Antigen (Rapid) - Final Physical Exam Const alert and oriented x3 General Appearance: cooperative Resp normal respiratory effort Cardio regular rate GI GI Narrative: abdomen is soft, minimal bowel sounds, dressing intact, no seepage Assessment & Plan Assessment/Plan (1) SBO (small bowel obstruction): PLAN: s/p SBO surgery 06/26/[address] White continue present care
[2021-06-28] VITALS (7 sets, daily range): BP systolic 125–147; BP diastolic 81–92; PULSE 93–101; RESP 18–22; TEMP 36.7–37.1; O2SAT 93–95
[2021-06-28] MEDS: Morphine 2 MG/ML Syringe IV ×3 (02:11→20:59)
[2021-06-28] MEDS: 0.9% Saline Lock 10 ML Syringe IV ×2 (02:11→20:59)
[2021-06-28] MEDS: Lactated Ringers 1,000 ML 125 ML IV ×3 (02:53→18:33)
--- NOTE | 2021-06-28 10:20 | PCM.PN.SRG ---
Subjective Subjective patient denies abdominal pain, has not passed flatus Objective Data Objective Data Vital Signs: Vital Signs Temp Pulse Resp BP Pulse Ox 98.5 F 98 18 141/88 H 94 06/28/21 02:54 06/28/21 02:54 06/28/21 02:54 06/28/21 02:54 06/28/21 07:35 Oxygen Flow Rate (L/min) 2 Oxygen Delivery Method Nasal Cannula Weight: 90.6 kg Body Mass Index (BMI) 28.5 Intake & Output: Intake and Output for Last 24 Hours 06/26/21 06/27/21 06/28/21 23:59 23:59 23:59 Intake Total 3808.33 / 3808.33 2991.25 / 2991.25 814.58 / 814.58 Output Total 1440 / 1440 2325 / 2325 Balance 2368.33 / 2368.33 666.25 / 666.25 814.58 / 814.58 Medical Nutrition Assessment Dietitian: Malnutrition Criteria Met Start: 06/26/21 14:17 Freq: Status: Active Protocol: Document 06/26/21 14:17 RMA (Rec: 06/26/21 14:17 RMA [id number]) Nutrition Malnutrition Evidence of Malnutrition Exists Yes Malnutrition (severe): Acute Illness/Injury Evidenced By Suboptimal Energy Intake ( Severe),Weight Loss (Severe) Clinical Problem Acute Disease or Injury Related Malnutrition Etiology Severe protein-calorie malnutrition in the context of acute illness related to inadequate oral intake and altered GI function Signs/Symptoms as evidenced by ~13% wt loss x 3 months and PO meeting less than 50% estimated nutrition needs at meals; currently NPO Status Active Problem Recommendation Dietitian Recommendations/Changes Recommend advance PO as medically able to Transitional diet with goal diet of Cardiac as tolerated. Will offer ensure clear as diet advanced from NPO. Will d/c ensure enlive w/ medpass for now. Consider parenteral nutrition support if unable to advance PO nutrition in next 24-48 hours to prevent further calorie/protein depletion. Lab / Micro Data Result Diagrams: 06/26/21 05:59 06/26/21 05:59 Micro: Microbiology 06/25/21 18:03 Nasal Secretion SARS-CoV-2 Antigen (Rapid) - Final Physical Exam Const alert and oriented x3 General Appearance: cooperative and comfortable Resp normal respiratory effort Effort and Inspection: able to speak in complete sentences GI GI Narrative: abdomen is soft and benign, dressings intact without seepage Assessment & Plan Assessment/Plan (1) SBO (small bowel obstruction): PLAN: PLAN: s/p SBO surgery 06/26/[address] White continue present therapy
[2021-06-29] VITALS (7 sets, daily range): BP systolic 130–142; BP diastolic 81–91; PULSE 92–100; RESP 16–18; TEMP 36.4–36.8; O2SAT 94–96
[2021-06-29] MEDS: Lactated Ringers 1,000 ML 125 ML IV ×3 (02:25→18:21)
--- NOTE | 2021-06-29 10:39 | PCM.PN.SRG ---
Subjective Subjective Patient passing flatus, denies abdominal pain Objective Data Objective Data Vital Signs: Vital Signs Temp Pulse Resp BP Pulse Ox 97.6 F L 100 16 130/81 H 95 06/29/21 09:23 06/29/21 09:23 06/29/21 09:23 06/29/21 09:23 06/29/21 09:23 Oxygen Flow Rate (L/min) 2 Oxygen Delivery Method Room Air Weight: 90.6 kg Body Mass Index (BMI) 28.5 Intake & Output: Intake and Output for Last 24 Hours 06/27/21 06/28/21 06/29/21 23:59 23:59 23:59 Intake Total 2991.25 / 2991.25 2824.58 / 2824.58 1093.33 / 1093.33 Output Total 2325 / 2325 Balance 666.25 / 666.25 2824.58 / 2824.58 1093.33 / 1093.33 Medical Nutrition Assessment Dietitian: Malnutrition Criteria Met Start: 06/26/21 14:17 Freq: Status: Active Protocol: Document 06/26/21 14:17 RMA (Rec: 06/26/21 14:17 RMA [id number]) Nutrition Malnutrition Evidence of Malnutrition Exists Yes Malnutrition (severe): Acute Illness/Injury Evidenced By Suboptimal Energy Intake ( Severe),Weight Loss (Severe) Clinical Problem Acute Disease or Injury Related Malnutrition Etiology Severe protein-calorie malnutrition in the context of acute illness related to inadequate oral intake and altered GI function Signs/Symptoms as evidenced by ~13% wt loss x 3 months and PO meeting less than 50% estimated nutrition needs at meals; currently NPO Status Active Problem Recommendation Dietitian Recommendations/Changes Recommend advance PO as medically able to Transitional diet with goal diet of Cardiac as tolerated. Will offer ensure clear as diet advanced from NPO. Will d/c ensure enlive w/ medpass for now. Consider parenteral nutrition support if unable to advance PO nutrition in next 24-48 hours to prevent further calorie/protein depletion. Lab / Micro Data Result Diagrams: 06/26/21 05:59 06/26/21 05:59 Micro: Microbiology 06/25/21 18:03 Nasal Secretion SARS-CoV-2 Antigen (Rapid) - Final Physical Exam Const alert and oriented x3 General Appearance: cooperative and comfortable Neck supple Resp normal respiratory effort Effort and Inspection: able to speak in complete sentences GI GI Narrative: abdomen is soft and benign dressing is intact without seepage Assessment & Plan Assessment/Plan (1) SBO (small bowel obstruction): PLAN: s/p lysis of adhesions Patient states that he has minimal abdominal pain will start on clear liquid diet patient encouraged to continue ambulation probably discharge tomorrow
[2021-06-30] MEDS: Lactated Ringers 1,000 ML 125 ML IV (02:21)
[2021-06-30 03:19] VITALS: BP 150/84; PULSE 85; RESP 18; TEMP 36.6; O2SAT 94
[2021-06-30 08:12] VITALS: O2SAT 95
[2021-06-30 08:53] VITALS: BP 105/77; PULSE 78; RESP 16; TEMP 36.5; O2SAT 96
--- NOTE | 2021-06-30 09:02 | PN.SURG_ITS ---
Subjective Subjective The patient reports he is passing flatus with no nausea or vomiting. He tolerated clears. He is not having any abdominal pain. Objective Data Objective Data Vital Signs: Vital Signs Temp Pulse Resp BP Pulse Ox 97.7 F L 78 16 105/77 96 06/30/21 08:53 06/30/21 08:53 06/30/21 08:53 06/30/21 08:53 06/30/21 08:53 Oxygen Flow Rate (L/min) 2 Oxygen Delivery Method Room Air Weight: 199 lb 11.821 oz Body Mass Index (BMI) 28.5 Intake & Output: Intake and Output for Last 24 Hours 06/28/21 06/29/21 06/30/21 23:59 23:59 23:59 Intake Total 2824.58 / 2824.58 3285.00 / 3285.00 1000 / 1000 Balance 2824.58 / 2824.58 3285.00 / 3285.00 1000 / 1000 Medical Nutrition Assessment Dietitian: Malnutrition Criteria Met Start: 06/26/21 14:17 Freq: Status: Active Protocol: Document 06/26/21 14:17 RMA (Rec: 06/26/21 14:17 RMA [id number]) Nutrition Malnutrition Evidence of Malnutrition Exists Yes Malnutrition (severe): Acute Illness/Injury Evidenced By Suboptimal Energy Intake ( Severe),Weight Loss (Severe) Clinical Problem Acute Disease or Injury Related Malnutrition Etiology Severe protein-calorie malnutrition in the context of acute illness related to inadequate oral intake and altered GI function Signs/Symptoms as evidenced by ~13% wt loss x 3 months and PO meeting less than 50% estimated nutrition needs at meals; currently NPO Status Active Problem Recommendation Dietitian Recommendations/Changes Recommend advance PO as medically able to Transitional diet with goal diet of Cardiac as tolerated. Will offer ensure clear as diet advanced from NPO. Will d/c ensure enlive w/ medpass for now. Consider parenteral nutrition support if unable to advance PO nutrition in next 24-48 hours to prevent further calorie/protein depletion. Lab / Micro Data Result Diagrams: 06/26/21 05:59 06/26/21 05:59 Micro: Microbiology 06/25/21 18:03 Nasal Secretion SARS-CoV-2 Antigen (Rapid) - Final Physical Exam Const oriented x3 and no apparent distress Resp normal respiratory effort Cardio regular rate GI soft to palpation and non-tender Assessment & Plan Assessment/Plan (1) SBO (small bowel obstruction): PLAN: Patient tolerated clears and is passing flatus. I will advance his diet and order his p.o. medications. I will resume his Brilinta. As long as he tolerates this I will discharge him home today. Pathology still pending. Car White MD Pager: [facility] [address] [place] [address], [address] [place] [address] Office:
[2021-06-30 09:45] VITALS: BP 105/77; PULSE 78
[2021-06-30] MEDS: TICAGRELOR 90 MG TABLET PO (09:45)
[2021-06-30] MEDS: Metoprolol Tartrate 25 MG Tablet PO (09:45)
[2021-06-30] MEDS: Pantoprazole Sodium 20 MG Tablet PO (09:45)
[2021-06-30] MEDS: Losartan Potassium 25 MG Tablet PO (09:45)
--- NOTE | 2021-06-30 15:18 | PCM.DC.SUM ---
Providers Date of Admission: 06/25/21 Primary Care Physician: Dr. Destiney Gilmore MD Reason For Visit: SMALL BOWEL OBSTRUCTION Diagnosis Discharge Diagnosis (1) SBO (small bowel obstruction): Status: Acute Code(s): K56.609 - Unspecified intestinal obstruction, unspecified as to partial versus complete obstruction Medications at Discharge Home Medications Brilinta 90 mg PO BID 05/26/21 ondansetron 4 mg PO Q6H PRN #20 tab 06/03/21 aspirin 81 mg PO DAILY 06/25/21 omeprazole 20 mg PO BID 06/25/21 sucralfate 1 g PO QACHS 06/25/21 atorvastatin 40 mg PO QHS 06/26/21 losartan 25 mg PO DAILY 06/26/21 metoprolol tartrate 25 mg PO BID 06/26/21 modafinil 200 mg PO DAILY 06/26/21 potassium chloride 20 meq PO DAILY 06/26/21 acetaminophen [Tylenol] 650 mg PO Q4H PRN PRN #0 tab 06/30/21 ibuprofen 600 mg PO Q6H PRN PRN #0 tab 06/30/21 Hospital Course Summary of Care Provided Hospital Course: The patient had outpatient CT because of nausea vomiting which showed small bowel obstruction. He was brought into the emergency room and the following day after NG decompression was taken for surgery. He was found to have a stricture in the small bowel. This area was resected and the patient was brought back up to the floor. Once he was started passing flatus his NG was removed and he was started on a diet and once he was tolerating diet he was discharged home. Medical Records Data Medical Nutrition Assessment Dietitian: Malnutrition Criteria Met Start: 06/26/21 14:17 Freq: Status: Active Protocol: Document 06/30/21 11:11 SAMARA (Rec: 06/30/21 11:11 [email or web address] [id number]) Nutrition Malnutrition Evidence of Malnutrition Exists Yes Malnutrition (severe): Acute Illness/Injury Evidenced By Suboptimal Energy Intake ( Severe),Weight Loss (Severe) Clinical Problem Acute Disease or Injury Related Malnutrition Etiology Severe protein-calorie malnutrition in the context of acute illness related to inadequate oral intake and altered GI function Signs/Symptoms as evidenced by ~13% wt loss x 3 months and PO meeting less than 50% estimated nutrition needs at meals - NPO x 5 days, but advanced to solids today. Status Active Problem Recommendation Dietitian Recommendations/Changes Will change to Transitional diet with goal diet of Cardiac as tolerated. Weight / BMI Weight Weight: 199 lb 11.821 oz Body Mass Index (BMI) 28.5 ABG / Lab / Microbiology Data Result Diagrams: 06/26/21 05:59 06/26/21 05:59 Microbiology: Microbiology 06/25/21 18:03 Nasal Secretion SARS-CoV-2 Antigen (Rapid) - Final D/C Instructions Discharge Diet: No restrictions Discharge Activity: May Drive and May Shower Lifting Restrictions: 20 lbs for 4 weeks Call your doctor if your incision/area has: Continuous Slow Oozing, Sudden Increased Bleeding, Increased Pain/ Swelling, Increased Redness, Foul Smelling Discharge and Swelling at the incision site Call your doctor if you observe: Fever of 101 or Higher Cleanse incision/area with: Soap & Water Additional Dressing/Incision Instructions: Remove steri strips in 7-10 days Please Follow Up With: Car White MD When: Please call to schedule 2 week follow up appointment. [phone] Meaningful Use Info Meaningful Use Diagnoses (Choose all that apply): None applicable Discharge Plan Admission Admit Date/Time: 06/25/21 18:54 Attending Provider: Car White Primary Care Provider: Destiney Gilmore Discharge Orders/Prescriptions Prescriptions: New acetaminophen [Tylenol] 325 mg Tablet 650 mg PO Q4H PRN PRN (Reason: Pain 1-10 Or Fever) Qty: 0 RF: 0 ibuprofen 600 mg Tablet 600 mg PO Q6H PRN PRN (Reason: Pain 1-10 Or Fever) Qty: 0 RF: 0 Continued Brilinta 90 mg tablet 90 mg PO BID RF: 0 ondansetron 4 mg tablet,disintegrating 4 mg PO Q6H PRN (Reason: nausea and vomiting) Qty: 20 RF: 0 sucralfate 1 gram tablet 1 g PO QACHS RF: 0 aspirin 81 mg tablet,delayed release (DR/EC) 81 mg PO DAILY RF: 0 omeprazole 20 mg capsule,delayed release(DR/EC) 20 mg PO BID RF: 0 potassium chloride 20 mEq Tablet Extended Release 20 meq PO DAILY RF: 0 atorvastatin 40 mg tablet 40 mg PO QHS RF: 0 losartan 25 mg tablet 25 mg PO DAILY RF: 0 metoprolol tartrate 25 mg tablet 25 mg PO BID RF: 0 modafinil 200 mg Tablet 200 mg PO DAILY RF: 0 Referrals / Follow Up: Destiney Gilmore MD [Primary Care Provider] - Disposition Disposition (needs filled in before D/C Order can be placed): Home, Self Care
[2021-06-30 15:25] VITALS: BP 129/72; PULSE 89; RESP 18; TEMP 36.6; O2SAT 97
== END 2021-06-30 15:40 | disposition home or self-care (01) | DRG 230 ==
LOC: ED 17:34 → MS3 19:34
PROVIDERS: Admitting Provider Surgery; Emergency Provider Student in an Organized Health Care Education/Training Program; PCP Family Medicine; Visit Provider Surgery
PROC: 0DB80ZZ Excision of Small Intestine, Open Approach (ICD-10-PCS; CPT 44202; principal; 2021-06-26 07:40)
DX: K56.699 Other intestinal obstruction unspecified as to partial versus complete obstruction (principal); E43 Unspecified severe protein-calorie malnutrition; I25.10 Atherosclerotic heart disease of native coronary artery without angina pectoris; I10 Essential (primary) hypertension; E78.5 Hyperlipidemia, unspecified; M19.90 Unspecified osteoarthritis, unspecified site; K21.9 Gastro-esophageal reflux disease without esophagitis; I25.2 Old myocardial infarction; F17.210 Nicotine dependence, cigarettes, uncomplicated; G89.29 Other chronic pain; Z68.28 Body mass index [BMI] 28.0-28.9, adult; Z20.822 Contact with and (suspected) exposure to COVID-19; Z79.82 Long term (current) use of aspirin; Z79.02 Long term (current) use of antithrombotics/antiplatelets; Z79.899 Other long term (current) drug therapy; Z95.5 Presence of coronary angioplasty implant and graft
CPT/HCPCS: 36415; 71045; 74018; 74177; 80048; 80053; 81001; 83605; 83735; 84100; 84484; 85025; 85610; 87811; 88305; 88307; 88341; 88342; 93005; 94640; 97802; 99251; 99285; J7030; J7120; Q9967; A4216; G0463; J2405

== ENCOUNTER → 2021-07-22 | Outpatient (CLI) | payer MEDICAID, SELFPAY ==
[2021-07-22 11:53] LABS: AST(SGOT) 18 U/L (15-37); Alanine Aminotransfer ALT/SGPT 25 U/L (16-61); Albumin, Serum 3.2 g/dL (3.2-5.0); Alkaline Phosphatase 77 U/L (45-117); Bilirubin, Direct 0.15 mg/dL (0.00-0.30); Cholesterol 129 mg/dL (200); Globulin 3.1 g/dL (2.2-4.2); High Density Lipoprotein 35 mg/dL; Protein, Total 6.3 g/dL (6.4-8.2); Triglycerides 79 mg/dL; Very Low Density Lipoprotein 16 mg/dL (5-40)
== END | disposition home or self-care (01) ==
PROVIDERS: PCP Family Medicine; Referring Provider Internal Medicine Cardiovascular Disease; Visit Provider Internal Medicine Cardiovascular Disease
DX: E78.00 Pure hypercholesterolemia, unspecified (principal)
CPT/HCPCS: 36415; 80061; 80076

== ENCOUNTER 2021-12-08 17:43 | Observation (INO) | payer MEDICAID, SELFPAY ==
[2021-12-08 17:44] VITALS: BP 149/82; PULSE 89; RESP 18; TEMP 37.2; O2SAT 96; BMI 33.4
--- NOTE | 2021-12-08 18:43 | EDS_ITS ---
HPI HPI - GI History of Present Illness Chief Complaint: Abd Pain Informant: patient Abdominal Pain/Flank Pain Onset: Yesterday Context: Gradual Onset Timing: Continuous Current Severity: Severe Maximum Severity: Severe Worsened by: Nothing Relieved by: Nothing Nausea/Vomiting/Emesis GI Symptom: Negative for Nausea or Vomiting Diarrhea/Melena/Hematochezia GI Symptom: Negative for Diarrhea, Melena or Hematochezia Associated Symptoms Associated Symptoms: Negative for Dysuria, Frequency or Hematuria Narrative Narrative: 50-year-old male history of prior NH, CAD, stent, prior bowel obstruction that has an incisional hernia from where he had surgery for his bowel obstruction. He has seen local surgeon Car noyola who he was scheduled to see this week about the hernia to have it fixed. Last night he started having abdominal pain and is progressively worsened. He denies any nausea or vomiting. No diarrhea. No fever. Prior similar symptoms: No Recent Illness/Hospitalization: No PFSH PFSH Medical History Arthritis Atherosclerotic heart disease of [place] coronary artery without angina pectoris Back pain Cardiology follow-up encounter Chronic pain Coronary artery disease Depression Gastric reflux High cholesterol History of amputation of finger History of left heart catheterization (LHC) (~01/30/20) History of stress test Hyperlipidemia, unspecified Hypertension Marijuana use Myocardial infarct Narcolepsy Presence of stent in coronary artery (~11/18/19) Sleep apnea Smoker Smoker Substance abuse Vomiting Wears dentures Allergy/AdvReac Type Severity Reaction Status Date / Time metronidazole [From Flagyl] AdvReac Vomiting Verified 12/08/21 17:43 tetracycline AdvReac Vomiting Verified 12/08/21 17:43 Family History Father Heart disease Myocardial infarction Cancer esophageal Mother Cirrhosis Brother CVA (cerebral vascular accident) Surgical History History of coronary artery stent placement (~09/2019) History of hand surgery History of nasal surgery S/P small bowel resection Social History Smoking Status: Current every day smoker tobacco type: cigarettes alcohol intake: never substance use type: marijuana caffeine: Yes Type: carbonated beverages Number of servings: 4 and coffee Number of servings: 2 ROS ROS ED ROS Narrative Abdominal pain. Review of Systems ROS Unobtainable: Denies due to encephalopathy Constitutional Constitutional ED: Denies chills or fever(s) ENT ENT ED: Denies ear pain Cardiovascular Cardiovascular: Denies chest pain Respiratory/Chest Respiratory/Chest: Denies cough or dyspnea Gastrointestinal Gastrointestinal: Reports abdominal pain; Denies constipation, diarrhea, melena, nausea or vomiting Genitourinary Genitourinary ED: Denies dysuria or hematuria Musculoskeletal Musculoskeletal: Denies arthralgias Integumentary Denies abscess Neurologic Neurologic: Denies headache(s) Psychiatric Psychiatric: Denies anxiety Endocrine Endocrinology: Denies polydipsia Hematologic/Lymphatic Hematologic/Lymphatic: Denies easy bleeding Allergic/Immunologic Allergic/Immunologic ED: Denies mouth swelling EXAM Physical Exam Narrative Exam Narrative: 48-year-old male vital signs stable afebrile. Complain abdominal pain. H EENT exam unremarkable. Lungs clear. Heart regular rhythm rate about 90 no murmur. Abdomen soft mildly distended. He is obvious incisional hernia that appears to be incarcerated in the midline. Just above his umbilicus. Exquisitely tender to palpation. Unable to reduce at this time but he is in too much pain to push with much force. Moving all 4 extremities. Nontender no edema. Neurologically is awake and alert. Const Vital Signs: 12/08/21 17:44 Temperature 98.9 F Temperature Source Temporal Pulse Rate 89 Respiratory Rate 18 Blood Pressure 149/82 H Blood Pressure Mean 104 Pulse Ox 96 Oxygen Delivery Method Room Air Positive well nourished, well developed and obese; Negative for cachectic, contractures or unkempt General Appearance ED: well developed and NAD; Negative for unkempt, cachectic, contractures or pallor Nutritional Appearance: obese; Negative for cachectic HEENT Reports moist mucous membranes normocephalic and atraumatic; Negative for trauma or tenderness Eyes PERRL and EOMs intact bilaterally General Eye ED: Negative for pale conjunctiva or scleral icterus Neck no lymphadenopathy, supple and no JVD General: Negative for tenderness Carotids: Negative for other Lymph Lymphatic: Negative for other Resp normal respiratory effort and clear to auscultation bilaterally Effort and Inspection: Negative for respiratory distress, retractions or pain with movement Auscultation: Negative for rales, rhonchi or wheezes Cardio regular rate, regular rhythm, S1 normal heart sound, S2 normal heart sound and no murmurs Rate: Negative for bradycardia Rhythm: Negative for abnormal rhythm GI no masses; Negative for non-tender or non-distended Inspection: abdominal distention Auscultation: normoactive bowel sounds Palpation: soft, tender, guarding and hernia; Negative for rigid, hepatomegaly, splenomegaly, mass, pulsatile mass or rebound tenderness present Back/Spine no CVA tenderness Extremity full ROM General Extremety ED: Negative for edema or tenderness General Extremity: Negative for edema Neuro CN's II-XII intact bilaterally and moves all extremities Sensorium / Orientation: alert, oriented to person, oriented to place and oriented to time; Negative for orientation impaired or confused Motor Exam: strength 5/5 throughout Psych mental status grossly normal and thought process normal Appearance: Negative for unkempt Attitude: No agitated Mood & Affect: Negative for depressed, anxious or tearful Skin no wounds General Skin Exam: Negative for jaundice or pallor Rashes: no rashes Trauma: Negative for abrasion Nails: Negative for discolored MDM MDM MDM Narrative Medical decision making narrative: 50-year-old male known prior incisional hernia that is scheduled be repaired I believe this week. Having pain since yesterday. And suspected clinically an in carcerated hernia. CAT scan labs are pending. IV fluids, morphine and Zofran. While lying supine place an ice pack on it and see if this can possibly be reduced. I have general surgery on page. Dr. Shyann Rubio of general surgery came and evaluated the patient. She was able to reduce his hernia at 3:00 and laying supine, received IV pain medication and had an ice pack on it. He is feeling much better. She will admit him for observation and to determine when they are due his hernia repair. Lab Data Attestation: I reviewed the patient's lab results. Lab results narrative: CBC shows normal white count of 7.8. H&H is 17.9 and 52. Electrolytes shows a gap of 7 normal BUN and creatinine. Normal glucose. CT abdomen pelvis with IV contrast shows the abdominal incisional hernia. She has dilated loops of bowel. Awaiting formal radiology interpretation. Labs: Laboratory Results - last 24 hr 12/08/21 12/08/21 18:30 18:30 WBC 7.8 RBC 5.51 Hgb 17.9 H Hct 52.1 MCV 94.6 H MCH 32.5 H MCHC 34.4 RDW Std Deviation 46.1 H RDW Coeff of Jaya 13.2 Plt Count 246 MPV 9.8 Immature Gran % (Auto) 0.600 Neut % (Auto) 62.0 Lymph % (Auto) 24.5 Weber % (Auto) 8.7 Eos % (Auto) 3.3 Baso % (Auto) 0.9 Absolute Neuts (auto) 4.8 Absolute Lymphs (auto) 1.91 Nucleated RBC % 0 Sodium 143 Potassium 4.0 Chloride 107 Carbon Dioxide 29.0 Anion Gap 7 BUN 11 Creatinine 0.97 Estim Creat Clear Calc 86.19 Est GFR (MDRD) Af Amer 105 Est GFR (MDRD) Non-Af 87 BUN/Creatinine Ratio 11.4 Glucose 93 Calcium 9.1 Discharge Plan Dx/Rx/DC Orders Clinical Impression: Abdominal pain, Incarcerated incisional hernia, History of NH (myocardial infarction) Disposition Disposition: Acute Care Hospital [facility]
[2021-12-08] MEDS: Ondansetron 4 MG/2 ML Vial IV (18:47)
[2021-12-08] MEDS: morphine 8 MG/ML Syringe IV (18:47)
[2021-12-08] MEDS: 0.9% Normal Saline 1,000 ML 125 ML IV (18:49)
[2021-12-08 19:02] LABS: Absolute Lymphocyte Count 1.91 X10^3/uL (0.83-4.51); Absolute Neutrophil Count 4.8 X10^3/uL (2.0-7.7); Basophil# 0.07 X10^3/uL; Basophil% 0.9 % (0-1); Eosinophil# 0.26 X10^3/uL; Eosinophils% 3.3 % (0-5); Hematocrit 52.1 % (40-54); Hemoglobin 17.9 g/dL (13.0-16.5); Lymphocyte # 1.91 X10^3/ul (0.83-4.51); Lymphocyte % 24.5 % (19-41); Mean Corp Hgb Conc 34.4 g/dL (32-36); Mean Corpuscular Hgb 32.5 pg (27.0-32.0); Mean Corpuscular Volume 94.6 fL (80-94); Mean Platelet Vol. 9.8 fl (6.2-12.0); Monocyte# 0.68 X10^3/uL; Monocyte% 8.7 % (0-10); NRBC Flagged by Analyzer 0 % (0-5); Neutrophil # 4.83 X10^3/uL (2.7-7.7); Platelet Count 246 K/mm3 (150-450); RBC Distribution Width CV 13.2 % (11.6-14.6); RBC Distribution Width SD 46.1 fl (35.1-43.9); Red Blood Count 5.51 M/mm3 (4.6-6.2); White Blood Count 7.8 K/mm3 (4.4-11.0)
--- NOTE | 2021-12-08 19:04 | CT_ITS ---
STUDY: CT ABDOMEN AND PELVIS WITH CONTRAST ADMINISTRATION OF 1907 HOURS ON 12/08/2021 REASON FOR EXAM: 50 year-old male with suspected incarcerated hernia. RADIATION DOSAGE (If Supplied By Facility): CTDIvol = ( 18.09 ) mGy, DLP = ( 1247.13 ) mGycm. TECHNIQUE: Transaxial images were obtained from the dome of the diaphragm to the symphysis pubis without oral contrast. 100 mL of Isovue 370 was administered intravenously for this study. Sagittal and coronal images were reconstructed. Individualized dose optimization techniques were used for this CT. COMPARISON: 06/25/2021. FINDINGS: The visualized lung bases are unremarkable. The visualized portions of the heart are within normal limits. Normal liver. Normal gallbladder and extrahepatic biliary system. Normal spleen. Normal pancreas. No pancreatitis or pancreatic mass lesions. Normal bilateral adrenal glands. 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 No obstructive uropathy or pyelonephritis. There is a supraumbilical hernia measuring 6.8 cm in diameter with a 3.4 cm rectus diastasis containing a loop of dilated distal small intestine (ileum) with a mildly thickened wall and surrounding edema--likely incarcerated. Normal visualized stomach. Normal small intestine. No diverticulitis, colitis, or large intestinal obstruction. The appendix is visualized and appears normal. No appendicitis. Appendix is best visualized on coronal image 67. Normal abdominal aorta. Normal inferior vena cava. Normal retroperitoneum. Normal urinary bladder. Normal abdominal wall. Normal osseous structures. CT/Abdomen/Pelvis W IV Cont ONLY IMPRESSION: 1. There is a supraumbilical hernia measuring 6.8 cm in diameter with a 3.4 cm rectus diastasis containing a loop of dilated distal small intestine (ileum) with a mildly thickened wall and surrounding edema--likely incarcerated. 2. No appendicitis, diverticulitis, colitis, or large intestinal obstruction. 3. 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 4. No diverticulitis or pancreatitis. 5. No other significant abnormalities. Electronically Signed: Akin Adler MD at 20:53 EDT ,
[2021-12-08 19:17] LABS: Anion Gap 7 (5-15); BUN 11 mg/dL (7-18); BUN/Creat Ratio 11.4 RATIO (10-20); Calcium,Total 9.1 mg/dL (8.5-10.1); Chloride 107 mmol/L (98-107); Creatinine, Serum 0.97 mg/dL (0.70-1.30); EST Glomerular Filtration Rate 87 mL/min (>60); Est Glom Filt Rate - Afr Amer 105 mL/min (>60); Estimated Creatinine Clearance 86.19 ml/min; Glucose 93 mg/dL (74-106); Sodium Level 143 mmol/L (136-145)
--- NOTE | 2021-12-08 19:25 | PCM.HP.STD ---
HPI - General General Date of Admission: 12/08/21 HPI Narrative ARTURO STEVENSON, is a 50 M who presents to the ER due to a nominal pain/incarcerated incisional hernia. Patient was scheduled last week to have hernia repair with Dr. White however patient canceled due to other obligations. Patient states the pain started today and he noticed a lump in his abdomen along with throbbing pain. CT abdomen pelvis did show the small bowel anastomosis and the hernia. Patient supposed to be on baby aspirin as well as a beta-kasandra as he had a stent placed in 2019. Patient states about 3 months ago he went off all of his medications to also include some blood pressure meds. Patient states he only has reflux occasionally. [facility] Medical History Arthritis Atherosclerotic heart disease of [place] coronary artery without angina pectoris Back pain Cardiology follow-up encounter Chronic pain Coronary artery disease Depression Gastric reflux High cholesterol History of amputation of finger History of left heart catheterization (LHC) (~01/30/20) History of stress test Hyperlipidemia, unspecified Hypertension Marijuana use Myocardial infarct Narcolepsy Presence of stent in coronary artery (~11/18/19) Sleep apnea Smoker Smoker Substance abuse Vomiting Wears dentures Home Medications NK 12/08/21 [History Last Taken Unknown] Allergy/AdvReac Type Severity Reaction Status Date / Time metronidazole [From Flagyl] AdvReac Vomiting Verified 12/08/21 17:43 tetracycline AdvReac Vomiting Verified 12/08/21 17:43 Family History Father Heart disease Myocardial infarction Cancer esophageal Mother Cirrhosis Brother CVA (cerebral vascular accident) Surgical History History of coronary artery stent placement (~09/2019) History of hand surgery History of nasal surgery S/P small bowel resection Social History Smoking Status: Current every day smoker tobacco type: cigarettes alcohol intake: never substance use type: marijuana caffeine: Yes Type: carbonated beverages Number of servings: 4 and coffee Number of servings: 2 ROS Eyes Eyes: Denies blurry vision ENT HEENT: Denies dizziness Cardiovascular Cardiovascular: Denies chest pain Respiratory/Chest Respiratory/Chest: Denies shortness of breath at rest Gastrointestinal Gastrointestinal: Reports abdominal pain, anorexia and nausea; Denies constipation, dysphagia or heartburn Genitourinary Genitourinary: Denies dysuria Musculoskeletal Musculoskeletal: Denies extremity pain Integumentary Integumentary: Reports other Details: ?psoriasis around patient's waist and occasional patches over the lower extremities. Neurologic Neurologic: Denies abnormal speech Psychiatric Psychiatric: Denies anxiety or depression Hematologic/Lymphatic Hematologic/Lymphatic: Denies easy bruising Vital Signs Vital Signs Vital Signs: 12/08/21 17:44 Temperature 98.9 F Temperature Source Temporal Pulse Rate 89 Respiratory Rate 18 Blood Pressure 149/82 H Blood Pressure Mean 104 Pulse Ox 96 Oxygen Delivery Method Room Air Weight Weight: 220 lb Body Mass Index (BMI) 33.4 Physical Exam Const alert, oriented x3 and no apparent distress HEENT normocephalic and head/scalp atraumatic Resp normal respiratory effort Cardio regular rate GI soft to palpation; Negative for non-distended Palpation: tender other (At the supraumbilical incision site), guarding other (Voluntary) and hernia other (Incisional supraumbilical, reduced with gentle pressure) Extremity no clubbing, cyanosis or edema Neuro CN's II-XII intact bilaterally Psych mental status grossly normal Results Lab / Micro Data Result Diagrams: 12/09/21 04:56 12/09/21 04:56 Labs: Laboratory Results - last 24 hr 12/08/21 18:30: WBC 7.8, RBC 5.51, Hgb 17.9 H, Hct 52.1, MCV 94.6 H, MCH 32.5 H, MCHC 34.4, RDW Std Deviation 46.1 H, RDW Coeff of Jaya 13.2, Plt Count 246, MPV 9.8, Immature Gran % (Auto) 0.600, Neut % (Auto) 62.0, Lymph % (Auto) 24.5, Lawrence % (Auto) 8.7, Eos % (Auto) 3.3, Baso % (Auto) 0.9, Absolute Neuts (auto) 4.8, Absolute Lymphs (auto) 1.91, Nucleated RBC % 0 12/08/21 18:30: Sodium 143, Potassium 4.0, Chloride 107, Carbon Dioxide 29.0, Anion Gap 7, BUN 11, Creatinine 0.97, Estim Creat Clear Calc 86.19, Est GFR (MDRD) Af Amer 105, Est GFR (MDRD) Non-Af 87, BUN/Creatinine Ratio 11.4, Glucose 93, Calcium 9.1 Assessment & Plan Assessment/Plan (1) Ventral incisional hernia: PLAN: Plan Hernia was able to be reduced at bedside. Patient states his pain is much better. We will plan to keep patient overnight see how he does will discuss with Dr. White whether he is able to move up the surgery which patient states is scheduled for next month or if he needs more urgent surgery tomorrow. Okay for diet tonight then n.p.o. after midnight. Did discuss with patient the importance of continuing his medications as prescribed. Patient did come off his aspirin was on well as his beta-kasandra and blood pressure medicine about 3 months ago. Patient states he does go to drugs [place] and checks his blood pressure which is within normal range but is unable to tell me exactly what number it is. Flor Valera M.D. Pager: [phone] [facility] [address] [place] [address], [facility], [address] [place] [address] Office: [phone] Charges/Coding Visit Charges Inpatient E&M: 95954 Init Hosp L3
[2021-12-08] MEDS: Morphine 4 MG/ML Syringe IV (19:43)
[2021-12-08 19:45] VITALS: BP 178/86; PULSE 86; RESP 18; TEMP 36.7; O2SAT 98
[2021-12-08 20:41] VITALS: BP 129/82; PULSE 76; RESP 18; TEMP 36.7; O2SAT 96
[2021-12-08 20:46] VITALS: BMI 34.6
[2021-12-08] MEDS: Lactated Ringers 1,000 ML 100 ML IV (20:57)
[2021-12-09 02:40] VITALS: BP 105/57; PULSE 87; RESP 18; TEMP 36.6; O2SAT 95
[2021-12-09 05:11] LABS: Absolute Lymphocyte Count 1.45 X10^3/uL (0.83-4.51); Absolute Neutrophil Count 4.2 X10^3/uL (2.0-7.7); Basophil# 0.07 X10^3/uL; Basophil% 1.1 % (0-1); Eosinophil# 0.19 X10^3/uL; Eosinophils% 2.9 % (0-5); Hematocrit 49.4 % (40-54); Hemoglobin 17.1 g/dL (13.0-16.5); Lymphocyte # 1.45 X10^3/ul (0.83-4.51); Mean Corp Hgb Conc 34.6 g/dL (32-36); Mean Corpuscular Hgb 33.5 pg (27.0-32.0); Mean Corpuscular Volume 96.9 fL (80-94); Mean Platelet Vol. 9.6 fl (6.2-12.0); Monocyte# 0.64 X10^3/uL; Monocyte% 9.7 % (0-10); NRBC Flagged by Analyzer 0 % (0-5); Neutrophil # 4.18 X10^3/uL (2.7-7.7); Neutrophil % 63.5 % (47-70); Platelet Count 200 K/mm3 (150-450); RBC Distribution Width CV 13.2 % (11.6-14.6); RBC Distribution Width SD 47.6 fl (35.1-43.9); White Blood Count 6.6 K/mm3 (4.4-11.0)
[2021-12-09 05:40] LABS: Anion Gap 4 (5-15); BUN 7 mg/dL (7-18); BUN/Creat Ratio 8.8 RATIO (10-20); Calcium,Total 8.2 mg/dL (8.5-10.1); Chloride 109 mmol/L (98-107); Creatinine, Serum 0.79 mg/dL (0.70-1.30); EST Glomerular Filtration Rate 109 mL/min (>60); Est Glom Filt Rate - Afr Amer 132 mL/min (>60); Estimated Creatinine Clearance 109.38 ml/min; Glucose 98 mg/dL (74-106); Potassium 3.9 mmol/L (3.5-5.1); Sodium Level 140 mmol/L (136-145)
[2021-12-09] MEDS: Lactated Ringers 1,000 ML 100 ML IV (06:20)
--- NOTE | 2021-12-09 07:39 | PN.SURG_ITS ---
Subjective Subjective Patient denies any abdominal pain. Does complain of a headache. Objective Data Objective Data Vital Signs: Vital Signs Temp Pulse Resp BP Pulse Ox O2 Del Method 97.9 F 87 18 105/57 L 95 Room Air 12/09/21 02:40 12/09/21 02:40 12/09/21 02:40 12/09/21 02:40 12/09/21 02:40 12/09/21 02:40 Oxygen Delivery Method Room Air Weight: 234 lb 9.149 oz Body Mass Index (BMI) 34.6 Intake & Output: Intake and Output for Last 24 Hours 12/07/21 12/08/21 12/09/21 23:59 23:59 23:59 Intake Total 374.58 / 594.58 1158.33 / 1158.33 Balance 374.58 / 594.58 1158.33 / 1158.33 Lab / Micro Data Result Diagrams: 12/09/21 04:56 12/09/21 04:56 Labs: Laboratory Results - last 24 hr 12/08/21 18:30: WBC 7.8, RBC 5.51, Hgb 17.9 H, Hct 52.1, MCV 94.6 H, MCH 32.5 H, MCHC 34.4, RDW Std Deviation 46.1 H, RDW Coeff of Jaya 13.2, Plt Count 246, MPV 9.8, Immature Gran % (Auto) 0.600, Neut % (Auto) 62.0, Lymph % (Auto) 24.5, Irwin % (Auto) 8.7, Eos % (Auto) 3.3, Baso % (Auto) 0.9, Absolute Neuts (auto) 4.8, Absolute Lymphs (auto) 1.91, Nucleated RBC % 0 12/08/21 18:30: Sodium 143, Potassium 4.0, Chloride 107, Carbon Dioxide 29.0, An ion Gap 7, BUN 11, Creatinine 0.97, Estim Creat Clear Calc 86.19, Est GFR (MDRD) Af Amer 105, Est GFR (MDRD) Non-Af 87, BUN/Creatinine Ratio 11.4, Glucose 93, Calcium 9.1 12/09/21 04:56: WBC 6.6, RBC 5.10, Hgb 17.1 H, Hct 49.4, MCV 96.9 H, MCH 33.5 H, MCHC 34.6, RDW Std Deviation 47.6 H, RDW Coeff of Jaya 13.2, Plt Count 200, MPV 9.6, Immature Gran % (Auto) 0.800, Neut % (Auto) 63.5, Lymph % (Auto) 22.0, Irwin % (Auto) 9.7, Eos % (Auto) 2.9, Baso % (Auto) 1.1 H, Absolute Neuts (auto) 4.2, Absolute Lymphs (auto) 1.45, Nucleated RBC % 0 12/09/21 04:56: Sodium 140, Potassium 3.9, Chloride 109 H, Carbon Dioxide 27.0, Anion Gap 4 L, BUN 7, Creatinine 0.79, Estim Creat Clear Calc 109.38, Est GFR (MDRD) Af Amer 132, Est GFR (MDRD) Non-Af 109, BUN/Creatinine Ratio 8.8 L, Glucose 98, Calcium 8.2 L Radiography Diagnostic Testing: Radiology Impression Abdomen/Pelvis CT 12/08/21 19:04 IMPRESSION: 1. There is a supraumbilical hernia measuring 6.8 cm in diameter with a 3.4 cm rectus diastasis containing a loop of dilated distal small intestine (ileum) with a mildly thickened wall and surrounding edema--likely incarcerated. 2. No appendicitis, diverticulitis, colitis, or large intestinal obstruction. 3. 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 4. No diverticulitis or pancreatitis. 5. No other significant abnormalities. Electronically Signed: Akin Adler MD at 20:53 EDT , Physical Exam Const oriented x3 and no apparent distress Resp normal respiratory effort Cardio regular rate GI GI Narrative: Abdomen soft, nondistended, nontender, incisional ventral hernia easily reducible no peritoneal signs Assessment & Plan Assessment/Plan (1) Ventral incisional hernia: PLAN: Plan Patient's hernia is easily reducible. We will plan to move surgery with Dr. White. Did previously teach patient the ER how to reduce the hernia if needed. Encourage patient to go on his home medications specially his aspirin however I would want that is postop 5 days prior to surgery. We will talk with the office to try to move up his previously scheduled 01/08 date. Patient was agreeable with plan. Flor Valera M.D. Pager: [phone] [facility] [address] [place] [address], [address] [place] [address] Office: [phone] Charges/Coding Visit Charges Inpatient E&M: 16552 Subs Hosp L2
[2021-12-09] MEDS: Acetaminophen 325 MG Tablet 650 MG PO (08:04)
--- NOTE | 2021-12-09 08:33 | DCINST_ITS ---
Discharge Instructions Diet Discharge Diet: Carb Control Diet Activity Lifting Restrictions: Avoid heavy lifting until surgery Follow Up Care Test Results: Test results from this visit will be discussed in further detail at your follow- up appointment, if applicable. Discharge Plan Admission Admit Date/Time: 12/08/21 19:28 Attending Provider: Flor Valera Primary Care Provider: Destiney Gilmore Instructions Additional Instructions / Restrictions: Office will be in touch to move up surgery date with Dr. White. Discharge Orders/Prescriptions Prescriptions: No Action NK Referrals / Follow Up: Destiney Gilmore MD [Primary Care Provider] - Disposition Disposition (needs filled in before D/C Order can be placed): Home, Self Care
[2021-12-09 09:14] VITALS: BP 136/87; PULSE 84; RESP 18; TEMP 36.7; O2SAT 96
== END 2021-12-09 09:15 | disposition home or self-care (01) ==
LOC: ED 18:53 → MS3 19:41
PROVIDERS: Admitting Provider Surgery; Emergency Provider Emergency Medicine; PCP Family Medicine; Visit Provider Surgery
DX: K43.0 Incisional hernia with obstruction, without gangrene (principal); E78.00 Pure hypercholesterolemia, unspecified; I10 Essential (primary) hypertension; I25.10 Atherosclerotic heart disease of native coronary artery without angina pectoris; G47.30 Sleep apnea, unspecified; F17.210 Nicotine dependence, cigarettes, uncomplicated; I25.2 Old myocardial infarction; M19.90 Unspecified osteoarthritis, unspecified site
CPT/HCPCS: 36415; 74177; 80048; 85025; 96361; 96365; 96375; 96376; 99218; 99285; 99406; J7030; J7120; Q9967; A4216; G0378; J2405

== ENCOUNTER 2021-12-25 11:20 | Day surgery (SDC) | payer MEDICAID, SELFPAY ==
[2021-12-25] VITALS (14 sets, daily range): BP systolic 106–152; BP diastolic 56–92; PULSE 77–99; RESP 16–18; TEMP 36.6–36.9; O2SAT 90–97; BMI 34.4
[2021-12-25] MEDS: Lactated Ringers 1,000 ML 15 ML IV ×3 (11:59→18:30)
--- NOTE | 2021-12-25 12:09 | PCM.HP.BLA ---
History and Physical Date of Admission: 12/25/21 Intake Vital Signs ? 11/11/2207:24 Height 5 ft 8 in Weight: 231 lb BMI 35.1 BP 132/84 H Blood Pressure Location Rt brachial Position Sitting Respiration 16 Pulse 108 H Pulse Source Monitor Temp 97.5 F L Temp Source Temporal Pulse Oximetry (%) 97 Oxygen Delivery Method room air Intake Visit Reasons:?VENTRAL HERNIA Chief Complaint: Ventral hernia Nurse Midwife/Clinical Instructor Required: No Is patient in pain?: No Allergies metronidazole [From Flagyl] Adverse Reaction (Verified 11/10/21 08:25) Vomitingtetracycline Adverse Reaction (Verified 11/10/21 08:25) Vomiting Nurse's Note: Patient states that he has taken himself off of all of his medications. States that he feels better then when he was taking the medications and feels he does not need them. Patient also states he has sleep apnea but does not wear his C-pap. Patient educated in detail of importance of not taking himself off medications and to wear his cpap. Patient advised to talk with his PCP about his medications. PFSH Medical History? Arthritis Atherosclerotic heart disease of [place] coronary artery without angina pectoris Back pain Cardiology follow-up encounter Chronic pain Coronary artery disease Depression Gastric reflux High cholesterol History of amputation of finger History of left heart catheterization (LHC) (~01/30/20) History of stress test Hyperlipidemia, unspecified Hypertension Marijuana use Myocardial infarct Narcolepsy Presence of stent in coronary artery (~11/18/19) Sleep apnea Smoker Smoker Substance abuse Vomiting Wears dentures Surgical History? History of coronary artery stent placement (~09/2019) History of hand surgery History of nasal surgery S/P small bowel resection Family History? Father Heart disease Myocardial infarction Cancer ?? ? esophagealMother CirrhosisBrother CVA (cerebral vascular accident) Social History? Smoking Status:? Current every day smoker tobacco type: cigarettes alcohol intake:? never substance use type:? marijuana caffeine:? Yes Type: carbonated beverages Number of servings: 4 and coffee Number of servings: 2 HPI HPI HPI: ARTURO STEVENSON, is a 50 M who presents to the office today for ventral hernia.? Patient says that he slipped and fell about a month ago and noticed a bulge at his incision site.? He says it is growing larger and becoming more uncomfortable.? He denies any nausea or vomiting or fevers or chills. ROS General General: Yes weight change; No appetite, fatigue, colon cancer, breast cancer or weakness Additional Details: Recent weight gain HEENT HEENT: No difficulty swallowing, eye injury, eye surgery, swollen glands or hoarseness Endo Endocrine: No thyroid disease, diabetes mellitus, thyroid cancer, Hair loss, heat intolerance or cold intolerance Skin Skin: No rash or changing moles Breast Breast: No left breast lump, right breast lump, nipple discharge, breast pain, abnormal mammogram, abnormal US or breast enlargement Musc Musculoskeletal: Yes back problems and gout; No arthritis, rheumatoid arthritis or joint pain Cardio Cardiovascular: Yes high blood pressure, heart attack and heart stent; No murmur, pacemaker, heart disease, atrial fibrillation, palpitations, shortness of breat with exertion or chest pain Psych Psychiatric: Yes depression; No anxiety or hearing voices Resp Respiratory: No shortness of breath, Yes sleep apnea, No cough, No COPD, No asthma, No emphysema and No wheezing Gastro Gastrointestinal: Yes abdominal pain, No nausea or vomiting, No diarrhea, No constipation, No blood in stool, Yes acid reflux, Yes hemorrhoids, No ulcers, No gallbladder problem and No black,tarry stools Jose Roberto Hematologic: No blood thinners, No blood disorders, No bleeding, No anemia and No blood clots Neuro Neurologic: No system reviewed and no additional complaints, except as documented, No as per HPI, No abnormal gait, No abnormal hearing, No abnormal movements, No abnormal speech, No behavioral changes, No burning sensations, No confusion, No convulsions, No disequilibrium, No dizziness, No localized weakness, No frequent falls, No headache(s), No lack of coordination, No loss of vision, No memory loss, No numbness, No other visual disturbances, No radicular pain, No restless legs, No sensory deficit, No syncope, No tingling, No tremor(s), No weakness and No other Exam Const General: cooperative Orientation: alert and oriented x3 HENMT Head: normal to inspection Neck Neck: normal visual inspection and full ROM Chest Chest palpation & inspection: normal inspection of the chest Resp Effort & Inspection: normal respiratory effort Auscultation: clear to auscultation bilaterally Cardio Rate: regular rate Rhythm: regular rhythm GI Inspection: non-distended Palpation: soft, hernia ventral and nontender Skin General: no rashes or lesions noted Neuro General: patient alert and patient oriented x3 Extrem General: full ROM Psych Appearance: grossly normal Mental Status: mental status grossly normal Assessment and Plan Assessment and Plan (1) Ventral incisional hernia: ?Status:?Acute ?Plan: The patient has an incisional hernia at his ventral incision site.? It is reducible.? I discussed robotic assisted laparoscopic ventral hernia repair with mesh with him.? I discussed the procedure as well as the risks including but not limited to bleeding, infection, injury to underlying organs.? I discussed mesh placement in detail with the patient as well.? Patient understands the procedure is willing to proceed.? Patient reports he has not been taking his medications.? I recommend that he least resume his beta-blockade for his heart for perioperative mortality and morbidity risk.? If he does resume his Brilinta I would like him to stop it 5 days prior to the procedure. Car White MD Pager: [facility] [address] [place] [address] [address] [place] [address] Office: I have re-examined the patient. There are no clinical changes since date of exam.
[2021-12-25] MEDS: Cefazolin 2 GM in 0.9% Normal Saline 100 ML IV (13:00)
--- NOTE | 2021-12-25 14:30 | PCM.OPRPT ---
Report of Operation Date of Procedure: 12/25/21 Pre-Operative Diagnosis: Incisional ventral hernia Post-Operative Diagnosis: Same Surgery/Procedure Performed:: Robotic assisted laparoscopic incisional ventral hernia repair with mesh Description of Procedure: Patient was brought back the operating room and general anesthesia was induced. The abdomen was prepped and draped in usual sterile fashion. An incision was made in the left upper quadrant and a Veress needle was placed into the abdomen and a drop test was performed. The abdomen was insufflated 15 mmHg. The needle was removed and a port was placed. Camera was inserted to the abdomen is inspected. There were no injuries from entry. Under direct visualization a lateral and left lower quadrant 8 mm port were placed. Next the robot was docked. The peritoneum was incised lateral to the defect and dissection was carried medially using electrocautery scissors and grasper. The hernia sac was reduced into the abdomen. Dissection was carried laterally. Next the pressure was dropped to 8 mmHg and the defect was closed with a running #1 STRATAFIX suture in 2 layers. Next the openings in the peritoneum were closed with a running 3 lock suture. Next a 10 x 12 cm ProGrip was placed into the abdomen over the hernia defect and unfolded in adhered to the anterior abdominal wall. Next the peritoneum was reapproximated laterally using a running 3-0V lock suture. Once this area of the peritoneum was reapproximated the peritoneum completely cover the mesh with no defects. Next the instruments were removed and the robot was undocked. The abdomen was allowed to desufflate and the ports were removed. The incisions were injected with local anesthetic and closed with interrupted 4-0 Monocryl suture as well as Steri-Strips and bandages. Patient was then awoken and taken to PACU in stable condition. Grafts/Implants Used: ProGrip mesh Admit VTE Documentation VTE Mechan Device Prophylaxis: SCD's
--- NOTE | 2021-12-25 14:33 | DCINST_ITS ---
Discharge Instructions Procedure Hernia Diet Discharge Diet: Light diet - advance as tolerated Activity Discharge Activity: May Not Drive (for 2-3 days or while taking narcotic pain meds.) and May Shower (with the bandage in place 1-2 days after surgery.) Lifting Restrictions: 20 pounds for 6 weeks. Additional Activity Instructions:: Climbing stairs is fine, walking is encouraged. Sitting in bed may be uncomfortable. Sitting up using your lateral muscles (sitting up sideways) is usually more comfortable. Do not drive, work heavy equipment of sign legal documents for 24 hours. Pain medications may cause nausea, you should typically eat light foods as you take your pain medications. Pain medications may also cause constipation. If you have difficulty with this, discuss with your doctor. Dressing / Incision Call your doctor if your incision/area has: Continuous Slow Oozing, Sudden Increased Bleeding, Increased Pain/ Swelling, Increased Redness and Foul Smelling Discharge Call your doctor if you observe: Fever of 101 or Higher Suture Line Care: Avoid Pulling/Pushing and Avoid Pinching/Bending Remove Dressing in: 3 days (Remove clear bandages in 3 days, remove Steri-Strips in 7 to 10 days.) Cleanse incision/area with: Soap & Water Additional Dressing/Incision Instructions:: Remove clear bandages in 3 days, remove Steri-Strips in 7 to 10 days. Follow Up Care Please Follow Up With: Car White MD When: Please call to schedule 2 week follow up appointment. [phone] Test Results: Test results from this visit will be discussed in further detail at your follow- up appointment, if applicable. Discharge Plan Admission Attending Provider: Car White Primary Care Provider: Destiney Gilmore Instructions Additional Instructions / Restrictions: Ibuprofen and Tylenol alternating for pain Discharge Orders/Prescriptions Prescriptions: New oxycodone 5 mg tablet 5 - 10 mg PO Q4H PRN (Reason: pain) 5 Days Qty: 20 0RF No Action aspirin 81 mg tablet,delayed release (DR/EC) 81 mg PO DAILY Qty: 90 3RF Label Comments: PT STATES TAKES MEDS AT 000 AND 1200. HAS TAKEN ALL MEDS LAST AT 000 HAS NOT TAKEN BID MEDS @1200 TODAY. atorvastatin 40 mg tablet 40 mg PO QHS Qty: 90 3RF Referrals / Follow Up: Destiney Gilmore MD [Primary Care Provider] - Disposition Disposition (needs filled in before D/C Order can be placed): Home, Self Care
[2021-12-25] MEDS: oxyCODONE 5 MG Tablet PO (16:08)
--- NOTE | 2021-12-25 16:25 | SUR.PREOP ---
pt's daughter called in multiple times to check on pt's status- status update given with permission of patient
--- NOTE | 2021-12-25 16:45 | SUR.PHASEI ---
HAS KNOWN O.S.A. BUT DOES NOT WEAR CPAP AT HOME, STATES HE CANNOT TOLERATE THE MASK. PATIENT DOES HAVE PERIODS OF APNEA OBSERVED BUT IMPROVES AFTER AWAKENING, TAKES DEEP BREATHS, USES INCENTIVE SPIROMETRY. ABLE TO MAINTAIN SPO2 AT 92-95% ON ROOM AIR WHEN AWAKE. GIVEN PUFF ALBUTEROL PER DR SELF VERBAL INSTRUCTION. ENCOURAGED SPLINTING INCISION WHEN COUGHING.
== END 2021-12-25 19:24 | disposition home or self-care (01) ==
LOC: SDC 11:21 → AC 11:22
PROVIDERS: PCP Family Medicine; Referring Provider Surgery; Visit Provider Surgery
PROC: (CPT 49652; principal; 2021-12-25 12:40)
DX: K43.2 Incisional hernia without obstruction or gangrene (principal); F17.210 Nicotine dependence, cigarettes, uncomplicated; F12.90 Cannabis use, unspecified, uncomplicated; I25.2 Old myocardial infarction; I25.10 Atherosclerotic heart disease of native coronary artery without angina pectoris; G47.30 Sleep apnea, unspecified; Z95.5 Presence of coronary angioplasty implant and graft
CPT/HCPCS: 49652; S2900; 00832; J7120; J2405

== ENCOUNTER → 2022-06-03 | Outpatient (CLI) | payer MEDICAID, SELFPAY ==
--- NOTE | 2022-06-03 09:37 | US_ITS ---
EXAM: US Abdomen Limited (quadrant) HISTORY: abdominal pain-hernia - s/p ventral hernia repair COMPARISON: None Technique: Subcutaneous ultrasound evaluation from the midline of the abdomen to the umbilicus., Previous ventral hernia repair FINDINGS: Executive Administrator demonstrates a 3.8 x 5.7 x 1.3 cm irregular solid and cystic area posterior to patient''s incision from hernia repair. No flow is identified within it, findings suggest hematoma or seroma. There is also sonographic evidence of bowel protruding past the left lateral edge of the mesh suspicious for re-hernia or new hernia US/Abdomen Limited IMPRESSION: Poorly defined 3.8 x 5.7 x 1.3 cm complex solid and cystic area posterior to the incision concerning for hematoma or seroma Executive Administrator notes a bowel loop protruding past the left lateral edge of the mesh suggesting re-hernia Electronically Signed: Ty Morales MD at 10:20 EDT ,
== END | disposition home or self-care (01) ==
LOC: US 09:36
PROVIDERS: PCP Family Medicine; Referring Provider Surgery; Visit Provider Surgery
DX: K46.9 Unspecified abdominal hernia without obstruction or gangrene (principal); R10.9 Unspecified abdominal pain; R11.0 Nausea
CPT/HCPCS: 76705

== ENCOUNTER 2022-12-02 06:00 | Day surgery (SDC) | payer MEDICAID, SELFPAY ==
--- NOTE | 2022-11-27 08:37 | EKG12_ITS ---
Test Reason : PREOP Blood Pressure : / mmHG Vent. Rate : 071 BPM Atrial Rate : 071 BPM P-R Int : 124 ms QRS Dur : 098 ms QT Int : 376 ms P-R-T Axes : 060 056 037 degrees QTc Int : 408 ms Normal sinus rhythm Normal ECG Confirmed by PRISCA PAK, RUPERT ([id number]), assistant editor BLANOC TURNER ([id number]) on 12/07/2022 7:39:09 AM Referred By: Car White Confirmed By:RUPERT COPE MD
[2022-11-27 09:35] LABS: Hemoglobin 18.1 g/dL (13.0-16.5); Mean Corp Hgb Conc 35.5 g/dL (32-36); Mean Corpuscular Hgb 33.2 pg (27.0-32.0); Mean Corpuscular Volume 93.4 fL (80-94); Mean Platelet Vol. 9.7 fl (6.2-12.0); Platelet Count 241 K/mm3 (150-450); RBC Distribution Width CV 12.9 % (11.6-14.6); RBC Distribution Width SD 43.9 fl (35.1-43.9); Red Blood Count 5.46 M/mm3 (4.6-6.2); White Blood Count 7.2 K/mm3 (4.4-11.0)
[2022-11-27 09:39] LABS: Scan Indicated on CBC? Y/N NO
[2022-11-27 10:03] LABS: Anion Gap 4 (5-15); BUN 8 mg/dL (7-18); BUN/Creat Ratio 8.7 RATIO (10-20); Calcium,Total 9.1 mg/dL (8.5-10.1); Chloride 107 mmol/L (98-107); Creatinine, Serum 0.92 mg/dL (0.70-1.30); EST Glomerular Filtration Rate 92 mL/min (>60); Est Glom Filt Rate - Afr Amer 111 mL/min (>60); Glucose 102 mg/dL (74-106); Potassium 3.9 mmol/L (3.5-5.1); Sodium Level 138 mmol/L (136-145)
[2022-11-30 12:54] LABS: Pathologist Review Reviewed
[2022-12-02] VITALS (8 sets, daily range): BP systolic 116–141; BP diastolic 74–96; PULSE 83–98; RESP 16–18; TEMP 36.1–36.6; O2SAT 92–96; BMI 33.5
--- NOTE | 2022-12-02 | HERN_PTH ---
PATIENT: ARTURO STEVENSON LOC: [facility] U#:[id number] AGE/SX: 51/M ROOM: RE12/02/[address]: Dr. Car White MD : [id number] BED: DIS: 12/02/2022 SPEC #: [id number] RECD: 12/02/22 11:42 STATUS: ONEIDA VANG #: [id number] JASON: 12/02/22 00:[address]: Car White DEPT: SURGICAL PATHOLOGY RECD BY: Yulia Arreola ENTERED: 12/02/22 13:23 SP TYPE: Hernia OTHR DR: Dr. Destiney Gilmore MD Tissues: HERNIA Procedures: Surgery Specimen Level II HEADER OPERATION: Laparoscopic recurrent ventral repair with mesh PRE-OP DIAGNOSIS: Recurrent ventral hernia TISSUE SUBMITTED: Ventral hernia sac MICROSCOPIC DIAGNOSIS Ventral hernia sac, herniorrhaphy: Fibrosis, minimal chronic inflammation and vascular congestion. AM:marine 12/03/2022 MICROSCOPIC DESCRIPTION Slides are reviewed. GROSS DESCRIPTION Received in fixative is one container labeled with the patient's name and designated ventral hernia sac. The specimen consists of two pieces of pink, indurated tissue measuring in aggregate 5.0 x 5.0 x 1.0 cm. No mass lesion is identified. [facility] W[facility] sections are submitted in one cassette. / SJ:marine 12/02/2022 TC:5 CPT: 85136
--- NOTE | 2022-12-02 06:23 | PCM.HP.BLA ---
History and Physical Date of Admission: 12/02/22 Intake Vital Signs 12/25/2210:56 11/19/2307:37 Height 5 ft 9 in 5 ft 9 in Weight: 227 lb BMI 33.5 BP 118/76 Blood Pressure Location Rt brachial Position Sitting Respiration 17 Pulse 89 Pulse Source Monitor Pulse Oximetry (%) 96 Oxygen Delivery Method room air Intake Visit Reasons: Hernia Chief Complaint: hernia Is patient in pain?: Yes Allergies metronidazole [From Flagyl] Adverse Reaction (Verified 11/18/22 08:38) Vomitingtetracycline Adverse Reaction (Verified 11/18/22 08:38) Vomiting COUNT INCLUDES THE [facility] Medical History Arthritis Atherosclerotic heart disease of [place] coronary artery without angina pectoris Back pain Cardiology follow-up encounter Chronic cough Chronic pain Coronary artery disease Depression Gastric reflux High cholesterol History of amputation of finger History of echocardiogram History of left heart catheterization (LHC) (~01/30/20) History of ND (myocardial infarction) History of stress test Hyperlipidemia, unspecified Hypertension Injury of head and neck Marijuana use Myocardial infarct Narcolepsy Presence of stent in coronary artery (~11/18/19) Sleep apnea Smoker Smoker Substance abuse Vomiting Wears dentures Surgical History History of cardiac catheterization History of coronary artery stent placement (~09/2019) History of hand surgery History of nasal surgery S/P hernia repair S/P small bowel resection Family History Father Heart disease Myocardial infarction Cancer esophagealMother CirrhosisBrother CVA (cerebral vascular accident) Social History Smoking Status: Heavy Smoker (>10/day) alcohol intake: never substance use type: marijuana caffeine: Yes Type: carbonated beverages Number of servings: 4 and coffee Number of servings: 2 HPI HPI HPI: Patient is a 51-year-old male here with recurrent hernia. The patient had laparotomy for small bowel obstruction and then had a his hernia repaired with mesh and reports that for the last 6 months he has been having increased swelling and pain. ROS General General: No weight change, appetite, fatigue, colon cancer, breast cancer or weakness HEENT HEENT: No difficulty swallowing, eye injury, eye surgery, swollen glands or hoarseness Endo Endocrine: No thyroid disease, diabetes mellitus, thyroid cancer, Hair loss, heat intolerance or cold intolerance Skin Skin: No rash or changing moles Musc Musculoskeletal: Yes back problems, arthritis and gout; No rheumatoid arthritis or joint pain Cardio Cardiovascular: Yes heart attack and heart stent; No murmur, pacemaker, heart disease, atrial fibrillation, high blood pressure, palpitations, shortness of breat with exertion or chest pain Psych Psychiatric: No depression, anxiety or hearing voices Resp Respiratory: No shortness of breath, Yes sleep apnea, Yes cough, No COPD, No asthma, No emphysema and No wheezing Gastro Gastrointestinal: Yes abdominal pain, Yes nausea or vomiting, No diarrhea, No constipation, No blood in stool, No acid reflux, Yes hemorrhoids, No ulcers, No gallbladder problem and No black,tarry stools Jose Roberto Hematologic: No blood thinners, No blood disorders, No bleeding, No anemia and No blood clots Neuro Neurologic: No system reviewed and no additional complaints, except as documented, No as per HPI, No abnormal gait, No abnormal hearing, No abnormal movements, No abnormal speech, No behavioral changes, No burning sensations, No confusion, No convulsions, No disequilibrium, No dizziness, No localized weakness, No frequent falls, No headache(s), No lack of coordination, No loss of vision, No memory loss, No numbness, No other visual disturbances, No radicular pain, No restless legs, No sensory deficit, No syncope, No tingling, No tremor(s), No weakness and No other Exam Const General: cooperative Orientation: alert and oriented x3 HENMT Head: normal to inspection Neck Neck: normal visual inspection and full ROM Chest Chest palpation & inspection: normal inspection of the chest Resp Effort & Inspection: normal respiratory effort Auscultation: clear to auscultation bilaterally Cardio Rate: regular rate Rhythm: regular rhythm GI Inspection: non-distended Palpation: soft, hernia ventral and nontender Skin General: no rashes or lesions noted Neuro General: patient alert and patient oriented x3 Extrem General: full ROM Psych Appearance: grossly normal Mental Status: mental status grossly normal Assessment and Plan Assessment and Plan (1) Recurrent ventral hernia: Status: Acute Plan: The patient is having a recurrence of his ventral hernia. I discussed performing a laparoscopic hybrid approach with him. I discussed having to perform open procedure if laparoscopic was unable to be performed. I discussed placement of mesh. I discussed the risks of the procedure including but not limited to bleeding, infection, injury to underlying organs such as bowel. Patient understands the risks and is willing to proceed. Car White MD Pager: [facility] [address] [place] [address], [address] [place] [address] Office: I have examined the patient and the H&P has been reviewed. There are no clinical changes since date of exam.
[2022-12-02] MEDS: Lactated Ringers 1,000 ML 15 ML IV (06:54)
[2022-12-02] MEDS: Cefazolin 2 GM in 0.9% Normal Saline (100mL Bag) 100 ML IV (07:54)
[2022-12-02] MEDS: BUPIVACAINE LIPOSOME/PF 20 ML VIAL OPERA.SITE (08:13)
--- NOTE | 2022-12-02 09:43 | PCM.OPRPT ---
Report of Operation Date of Procedure: 12/02/22 Pre-Operative Diagnosis: Recurrent ventral hernia 3-10 centimeter Post-Operative Diagnosis: Same Surgery/Procedure Performed:: Laparoscopic hybrid approach ventral hernia repair with mesh 4 cm Type of Anesthesia: General/Regional Specimen's removed: Hernia sac Estimated Blood Loss (mL): 10 Description of Procedure: Patient was brought back to the operating room and general anesthesia was induced. The abdomen was prepped and draped in usual sterile fashion. An incision was made in the right upper quadrant and Visiport technique was used to place a 5 mm port. The abdomen is then insufflated 15 mmHg. On the patient's left lateral abdominal sidewall another incision was made and a 5 mm port was placed. Under laparoscopic guidance a tap block was performed bilaterally. Next another 5 mm port was placed on the patient's left. The adhesions from the omentum to the hernia were taken down using harmonic and the hernia was freed up. The falciform ligament was also taken down using the harmonic scalpel. It appeared that the recurrence was to the left of the mesh. Next an incision was made in the midline and the hernia sac was identified and dissected free and removed. The fascia cleaned at its edges. Next a [address] mesh with echo positioning device was placed into the abdomen and the fascia was reapproximated using interrupted #1 PDS sutures. Next the abdomen is insufflated and the camera was reinserted into the abdomen. The echo device was inflated with air and pulled upward. Next the mesh was tacked to the anterior abdominal wall in 4 quadrants. The echo device was then removed through a 5 mm port. Next circumferential tacks were placed and the old mesh was adequately covered as well as the defect. The air was allowed to deflate from the abdomen and the ports were removed. The incisions were injected with local anesthetic and closed interrupted 4-0 Monocryl suture. Steri-Strips and bandages were applied. Patient was taken to PACU in stable condition. Grafts/Implants Used: [address] mesh Admit VTE Documentation VTE Mechan Device Prophylaxis: SCD's
--- NOTE | 2022-12-02 09:46 | DCINST_ITS ---
Discharge Instructions Procedure Hernia Diet Discharge Diet: Light diet - advance as tolerated Activity Discharge Activity: May Not Drive (for 2-3 days or while taking narcotic pain meds.) and May Shower (with the bandage in place 1-2 days after surgery.) Lifting Restrictions: 20 pounds for 6 weeks. Additional Activity Instructions:: Climbing stairs is fine, walking is encouraged. Sitting in bed may be uncomfortable. Sitting up using your lateral muscles (sitting up sideways) is usually more comfortable. Do not drive, work heavy equipment of sign legal documents for 24 hours. Pain medications may cause nausea, you should typically eat light foods as you take your pain medications. Pain medications may also cause constipation. If you have difficulty with this, discuss with your doctor. Dressing / Incision Call your doctor if your incision/area has: Continuous Slow Oozing, Sudden Increased Bleeding, Increased Pain/ Swelling, Increased Redness and Foul Smelling Discharge Call your doctor if you observe: Fever of 101 or Higher Suture Line Care: Avoid Pulling/Pushing and Avoid Pinching/Bending Remove Dressing in: 2 days (Remove clear bandages in 2 days, remove Steri-Strips in 7 to 10 days.) Follow Up Care Please Follow Up With: Car White MD When: Please call to schedule 2 week follow up appointment. [phone] Test Results: Test results from this visit will be discussed in further detail at your follow- up appointment, if applicable. Discharge Plan Admission Attending Provider: Car White Primary Care Provider: Destiney Gilmroe Instructions Additional Instructions / Restrictions: Ibuprofen and Tylenol for pain, oxycodone for breakthrough. Discharge Orders/Prescriptions Prescriptions: New oxycodone 5 mg tablet 5 - 10 mg PO Q6H PRN (Reason: pain) 5 Days Qty: 20 0RF Referrals / Follow Up: Destiney Gilmore MD [Primary Care Provider] - Disposition Disposition (needs filled in before D/C Order can be placed): Home, Self Care
[2022-12-02] MEDS: Acetaminophen 500 MG Tablet 1000 MG PO (11:54)
--- NOTE | 2022-12-02 14:00 | SUR.PHASEII ---
Dressing above umbilicus saturated, Dr Christopher vides. ok to change dressing. hold pt here 20 min then ok to d/c.
--- NOTE | 2022-12-02 14:32 | SUR.PHASEII ---
no further drainage after dressing was changed, pt ready for d/c.
== END 2022-12-02 14:38 | disposition home or self-care (01) ==
LOC: SDC 06:01 → AC 06:01
PROVIDERS: Anesthesiology; PCP Family Medicine; Referring Provider Surgery; Visit Provider Surgery
PROC: 0WQF4ZZ Repair Abdominal Wall, Percutaneous Endoscopic Approach (ICD-10-PCS; CPT 49615; principal; 2022-12-02 07:40)
DX: K43.9 Ventral hernia without obstruction or gangrene (principal); E78.00 Pure hypercholesterolemia, unspecified; G47.30 Sleep apnea, unspecified; I25.10 Atherosclerotic heart disease of native coronary artery without angina pectoris; I10 Essential (primary) hypertension; F17.200 Nicotine dependence, unspecified, uncomplicated; I25.2 Old myocardial infarction; Z95.5 Presence of coronary angioplasty implant and graft
CPT/HCPCS: 49615; 00752; 36415; 80048; 85027; 88302; 93005; J7120; J2405

== ENCOUNTER → 2023-04-03 | Outpatient (CLI) | payer MEDICAID, SELFPAY ==
--- OUTSIDE RECORDS SUMMARY | 2023-04-03 08:38 | XMS RPT_ITS | CCD ---
Author Name Unknown Address [address] [facility] [address] [place] [id number] Organization [facility] Care Team Providers Care Entry Analyst Name Role Phone JW GARZA Unavailable Unavailable JW GARZA Unavailable Unavailable KAYLEN ROSE) Unavailable Unavailabl e Problems Active Problems Problem Classification Problem Date Documented Da te Episodic/Chronic Other nervous system disorders (1 source) Other chronic pain; Translations: [Other chronic pain] Onset: 01-27-2017 Chronic Spondylosis; intervertebral disc disorders; other back problems (2 sources) Other cervical disc degeneration, unspecified cervical region; Translations: [Spondylosis without myelopathy or radiculopathy, lumbar region] Onset: 01-27-2017 Chronic Past or Other Problems Problem Classification Problem Date Documented Da te Episodic/Chronic Spondylosis; intervertebral disc disorders; other back problems (2 sources) Cervicalgia; Translations: [Lumbago with sciatica, right side] Onset: 01-27-2017 Episodic Results Test Name Value Interpretation Reference Range Facil ity Encounters Encounter Date Encounter Type Care Provider Facility Start: 11-17-2017 End: 11-18-2017 Patient encounter KAYLEN ROSE [facility] Start: 01-27-2017 End: 01-27-2017 Patient encounter JW GARZA [facility] Start: 01-27-2017 End: 02-01-2017 Patient encounter JW GARZA [facility] Summary Purpose Family History No Family History Records Found Advance Directives No Advanced Directives Records Found Additional Source Comments (unrecognized sect ion and content) No Status Records Found INFORMATION SOURCE (unrecogn ized section and content) FOR RECORDS PERTAINING TO PATIENTS WHO ARE OR HAVE BEEN ENROLLED IN A CHEMICAL DEPENDENCY/SUBSTANCEABUSE PROGRAM, SOME INFORMATION MAY BE OMITTED. This clinical summary was aggregated from multiple sources. Caution should be exercised in using it in the provision of clinical care. This summary normalizes information from multiple sources, and as a consequence, information in this document may materially change the coding, format and clinical context of patient data. In addition, data may be omitted in some cases. CLINICAL DECISIONS SHOULD BE BASED ON THE PRIMARY CLINICAL RECORDS. [employer] [facility]. provides no warranty or guarantee of the accuracy or completeness of information in this document.
--- NOTE | 2023-04-03 08:46 | MRI_ITS ---
EXAM: MR RIGHT UPPER EXTREMITY WITHOUT INTRAVENOUS CONTRAST, SHOULDER CLINICAL INDICATION: rule out cuff tear, PAIN, LIMITED ROM, WEAKNESS RT TECHNIQUE: Multiplanar and multisequence MR images of the right shoulder without intravenous contrast. COMPARISON: Right shoulder radiographs, 03/04/2023. FINDINGS: TENDONS: SUPRASPINATUS: Articular sided signal abnormality in the distal supraspinatus tendon suggesting articular sided partial-thickness tear versus insertional tendinopathy. INFRASPINATUS: No significant abnormality. Intact. SUBSCAPULARIS: There appears to be signal abnormality within the articular side of the distal subscapularis tendon particularly the proximal insertion perhaps secondary to partial tear and/or tendinopathy. TERES MINOR: No significant abnormality. Intact. BICEPS BRACHII, LONG HEAD: Minimal fluid surrounding the extra-articular biceps tendon suggesting tenosynovitis. Abnormal signal within the intra-articular biceps tendon particularly at the biceps labral junction suggesting intra-articular biceps tendinopathy. The extra-articular biceps tendon is in the bicipital groove. LIGAMENTS: GLENOHUMERAL: No significant abnormality. Intact. MUSCLES: No significant abnormality. No rotator cuff muscle atrophy. FLUID: Small glenohumeral joint effusion. No subacromial-subdeltoid space bursal fluid. CARTILAGE: No significant abnormality. Articular cartilage intact. GLENOID LABRUM: No significant abnormality. Intact, limited evaluation on non-arthrographic exam. BONES/JOINTS: Moderate acromioclavicular joint arthrosis. No fracture. No abnormal bone marrow signal. OTHER SOFT TISSUES: No significant abnormality. No rotator interval edema. MRI/Upper Ext Joint Only(Routine) IMPRESSION: 1. Articular sided signal abnormality in the distal supraspinatus tendon suggesting articular sided partial-thickness tear versus insertional tendinopathy. 2. Minimal fluid surrounding the extra-articular biceps tendon suggesting tenosynovitis. 3. There appears to be signal abnormality within the articular side of the distal subscapularis tendon particularly the proximal insertion perhaps secondary to partial tear and/or tendinopathy. 4. Abnormal signal within the intra-articular biceps tendon particularly at the biceps labral junction suggesting intra-articular biceps tendinopathy. 5. Moderate acromioclavicular joint arthrosis. 6. Small glenohumeral joint effusion. Electronically Signed: Darell Hayward DO at 16:33 EST ,
== END | disposition home or self-care (01) ==
LOC: MRI 08:36
PROVIDERS: PCP Family Medicine; Referring Provider Orthopaedic Surgery Sports Medicine; Visit Provider Orthopaedic Surgery Sports Medicine
DX: M25.811 Other specified joint disorders, right shoulder (principal); M25.511 Pain in right shoulder
CPT/HCPCS: 73221

== ENCOUNTER 2023-04-07 00:32 | Emergency (ER) | payer MEDICAID, SELFPAY ==
[2023-04-07 00:33] VITALS: BP 138/81; PULSE 90; RESP 18; TEMP 35.8; O2SAT 98; BMI 33.5
--- NOTE | 2023-04-07 01:00 | RAD_ITS ---
EXAM: XR RIGHT HAND COMPLETE, 3 OR MORE VIEWS CLINICAL INDICATION: pain TECHNIQUE: Frontal, lateral and oblique views of the right hand. COMPARISON: February 09, 2014. FINDINGS: BONES/JOINTS: There is fracture of the distal fifth metacarpal with mildly angulated contour of the articular surface of the distal fifth metacarpal and partially seen lucent fracture lines on the frontal views, not confirmed on the other views. There is stable appearance of the fifth digit amputation stump at the distal proximal phalanx level. Decreased soft tissue swelling over the amputation stump. No soft tissue gas. Preservation of the joint space. SOFT TISSUES: Mild medial soft tissue swelling. RAD/Hand Min 3 Views IMPRESSION: Subtle fracture involving the distal fifth metacarpal. It is only seen on the frontal view but appears convincing and new from 2014. Please correlate with trauma. Electronically Signed: Natalya Mcmahon MD at 2:30 EST ,
--- OUTSIDE RECORDS SUMMARY | 2023-04-07 01:06 | XMS RPT_ITS | CCD ---
Author Name Unknown Address [address] [facility] [address] [place] [id number] Organization [facility] Care Team Providers Care Grocery Sacker Name Role Phone JW GARZA Unavailable Unavailable [...] 11-17-2017 End: 11-18-2017 Patient encounter KAYLEN ROSE [facility] Start: 01-27-2017 End: 01-27-2017 Patient encounter JW GARZA [facility] Start: 01-27-2017 End: 02-01-2017 Patient encounter JW GARZA [facility] Summary Purpose Family History No Family [...] BE BASED ON THE PRIMARY CLINICAL RECORDS. [employer] [facility]. provides no warranty or guarantee of the accuracy or completeness of information in this document.
--- NOTE | 2023-04-07 01:36 | EDS_ITS ---
HPI History of Present Illness Chief Complaint: Upper Extremity Injury Informant: patient Narrative Narrative: Patient is a 52-year-old male with past medical history of GERD and obstructive sleep apnea as well as hyperlipidemia and CAD. He reports that he was running towards the bathroom roughly 30 minutes to 1 hour prior to arrival when he accidentally struck his right hand into the door jam. He states he had sudden pain and swelling. He denies any history of bleeding disorder or blood thinner use. He states he is concern for fracture based on the pain and swelling and with this comes in for evaluation [facility] Medical History (Updated 04/07/23 @ 02:[address] Anthony Hoang, DO) Arthritis Atherosclerotic heart disease of [place] coronary artery without angina pectoris Back pain Cardiology follow-up encounter Chronic cough Chronic pain Coronary artery disease Depression Gastric reflux High cholesterol History of amputation of finger History of echocardiogram History of left heart catheterization (LHC) (~01/30/20) History of [place] (myocardial infarction) History of stress test Hyperlipidemia, unspecified Hypertension Impingement of right shoulder Injury of head and neck Marijuana use Myocardial infarct Narcolepsy Presence of stent in coronary artery (~11/18/19) Right shoulder pain Sleep apnea Smoker Smoker Substance abuse Vomiting Wears dentures Home Medications aspirin 81 mg tablet,delayed release 81 mg PO DAILY 03/04/23 [History Last Taken Unknown] oxycodone-acetaminophen 5 mg-325 mg tablet (Percocet) 1 tab PO Q6H PRN pain 3 days #12 tabs 04/07/23 [Rx Last Taken Unknown] Allergy/AdvReac Type Severity Reaction Status Date / Time metronidazole [From Flagyl] AdvReac Vomiting Verified 04/07/23 00:33 tetracycline AdvReac Vomiting Verified 04/07/23 00:33 Family History Father Heart disease Myocardial infarction Cancer esophageal Mother Cirrhosis Brother CVA (cerebral vascular accident) Surgical History History of cardiac catheterization History of coronary artery stent placement (~09/2019) History of hand surgery History of nasal surgery S/P hernia repair S/P repair of ventral hernia S/P small bowel resection Social History Smoking Status: Heavy Smoker (>10/day) alcohol intake: never substance use type: marijuana caffeine: Yes Type: carbonated beverages Number of servings: 4 and coffee Number of servings: 2 ROS ROS ED Constitutional Constitutional ED: Denies chills or fever(s) ENT ENT ED: Denies sore throat Cardiovascular Cardiovascular: Denies chest pain Respiratory/Chest Respiratory/Chest: Denies cough or dyspnea Gastrointestinal Gastrointestinal: Denies abdominal pain, diarrhea, nausea or vomiting Genitourinary Genitourinary ED: Denies dysuria Musculoskeletal Musculoskeletal: Reports other Details: Positive right hand pain Integumentary Reports other Details: Positive right hand hematoma ; Denies rash Neurologic Neurologic: Denies headache(s), paresthesias or weakness Hematologic/Lymphatic Hematologic/Lymphatic: Denies easy bleeding or easy bruising EXAM Physical Exam Const Vital Signs: 04/07/23 00:33 Temperature 96.4 F L Temperature Source Temporal Pulse Rate 90 Respiratory Rate 18 Blood Pressure 138/81 H Blood Pressure Mean 100 Pulse Ox 98 Positive well nourished and well developed General Appearance ED: well developed HEENT HEENT Narrative: Normocephalic atraumatic Eyes PERRL and EOMs intact bilaterally Neck full ROM and supple Resp normal respiratory effort Resp Narrative: Breath sounds are diminished throughout with rhonchi in the bilateral bases consistent with history of smoking Cardio regular rate and regular rhythm Extremity Extremity Narrative: Right upper extremity is neurovascularly intact. Patient has previous amputation of his right 5th middle and distal phalanx. There is soft tissue swelling with hematoma to the dorsal aspect of the right hand over top the fifth metacarpal. There is pain with palpation at the site. Obvious bony deformity or joint effusion. No pain in the anatomical snuffbox. Remainder of the exam is normal Neuro oriented x3 and CN's II-XII intact bilaterally Sensorium / Orientation: alert Psych mental status grossly normal Skin Skin Narrative: Soft tissue swelling with hematoma to the dorsal aspect of the right hand as documented above MDM MDM MDM Narrative Medical decision making narrative: Patient presented to the ER with a direct trauma to the right hand and concern for fracture. Differential diagnosis is for fracture versus contusion. Secondary to this an x-ray was obtained. By exam there is no pain in the anatomical snuffbox going against scaphoid injury and there is no injury to the digits or wrist going against a ligamentous or tendon injury either. X-ray of the hand showed a slightly displaced fracture to the head of the fifth metacarpal which correlates with his history and swelling and hematoma. He is closed and neurovascularly intact so there is no need for emergent orthopedic consultation. He was placed in a Ortho-Glass splint for stabilization and is otherwise safe for discharge Patient had a 3 inch Ortho-Glass ulnar gutter splint placed to the right hand. Splint fit with good approximation and stabilization of the fracture fragment. Following application capillary refill remained less than 3 seconds. History & Record Review Discussion w/independent historian: Patient Radiography Diagnostic Testing: X-ray of the right hand as interpreted by the emergency medicine physician rev vasquezls a minimally displaced fracture to the head of the fifth metacarpal Discharge Plan Triage Chief Complaint: Upper Extremity Injury ED Provider: Anthony Hoang Dx/Rx/DC Orders Clinical Impression: Fracture of fifth metacarpal bone of right hand, RUMA (obstructive sleep apnea), Hyperlipidemia, unspecified, Smoker Instructions: ED Boxer Fracture, ED Splints and Casts Prescriptions: New oxycodone-acetaminophen [Percocet] 5-325 mg tablet 1 tab PO Q6H PRN (Reason: pain) 3 Days Qty: 12 0RF No Action aspirin 81 mg tablet,delayed release (DR/EC) 81 mg PO DAILY Patient Comments: TAKE 1 TABLET BY MOUTH DAILY Primary Care Provider: Destiney Gilmore Referrals: Destiney Gilmore MD [Primary Care Provider] - Pradeep Jamison MD [Med Staff - Active Staff] - Activity Restrictions/Additional Instructions: Your x-ray shows that you broke the fifth metacarpal bone in your hand. Keep your splint on for stabilization but follow-up with your orthopedic doctor to discuss need for casting. If you have any further concerns please return for repeat evaluation Disposition Disposition: Home, Self Care Discharge Date/Time: 04/07/23 01:45 Capacity Legal Perinatal Director Reflex Medical hold order details:: IF a medical hold is selected below, a suggested order for a MEDICAL HOLD will reflex upon signing the document. Next of kin: [place] law dictates a PRIORITY LIST for identifying legal decision-maker/legal next of kin in the following order (LNOK): 1st: The patient?s legal guardian, if any 2nd: The patient's spouse (if status is questionable, consult Risk Management) 3rd: The patient?s adult child(brian) (majority, if multiple children) 4th: The patient?s parents 5th: The patient?s adult siblings (majority, if multiple children siblings)
[2023-04-07] MEDS: Oxycodone/Apap 5/325 Tablet PO (01:40)
== END 2023-04-07 01:45 | disposition home or self-care (01) ==
PROVIDERS: Emergency Provider Emergency Medicine; PCP Family Medicine; Visit Provider Emergency Medicine
DX: S62.396A Other fracture of fifth metacarpal bone, right hand, initial encounter for closed fracture (principal); W22.09XA Striking against other stationary object, initial encounter; Y93.02 Activity, running; E78.00 Pure hypercholesterolemia, unspecified; I25.10 Atherosclerotic heart disease of native coronary artery without angina pectoris; K21.9 Gastro-esophageal reflux disease without esophagitis; G47.33 Obstructive sleep apnea (adult) (pediatric); I25.2 Old myocardial infarction; F17.200 Nicotine dependence, unspecified, uncomplicated; Z79.82 Long term (current) use of aspirin; Z95.5 Presence of coronary angioplasty implant and graft; Z89.021 Acquired absence of right finger(s)
CPT/HCPCS: 29125; 73130; 99282

== ENCOUNTER 2023-05-19 10:42 | Day surgery (SDC) | payer MEDICAID, SELFPAY ==
[2023-05-05 12:36] LABS: Hematocrit 50.1 % (40-54); Hemoglobin 17.3 g/dL (13.0-16.5); Mean Corp Hgb Conc 34.5 g/dL (32-36); Mean Corpuscular Hgb 32.2 pg (27.0-32.0); Mean Corpuscular Volume 93.3 fL (80-94); Platelet Count 245 K/mm3 (150-450); RBC Distribution Width CV 13.2 % (11.6-14.6); Red Blood Count 5.37 M/mm3 (4.6-6.2); White Blood Count 8.1 K/mm3 (4.4-11.0)
[2023-05-05 13:02] LABS: Anion Gap 5 (5-15); BUN 7 mg/dL (7-18); BUN/Creat Ratio 7.4 RATIO (10-20); Calcium,Total 9.1 mg/dL (8.5-10.1); Chloride 107 mmol/L (98-107); Creatinine, Serum 0.95 mg/dL (0.70-1.30); EST Glomerular Filtration Rate 88 mL/min (>60); Est Glom Filt Rate - Afr Amer 106 mL/min (>60); Glucose 92 mg/dL (74-106); Potassium 3.9 mmol/L (3.5-5.1); Sodium Level 142 mmol/L (136-145)
[2023-05-19] VITALS (12 sets, daily range): BP systolic 108–142; BP diastolic 69–99; PULSE 79–98; RESP 16–18; TEMP 36.1–36.7; O2SAT 91–95; BMI 31.9
[2023-05-19] MEDS: Lactated Ringers 1,000 ML 15 ML IV (11:18)
[2023-05-19] MEDS: Ipratropium/Albuterol Sulfate 3 ML AMPUL.NEB INHALATION (11:40)
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
[2023-05-19] MEDS: Cefazolin 2 GM in 0.9% Normal Saline (100mL Bag) 100 ML IV (14:44)
[2023-05-19] MEDS: Epinephrine (1 mg/ml) 1 MG/ML VIAL (15:33)
--- NOTE | 2023-05-19 15:43 | PCM.OPRPT ---
Problems Associated Problem List Diagnoses (1) SLAP lesion of right shoulder: (2) Right rotator cuff tear: (3) Impingement of right shoulder: (4) Right shoulder pain: Report of Operation Date of Procedure: 05/19/23 Pre-Operative Diagnosis: Right shoulder impingement syndrome rotator cuff tear possible SLAP tear Post-Operative Diagnosis: Right shoulder impingement syndrome rotator cuff tear SLAP tear and hypertrophy of the proximal long head of the biceps tendon and rotator cuff tear Surgery/Procedure Performed:: Right shoulder arthroscopy, subacromial decompression, rotator cuff repair, open subpectoral biceps tenodesis Surgeon: Pradeep Jamison Type of Anesthesia: Block,Regional and General Anesthesiologist: Adonis Holley Estimated Blood Loss (mL): 25 Description of Procedure: Patient brought to the operating room theater. Placed supine on the table. 2 g IV Ancef administered prior to the procedure. General anesthesia induced. Patient transferred right side up lateral decubitus beanbag positioner axillary roll used all bony prominences padded. SCDs on the legs. Upper extremity prepped and draped in the usual sterile fashion with chlorhexidine-based prep solution allowing over 3 minutes drying time prior to draping. Arm in an arm positioner 10 pounds of inline traction with the arm in 35 degrees of abduction. Preoperative timeout performed to confirm the site patient and the surgery. Began by inserting the arthroscope into the intra-articular portion of the shoulder through a standard posterior arthroscopy portal. Did a full diagnostic arthroscopy. Biceps was hypertrophic partially torn and had a tear at the superior labrum as well. They made inside out spinal needle localization portal through the anterior rotator interval just posterior to the biceps tendon. I performed a biceps tenotomy in preparation for the tenodesis. There is fraying of the labrum I gently debrided this as well. Subscapularis appeared normal. There is 1 area in the mid to anterior aspect of the supraspinatus tendon that appeared thin from the undersurface. I made note of this. No loose bodies axillary recess was normal cartilage on the humeral head and glenoid mostly appeared normal perhaps some slight grade 1 changes on the glenoid side. Scope withdrawn pictures taken throughout the case saved onto the system. I inserted the arthroscope into the subacromial space. There is a moderate amount of bursitis slightly inflammatory in nature. I debrided this removed it down to the gutters. I performed a subacromial decompression for burst with approximately 3 to 4 mm down to flat margins. I probed the superior aspect of humeral head and the spot where I was suspicious for partial-thickness tear and this was a thin in that area. Therefore I did a trans tendon knotless suture bridge configuration with the Arthrex all suture knotless anchors anterior and posterior to the tear which I marked of the probe. I used the passing suture with the repair stitch in a knotless configuration to create a horizontal mattress with 2 limbs across the tear site. This was stable and solid and I cut the suture short. I had also inserted and made a lateral based portal with a cannula. I remove these. Next I turned my attention to the biceps tenodesis part of the operation. I made a small 1.5 inch incision centered over the proximal medial aspect of the anterior humerus. Carried the dissection down through skin and subcutaneous tissue achieved meticulous hemostasis. I worked to just distal to the pectoralis major insertion and medial to the short head of the biceps. Identified long head of the biceps deliver this through the incision. I used the Arthrex tension tight biceps metal button. I used the luggage tag #5 braided suture nonabsorbable standard fashion and then the passed the suture distally from the anterior to posterior. I then passed the suture through the button. Identified the mid aspect of the humerus. I drilled a unicortical hole irrigated the bone fragments. I then passed the button flipped the button and delivered the tendon to the repair site and cut the suture short in a knotless configuration. All wounds thoroughly irrigated. Subcutaneous tissue closed with 2-0 Vicryl suture and skin with 3-0 Monocryl. Skin cleaned with wet dry dressing followed application of Steri-Strips Adaptic 4 x 4 gauze ABD dressing cloth tape and a sling for the upper extremity. Patient woken up from a general anesthetic transferred off the operating table and taken postanesthetic care unit in stable condition. All sponge needle instrument counts were correct no complications. cpt 60195, 31679, 77409, 06481? Complications none Admit VTE Documentation VTE Present on Admission: No VTE Mechan Device Prophylaxis: SCD's VTE Pharm Prophylaxis ordered?: No Reason prophylaxis not ordered:: Treatment Not Indicated Procedures Musculoskeletal 20xxx-29xxx: Other Procedure See Report
--- NOTE | 2023-05-19 15:50 | DCINST_ITS ---
Discharge Instructions Diet Discharge Diet: No restrictions Activity Lifting Restrictions: pendulums only 4x/day, ok to remove sling Additional Activity Instructions:: no lifting over 1 pound with shoulder or elbow, ok for hand use Dressing / Incision Call your doctor if your incision/area has: Continuous Slow Oozing, Sudden Increased Bleeding, Increased Pain/ Swelling, Increased Redness, Foul Smelling Discharge and Swelling at the incision site Remove Dressing in: leave in place till F/U Follow Up Care Please Follow Up With: Pradeep Jamison MD When: 2 days Test Results: Test results from this visit will be discussed in further detail at your follow- up appointment, if applicable. Discharge Plan Admission Attending Provider: Pradeep Jamison Primary Care Provider: Destiney Gilmore Consulting Providers: Milton Villa Instructions Patient Instructions: After Shoulder Arthroscopy Discharge Orders/Prescriptions Prescriptions: New oxycodone-acetaminophen [Percocet] 5-325 mg tablet 1 tab PO Q4H MDD 6 PRN (Reason: pain) 5 Days Qty: 30 0RF No Action aspirin 81 mg tablet,delayed release (DR/EC) 81 mg PO DAILY Patient Comments: TAKE 1 TABLET BY MOUTH DAILY Referrals / Follow Up: Destiney Gilmore MD [Primary Care Provider] - Pradeep Jamison MD [Med Staff - Active Staff] - Disposition Disposition (needs filled in before D/C Order can be placed): Home, Self Care
--- OUTSIDE RECORDS SUMMARY | 2023-05-19 20:45 | XMS RPT_ITS | CCD ---
Author Name Unknown Address [address] [facility] [address] [place] [id number] Organization [facility] Care Team Providers Care Arc Air Operator Name Role Phone JW GARZA Unavailable Unavailable [...] 11-17-2017 End: 11-18-2017 Patient encounter KAYLEN ROSE [facility] Start: 01-27-2017 End: 01-27-2017 Patient encounter JW GARZA [facility] Start: 01-27-2017 End: 02-01-2017 Patient encounter JW GARZA [facility] Summary Purpose Family History No Family [...] BE BASED ON THE PRIMARY CLINICAL RECORDS. [facility]. provides no warranty or guarantee of the accuracy or completeness of information in this document.
== END 2023-05-19 18:19 | disposition home or self-care (01) ==
LOC: SDC 10:44 → AC 10:45
PROVIDERS: Anesthesiology; PCP Family Medicine; Referring Provider Orthopaedic Surgery Sports Medicine; Visit Provider Orthopaedic Surgery Sports Medicine
PROC: (CPT 29805; principal; 2023-05-19 12:20)
DX: S43.431A Superior glenoid labrum lesion of right shoulder, initial encounter (principal); M75.101 Unspecified rotator cuff tear or rupture of right shoulder, not specified as traumatic; M75.41 Impingement syndrome of right shoulder; I25.10 Atherosclerotic heart disease of native coronary artery without angina pectoris; E78.00 Pure hypercholesterolemia, unspecified; G47.30 Sleep apnea, unspecified; I10 Essential (primary) hypertension; G47.419 Narcolepsy without cataplexy; S62.306D Unspecified fracture of fifth metacarpal bone, right hand, subsequent encounter for fracture with routine healing; W22.8XXD Striking against or struck by other objects, subsequent encounter; F17.200 Nicotine dependence, unspecified, uncomplicated; Z79.82 Long term (current) use of aspirin
CPT/HCPCS: 29827; 29826; 23430; 64415; 36415; 80048; 85027; 94640; C1713; J7120; J2405

== ENCOUNTER 2023-09-06 14:30 | Outpatient (RCR) | payer MEDICAID, SELFPAY ==
--- NOTE | 2023-09-06 16:10 | HP.PTREVAL ---
Re-Evaluation Intro: Dr. Pradeep Jamison MD, It has been my pleasure to treat ARTURO STEVENSON over the last 18 visits for R SAD, RC repair, Biceps tenodesis (open) 05-19-23. Please see the progress note below for an update on the physical therapy plan of care! Subjective Subjective: Pt just came from the Dr and he said to continue PT. Certain movements cause pain. He can sleep on his R shoulder and he is sore in the AM Objective Objective/Function: R shoulder flex 142 and R shoulder ABD 162 R shoulder ER 54 and R shoulder IR T12 R shoulder flex 4/5 and ABD 4-/5 and ER 4-/5 and IR 4/5 Pt still has pain with most movements and daily stiffness Plan Plan Plan: Dr is faxing our office an order to continue PT Balance/Gait/Functional tests Balance/Special Test Scores Quick DASH Score: 18.1800 Goals Goals Goal 1:: I HEP Goal Time Frame: 4-6 Weeks Goal 2:: Increase R shoulder AROM to full AROM by 12 weeks Goal Time Frame: 4-6 Weeks Goal Progress: Progressing Goal 3:: Be able to use his R shoulder without any pain or weakness Goal Time Frame: 4-6 Weeks Goal Progress: Progressing Anticipated Interventions Anticipated Interventions Patient/Client Instruction: Educate patient on: Condition and Plan of Care For the Purpose of:: To decrease pain, To decrease swelling/inflammation, To increase ROM, To improve nutrient delivery to tissue, To improve muscle performance and motor function, To improve ability to perform ADL's, To improve performance and independence with ADL's, To improve health of tissue, To decrease soft tissue restriction and To increase flexibility/ROM Therapeutic Exercise to Include: Strength training, Postural training, Flexibilty training, Passive ROM, Active ROM and Scapular Strength/Stabilization For the Purpose of:: To decrease pain, To decrease swelling/inflammation, To increase ROM, To improve nutrient delivery to tissue, To improve muscle performance and motor function, To improve ability to perform ADL's, To increase tolerance to activity/condition/position, To improve performance and independence with ADL's, To decrease level of supervision to perform tasks, To improve ability of physical actions for home/community/work/leisure, To improve health of tissue, To decrease soft tissue restriction and To increase flexibility/ROM Manual Therapy Techniques to Include: Passive ROM For the Purpose of:: To increase ROM Cryotherapy (ice pack, ice massage): Yes Thermo therapy (hot pack): Yes For the Purpose of:: To decrease pain, To decrease swelling/inflammation, To increase ROM, To improve nutrient delivery to tissue and To improve muscle performance and motor function Re-Evaluation Ending Re-evaluation ending: Please do not hesitate to contact me at [phone] by phone or if you have questions or concerns regarding this new plan of care! Sincerely, Veronica Acosta, MPT
== END 2023-09-06 19:00 | disposition home or self-care (01) ==
LOC: PT 14:30
PROVIDERS: PCP Family Medicine; Referring Provider Orthopaedic Surgery Sports Medicine; Visit Provider Orthopaedic Surgery Sports Medicine
DX: S43.431D Superior glenoid labrum lesion of right shoulder, subsequent encounter (principal); M75.101 Unspecified rotator cuff tear or rupture of right shoulder, not specified as traumatic; M25.811 Other specified joint disorders, right shoulder; M25.511 Pain in right shoulder
CPT/HCPCS: 97110; 97140; 97161; 97530